=== PATIENT | female | born 1970 | race American Indian/Alaskan Native ===

== ENCOUNTER 2017-11-15 14:15 | Inpatient (IN) | payer OTHER ==
--- NOTE | 2017-11-15 15:19 | EDM.PDOC ---
ED HPI GENERAL MEDICAL PROBLEM - General Chief Complaint: Abdominal Pain Stated Complaint: ABDOMINAL PAINS Time Seen by Provider: 11/15/17 15:19 Source of Information: Reports: Patient History Limitations: Reports: No Limitations - History of Present Illness INITIAL COMMENTS - FREE TEXT/NARRATIVE: Patient is a 47-year-old female with a history of type 2 diabetes on metformin. Patient states this past Monday started experiencing chills, headache, body aches, coughing described as dry and nonproductive, and low appetite. She was seen by her primary care provider with labwork obtained indicating she had low hemoglobin. She was referred to the ED for further evaluation and treatment. Patient states she vomited 1 this morning of coffee-ground emesis. No stella red blood. No dark tarry stools present she has no history of upper GI bleed. She does have some acid reflux described as burning sensation to the epigastric region. She has no history of peptic ulcer disease. It in addition has no history of EGD or colonoscopy. She was prescribed by her PCP ibuprofen 800 mg every 8 hours when necessary to which she's been taking. In addition she's taken prednisone 10 mg every day. She is on Tessalon Perles and also amoxicillin. She does feel dizzy with standing. No history of prior symptoms. She has mild shortness of breath with exertion. There is a first degree relative heart disease dad. As of today denies any fever, sore throat, dysuria, or any additional complaints. 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: lab work at [facility] Upper Abdomen Pain Score (Numeric/FACES): 8 - Related Data Allergies Allergy/AdvReac Type Severity Reaction Status Date / Time codeine Allergy Itching Verified 11/15/17 23:29 metronidazole [From Flagyl] Allergy Itching Verified 11/15/17 23:29 Home Meds: Home Meds Amoxicillin 500 mg PO BID 11/15/17 [History] Benzonatate [Tessalon Perle] 100 mg PO Q4H PRN 11/15/17 [History] Ibuprofen [Motrin] 1,600 mg PO Q8H PRN 11/15/17 [History] Prednisone [IJD: Prednisone] 10 mg PO DAILY 11/15/17 [History] Past Medical History Gastrointestinal History: Reports: GERD Endocrine/Metabolic History: Reports: Diabetes, Type II Hematologic History: Reports: Anemia - Past Surgical History GI Surgical History: Reports: Cholecystectomy Social & Family History - Tobacco Use Smoking Status *Q: Current Every Day Smoker Years of Tobacco use: 10 Packs/Tins Daily: 0.1 - Caffeine Use Caffeine Use: Reports: Coffee, Soda - Recreational Drug Use Recreational Drug Use: No ED ROS GENERAL - Review of Systems Review Of Systems: ROS reveals no pertinent complaints other than HPI. ED EXAM, GI/ABD - Physical Exam Exam: See Below Exam Limited By: No Limitations General Appearance: Alert, WD/WN, No Apparent Distress Ears: Hearing Grossly Normal Nose: Normal Inspection Throat/Mouth: Normal Inspection, Normal Oropharynx, Normal Voice, No Airway Compromise Neck: Normal Inspection, Supple Respiratory/Chest: No Respiratory Distress, Lungs Clear, Normal Breath Sounds, Chest Non-Tender Cardiovascular: Normal Peripheral Pulses, Regular Rate, Rhythm, No Murmur GI/Abdominal Exam: Normal Bowel Sounds, Soft, No Organomegaly, No Distention, Tender (epigastric pain with palpation. Patient has no gallbladder.) Back Exam: Normal Inspection. No: CVA Tenderness (L), CVA Tenderness (R) Extremities: Normal Inspection, Normal Range of Motion, Non-Tender, No Pedal Edema Neurological: Alert, Oriented, CN II-XII Intact, Normal Cognition, No Motor/ Sensory Deficits Psychiatric: Normal Affect, Normal Mood Skin Exam: Warm, Dry, Intact, Normal Color Course - Vital Signs Last Recorded V/S: Last Vital Signs Temp 98.2 F 11/16/17 08:30 Pulse 72 11/16/17 08:30 Resp 16 11/16/17 08:30 BP 94/48 L 11/16/17 08:34 Pulse Ox 95 11/16/17 09:46 Orthostatic Blood Pressure [ 113/57 Standing] Orthostatic Blood Pressure [ 110/51 Sitting] Orthostatic Blood Pressure [ 123/59 Supine] - Orders/Labs/Meds Orders: Active Orders 24 hr Category Date Time Status Ambulate [RC] ASDIRECTED Care 11/15/17 19:06 Active EKG Documentation Completion [RC] STAT Care 11/15/17 15:37 Active Height and Weight [RC] 04 Care 11/15/17 19:06 Active Intake and Output [RC] 04,16 Care 11/15/17 19:06 Active Oxygen Therapy [RC] PRN Care 11/15/17 19:06 Active RT Aerosol Therapy [RC] ASDIRECTED Care 11/15/17 19:09 Active Up ad Elizabeth [RC] ASDIRECTED Care 11/15/17 19:06 Active VTE/DVT Education [RC] PER UNIT ROUTINE Care 11/15/17 19:06 Active Vital Signs [RC] Q4H Care 11/15/17 19:06 Active Consult to Case Management [CONS] Routine Cons 11/15/17 19:10 Active Consult to Land Leveler [CONS] Routine Cons 11/15/17 19:10 Active Regular Diet [DIET] Diet 11/15/17 Dinner Active BASIC METABOLIC PANEL,BMP [CHEM] AM Lab 11/17/17 05:11 Ordered BASIC METABOLIC PANEL,BMP [CHEM] AM Lab 11/18/17 05:11 Ordered BASIC METABOLIC PANEL,BMP [CHEM] AM Lab 11/19/17 05:11 Ordered C-REACTIVE PROTEIN [CHEM] AM Lab 11/17/17 05:11 Ordered C-REACTIVE PROTEIN [CHEM] AM Lab 11/18/17 05:11 Ordered C-REACTIVE PROTEIN [CHEM] AM Lab 11/19/17 05:11 Ordered CULTURE SPUTUM + SMEAR [RM] Stat Lab 11/16/17 03:00 Ordered INFLUENZA A+B AG SCREEN [RM] Stat Lab 11/15/17 21:45 Ordered MAGNESIUM [CHEM] AM Lab 11/17/17 05:11 Ordered MAGNESIUM [CHEM] AM Lab 11/18/17 05:11 Ordered MAGNESIUM [CHEM] AM Lab 11/19/17 05:11 Ordered RESPIRATORY PANEL BY PCR [MREF] Stat Lab 11/15/17 21:45 Received Acetaminophen [Tylenol] Med 11/15/17 19:06 Active 650 mg PO Q4H PRN Acetaminophen/HYDROcodone [[place] 325-5 MG] Med 11/15/17 19:06 Active 1 tab PO Q4H PRN Albuterol/Ipratropium [DuoNeb 3.0-0.5 MG/3 ML] Med 11/15/17 19:06 Active 3 ml NEB Q4H PRN Ascorbic Acid [Vitamin C] Med 11/16/17 09:00 Active 250 mg PO DAILY Benzonatate [Tessalon Perles] Med 11/15/17 21:00 Active 100 mg PO Q4H PRN Bisacodyl [Dulcolax] Med 11/15/17 19:06 Active 5 mg PO DAILY PRN Cyanocobalamin (Vitamin B12) [Vitamin B12] Med 11/16/17 21:00 Active 1,000 mcg PO DAILY Dextromethorphan/guaiFENesin [Robitussin DM] Med 11/15/17 19:17 Active 10 ml PO Q4H PRN Docusate Sodium [Colace] Med 11/15/17 19:06 Active 100 mg PO BID PRN Docusate Sodium/Sennosides [Senna Plus] Med 11/15/17 19:06 Active 1 tab PO BID PRN Folic Acid Med 11/15/17 21:00 Active 1 mg PO BEDTIME LORazepam [Ativan] Med 11/15/17 19:05 Active 2 mg IVPUSH Q4H PRN Magnesium Rep Pharmacy to Dose [Pharmacy to Dose - Med 11/15/17 19:15 Active Magnesium Replacement] 1 dose .XX ASDIRECTED Metoprolol Tartrate [Lopressor] Med 11/15/17 19:05 Active 5 mg IVPUSH Q4H PRN Multivitamins,Therapeutic [Thera] Med 11/15/17 21:00 Active 1 each PO BEDTIME Nicotine [Habitrol] Med 11/15/17 19:14 Active 14 mg TRDERM DAILY PRN Ondansetron [Zofran] Med 11/15/17 19:06 Active 4 mg IV Q6H PRN Polyethylene Glycol 3350 [MiraLAX] Med 11/15/17 19:06 Active 17 gm PO DAILY PRN Potassium Rep Pharmacy to Dose [Pharmacy to Dose - Med 11/15/17 19:15 Active Potassium Replacement] 1 dose .XX ASDIRECTED Promethazine [Phenergan] 12.5 mg Med 11/15/17 19:06 Active Sodium Chloride 0.9% [Normal Saline] 50 ml IV Q6H Sodium Chloride 0.9% [Normal Saline] 1,000 ml Med 11/15/17 19:15 Active IV ASDIRECTED Temazepam [Restoril] Med 11/15/17 19:06 Active 15 mg PO BEDTIME PRN Thiamine [Vitamin B-1] Med 11/15/17 21:00 Active 100 mg PO BEDTIME hydrALAZINE [Apresoline] Med 11/15/17 19:05 Active 20 mg IVPUSH Q4H PRN Sequential Compression Device [OM.PC] Per Unit Routine Oth 11/15/17 19:06 Ordered Resuscitation Status Routine Resus Stat 11/15/17 19:06 Ordered Medication Orders Acetaminophen (Tylenol) 650 mg PO Q4H PRN PRN Reason: Pain (Mild 1-3)/fever Acetaminophen/Butalbital/Caffeine (Fioricet 325-50-40 Mg) 1 tab PO Q6H PRN PRN Reason: Headache Hydrocodone Bitart/Acetaminophen ([place] 325-5 Mg) 1 tab PO Q4H PRN PRN Reason: Pain (moderate 4-6) Albuterol/Ipratropium (Duoneb 3.0-0.5 Mg/3 Ml) 3 ml NEB Q4H PRN PRN Reason: Shortness Of Breath/wheezing Last Admin: 11/16/17 09:46 Dose: 3 ml Amoxicillin (Amoxil) 1,000 mg PO BID [facility] Last Admin: 11/16/17 08:24 Dose: 1,000 mg Ascorbic Acid (Vitamin C) 250 mg PO DAILY [facility] Aspirin (Halfprin) 81 mg PO DAILY [facility] Last Admin: 11/16/17 08:24 Dose: 81 mg Benzonatate (Tessalon Perles) 100 mg PO Q4H PRN PRN Reason: COUGH Bisacodyl (Dulcolax) 5 mg PO DAILY PRN PRN Reason: Constipation Clarithromycin (Biaxin) 500 mg PO BID [facility] Cyanocobalamin (Vitamin B12) 1,000 mcg PO DAILY [facility] Dextrose/Water (Dextrose 50% In Water) 50 ml IVPUSH ASDIRECTED PRN PRN Reason: Hypoglycemia Docusate Sodium (Colace) 100 mg PO BID PRN PRN Reason: Constipation Folic Acid (Folic Acid) 1 mg PO BEDTIME [facility] Last Admin: 11/15/17 21:22 Dose: 1 mg Glipizide (Glucotrol Xl) 2.5 mg PO BID [facility] Last Admin: 11/16/17 08:24 Dose: 2.5 mg Guaifenesin/Phenylephrine HCl (Robitussin Dm) 10 ml PO Q4H PRN PRN Reason: Cough Hydralazine HCl (Apresoline) 20 mg IVPUSH Q4H PRN PRN Reason: Hypertension Promethazine HCl 12.5 mg/ (Sodium Chloride) 50.5 mls @ 100 mls/hr IV Q6H PRN PRN Reason: Nausea/Vomiting Sodium Chloride (Normal Saline) 1,000 mls @ 75 mls/hr IV ASDIRECTED [facility] Last Admin: 11/15/17 22:13 Dose: 75 mls/hr Magnesium Sulfate 2 gm/ Premix 50 mls @ 25 mls/hr IV Q2H [facility] Stop: 11/16/17 11:59 Last Admin: 11/16/17 08:26 Dose: 25 mls/hr Insulin Aspart (Novolog) 0 unit SUBCUT QIDACANDBED [facility]; Protocol Last Admin: 11/16/17 08:25 Dose: 6 units Admin: 11/15/17 22:06 Dose: 8 units Lisinopril (Prinivil) 20 mg PO DAILY [facility] Lorazepam (Ativan) 2 mg IVPUSH Q4H PRN PRN Reason: Seizures Magnesium Sulfate (Pharmacy To Dose - Magnesium Replacement) 1 dose .XX ASDIRECTED [facility] Metoprolol Tartrate (Lopressor) 5 mg IVPUSH Q4H PRN PRN Reason: Tachycardia Miscellaneous Information (Remove Patch) 1 ea TRDERM Q72H [facility] Stop: 11/18/17 21:01 Multivitamins (Thera) 1 each PO BEDTIME [facility] Last Admin: 11/15/17 21:22 Dose: 1 each Nicotine (Habitrol) 14 mg TRDERM DAILY PRN PRN Reason: Nicotine Ondansetron HCl (Zofran) 4 mg IV Q6H PRN PRN Reason: Nausea/Vomiting Last Admin: 11/15/17 22:21 Dose: 4 mg Pantoprazole Sodium (Protonix) 40 mg PO Q12HR [facility] Polyethylene Glycol (Miralax) 17 gm PO DAILY PRN PRN Reason: Constipation Polysaccharide Iron Complex (Ferrex 150) 300 mg PO DAILY [facility] Last Admin: 11/16/17 08:24 Dose: 300 mg Potassium Chloride (Pharmacy To Dose - Potassium Replacement) 1 dose .XX ASDIRECTED [facility] Saccharomyces Boulardii (Florastor) 250 mg PO BID [facility] Last Admin: 11/16/17 08:23 Dose: 250 mg Scopolamine (Transderm-Scop) 1.5 mg TRDERM Q72H [facility] Last Admin: 11/16/17 00:19 Dose: Not Given Senna/Docusate Sodium (Senna Plus) 1 tab PO BID PRN PRN Reason: Constipation Temazepam (Restoril) 15 mg PO BEDTIME PRN PRN Reason: Sleep Thiamine HCl (Vitamin B-1) 100 mg PO BEDTIME [place] Last Admin: 11/15/17 21:22 Dose: 100 mg Labs: Laboratory Tests 11/15/17 11/15/17 11/15/17 Range/Units 16:02 16:02 16:02 WBC 3.78 L (3.98-10.04) K/mm3 RBC 4.52 (3.98-5.22) M/mm3 Hgb 8.0 L (11.2-15.7) gm/L Hct 28.8 L (34.1-44.9) % MCV 63.7 L (79.4-94.8) fl MCH 17.7 L (25.6-32.2) pg MCHC 27.8 L (32.2-35.5) g/dl RDW Std Deviation 48.5 H (36.4-46.3) fL Plt Count 86 L (182-369) K/mm3 Neutrophils % (Manual) 76 H (40-60) % Band Neutrophils % 0 (0-10) % Lymphocytes % (Manual) 18 L (20-40) % Atypical Lymphs % 0 % Monocytes % (Manual) 5 (2-10) % Eosinophils % (Manual) 0 L (0.7-5.8) % Basophils % (Manual) 1 (0.1-1.2) Platelet Estimate Decreased Plt Morphology Comment Normal Polychromasia 1+ slight Hypochromasia 1+ slight Poikilocytosis 2+ moderate Anisocytosis 1+ slight Microcytosis 1+ slight Macrocytosis 1+ slight Tear Drop Cells 1+ slight Ovalocytes 1+ slight RBC Morph Comment Abnormal Percent Retic (0.50-1.70) % Sodium 133 L (136-145) mEq/L Potassium 3.4 L (3.5-5.1) mEq/L Chloride 102 (98-107) mEq/L Carbon Dioxide 22 (21-32) mEq/L Anion Gap 12.4 (5-15) BUN 10 (7-18) mg/dL Creatinine 0.8 (0.55-1.02) mg/dL Est Cr Clr Drug Dosing TNP Estimated GFR (MDRD) > 60 (>60) mL/min BUN/Creatinine Ratio 12.5 L (14-18) Glucose 356 H (74-106) mg/dL Hemoglobin A1c (4.50-6.20) % Calcium 7.9 L (8.5-10.1) mg/dL Iron (50-170) ug/dL TIBC (100-400) ug/dL % Saturation (20-55) % Transferrin (202-364) mg/dL Total Bilirubin 0.8 (0.2-1.0) mg/dL AST 51 H (15-37) U/L ALT 52 (14-59) U/L Alkaline Phosphatase 127 H (46-116) U/L Troponin I < 0.017 (0.00-0.056) ng/mL C-Reactive Protein 1.3 H* (<1.0) mg/dL Total Protein 7.9 (6.4-8.2) g/dl Albumin 2.8 L (3.4-5.0) g/dl Globulin 5.1 gm/dL Albumin/Globulin Ratio 0.6 L (1-2) Lipase 196 (73-393) U/L Free T4 (0.76-1.46) ng/dL TSH 3rd Generation (0.358-3.74) uIU/mL HCG, Qual Negative (NEGATIVE) Urine Color (Yellow) Urine Appearance (Clear) Urine pH (5.0-8.0) Ur Specific [place] (1.005-1.030) Urine Protein (Negative) Urine Glucose (UA) (Negative) Urine Ketones (Negative) Urine Occult Blood (Negative) Urine Nitrite (Negative) Urine Bilirubin (Negative) Urine Urobilinogen (0.2-1.0) Ur Leukocyte Esterase (Negative) Urine RBC (0-5) /hpf Urine WBC (0-5) /hpf Ur Epithelial Cells (0-5) /hpf Urine Bacteria (FEW) /hpf Hyaline Casts (0-5) /lpf Urine Mucus (FEW) /hpf Ur Random Microalbumin (1.3-20.0) mg/L Urine Opiates Screen (NEGATIVE) Ur Buprenorphine Scrn (NEGATIVE) Ur Oxycodone Screen (NEGATIVE) Urine Methadone Screen (NEGATIVE) Ur Propoxyphene Screen (NEGATIVE) Ur Barbiturates Screen (NEGATIVE) Ur Tricyclics Screen (NEGATIVE) Ur Phencyclidine Scrn (NEGATIVE) Ur Amphetamine Screen (NEGATIVE) U Methamphetamines Scrn (NEGATIVE) U Benzodiazepines Scrn (NEGATIVE) U Cocaine Metab Screen (NEGATIVE) U Marijuana (THC) Screen (NEGATIVE) H. pylori IgG Antibody (NEGATIVE) 11/15/17 11/15/17 11/15/17 Range/Units 16:02 16:02 16:02 WBC (3.98-10.04) K/mm3 RBC (3.98-5.22) M/mm3 Hgb (11.2-15.7) gm/L Hct (34.1-44.9) % MCV (79.4-94.8) fl MCH (25.6-32.2) pg MCHC (32.2-35.5) g/dl RDW Std Deviation (36.4-46.3) fL Plt Count (182-369) K/mm3 Neutrophils % (Manual) (40-60) % Band Neutrophils % (0-10) % Lymphocytes % (Manual) (20-40) % Atypical Lymphs % % Monocytes % (Manual) (2-10) % Eosinophils % (Manual) (0.7-5.8) % Basophils % (Manual) (0.1-1.2) Platelet Estimate Plt Morphology Comment Polychromasia Hypochromasia Poikilocytosis Anisocytosis Microcytosis Macrocytosis Tear Drop Cells Ovalocytes RBC Morph Comment Percent Retic 1.00 (0.50-1.70) % Sodium (136-145) mEq/L Potassium (3.5-5.1) mEq/L Chloride (98-107) mEq/L Carbon Dioxide (21-32) mEq/L Anion Gap (5-15) BUN (7-18) mg/dL Creatinine (0.55-1.02) mg/dL Est Cr Clr Drug Dosing Estimated GFR (MDRD) (>60) mL/min BUN/Creatinine Ratio (14-18) Glucose (74-106) mg/dL Hemoglobin A1c (4.50-6.20) % Calcium (8.5-10.1) mg/dL Iron 14 L (50-170) ug/dL TIBC 338 (100-400) ug/dL % Saturation 4 L (20-55) % Transferrin 270 (202-364) mg/dL Total Bilirubin (0.2-1.0) mg/dL AST (15-37) U/L ALT (14-59) U/L Alkaline Phosphatase (46-116) U/L Troponin I (0.00-0.056) ng/mL C-Reactive Protein (<1.0) mg/dL Total Protein (6.4-8.2) g/dl Albumin (3.4-5.0) g/dl Globulin gm/dL Albumin/Globulin Ratio (1-2) Lipase (73-393) U/L Free T4 (0.76-1.46) ng/dL TSH 3rd Generation (0.358-3.74) uIU/mL HCG, Qual (NEGATIVE) Urine Color (Yellow) Urine Appearance (Clear) Urine pH (5.0-8.0) Ur Specific [place] (1.005-1.030) Urine Protein (Negative) Urine Glucose (UA) (Negative) Urine Ketones (Negative) Urine Occult Blood (Negative) Urine Nitrite (Negative) Urine Bilirubin (Negative) Urine Urobilinogen (0.2-1.0) Ur Leukocyte Esterase (Negative) Urine RBC (0-5) /hpf Urine WBC (0-5) /hpf Ur Epithelial Cells (0-5) /hpf Urine Bacteria (FEW) /hpf Hyaline Casts (0-5) /lpf Urine Mucus (FEW) /hpf Ur Random Microalbumin (1.3-20.0) mg/L Urine Opiates Screen (NEGATIVE) Ur Buprenorphine Scrn (NEGATIVE) Ur Oxycodone Screen (NEGATIVE) Urine Methadone Screen (NEGATIVE) Ur Propoxyphene Screen (NEGATIVE) Ur Barbiturates Screen (NEGATIVE) Ur Tricyclics Screen (NEGATIVE) Ur Phencyclidine Scrn (NEGATIVE) Ur Amphetamine Screen (NEGATIVE) U Methamphetamines Scrn (NEGATIVE) U Benzodiazepines Scrn (NEGATIVE) U Cocaine Metab Screen (NEGATIVE) U Marijuana (THC) Screen (NEGATIVE) H. pylori IgG Antibody Positive H (NEGATIVE) 11/15/17 11/15/17 11/15/17 Range/Units 16:02 16:02 17:18 WBC (3.98-10.04) K/mm3 RBC (3.98-5.22) M/mm3 Hgb (11.2-15.7) gm/L Hct (34.1-44.9) % MCV (79.4-94.8) fl MCH (25.6-32.2) pg MCHC (32.2-35.5) g/dl RDW Std Deviation (36.4-46.3) fL Plt Count (182-369) K/mm3 Neutrophils % (Manual) (40-60) % Band Neutrophils % (0-10) % Lymphocytes % (Manual) (20-40) % Atypical Lymphs % % Monocytes % (Manual) (2-10) % Eosinophils % (Manual) (0.7-5.8) % Basophils % (Manual) (0.1-1.2) Platelet Estimate Plt Morphology Comment Polychromasia Hypochromasia Poikilocytosis Anisocytosis Microcytosis Macrocytosis Tear Drop Cells Ovalocytes RBC Morph Comment Percent Retic (0.50-1.70) % Sodium (136-145) mEq/L Potassium (3.5-5.1) mEq/L Chloride (98-107) mEq/L Carbon Dioxide (21-32) mEq/L Anion Gap (5-15) BUN (7-18) mg/dL Creatinine (0.55-1.02) mg/dL Est Cr Clr Drug Dosing Estimated GFR (MDRD) (>60) mL/min BUN/Creatinine Ratio (14-18) Glucose (74-106) mg/dL Hemoglobin A1c 12.50 H (4.50-6.20) % Calcium (8.5-10.1) mg/dL Iron (50-170) ug/dL TIBC (100-400) ug/dL % Saturation (20-55) % Transferrin (202-364) mg/dL Total Bilirubin (0.2-1.0) mg/dL AST (15-37) U/L ALT (14-59) U/L Alkaline Phosphatase (46-116) U/L Troponin I (0.00-0.056) ng/mL C-Reactive Protein (<1.0) mg/dL Total Protein (6.4-8.2) g/dl Albumin (3.4-5.0) g/dl Globulin gm/dL Albumin/Globulin Ratio (1-2) Lipase (73-393) U/L Free T4 1.56 H (0.76-1.46) ng/dL TSH 3rd Generation 1.004 (0.358-3.74) uIU/mL HCG, Qual (NEGATIVE) Urine Color Yellow (Yellow) Urine Appearance Slt cloudy H (Clear) Urine pH 6.0 (5.0-8.0) Ur Specific [place] 1.025 (1.005-1.030) Urine Protein 1+ H (Negative) Urine Glucose (UA) 2+ H (Negative) Urine Ketones 1+ H (Negative) Urine Occult Blood Negative (Negative) Urine Nitrite Negative (Negative) Urine Bilirubin Negative (Negative) Urine Urobilinogen 1.0 (0.2-1.0) Ur Leukocyte Esterase Negative (Negative) Urine RBC 0-5 (0-5) /hpf Urine WBC 0-5 (0-5) /hpf Ur Epithelial Cells 10-20 H (0-5) /hpf Urine Bacteria Few (FEW) /hpf Hyaline Casts 0-5 (0-5) /lpf Urine Mucus Moderate H (FEW) /hpf Ur Random Microalbumin (1.3-20.0) mg/L Urine Opiates Screen (NEGATIVE) Ur Buprenorphine Scrn (NEGATIVE) Ur Oxycodone Screen (NEGATIVE) Urine Methadone Screen (NEGATIVE) Ur Propoxyphene Screen (NEGATIVE) Ur Barbiturates Screen (NEGATIVE) Ur Tricyclics Screen (NEGATIVE) Ur Phencyclidine Scrn (NEGATIVE) Ur Amphetamine Screen (NEGATIVE) U Methamphetamines Scrn (NEGATIVE) U Benzodiazepines Scrn (NEGATIVE) U Cocaine Metab Screen (NEGATIVE) U Marijuana (THC) Screen (NEGATIVE) H. pylori IgG Antibody (NEGATIVE) 11/15/17 11/15/17 Range/Units 17:18 17:18 WBC (3.98-10.04) K/mm3 RBC (3.98-5.22) M/mm3 Hgb (11.2-15.7) gm/L Hct (34.1-44.9) % MCV (79.4-94.8) fl MCH (25.6-32.2) pg MCHC (32.2-35.5) g/dl RDW Std Deviation (36.4-46.3) fL Plt Count (182-369) K/mm3 Neutrophils % (Manual) (40-60) % Band Neutrophils % (0-10) % Lymphocytes % (Manual) (20-40) % Atypical Lymphs % % Monocytes % (Manual) (2-10) % Eosinophils % (Manual) (0.7-5.8) % Basophils % (Manual) (0.1-1.2) Platelet Estimate Plt Morphology Comment Polychromasia Hypochromasia Poikilocytosis Anisocytosis Microcytosis Macrocytosis Tear Drop Cells Ovalocytes RBC Morph Comment Percent Retic (0.50-1.70) % Sodium (136-145) mEq/L Potassium (3.5-5.1) mEq/L Chloride (98-107) mEq/L Carbon Dioxide (21-32) mEq/L Anion Gap (5-15) BUN (7-18) mg/dL Creatinine (0.55-1.02) mg/dL Est Cr Clr Drug Dosing Estimated GFR (MDRD) (>60) mL/min BUN/Creatinine Ratio (14-18) Glucose (74-106) mg/dL Hemoglobin A1c (4.50-6.20) % Calcium (8.5-10.1) mg/dL Iron (50-170) ug/dL TIBC (100-400) ug/dL % Saturation (20-55) % Transferrin (202-364) mg/dL Total Bilirubin (0.2-1.0) mg/dL AST (15-37) U/L ALT (14-59) U/L Alkaline Phosphatase (46-116) U/L Troponin I (0.00-0.056) ng/mL C-Reactive Protein (<1.0) mg/dL Total Protein (6.4-8.2) g/dl Albumin (3.4-5.0) g/dl Globulin gm/dL Albumin/Globulin Ratio (1-2) Lipase (73-393) U/L Free T4 (0.76-1.46) ng/dL TSH 3rd Generation (0.358-3.74) uIU/mL HCG, Qual (NEGATIVE) Urine Color (Yellow) Urine Appearance (Clear) Urine pH (5.0-8.0) Ur Specific [place] (1.005-1.030) Urine Protein (Negative) Urine Glucose (UA) (Negative) Urine Ketones (Negative) Urine Occult Blood (Negative) Urine Nitrite (Negative) Urine Bilirubin (Negative) Urine Urobilinogen (0.2-1.0) Ur Leukocyte Esterase (Negative) Urine RBC (0-5) /hpf Urine WBC (0-5) /hpf Ur Epithelial Cells (0-5) /hpf Urine Bacteria (FEW) /hpf Hyaline Casts (0-5) /lpf Urine Mucus (FEW) /hpf Ur Random Microalbumin 42.7 H (1.3-20.0) mg/L Urine Opiates Screen Negative (NEGATIVE) Ur Buprenorphine Scrn Negative (NEGATIVE) Ur Oxycodone Screen Negative (NEGATIVE) Urine Methadone Screen Negative (NEGATIVE) Ur Propoxyphene Screen Negative (NEGATIVE) Ur Barbiturates Screen Negative (NEGATIVE) Ur Tricyclics Screen Negative (NEGATIVE) Ur Phencyclidine Scrn Negative (NEGATIVE) Ur Amphetamine Screen Negative (NEGATIVE) U Methamphetamines Scrn Negative (NEGATIVE) U Benzodiazepines Scrn Negative (NEGATIVE) U Cocaine Metab Screen Negative (NEGATIVE) U Marijuana (THC) Screen Negative (NEGATIVE) H. pylori IgG Antibody (NEGATIVE) Meds: Medications Generic Name Dose Route Start Last Admin Trade Name Freq PRN Reason Stop Dose Admin Acetaminophen 650 mg 11/15/17 19:06 Tylenol PO Q4H PRN Pain (Mild 1-3)/fever Acetaminophen/Butalbital/Caffeine 1 tab 11/16/17 08:02 Fioricet 325-50-40 Mg PO Q6H PRN Headache Hydrocodone Bitart/Acetaminophen 1 tab 11/15/17 19:06 [place] 325-5 Mg PO Q4H PRN Pain (moderate 4-6) Albuterol/Ipratropium 3 ml 11/15/17 19:06 11/16/17 09:46 Duoneb 3.0-0.5 Mg/3 Ml NEB 3 ml Q4H PRN Administration Shortness Of Breath/wheezing Amoxicillin 1,000 mg 11/16/17 09:00 11/16/17 08:24 Amoxil PO 1,000 mg BID [place] Administration Ascorbic Acid 250 mg 11/16/17 09:00 Vitamin C PO DAILY [place] Aspirin 81 mg 11/16/17 09:00 11/16/17 08:24 Halfprin PO 81 mg DAILY [place] Administration Benzonatate 100 mg 11/15/17 21:00 Tessalon Perles PO Q4H PRN COUGH Bisacodyl 5 mg 11/15/17 19:06 Dulcolax PO DAILY PRN Constipation Clarithromycin 500 mg 11/16/17 21:00 Biaxin PO BID [place] Cyanocobalamin 1,000 mcg 11/16/17 21:00 Vitamin B12 PO DAILY [place] Dextrose/Water 50 ml 11/15/17 19:29 Dextrose 50% In Water IVPUSH ASDIRECTED PRN Hypoglycemia Docusate Sodium 100 mg 11/15/17 19:06 Colace PO BID PRN Constipation Folic Acid 1 mg 11/15/17 21:00 11/15/17 21:22 Folic Acid PO 1 mg BEDTIME [place] Administration Glipizide 2.5 mg 11/16/17 09:00 11/16/17 08:24 Glucotrol Xl PO 2.5 mg BID [place] Administration Guaifenesin/Phenylephrine HCl 10 ml 11/15/17 19:17 Robitussin Dm PO Q4H PRN Cough Hydralazine HCl 20 mg 11/15/17 19:05 Apresoline IVPUSH Q4H PRN Hypertension Promethazine HCl 12.5 mg/ 50.5 mls @ 100 mls/hr 11/15/17 19:06 Sodium Chloride IV Q6H PRN Nausea/Vomiting Sodium Chloride 1,000 mls @ 75 mls/hr 11/15/17 19:15 11/15/17 22:13 Normal Saline IV 75 mls/hr ASDIRECTED [place] Administration Magnesium Sulfate 2 gm/ Premix 50 mls @ 25 mls/hr 11/16/17 08:00 11/16/17 08: 26 IV 11/16/17 11:59 25 mls/hr Q2H [place] Administration Insulin Aspart 0 unit 11/15/17 22:00 11/16/17 08:25 Novolog SUBCUT 6 units QIDACANDBED [place] Administration Protocol Lisinopril 20 mg 11/16/17 09:00 Prinivil PO DAILY [place] Lorazepam 2 mg 11/15/17 19:05 Ativan IVPUSH Q4H PRN Seizures Magnesium Sulfate 1 dose 11/15/17 19:15 Pharmacy To Dose - Magnesium Replacement .XX ASDIRECTED [facility] Metoprolol Tartrate 5 mg 11/15/17 19:05 Lopressor IVPUSH Q4H PRN Tachycardia Miscellaneous Information 1 ea 11/18/17 21:00 Remove Patch TRDERM 11/18/17 21:01 Q72H [facility] Multivitamins 1 each 11/15/17 21:00 11/15/17 21:22 Thera PO 1 each BEDTIME [place] Administration Nicotine 14 mg 11/15/17 19:14 Habitrol TRDERM DAILY PRN Nicotine Ondansetron HCl 4 mg 11/15/17 19:06 11/15/17 22:21 Zofran IV 4 mg Q6H PRN Administration Nausea/Vomiting Pantoprazole Sodium 40 mg 11/16/17 10:19 Protonix PO Q12HR [place] Polyethylene Glycol 17 gm 11/15/17 19:06 Miralax PO DAILY PRN Constipation Polysaccharide Iron Complex 300 mg 11/15/17 09:00 11/16/17 08:24 Ferrex 150 PO 300 mg DAILY [place] Administration Potassium Chloride 1 dose 11/15/17 19:15 Pharmacy To Dose - Potassium Replacement .XX ASDIRECTED [place] Saccharomyces Boulardii 250 mg 11/16/17 09:00 11/16/17 08:23 Florastor PO 250 mg BID [place] Administration Scopolamine 1.5 mg 11/15/17 21:00 11/16/17 00:19 Transderm-Scop TRDERM Not Given Q72H [place] Senna/Docusate Sodium 1 tab 11/15/17 19:06 Senna Plus PO BID PRN Constipation Temazepam 15 mg 11/15/17 19:06 Restoril PO BEDTIME PRN Sleep Thiamine HCl 100 mg 11/15/17 21:00 11/15/17 21:22 Vitamin B-1 PO 100 mg BEDTIME [place] Administration Discontinued Medications Generic Name Dose Route Start Last Admin Trade Name Freq PRN Reason Stop Dose Admin Albuterol 15 gm 11/15/17 21:00 11/16/17 09:09 Proventil Hfa INH Not Given BID [place] Amoxicillin 1,000 mg 11/15/17 22:45 11/16/17 00:20 Amoxil PO 11/15/17 22:46 Not Given ONETIME ONE Clarithromycin 500 mg 11/16/17 07:00 11/16/17 08:23 Biaxin PO 500 mg TID [place] Administration Clarithromycin 500 mg 11/15/17 21:11 11/15/17 22:04 Biaxin PO 11/15/17 21:12 500 mg NOW STA Administration Al Hydroxide/Mg Hydroxide 30 0 ml 11/15/17 15:34 11/15/17 16:03 ml/ Lidocaine HCl 15 ml PO 11/15/17 15:35 45 ml ONETIME ONE Administration Famotidine 20 mg 11/15/17 19:16 11/15/17 21:13 Pepcid IVPUSH 11/15/17 19:17 20 mg ONETIME ONE Administration Pantoprazole Sodium 80 mg/ 100 mls @ 10 mls/hr 11/15/17 15:45 Sodium Chloride IV Q10H [place] 8 MG/HR Sodium Chloride 1,000 mls @ 999 mls/hr 11/15/17 15:34 11/15/17 16:02 Normal Saline IV 11/15/17 16:34 250 mls/hr ONETIME ONE Administration Sodium Chloride 1,000 mls @ 999 mls/hr 11/15/17 17:35 11/15/17 21:18 Normal Saline IV 11/15/17 18:35 999 mls/hr ONETIME ONE Administration Pantoprazole Sodium 80 mg 11/15/17 15:42 11/15/17 16:03 Protonix Iv IVPUSH 11/15/17 15:43 80 mg .BOLUS ONE Administration Pantoprazole Sodium 40 mg 11/15/17 21:00 11/16/17 08:24 Protonix Iv IV 40 mg Q12HR [place] Administration Potassium Chloride 40 meq 11/15/17 20:00 11/16/17 00:19 Klor-Con M20 PO 11/16/17 00:01 40 meq Q4H [place] Administration Scopolamine 1.5 mg 11/15/17 19:14 11/15/17 22:10 Transderm-Scop TRDERM 11/18/17 19:15 Not Given Q72H [place] - Re-Assessments/Exams Free Text/Narrative Re-Assessment/Exam: Patient was in the E.D. 1 hr prior to evaluation. Patient's labs on evaluation today indicated White blood cell count of 3.6, hemoglobin 7.8, hematocrit 26, MCV 60.3, platelet count 63, sodium 134, potassium 3.6, creatinine 0.55, AST 60 , ALT 39, BUN 4.4, glucose 295. IV established with an NS 250 mL per hour, Protonix 8 milligrams per hour drip, and GI cocktail by mouth. Stool hemoccult test was negative. D/C protonix gtt gave 80mgIVP. Labs and studies ordered include: CBC, chem 14, CRP, lipase, troponin, UA, hCG, abdominal series with chest, orthostatic vitals, and EKG. EKG: Sinus rhythm at a rate of 69 with decreased voltage limb leads. QT is moderately prolonged. No acute ST changes. Chest x-ray reviewed: No acute findings noted. Final interpretation is pending. Abdominal x-rays reviewed: Nonspecific air in stool pattern with no concerning findings. Final interpretation is pending. Orthostatic vitals were essentially negative. Patient did complain of some mild dizziness. There is no change with heart rate with sitting, standing, and supine suggesting orthostasis. Labs reviewed: White blood cell count 3.78, hemoglobin 8.0, MCV 63.7, platelet count 86, sodium 133, potassium 3.4, glucose 356, AST 51, alk phosphatase 127, troponin less than 0.017, CRP 1.3, and lipase 186. HCG was negative. UA has not been obtained. UA slightly cloudy, protein one plus, glucose 2+, ketones 1+, urine epithelial cells 10-20, urine mucus moderate. Discussed patient with Dr. Lorenzo. Suggest hydration here in the ED 1 more liter of fluid. Follow-up with PCP tomorrow morning for repeat blood work and iron studies. I did discuss this with the patient. She states there is no local provider tomorrow. She does admit to heavy menstrual cycles. I did instruct the patient that if she does get admitted it would be most likely observation and she may have to cover the cost of the hospital stay. Patient agrees with this and understands. She requests admission. I did speak with Dr. Lorenzo and he has agreed to admit the patient. MCG would have to be completed first. Patient meets observation status. Departure - Departure Time of Disposition: 18:17 Disposition: Refer to Observation Condition: Good Clinical Impression: Upper GI bleed Anemia Qualifiers: Anemia type: unspecified type Qualified Code(s): D64.9 - Anemia, unspecified - Discharge Information - My Orders Last 24 Hours: My Active Orders 11/15/17 15:37 EKG Documentation Completion [RC] STAT - Assessment/Plan Last 24 Hours: My Active Orders 11/15/17 15:37 EKG Documentation Completion [RC] STAT
[2017-11-15] MEDS ORDERED: Alum Hydrox/Mag Hydrox/Simeth 30 ML, Lidocaine 2% 15 ML PO ONE ×2 (15:34)
[2017-11-15] MEDS ORDERED: Sodium Chloride 0.9% 1,000 ML IV ONE ×2 (15:34→17:35)
[2017-11-15] MEDS ORDERED: Pantoprazole 40 MG Vial IVPUSH ONE (15:42)
[2017-11-15] MEDS ORDERED: Pantoprazole 80 MG in Sodium Chloride 0.9% 100 ML IV SCH (15:45)
--- NOTE | 2017-11-15 16:51 | CR ---
Abdominal series: Supine and upright views of the abdomen were obtained as well as frontal view of the chest. Comparison: No previous study. Nodules are identified within the left base most likely representing granulomas. Lungs otherwise are clear. Heart size and mediastinum are normal. Several old left-sided rib fractures are noted. Surgical clips are seen from prior cholecystectomy. Calcification within the left pelvis is compatible with phlebolith. No soft tissue abnormality or free air is seen. Impression: 1. Incidental findings. Nothing acute is seen on abdominal series. Diagnostic code #2
[2017-11-15] MEDS ORDERED: hydrALAZINE 20 MG/ML SDV IVPUSH PRN (19:05)
[2017-11-15] MEDS ORDERED: LORazepam 2 MG/ML SDV IVPUSH PRN (19:05)
[2017-11-15] MEDS ORDERED: Metoprolol Tartrate 5 MG/5 ML SDV IVPUSH PRN (19:05)
[2017-11-15] MEDS ORDERED: Bisacodyl 5 MG Tab PO PRN (19:06)
[2017-11-15] MEDS ORDERED: Temazepam 15 MG Cap PO PRN (19:06)
[2017-11-15] MEDS ORDERED: Polyethylene Glycol 3350 Powder 17 GM Packet PO PRN (19:06)
[2017-11-15] MEDS ORDERED: Docusate Sodium 100 MG Cap PO PRN (19:06)
[2017-11-15] MEDS ORDERED: Acetaminophen 325 MG Tab PO PRN (19:06)
[2017-11-15] MEDS ORDERED: Albuterol/Ipratropium 3.0-0.5 MG/3 ML Neb Soln NEB PRN (19:06)
[2017-11-15] MEDS ORDERED: Promethazine 12.5 MG in Sodium Chloride 0.9% 50 ML IV PRN (19:06)
[2017-11-15] MEDS ORDERED: Ondansetron 4 MG/2 ML SDV IV PRN (19:06)
[2017-11-15] MEDS ORDERED: Acetaminophen/HYDROcodone 325-5 MG Tab PO PRN (19:06)
[2017-11-15] MEDS ORDERED: Nicotine 14 MG/24 Hr Patch TRDERM PRN (19:14)
[2017-11-15] MEDS ORDERED: Scopolamine 1.5 MG Transdermal Patch TRDERM SCH ×2 (19:14→21:00)
[2017-11-15] MEDS ORDERED: Famotidine 20 MG/2 ML SDV IVPUSH ONE (19:16)
[2017-11-15] MEDS ORDERED: guaiFENesin/Dextromethorphan 100-10 MG/5 ML Soln 5 ML Cup PO PRN (19:17)
[2017-11-15] MEDS ORDERED: 50% Dextrose in Water 50 ML Syringe IVPUSH PRN (19:29)
--- NOTE | 2017-11-15 19:29 | PCM.HP ---
H&P History of Present Illness - General Date of Service: 11/15/17 Admit Problem/Dx: Admission Diagnosis/Problem Admission Diagnosis/Problem Anemia Source of Information: Patient, Family, Provider, RN Notes Reviewed History Limitations: Reports: No Limitations - History of Present Illness Initial Comments - Free Text/Narative: This is a 47 yo female with past medical hx/o DM2 who comes in with multiple complaints of chills, headache, body aches, nausea and coffee- ground emesis, nonproductive cough, mild shortness of breath, dizziness and low appetite that started this past Monday. She reports no history of upper GI bleed or peptic ulcers disease. However she has a history of GERD on PPI. She reports no history of endoscopic procedures in the past. No history of gastric or intestinal surgery. No sick contact and no ingestion of unusual food or drinks. She was initially seen at her primary care's office and was found she was low in hemoglobin. She was immediately referred to the emergency department for further evaluation and treatment. Patient is currently on amoxicillin, ibuprofen , Tessalon Perles, and oral prednisone along with metformin for routine home medications Her initial workup in emergency department shows a CBC remarkable for WBC of 2.78, hemoglobin of 8, hematocrit of 28.8, MCV was 63.7, MCH of 17.7, MCHC of 27.8, RDW of 48.5, platelet counts of 86, neutrophils of 78%, and lymphocytes of 18%. Her chemistry is remarkable for sodium of 133, potassium of 2.4, glucose of 256, calcium of 7.9, AST of 51, alkaline phosphatase of 107, CRP of 1.3, and albumin of 2.8. Her troponin lipase and screening were all within normal limits. Her UA is negative for UTI. Her chest and abdominal x-ray show no acute abnormal findings. Patient is being admitted for multiple symptoms but primarily for Acute Anemia and GERD with H. Pylori Infection. She is full code. Upper Abdomen Pain Score (Numeric/FACES): 8 - Related Data Allergies/Adverse Reactions: Allergies Allergy/AdvReac Type Severity Reaction Status Date / Time codeine Allergy Itching Verified 11/15/17 23:29 metronidazole [From Flagyl] Allergy Itching Verified 11/15/17 23:29 Home Medications: Home Meds Benzonatate [Tessalon Perle] 100 mg PO Q4H PRN 11/15/17 [History] Albuterol/Ipratropium [Combivent Respimat] 4 gm IH Q4H PRN #1 aer.w.adap [Rx] Amoxicillin 5,000 mg PO ASDIRECTED #24 tab 11/16/17 [Rx] Ascorbic Acid [Vitamin C] 250 mg PO DAILY #60 tablet 11/16/17 [Rx] Aspirin [Halfprin] 81 mg PO DAILY #30 tab.ec 11/16/17 [Rx] Clarithromycin [Biaxin] 500 mg PO BID #24 tablet 11/16/17 [Rx] Cyanocobalamin (Vitamin B12) [Vitamin B12] 1,000 mcg PO ASDIRECTED #30 tablet [Rx] Empagliflozin [Jardiance] 25 mg PO DAILY #30 tablet 11/16/17 [Rx] Fluticasone/Salmeterol [Advair HFA 230-21 MCG] 1 puff INH BID #1 inhaler [Rx] Folic Acid 1 mg PO BEDTIME #10 tablet 11/16/17 [Rx] Iron Polysaccharides Complex [Ferrex 150] 300 mg PO BID #120 cap 11/16/17 [Rx] Liraglutide [Victoza 2-Po] 0.6 mg SQ ASDIRECTED #1 ml 11/16/17 [Rx] Lisinopril [Prinivil] 20 mg PO DAILY #30 tablet 11/16/17 [Rx] Lorcaserin HCl [Belviq] 10 mg PO DAILY #30 tablet 11/16/17 [Rx] Nicotine [Habitrol] 14 mg TRDERM DAILY PRN #30 patch 11/16/17 [Rx] Omeprazole 20 mg PO BIDAC #60 cap.sr 11/16/17 [Rx] Saccharomyces Boulardii [Florastor] 250 mg PO BID #20 cap 11/16/17 [Rx] Simvastatin [Zocor] 20 mg PO BEDTIME #30 tablet 11/16/17 [Rx] Thiamine [Vitamin B-1] 100 mg PO BEDTIME #10 tablet 11/16/17 [Rx] Past Medical History Gastrointestinal History: Reports: GERD Endocrine/Metabolic History: Reports: Diabetes, Type II Hematologic History: Reports: Anemia - Past Surgical History GI Surgical History: Reports: Cholecystectomy Social & Family History - Tobacco Use Smoking Status *Q: Current Every Day Smoker Years of Tobacco use: 10 Packs/Tins Daily: 0.1 - Caffeine Use Caffeine Use: Reports: Coffee, Soda - Recreational Drug Use Recreational Drug Use: No H&P Review of Systems - Review of Systems: Review Of Systems: See Below General: Reports: Chills, Malaise, Weakness, Decreased Appetite. Denies: Fever HEENT: Denies: Dysphasia, Rhinitis, Post Nasal Drip, Sinus Congestion, Sore Throat Pulmonary: Reports: Cough. Denies: Shortness of Breath, Wheezing, Pleuritic Chest Pain, Sputum, Hemoptysis Gastrointestinal: Reports: Decreased Appetite, Nausea, Vomiting. Denies: Abdominal Pain Genitourinary: Reports: No Symptoms Musculoskeletal: Reports: Other (bochy aches) Skin: Denies: No Symptoms, Cyanosis, Jaundice, Mottled, Pallor, Diaphoresis, Erythema Psychiatric: Denies: Depression, Anxiety, Agitation, Hallucinations, Suicidal Ideation Neurological: Reports: Dizziness, Weakness. Denies: Confusion, Numbness, Pre- Existing Deficit, Syncope, Tingling, Tremors, Trouble Speaking, Difficulty Walking, Change in Speech, Gait Disturbance Hematologic/Lymphatic: Reports: No Symptoms Immunologic: Reports: No Symptoms Exam - Exam Exam: See Below - Vital Signs Vital Signs: Last Vital Signs Temp 36.9 C 11/15/17 14:56 Pulse 65 11/15/17 14:56 Resp 20 11/15/17 14:56 BP 118/55 L 11/15/17 14:56 Pulse Ox 100 11/15/17 14:56 Orthostatic Blood Pressure [ 113/57 Standing] Orthostatic Blood Pressure [ 110/51 Sitting] Orthostatic Blood Pressure [ 123/59 Supine] Weight: 127.006 kg - Exam General: Alert, Oriented, Cooperative, Mild Distress, Other (Morbidly Obese) HEENT: Conjunctiva Clear, EACs Clear, EOMI, Hearing Intact, Mucosa Moist & [place] , Nares Patent, Normal Nasal Septum, Posterior Pharynx Clear, Pupils Equal, Pupils Reactive Neck: Supple, Trachea Midline, +2 Carotid Pulse wo Bruit Lungs: Clear to Auscultation, Normal Respiratory Effort Cardiovascular: Regular Rate, Regular Rhythm GI/Abdominal Exam: Normal Bowel Sounds, Soft, No Organomegaly, No Distention, No Abnormal Bruit, No Mass, Tender (epigastric). No: Distended, Guarding, Rigid , Rebound (Female) Exam: Deferred Rectal (Female) Exam: Deferred Back Exam: Normal Inspection, Decreased Range of Motion Extremities: Normal Inspection, Normal Range of Motion, Non-Tender, No Pedal Edema, Normal Capillary Refill Peripheral Pulses: 3+: Posterior Tibial (L), Posterior Tibial (R), Dorsalis Pedis (L), Dorsalis Pedis (R) Skin: Warm, Dry, Intact Neuro Extensive - Mental Status: Oriented x3, Normal Cognition, Memory Intact Neuro Extensive - Motor, Sensory, Reflexes: CN II-XII Intact, Normal Gait Psychiatric: Alert, Normal Affect, Normal Mood - Patient Data Lab Results Last 24 hrs: Laboratory Results - last 24 hr 11/15/17 11/15/17 11/15/17 Range/Units 16:02 16:02 16:02 WBC 3.78 L (3.98-10.04) K/mm3 RBC 4.52 (3.98-5.22) M/mm3 Hgb 8.0 L (11.2-15.7) gm/L Hct 28.8 L (34.1-44.9) % MCV 63.7 L (79.4-94.8) fl MCH 17.7 L (25.6-32.2) pg MCHC 27.8 L (32.2-35.5) g/dl RDW Std Deviation 48.5 H (36.4-46.3) fL Plt Count 86 L (182-369) K/mm3 Neutrophils % (Manual) 76 H (40-60) % Band Neutrophils % 0 (0-10) % Lymphocytes % (Manual) 18 L (20-40) % Atypical Lymphs % 0 % Monocytes % (Manual) 5 (2-10) % Eosinophils % (Manual) 0 L (0.7-5.8) % Basophils % (Manual) 1 (0.1-1.2) Platelet Estimate Decreased Plt Morphology Comment Normal Polychromasia 1+ slight Hypochromasia 1+ slight Poikilocytosis 2+ moderate Anisocytosis 1+ slight Microcytosis 1+ slight Macrocytosis 1+ slight Tear Drop Cells 1+ slight Ovalocytes 1+ slight RBC Morph Comment Abnormal Sodium 133 L (136-145) mEq/L Potassium 3.4 L (3.5-5.1) mEq/L Chloride 102 (98-107) mEq/L Carbon Dioxide 22 (21-32) mEq/L Anion Gap 12.4 (5-15) BUN 10 (7-18) mg/dL Creatinine 0.8 (0.55-1.02) mg/dL Est Cr Clr Drug Dosing TNP Estimated GFR (MDRD) > 60 (>60) mL/min BUN/Creatinine Ratio 12.5 L (14-18) Glucose 356 H (74-106) mg/dL Calcium 7.9 L (8.5-10.1) mg/dL Total Bilirubin 0.8 (0.2-1.0) mg/dL AST 51 H (15-37) U/L ALT 52 (14-59) U/L Alkaline Phosphatase 127 H (46-116) U/L Troponin I < 0.017 (0.00-0.056) ng/mL C-Reactive Protein 1.3 H* (<1.0) mg/dL Total Protein 7.9 (6.4-8.2) g/dl Albumin 2.8 L (3.4-5.0) g/dl Globulin 5.1 gm/dL Albumin/Globulin Ratio 0.6 L (1-2) Lipase 196 (73-393) U/L HCG, Qual Negative (NEGATIVE) Urine Color (Yellow) Urine Appearance (Clear) Urine pH (5.0-8.0) Ur Specific [place] (1.005-1.030) Urine Protein (Negative) Urine Glucose (UA) (Negative) Urine Ketones (Negative) Urine Occult Blood (Negative) Urine Nitrite (Negative) Urine Bilirubin (Negative) Urine Urobilinogen (0.2-1.0) Ur Leukocyte Esterase (Negative) Urine RBC (0-5) /hpf Urine WBC (0-5) /hpf Ur Epithelial Cells (0-5) /hpf Urine Bacteria (FEW) /hpf Hyaline Casts (0-5) /lpf Urine Mucus (FEW) /hpf 11/15/17 Range/Units 17:18 WBC (3.98-10.04) K/mm3 RBC (3.98-5.22) M/mm3 Hgb (11.2-15.7) gm/L Hct (34.1-44.9) % MCV (79.4-94.8) fl MCH (25.6-32.2) pg MCHC (32.2-35.5) g/dl RDW Std Deviation (36.4-46.3) fL Plt Count (182-369) K/mm3 Neutrophils % (Manual) (40-60) % Band Neutrophils % (0-10) % Lymphocytes % (Manual) (20-40) % Atypical Lymphs % % Monocytes % (Manual) (2-10) % Eosinophils % (Manual) (0.7-5.8) % Basophils % (Manual) (0.1-1.2) Platelet Estimate Plt Morphology Comment Polychromasia Hypochromasia Poikilocytosis Anisocytosis Microcytosis Macrocytosis Tear Drop Cells Ovalocytes RBC Morph Comment Sodium (136-145) mEq/L Potassium (3.5-5.1) mEq/L Chloride (98-107) mEq/L Carbon Dioxide (21-32) mEq/L Anion Gap (5-15) BUN (7-18) mg/dL Creatinine (0.55-1.02) mg/dL Est Cr Clr Drug Dosing Estimated GFR (MDRD) (>60) mL/min BUN/Creatinine Ratio (14-18) Glucose (74-106) mg/dL Calcium (8.5-10.1) mg/dL Total Bilirubin (0.2-1.0) mg/dL AST (15-37) U/L ALT (14-59) U/L Alkaline Phosphatase (46-116) U/L Troponin I (0.00-0.056) ng/mL C-Reactive Protein (<1.0) mg/dL Total Protein (6.4-8.2) g/dl Albumin (3.4-5.0) g/dl Globulin gm/dL Albumin/Globulin Ratio (1-2) Lipase (73-393) U/L HCG, Qual (NEGATIVE) Urine Color Yellow (Yellow) Urine Appearance Slt cloudy H (Clear) Urine pH 6.0 (5.0-8.0) Ur Specific [place] 1.025 (1.005-1.030) Urine Protein 1+ H (Negative) Urine Glucose (UA) 2+ H (Negative) Urine Ketones 1+ H (Negative) Urine Occult Blood Negative (Negative) Urine Nitrite Negative (Negative) Urine Bilirubin Negative (Negative) Urine Urobilinogen 1.0 (0.2-1.0) Ur Leukocyte Esterase Negative (Negative) Urine RBC 0-5 (0-5) /hpf Urine WBC 0-5 (0-5) /hpf Ur Epithelial Cells 10-20 H (0-5) /hpf Urine Bacteria Few (FEW) /hpf Hyaline Casts 0-5 (0-5) /lpf Urine Mucus Moderate H (FEW) /hpf Result Diagrams: 11/16/17 05:55 11/16/17 05:55 Problem List Initiated/Reviewed/Updated: Yes Orders Last 24hrs: Active Orders 24 hr Category Date Time Status Admission Status [Patient Status] [ADT] Routine ADT 11/15/17 19:23 Active Ambulate [RC] ASDIRECTED Care 11/15/17 19:06 Ordered Cardiac Monitoring [RC] . DIRECTED Care 11/15/17 19:23 Active Cardiac Monitoring [RC] . DIRECTED Care 11/15/17 19:25 Active Cardiac Monitoring [RC] . DIRECTED Care 11/15/17 19:26 Active EKG Documentation Completion [RC] STAT Care 11/15/17 15:37 Active Height and Weight [RC] DAILY Care 11/15/17 19:06 Ordered Incentive Spirometry [RT Incentive Spirometry] [RC] Care 11/15/17 19:24 Ordered ASDIRECTED Intake and Output [RC] QSHIFT Care 11/15/17 19:06 Ordered Orthostatic Vital Signs [RC] ASDIRECTED Care 11/15/17 15:37 Active Oxygen Therapy [RC] PRN Care 11/15/17 19:06 Ordered RT Aerosol Therapy [RC] ASDIRECTED Care 11/15/17 19:09 Ordered RT Post Treatment Assessment [RC] Click to Edit Care 11/15/17 19:26 Ordered RT Pre-Treatment Assessment [RC] Click to Edit Care 11/15/17 19:26 Ordered Up ad Elizabeth [RC] ASDIRECTED Care 11/15/17 19:06 Ordered VTE/DVT Education [RC] PER UNIT ROUTINE Care 11/15/17 19:06 Ordered Vital Signs [RC] Q4H Care 11/15/17 19:06 Ordered Consult to Case Management [CONS] Routine Cons 11/15/17 19:10 Ordered Consult to Manager Pacu [CONS] Routine Cons 11/15/17 19:10 Ordered Regular Diet [DIET] Diet 11/15/17 Dinner Ordered BASIC METABOLIC PANEL,BMP [CHEM] AM Lab 11/16/17 05:11 Ordered BASIC METABOLIC PANEL,BMP [CHEM] AM Lab 11/17/17 05:11 Ordered BASIC METABOLIC PANEL,BMP [CHEM] AM Lab 11/18/17 05:11 Ordered BASIC METABOLIC PANEL,BMP [CHEM] AM Lab 11/19/17 05:11 Ordered C-REACTIVE PROTEIN [CHEM] AM Lab 11/16/17 05:11 Ordered C-REACTIVE PROTEIN [CHEM] AM Lab 11/17/17 05:11 Ordered C-REACTIVE PROTEIN [CHEM] AM Lab 11/18/17 05:11 Ordered C-REACTIVE PROTEIN [CHEM] AM Lab 11/19/17 05:11 Ordered CBC WITH MANUAL DIFF [HEME] AM Lab 11/16/17 05:11 Ordered CBC WITH MANUAL DIFF [HEME] AM Lab 11/17/17 05:11 Ordered CBC WITH MANUAL DIFF [HEME] AM Lab 11/18/17 05:11 Ordered CULTURE SPUTUM + SMEAR [RM] Stat Lab 11/15/17 19:17 Ordered FE, TIBC, TRANSFERRIN, FE SAT [CHEM] Stat Lab 11/15/17 19:18 Ordered HELICOBACTER PYLORI AB IGG [CHEM] Stat Lab 11/15/17 19:18 Ordered INFLUENZA A+B AG SCREEN [RM] Stat Lab 11/15/17 19:17 Ordered MAGNESIUM [CHEM] AM Lab 11/16/17 05:11 Ordered MAGNESIUM [CHEM] AM Lab 11/17/17 05:11 Ordered MAGNESIUM [CHEM] AM Lab 11/18/17 05:11 Ordered MAGNESIUM [CHEM] AM Lab 11/19/17 05:11 Ordered RESPIRATORY PANEL BY PCR [MREF] Stat Lab 11/15/17 19:16 Ordered RETICULOCYTE COUNT [HEME] Stat Lab 11/15/17 19:22 Ordered Acetaminophen [Tylenol] Med 11/15/17 19:06 Ordered 650 mg PO Q4H PRN Acetaminophen/HYDROcodone [[place] 325-5 MG] Med 11/15/17 19:06 Ordered 1 tab PO Q4H PRN Albuterol [Proventil HFA] Med 11/15/17 21:00 Ordered 15 gm INH BID Albuterol/Ipratropium [DuoNeb 3.0-0.5 MG/3 ML] Med 11/15/17 19:06 Ordered 3 ml NEB Q4H PRN Ascorbic Acid [Vitamin C] Med 11/15/17 20:00 Ordered 250 mg PO DAILY Benzonatate [Tessalon Perle] Med 11/15/17 19:10 Ordered 100 mg PO Q4H PRN Bisacodyl [Dulcolax] Med 11/15/17 19:06 Ordered 5 mg PO DAILY PRN Cyanocobalamin (Vitamin B12) [Vitamin B12] Med 11/16/17 21:00 Ordered 1,000 mcg PO DAILY Dextromethorphan/guaiFENesin [Robitussin DM] Med 11/15/17 19:17 Ordered 10 ml PO Q4H PRN Docusate Sodium [Colace] Med 11/15/17 19:06 Ordered 100 mg PO BID PRN Docusate Sodium/Sennosides [Senna Plus] Med 11/15/17 19:06 Ordered 1 tab PO BID PRN Folic Acid Med 11/15/17 21:00 Ordered 1 mg PO BEDTIME Iron Polysaccharides Complex [Ferrex 150] Med 11/15/17 20:00 Ordered 300 mg PO DAILY LORazepam [Ativan] Med 11/15/17 19:05 Ordered 2 mg IVPUSH Q4H PRN Magnesium Rep Pharmacy to Dose [Pharmacy to Dose - Med 11/15/17 19:15 Ordered Magnesium Replacement] 1 dose .XX ASDIRECTED Metoprolol Tartrate [Lopressor] Med 11/15/17 19:05 Ordered 5 mg IVPUSH Q4H PRN Multivitamins,Therapeutic [Thera] Med 11/15/17 21:00 Ordered 1 each PO BEDTIME Nicotine [Habitrol] Med 11/15/17 19:14 Ordered 14 mg TRDERM DAILY PRN Ondansetron [Zofran] Med 11/15/17 19:06 Ordered 4 mg IV Q6H PRN Pantoprazole [ProTONIX IV] Med 11/15/17 21:00 Ordered 40 mg IV Q12HR Polyethylene Glycol 3350 [MiraLAX] Med 11/15/17 19:06 Ordered 17 gm PO DAILY PRN Potassium Rep Pharmacy to Dose [Pharmacy to Dose - Med 11/15/17 19:15 Ordered Potassium Replacement] 1 dose .XX ASDIRECTED Promethazine [Phenergan] 12.5 mg Med 11/15/17 19:06 Ordered Sodium Chloride 0.9% [Normal Saline] 50 ml IV Q6H Scopolamine [Transderm-Scop] Med 11/15/17 19:14 Once 1.5 mg TRDERM Q72H ONE Sodium Chloride 0.9% [Normal Saline] 1,000 ml Med 11/15/17 19:15 Active IV ASDIRECTED Temazepam [Restoril] Med 11/15/17 19:06 Ordered 15 mg PO BEDTIME PRN Thiamine [Vitamin B-1] Med 11/15/17 21:00 Ordered 100 mg PO BEDTIME hydrALAZINE [Apresoline] Med 11/15/17 19:05 Ordered 20 mg IVPUSH Q4H PRN Sequential Compression Device [OM.PC] Per Unit Routine Oth 11/15/17 19:06 Ordered Resuscitation Status Routine Resus Stat 11/15/17 19:06 Ordered Medication Orders Acetaminophen (Tylenol) 650 mg PO Q4H PRN PRN Reason: Pain (Mild 1-3)/fever Hydrocodone Bitart/Acetaminophen ([place] 325-5 Mg) 1 tab PO Q4H PRN PRN Reason: Pain (moderate 4-6) Albuterol (Proventil Hfa) 15 gm INH BID [place] Albuterol/Ipratropium (Duoneb 3.0-0.5 Mg/3 Ml) 3 ml NEB Q4H PRN PRN Reason: Shortness Of Breath/wheezing Ascorbic Acid (Vitamin C) 250 mg PO DAILY [place] Benzonatate (Tessalon Perles) 100 mg PO Q4H PRN PRN Reason: COUGH Bisacodyl (Dulcolax) 5 mg PO DAILY PRN PRN Reason: Constipation Cyanocobalamin (Vitamin B12) 1,000 mcg PO DAILY [place] Docusate Sodium (Colace) 100 mg PO BID PRN PRN Reason: Constipation Folic Acid (Folic Acid) 1 mg PO BEDTIME [place] Guaifenesin/Phenylephrine HCl (Robitussin Dm) 10 ml PO Q4H PRN PRN Reason: Cough Hydralazine HCl (Apresoline) 20 mg IVPUSH Q4H PRN PRN Reason: Hypertension Promethazine HCl 12.5 mg/ (Sodium Chloride) 50.5 mls @ 100 mls/hr IV Q6H PRN PRN Reason: Nausea/Vomiting Sodium Chloride (Normal Saline) 1,000 mls @ 75 mls/hr IV ASDIRECTED [place] Lorazepam (Ativan) 2 mg IVPUSH Q4H PRN PRN Reason: Seizures Magnesium Sulfate (Pharmacy To Dose - Magnesium Replacement) 1 dose .XX ASDIRECTED [facility] Metoprolol Tartrate (Lopressor) 5 mg IVPUSH Q4H PRN PRN Reason: Tachycardia Multivitamins (Thera) 1 each PO BEDTIME [facility] Nicotine (Habitrol) 14 mg TRDERM DAILY PRN PRN Reason: Nicotine Ondansetron HCl (Zofran) 4 mg IV Q6H PRN PRN Reason: Nausea/Vomiting Pantoprazole Sodium (Protonix Iv) 40 mg IV Q12HR [facility] Polyethylene Glycol (Miralax) 17 gm PO DAILY PRN PRN Reason: Constipation Polysaccharide Iron Complex (Ferrex 150) 300 mg PO DAILY [facility] Potassium Chloride (Pharmacy To Dose - Potassium Replacement) 1 dose .XX ASDIRECTED [facility] Scopolamine (Transderm-Scop) 1.5 mg TRDERM Q72H [facility] Stop: 11/18/17 19:15 Senna/Docusate Sodium (Senna Plus) 1 tab PO BID PRN PRN Reason: Constipation Temazepam (Restoril) 15 mg PO BEDTIME PRN PRN Reason: Sleep Thiamine HCl (Vitamin B-1) 100 mg PO BEDTIME [facility] Assessment/Plan Comment:: Assessment/Plan: Acute: Microcytic Anemia - Hgb of 8.0, MCV of 63.7 and Platelet of 86; no baseline levels for comparison - Heavy LMP this past Monday - Emesis felt to be some bleed - Hemo-occult negative - Iron Panel and Retic Count - Folic Acid, B12, Thiamine and MVI Supplement - Follow Up Level in AM GERD w/ H. Pylori Infection - Long standing - She is on PPI; continue anti-acids - Had recent use of oral steroid and NSAIDs - H. Pylori screening is positive - Tx: Protonix 40 mg po BID + Amoxicillin 1 g BID + Clarithromycin 500 mg po TID for 10 days DM2 w/ Microalbuminemia - She is only on Metformin - BS 356; poorly controlled - A1C is 12.50 - Lipid Panel in AM - Glipizide 2.5 mg po BID and ISS - Accu-check QID AC/HS - Urine microalbumin 42.7 and UA +1 Protein-->start Lisinopril 20 mg po daily protect kidneys from nephropathy - ASA 81 mg po daily for cardioprotection Hypoalbuminemia - Albumin 2.8 - Dietary consult for low protein states Probable Metabolic Syndrome - Pending Lipid Panel - BMI 42.6 - May benefit with Jardiance and Victoza for treatment of Diabetes and Weight Loss Mild Hypokalemia - K 3.4 - 2/2 inadequate intake - Replete and Monitor Subclinical Hyperthyroidism - TSH 1.004 and FT4 1.56 (Elevated) - Monitor Plan: Admit to OBS Hold Home Meds Routine AM Labs Dietary consult Diabetic Education GI/GS eval outpatient Belviq 10 mg po daily after discharge SW/CM for d/c planning Code status:1
[2017-11-15] MEDS ORDERED: Albuterol 6.7 GM Inhaler INH SCH (21:00)
[2017-11-15] MEDS ORDERED: Benzonatate 100 MG Cap PO PRN (21:00)
[2017-11-15] MEDS ORDERED: Amoxicillin 500 MG Cap PO ONE ×2 (21:09→22:45)
[2017-11-15] MEDS: Pantoprazole 40 MG Vial IV SCH (21:16)
[2017-11-15] MEDS: Multivitamins,Therapeutic Tab PO SCH (21:22)
[2017-11-15] MEDS: Folic Acid 1 MG Tab PO SCH (21:22)
[2017-11-15] MEDS: Potassium Chloride 20 MEQ Tab.ER PO SCH (21:22)
[2017-11-15] MEDS: Thiamine 100 MG Tab PO SCH (21:22)
[2017-11-15] MEDS: Insulin Aspart 100 Units/ML 3 ML Pen SUBCUT SCH (22:06)
[2017-11-15] MEDS: Sodium Chloride 0.9% 1,000 ML IV SCH (22:13)
[2017-11-16] MEDS: Potassium Chloride 20 MEQ Tab.ER PO SCH (00:19)
--- NOTE | 2017-11-16 06:41 | PCM.PN ---
- General Info Date of Service: 11/16/17 Admission Dx/Problem (Free Text): Admission Diagnosis/Problem Admission Diagnosis/Problem Anemia Subjective Update: Follow Up Functional Status: Reports: Pain Controlled, Tolerating Diet, Ambulating, Urinating. Denies: New Symptoms - Review of Systems General: Denies: Fever, Weakness, Fatigue, Malaise, Chills HEENT: Reports: No Symptoms Pulmonary: Reports: Cough. Denies: Shortness of Breath Cardiovascular: Denies: Chest Pain, Palpitations, Lightheadedness Gastrointestinal: Reports: Nausea. Denies: Abdominal Pain, Constipation, Decreased Appetite, Diarrhea, Difficulty Swallowing, Flatus, Vomiting Genitourinary: Reports: No Symptoms Musculoskeletal: Reports: No Symptoms Skin: Denies: Cyanosis, Mottled, Pallor, Diaphoresis, Pruritis, Rash Neurological: Denies: Confusion, Difficulty Walking, Weakness, Gait Disturbance Psychiatric: Denies: Depression, Anxiety, Agitation, Hallucinations Systems Review Comment:: No significant overnight or acute issues. She was nauseous but w/o emesis. She feels better this AM. Her Hgb is down to 7.4 from 8 last night. Her Mg level is 1.4 and HDL is 25. Her BS is mostly bet 200s-300s. - Patient Data Vitals - Most Recent: Last Vital Signs Temp 36.9 C 11/16/17 00:24 Pulse 73 11/16/17 00:24 Resp 16 11/16/17 00:24 BP 112/78 11/16/17 00:24 Pulse Ox 96 11/16/17 00:24 Orthostatic Blood Pressure [ 113/57 Standing] Orthostatic Blood Pressure [ 110/51 Sitting] Orthostatic Blood Pressure [ 123/59 Supine] Weight - Most Recent: 127.006 kg Lab Results Last 24 Hours: Laboratory Results - last 24 hr 11/15/17 11/15/17 11/15/17 Range/Units 16:02 16:02 16:02 WBC 3.78 L (3.98-10.04) K/mm3 RBC 4.52 (3.98-5.22) M/mm3 Hgb 8.0 L (11.2-15.7) gm/L Hct 28.8 L (34.1-44.9) % MCV 63.7 L (79.4-94.8) fl MCH 17.7 L (25.6-32.2) pg MCHC 27.8 L (32.2-35.5) g/dl RDW Std Deviation 48.5 H (36.4-46.3) fL Plt Count 86 L (182-369) K/mm3 Neutrophils % (Manual) 76 H (40-60) % Band Neutrophils % 0 (0-10) % Lymphocytes % (Manual) 18 L (20-40) % Atypical Lymphs % 0 % Monocytes % (Manual) 5 (2-10) % Eosinophils % (Manual) 0 L (0.7-5.8) % Basophils % (Manual) 1 (0.1-1.2) Platelet Estimate Decreased Plt Morphology Comment Normal Polychromasia 1+ slight Hypochromasia 1+ slight Poikilocytosis 2+ moderate Anisocytosis 1+ slight Microcytosis 1+ slight Macrocytosis 1+ slight Tear Drop Cells 1+ slight Ovalocytes 1+ slight RBC Morph Comment Abnormal Percent Retic (0.50-1.70) % Sodium 133 L (136-145) mEq/L Potassium 3.4 L (3.5-5.1) mEq/L Chloride 102 (98-107) mEq/L Carbon Dioxide 22 (21-32) mEq/L Anion Gap 12.4 (5-15) BUN 10 (7-18) mg/dL Creatinine 0.8 (0.55-1.02) mg/dL Est Cr Clr Drug Dosing TNP Estimated GFR (MDRD) > 60 (>60) mL/min BUN/Creatinine Ratio 12.5 L (14-18) Glucose 356 H (74-106) mg/dL POC Glucose (70-105) mg/dL Hemoglobin A1c (4.50-6.20) % Calcium 7.9 L (8.5-10.1) mg/dL Iron (50-170) ug/dL TIBC (100-400) ug/dL % Saturation (20-55) % Transferrin (202-364) mg/dL Total Bilirubin 0.8 (0.2-1.0) mg/dL AST 51 H (15-37) U/L ALT 52 (14-59) U/L Alkaline Phosphatase 127 H (46-116) U/L Troponin I < 0.017 (0.00-0.056) ng/mL C-Reactive Protein 1.3 H* (<1.0) mg/dL Total Protein 7.9 (6.4-8.2) g/dl Albumin 2.8 L (3.4-5.0) g/dl Globulin 5.1 gm/dL Albumin/Globulin Ratio 0.6 L (1-2) Lipase 196 (73-393) U/L Free T4 (0.76-1.46) ng/dL TSH 3rd Generation (0.358-3.74) uIU/mL HCG, Qual Negative (NEGATIVE) Urine Color (Yellow) Urine Appearance (Clear) Urine pH (5.0-8.0) Ur Specific Eckerman (1.005-1.030) Urine Protein (Negative) Urine Glucose (UA) (Negative) Urine Ketones (Negative) Urine Occult Blood (Negative) Urine Nitrite (Negative) Urine Bilirubin (Negative) Urine Urobilinogen (0.2-1.0) Ur Leukocyte Esterase (Negative) Urine RBC (0-5) /hpf Urine WBC (0-5) /hpf Ur Epithelial Cells (0-5) /hpf Urine Bacteria (FEW) /hpf Hyaline Casts (0-5) /lpf Urine Mucus (FEW) /hpf Ur Random Microalbumin (1.3-20.0) mg/L Urine Opiates Screen (NEGATIVE) Ur Buprenorphine Scrn (NEGATIVE) Ur Oxycodone Screen (NEGATIVE) Urine Methadone Screen (NEGATIVE) Ur Propoxyphene Screen (NEGATIVE) Ur Barbiturates Screen (NEGATIVE) Ur Tricyclics Screen (NEGATIVE) Ur Phencyclidine Scrn (NEGATIVE) Ur Amphetamine Screen (NEGATIVE) U Methamphetamines Scrn (NEGATIVE) U Benzodiazepines Scrn (NEGATIVE) U Cocaine Metab Screen (NEGATIVE) U Marijuana (THC) Screen (NEGATIVE) H. pylori IgG Antibody (NEGATIVE) 11/15/17 11/15/17 11/15/17 Range/Units 16:02 16:02 16:02 WBC (3.98-10.04) K/mm3 RBC (3.98-5.22) M/mm3 Hgb (11.2-15.7) gm/L Hct (34.1-44.9) % MCV (79.4-94.8) fl MCH (25.6-32.2) pg MCHC (32.2-35.5) g/dl RDW Std Deviation (36.4-46.3) fL Plt Count (182-369) K/mm3 Neutrophils % (Manual) (40-60) % Band Neutrophils % (0-10) % Lymphocytes % (Manual) (20-40) % Atypical Lymphs % % Monocytes % (Manual) (2-10) % Eosinophils % (Manual) (0.7-5.8) % Basophils % (Manual) (0.1-1.2) Platelet Estimate Plt Morphology Comment Polychromasia Hypochromasia Poikilocytosis Anisocytosis Microcytosis Macrocytosis Tear Drop Cells Ovalocytes RBC Morph Comment Percent Retic 1.00 (0.50-1.70) % Sodium (136-145) mEq/L Potassium (3.5-5.1) mEq/L Chloride (98-107) mEq/L Carbon Dioxide (21-32) mEq/L Anion Gap (5-15) BUN (7-18) mg/dL Creatinine (0.55-1.02) mg/dL Est Cr Clr Drug Dosing Estimated GFR (MDRD) (>60) mL/min BUN/Creatinine Ratio (14-18) Glucose (74-106) mg/dL POC Glucose (70-105) mg/dL Hemoglobin A1c (4.50-6.20) % Calcium (8.5-10.1) mg/dL Iron 14 L (50-170) ug/dL TIBC 338 (100-400) ug/dL % Saturation 4 L (20-55) % Transferrin 270 (202-364) mg/dL Total Bilirubin (0.2-1.0) mg/dL AST (15-37) U/L ALT (14-59) U/L Alkaline Phosphatase (46-116) U/L Troponin I (0.00-0.056) ng/mL C-Reactive Protein (<1.0) mg/dL Total Protein (6.4-8.2) g/dl Albumin (3.4-5.0) g/dl Globulin gm/dL Albumin/Globulin Ratio (1-2) Lipase (73-393) U/L Free T4 (0.76-1.46) ng/dL TSH 3rd Generation (0.358-3.74) uIU/mL HCG, Qual (NEGATIVE) Urine Color (Yellow) Urine Appearance (Clear) Urine pH (5.0-8.0) Ur Specific Eck[place] (1.005-1.030) Urine Protein (Negative) Urine Glucose (UA) (Negative) Urine Ketones (Negative) Urine Occult Blood (Negative) Urine Nitrite (Negative) Urine Bilirubin (Negative) Urine Urobilinogen (0.2-1.0) Ur Leukocyte Esterase (Negative) Urine RBC (0-5) /hpf Urine WBC (0-5) /hpf Ur Epithelial Cells (0-5) /hpf Urine Bacteria (FEW) /hpf Hyaline Casts (0-5) /lpf Urine Mucus (FEW) /hpf Ur Random Microalbumin (1.3-20.0) mg/L Urine Opiates Screen (NEGATIVE) Ur Buprenorphine Scrn (NEGATIVE) Ur Oxycodone Screen (NEGATIVE) Urine Methadone Screen (NEGATIVE) Ur Propoxyphene Screen (NEGATIVE) Ur Barbiturates Screen (NEGATIVE) Ur Tricyclics Screen (NEGATIVE) Ur Phencyclidine Scrn (NEGATIVE) Ur Amphetamine Screen (NEGATIVE) U Methamphetamines Scrn (NEGATIVE) U Benzodiazepines Scrn (NEGATIVE) U Cocaine Metab Screen (NEGATIVE) U Marijuana (THC) Screen (NEGATIVE) H. pylori IgG Antibody Positive H (NEGATIVE) 11/15/17 11/15/17 11/15/17 Range/Units 16:02 16:02 17:18 WBC (3.98-10.04) K/mm3 RBC (3.98-5.22) M/mm3 Hgb (11.2-15.7) gm/L Hct (34.1-44.9) % MCV (79.4-94.8) fl MCH (25.6-32.2) pg MCHC (32.2-35.5) g/dl RDW Std Deviation (36.4-46.3) fL Plt Count (182-369) K/mm3 Neutrophils % (Manual) (40-60) % Band Neutrophils % (0-10) % Lymphocytes % (Manual) (20-40) % Atypical Lymphs % % Monocytes % (Manual) (2-10) % Eosinophils % (Manual) (0.7-5.8) % Basophils % (Manual) (0.1-1.2) Platelet Estimate Plt Morphology Comment Polychromasia Hypochromasia Poikilocytosis Anisocytosis Microcytosis Macrocytosis Tear Drop Cells Ovalocytes RBC Morph Comment Percent Retic (0.50-1.70) % Sodium (136-145) mEq/L Potassium (3.5-5.1) mEq/L Chloride (98-107) mEq/L Carbon Dioxide (21-32) mEq/L Anion Gap (5-15) BUN (7-18) mg/dL Creatinine (0.55-1.02) mg/dL Est Cr Clr Drug Dosing Estimated GFR (MDRD) (>60) mL/min BUN/Creatinine Ratio (14-18) Glucose (74-106) mg/dL POC Glucose (70-105) mg/dL Hemoglobin A1c 12.50 H (4.50-6.20) % Calcium (8.5-10.1) mg/dL Iron (50-170) ug/dL TIBC (100-400) ug/dL % Saturation (20-55) % Transferrin (202-364) mg/dL Total Bilirubin (0.2-1.0) mg/dL AST (15-37) U/L ALT (14-59) U/L Alkaline Phosphatase (46-116) U/L Troponin I (0.00-0.056) ng/mL C-Reactive Protein (<1.0) mg/dL Total Protein (6.4-8.2) g/dl Albumin (3.4-5.0) g/dl Globulin gm/dL Albumin/Globulin Ratio (1-2) Lipase (73-393) U/L Free T4 1.56 H (0.76-1.46) ng/dL TSH 3rd Generation 1.004 (0.358-3.74) uIU/mL HCG, Qual (NEGATIVE) Urine Color Yellow (Yellow) Urine Appearance Slt cloudy H (Clear) Urine pH 6.0 (5.0-8.0) Ur Specific Eck[place] 1.025 (1.005-1.030) Urine Protein 1+ H (Negative) Urine Glucose (UA) 2+ H (Negative) Urine Ketones 1+ H (Negative) Urine Occult Blood Negative (Negative) Urine Nitrite Negative (Negative) Urine Bilirubin Negative (Negative) Urine Urobilinogen 1.0 (0.2-1.0) Ur Leukocyte Esterase Negative (Negative) Urine RBC 0-5 (0-5) /hpf Urine WBC 0-5 (0-5) /hpf Ur Epithelial Cells 10-20 H (0-5) /hpf Urine Bacteria Few (FEW) /hpf Hyaline Casts 0-5 (0-5) /lpf Urine Mucus Moderate H (FEW) /hpf Ur Random Microalbumin (1.3-20.0) mg/L Urine Opiates Screen (NEGATIVE) Ur Buprenorphine Scrn (NEGATIVE) Ur Oxycodone Screen (NEGATIVE) Urine Methadone Screen (NEGATIVE) Ur Propoxyphene Screen (NEGATIVE) Ur Barbiturates Screen (NEGATIVE) Ur Tricyclics Screen (NEGATIVE) Ur Phencyclidine Scrn (NEGATIVE) Ur Amphetamine Screen (NEGATIVE) U Methamphetamines Scrn (NEGATIVE) U Benzodiazepines Scrn (NEGATIVE) U Cocaine Metab Screen (NEGATIVE) U Marijuana (THC) Screen (NEGATIVE) H. pylori IgG Antibody (NEGATIVE) 11/15/17 11/15/17 11/15/17 Range/Units 17:18 17:18 21:27 WBC (3.98-10.04) K/mm3 RBC (3.98-5.22) M/mm3 Hgb (11.2-15.7) gm/L Hct (34.1-44.9) % MCV (79.4-94.8) fl MCH (25.6-32.2) pg MCHC (32.2-35.5) g/dl RDW Std Deviation (36.4-46.3) fL Plt Count (182-369) K/mm3 Neutrophils % (Manual) (40-60) % Band Neutrophils % (0-10) % Lymphocytes % (Manual) (20-40) % Atypical Lymphs % % Monocytes % (Manual) (2-10) % Eosinophils % (Manual) (0.7-5.8) % Basophils % (Manual) (0.1-1.2) Platelet Estimate Plt Morphology Comment Polychromasia Hypochromasia Poikilocytosis Anisocytosis Microcytosis Macrocytosis Tear Drop Cells Ovalocytes RBC Morph Comment Percent Retic (0.50-1.70) % Sodium (136-145) mEq/L Potassium (3.5-5.1) mEq/L Chloride (98-107) mEq/L Carbon Dioxide (21-32) mEq/L Anion Gap (5-15) BUN (7-18) mg/dL Creatinine (0.55-1.02) mg/dL Est Cr Clr Drug Dosing Estimated GFR (MDRD) (>60) mL/min BUN/Creatinine Ratio (14-18) Glucose (74-106) mg/dL POC Glucose 323 H (70-105) mg/dL Hemoglobin A1c (4.50-6.20) % Calcium (8.5-10.1) mg/dL Iron (50-170) ug/dL TIBC (100-400) ug/dL % Saturation (20-55) % Transferrin (202-364) mg/dL Total Bilirubin (0.2-1.0) mg/dL AST (15-37) U/L ALT (14-59) U/L Alkaline Phosphatase (46-116) U/L Troponin I (0.00-0.056) ng/mL C-Reactive Protein (<1.0) mg/dL Total Protein (6.4-8.2) g/dl Albumin (3.4-5.0) g/dl Globulin gm/dL Albumin/Globulin Ratio (1-2) Lipase (73-393) U/L Free T4 (0.76-1.46) ng/dL TSH 3rd Generation (0.358-3.74) uIU/mL HCG, Qual (NEGATIVE) Urine Color (Yellow) Urine Appearance (Clear) Urine pH (5.0-8.0) Ur Specific Eckerman (1.005-1.030) Urine Protein (Negative) Urine Glucose (UA) (Negative) Urine Ketones (Negative) Urine Occult Blood (Negative) Urine Nitrite (Negative) Urine Bilirubin (Negative) Urine Urobilinogen (0.2-1.0) Ur Leukocyte Esterase (Negative) Urine RBC (0-5) /hpf Urine WBC (0-5) /hpf Ur Epithelial Cells (0-5) /hpf Urine Bacteria (FEW) /hpf Hyaline Casts (0-5) /lpf Urine Mucus (FEW) /hpf Ur Random Microalbumin 42.7 H (1.3-20.0) mg/L Urine Opiates Screen Negative (NEGATIVE) Ur Buprenorphine Scrn Negative (NEGATIVE) Ur Oxycodone Screen Negative (NEGATIVE) Urine Methadone Screen Negative (NEGATIVE) Ur Propoxyphene Screen Negative (NEGATIVE) Ur Barbiturates Screen Negative (NEGATIVE) Ur Tricyclics Screen Negative (NEGATIVE) Ur Phencyclidine Scrn Negative (NEGATIVE) Ur Amphetamine Screen Negative (NEGATIVE) U Methamphetamines Scrn Negative (NEGATIVE) U Benzodiazepines Scrn Negative (NEGATIVE) U Cocaine Metab Screen Negative (NEGATIVE) U Marijuana (THC) Screen Negative (NEGATIVE) H. pylori IgG Antibody (NEGATIVE) 11/16/17 Range/Units 05:55 WBC 3.13 L (3.98-10.04) K/mm3 RBC 4.23 (3.98-5.22) M/mm3 Hgb 7.4 L (11.2-15.7) gm/L Hct 27.1 L (34.1-44.9) % MCV 64.1 L (79.4-94.8) fl MCH 17.5 L (25.6-32.2) pg MCHC 27.3 L (32.2-35.5) g/dl RDW Std Deviation 48.5 H (36.4-46.3) fL Plt Count 68 L (182-369) K/mm3 Neutrophils % (Manual) (40-60) % Band Neutrophils % (0-10) % Lymphocytes % (Manual) (20-40) % Atypical Lymphs % % Monocytes % (Manual) (2-10) % Eosinophils % (Manual) (0.7-5.8) % Basophils % (Manual) (0.1-1.2) Platelet Estimate Plt Morphology Comment Polychromasia Hypochromasia Poikilocytosis Anisocytosis Microcytosis Macrocytosis Tear Drop Cells Ovalocytes RBC Morph Comment Percent Retic (0.50-1.70) % Sodium (136-145) mEq/L Potassium (3.5-5.1) mEq/L Chloride (98-107) mEq/L Carbon Dioxide (21-32) mEq/L Anion Gap (5-15) BUN (7-18) mg/dL Creatinine (0.55-1.02) mg/dL Est Cr Clr Drug Dosing Estimated GFR (MDRD) (>60) mL/min BUN/Creatinine Ratio (14-18) Glucose (74-106) mg/dL POC Glucose (70-105) mg/dL Hemoglobin A1c (4.50-6.20) % Calcium (8.5-10.1) mg/dL Iron (50-170) ug/dL TIBC (100-400) ug/dL % Saturation (20-55) % Transferrin (202-364) mg/dL Total Bilirubin (0.2-1.0) mg/dL AST (15-37) U/L ALT (14-59) U/L Alkaline Phosphatase (46-116) U/L Troponin I (0.00-0.056) ng/mL C-Reactive Protein (<1.0) mg/dL Total Protein (6.4-8.2) g/dl Albumin (3.4-5.0) g/dl Globulin gm/dL Albumin/Globulin Ratio (1-2) Lipase (73-393) U/L Free T4 (0.76-1.46) ng/dL TSH 3rd Generation (0.358-3.74) uIU/mL HCG, Qual (NEGATIVE) Urine Color (Yellow) Urine Appearance (Clear) Urine pH (5.0-8.0) Ur Specific Eckerman (1.005-1.030) Urine Protein (Negative) Urine Glucose (UA) (Negative) Urine Ketones (Negative) Urine Occult Blood (Negative) Urine Nitrite (Negative) Urine Bilirubin (Negative) Urine Urobilinogen (0.2-1.0) Ur Leukocyte Esterase (Negative) Urine RBC (0-5) /hpf Urine WBC (0-5) /hpf Ur Epithelial Cells (0-5) /hpf Urine Bacteria (FEW) /hpf Hyaline Casts (0-5) /lpf Urine Mucus (FEW) /hpf Ur Random Microalbumin (1.3-20.0) mg/L Urine Opiates Screen (NEGATIVE) Ur Buprenorphine Scrn (NEGATIVE) Ur Oxycodone Screen (NEGATIVE) Urine Methadone Screen (NEGATIVE) Ur Propoxyphene Screen (NEGATIVE) Ur Barbiturates Screen (NEGATIVE) Ur Tricyclics Screen (NEGATIVE) Ur Phencyclidine Scrn (NEGATIVE) Ur Amphetamine Screen (NEGATIVE) U Methamphetamines Scrn (NEGATIVE) U Benzodiazepines Scrn (NEGATIVE) U Cocaine Metab Screen (NEGATIVE) U Marijuana (THC) Screen (NEGATIVE) H. pylori IgG Antibody (NEGATIVE) Tito Results Last 24 Hours: Microbiology 11/16/17 03:00 Gram Stain - Preliminary Sputum - Expectorated 11/15/17 21:45 Influenza Type A Antigen Screen - Final Nasal, Unspecified NEGATIVE INFLUENZA A VIRUS AG Influenza Type B Antigen Screen - Final NEGATIVE INFLUENZA B VIRUS AG Med Orders - Current: Current Medications Acetaminophen (Tylenol) 650 mg PO Q4H PRN PRN Reason: Pain (Mild 1-3)/fever Hydrocodone Bitart/Acetaminophen (Zenda 325-5 Mg) 1 tab PO Q4H PRN PRN Reason: Pain (moderate 4-6) Albuterol (Proventil Hfa) 15 gm INH BID [facility] Albuterol/Ipratropium (Duoneb 3.0-0.5 Mg/3 Ml) 3 ml NEB Q4H PRN PRN Reason: Shortness Of Breath/wheezing Amoxicillin (Amoxil) 1,000 mg PO BID [facility] Ascorbic Acid (Vitamin C) 250 mg PO DAILY [facility] Aspirin (Halfprin) 81 mg PO DAILY [facility] Benzonatate (Tessalon Perles) 100 mg PO Q4H PRN PRN Reason: COUGH Bisacodyl (Dulcolax) 5 mg PO DAILY PRN PRN Reason: Constipation Clarithromycin (Biaxin) 500 mg PO TID [facility] Cyanocobalamin (Vitamin B12) 1,000 mcg PO DAILY [facility] Dextrose/Water (Dextrose 50% In Water) 50 ml IVPUSH ASDIRECTED PRN PRN Reason: Hypoglycemia Docusate Sodium (Colace) 100 mg PO BID PRN PRN Reason: Constipation Folic Acid (Folic Acid) 1 mg PO BEDTIME [facility] Last Admin: 11/15/17 21:22 Dose: 1 mg Glipizide (Glucotrol Xl) 2.5 mg PO BID [facility] Guaifenesin/Phenylephrine HCl (Robitussin Dm) 10 ml PO Q4H PRN PRN Reason: Cough Hydralazine HCl (Apresoline) 20 mg IVPUSH Q4H PRN PRN Reason: Hypertension Promethazine HCl 12.5 mg/ (Sodium Chloride) 50.5 mls @ 100 mls/hr IV Q6H PRN PRN Reason: Nausea/Vomiting Sodium Chloride (Normal Saline) 1,000 mls @ 75 mls/hr IV ASDIRECTED [facility] Last Admin: 11/15/17 22:13 Dose: 75 mls/hr Insulin Aspart (Novolog) 0 unit SUBCUT QIDACANDBED [facility]; Protocol Last Admin: 11/15/17 22:06 Dose: 8 units Lisinopril (Prinivil) 20 mg PO DAILY [facility] Lorazepam (Ativan) 2 mg IVPUSH Q4H PRN PRN Reason: Seizures Magnesium Sulfate (Pharmacy To Dose - Magnesium Replacement) 1 dose .XX ASDIRECTED [facility] Metoprolol Tartrate (Lopressor) 5 mg IVPUSH Q4H PRN PRN Reason: Tachycardia Miscellaneous Information (Remove Patch) 1 ea TRDERM Q72H [facility] Stop: 11/18/17 21:01 Multivitamins (Thera) 1 each PO BEDTIME [facility] Last Admin: 11/15/17 21:22 Dose: 1 each Nicotine (Habitrol) 14 mg TRDERM DAILY PRN PRN Reason: Nicotine Ondansetron HCl (Zofran) 4 mg IV Q6H PRN PRN Reason: Nausea/Vomiting Last Admin: 11/15/17 22:21 Dose: 4 mg Pantoprazole Sodium (Protonix Iv) 40 mg IV Q12HR [facility] Last Admin: 11/15/17 21:16 Dose: 40 mg Polyethylene Glycol (Miralax) 17 gm PO DAILY PRN PRN Reason: Constipation Polysaccharide Iron Complex (Ferrex 150) 300 mg PO DAILY [facility] Potassium Chloride (Pharmacy To Dose - Potassium Replacement) 1 dose .XX ASDIRECTED [facility] Scopolamine (Transderm-Scop) 1.5 mg TRDERM Q72H [facility] Last Admin: 11/16/17 00:19 Dose: Not Given Senna/Docusate Sodium (Senna Plus) 1 tab PO BID PRN PRN Reason: Constipation Temazepam (Restoril) 15 mg PO BEDTIME PRN PRN Reason: Sleep Thiamine HCl (Vitamin B-1) 100 mg PO BEDTIME [facility] Last Admin: 11/15/17 21:22 Dose: 100 mg Discontinued Medications Amoxicillin (Amoxil) 1,000 mg PO ONETIME ONE Stop: 11/15/17 22:46 Last Admin: 11/16/17 00:20 Dose: Not Given Clarithromycin (Biaxin) 500 mg PO NOW STA Stop: 11/15/17 21:12 Last Admin: 11/15/17 22:04 Dose: 500 mg Al Hydroxide/Mg Hydroxide 30 (ml/ Lidocaine HCl 15 ml) 0 ml PO ONETIME ONE Stop: 11/15/17 15:35 Last Admin: 11/15/17 16:03 Dose: 45 ml Famotidine (Pepcid) 20 mg IVPUSH ONETIME ONE Stop: 11/15/17 19:17 Last Admin: 11/15/17 21:13 Dose: 20 mg Pantoprazole Sodium 80 mg/ (Sodium Chloride) 100 mls @ 10 mls/hr IV Q10H [facility] Sodium Chloride (Normal Saline) 1,000 mls @ 999 mls/hr IV ONETIME ONE Stop: 11/15/17 16:34 Last Admin: 11/15/17 16:02 Dose: 250 mls/hr Sodium Chloride (Normal Saline) 1,000 mls @ 999 mls/hr IV ONETIME ONE Stop: 11/15/17 18:35 Last Admin: 11/15/17 21:18 Dose: 999 mls/hr Pantoprazole Sodium (Protonix Iv) 80 mg IVPUSH .BOLUS ONE Stop: 11/15/17 15:43 Last Admin: 11/15/17 16:03 Dose: 80 mg Potassium Chloride (Klor-Con M20) 40 meq PO Q4H [place] Stop: 11/16/17 00:01 Last Admin: 11/16/17 00:19 Dose: 40 meq Scopolamine (Transderm-Scop) 1.5 mg TRDERM Q72H [facility] Stop: 11/18/17 19:15 Last Admin: 11/15/17 22:10 Dose: Not Given - Exam General: Alert, Oriented, Cooperative, No Acute Distress, Other (Morbidly Obese) HEENT: Pupils Equal, Pupils Reactive, EOMI, Mucous Membr. Moist/[place] Neck: Supple, Trachea Midline, No JVD Lungs: Normal Respiratory Effort, Decreased Breath Sounds, Wheezing (mild ) Cardiovascular: Regular Rate, Regular Rhythm GI/Abdominal Exam: Normal Bowel Sounds, Soft, Non-Tender, No Organomegaly, No Distention, No Abnormal Bruit, No Mass (Female) Exam: Deferred Back Exam: Normal Inspection, Full Range of Motion Extremities: Normal Inspection, Normal Range of Motion, Non-Tender, No Pedal Edema, Normal Capillary Refill Skin: Warm, Dry, Intact Neurological: No New Focal Deficit Psy/Mental Status: Alert, Normal Affect, Normal Mood - Problem List Review Problem List Initiated/Reviewed/Updated: Yes - My Orders Last 24 Hours: My Active Orders 11/15/17 17:18 DRUG SCREEN, URINE [URCHEM] Stat MICROALBUMIN,URINE RANDOM [URCHEM] Stat 11/15/17 19:05 LORazepam [Ativan] 2 mg IVPUSH Q4H PRN Metoprolol Tartrate [Lopressor] 5 mg IVPUSH Q4H PRN hydrALAZINE [Apresoline] 20 mg IVPUSH Q4H PRN 11/15/17 19:06 Ambulate [RC] ASDIRECTED Height and Weight [RC] 04 Intake and Output [RC] 04,16 Oxygen Therapy [RC] PRN Up ad Elizabeth [RC] ASDIRECTED VTE/DVT Education [RC] PER UNIT ROUTINE Vital Signs [RC] Q4H Acetaminophen [Tylenol] 650 mg PO Q4H PRN Acetaminophen/HYDROcodone [Zenda 325-5 MG] 1 tab PO Q4H PRN Albuterol/Ipratropium [DuoNeb 3.0-0.5 MG/3 ML] 3 ml NEB Q4H PRN Bisacodyl [Dulcolax] 5 mg PO DAILY PRN Docusate Sodium [Colace] 100 mg PO BID PRN Docusate Sodium/Sennosides [Senna Plus] 1 tab PO BID PRN Ondansetron [Zofran] 4 mg IV Q6H PRN Polyethylene Glycol 3350 [MiraLAX] 17 gm PO DAILY PRN Promethazine [Phenergan] 12.5 mg Sodium Chloride 0.9% [Normal Saline] 50 ml IV Q6H Temazepam [Restoril] 15 mg PO BEDTIME PRN Sequential Compression Device [OM.PC] Per Unit Routine Resuscitation Status Routine 11/15/17 19:09 RT Aerosol Therapy [RC] ASDIRECTED 11/15/17 19:10 Consult to Case Management [CONS] Routine Consult to Seasonal Clerk [CONS] Routine 11/15/17 19:14 Nicotine [Habitrol] 14 mg TRDERM DAILY PRN 11/15/17 19:15 Magnesium Rep Pharmacy to Dose [Pharmacy to Dose - Magnesium Replacement] 1 dose .XX ASDIRECTED Potassium Rep Pharmacy to Dose [Pharmacy to Dose - Potassium Replacement] 1 dose .XX ASDIRECTED Sodium Chloride 0.9% [Normal Saline] 1,000 ml IV ASDIRECTED 11/15/17 19:17 Dextromethorphan/guaiFENesin [Robitussin DM] 10 ml PO Q4H PRN 11/15/17 19:24 Incentive Spirometry [RT Incentive Spirometry] [RC] ASDIRECTED 11/15/17 19:26 RT Post Treatment Assessment [RC] Click to Edit RT Pre-Treatment Assessment [RC] Click to Edit 11/15/17 19:29 Blood Glucose Check, Bedside [RC] QIDACANDBED Dextrose 50% in Water 50 ml IVPUSH ASDIRECTED PRN 11/15/17 20:00 Ascorbic Acid [Vitamin C] 250 mg PO DAILY Iron Polysaccharides Complex [Ferrex 150] 300 mg PO DAILY 11/15/17 21:00 Albuterol [Proventil HFA] 15 gm INH BID Benzonatate [Tessalon Perles] 100 mg PO Q4H PRN Folic Acid 1 mg PO BEDTIME Multivitamins,Therapeutic [Thera] 1 each PO BEDTIME Pantoprazole [ProTONIX IV] 40 mg IV Q12HR Scopolamine [Transderm-Scop] 1.5 mg TRDERM Q72H Thiamine [Vitamin B-1] 100 mg PO BEDTIME glipiZIDE [Glucotrol XL] 2.5 mg PO BID 11/15/17 21:24 Diabetes Education [RC] DAILY 11/15/17 21:45 INFLUENZA A+B AG SCREEN [RM] Stat RESPIRATORY PANEL BY PCR [MREF] Stat 11/15/17 22:00 Insulin Aspart [NovoLOG] See Protocol SUBCUT QIDACANDBED 11/15/17 Dinner Regular Diet [DIET] 11/16/17 03:00 CULTURE SPUTUM + SMEAR [RM] Stat 11/16/17 05:55 BASIC METABOLIC PANEL,BMP [CHEM] AM C-REACTIVE PROTEIN [CHEM] AM CBC WITH MANUAL DIFF [HEME] AM LIPID PANEL [CHEM] AM MAGNESIUM [CHEM] AM 11/16/17 07:00 Clarithromycin [Biaxin] 500 mg PO TID 11/16/17 09:00 Amoxicillin [Amoxil] 1,000 mg PO BID Aspirin [Halfprin] 81 mg PO DAILY Lisinopril [Prinivil] 20 mg PO DAILY 11/16/17 21:00 Cyanocobalamin (Vitamin B12) [Vitamin B12] 1,000 mcg PO DAILY 11/17/17 05:11 BASIC METABOLIC PANEL,BMP [CHEM] AM C-REACTIVE PROTEIN [CHEM] AM CBC WITH MANUAL DIFF [HEME] AM MAGNESIUM [CHEM] AM 11/18/17 05:11 BASIC METABOLIC PANEL,BMP [CHEM] AM C-REACTIVE PROTEIN [CHEM] AM CBC WITH MANUAL DIFF [HEME] AM MAGNESIUM [CHEM] AM 11/18/17 21:00 Remove Patch 1 ea TRDERM Q72H 11/19/17 05:11 BASIC METABOLIC PANEL,BMP [CHEM] AM C-REACTIVE PROTEIN [CHEM] AM MAGNESIUM [CHEM] AM - Plan Plan:: Assessment/Plan: Acute: Microcytic Anemia - Hgb of 8.0--> 7.4, MCV of 63.7 and Platelet of 86--> 68; no baseline levels for comparison - Heavy LMP this past Monday - Emesis felt to be some bleed - Hemo-occult negative - Iron Panel; suggestive of TAN and Retic Count is is normal - Folic Acid, B12, Thiamine and MVI Supplement - Dr. Portillo consulted for further eval and possible endoscopic procedure GERD w/ H. Pylori Infection - Long standing - She is on PPI; continue anti-acids - Had recent use of oral steroid and NSAIDs - H. Pylori screening is positive - Tx: Protonix 40 mg po BID + Amoxicillin 1 g BID + Clarithromycin 500 mg po BID for 14 days (Uptodate guidelines) DM2 w/ Microalbuminemia - She is only on Metformin - BS 356; still not controlled - A1C is 12.50 - Increase Glipizide to 5 mg po BID, Metformin 1000 mg po BID and continue ISS - Accu-check QID AC/HS - Urine microalbumin 42.7 and UA +1 Protein-->start Lisinopril 20 mg po daily protect kidneys from nephropathy - ASA 81 mg po daily for cardioprotection- hold and will resume after d/c Hypoalbuminemia - Albumin 2.8 - Dietary consult for low protein states Metabolic Syndrome - MS calculator is 3 - BMI 42.6; DM and Abnormal HDL - Belviq 10 mg po daily after discharge; she has no hx/o valvulopathy - May benefit with Jardiance and Victoza for treatment of Diabetes and Weight Loss Subclinical Hyperthyroidism - TSH 1.004 and FT4 1.56 (Elevated) - Monitor COPD New Onset - Smokes 3-4 cigarettes a day - Offered nicotine patch refused - PFT showed: Moderate Obstructive Lung Disease - Counseled on smoking cessation - YUMIKO/LAB and Steroid Inhaler started Resolved: Mild Hypokalemia - K 3.4--> 3.7 - 2/2 inadequate intake - Replete and Monitor Plan: She is clinically stable Change status to inpatient due to complexity of presenting illness Hold Home Meds Routine AM Labs Dietary consult for weight management Diabetic Education GI/GS eval outpatient D/c medication list completed and forwarded to her local pharmacy SW/CM for d/c planning Code status:1 .7
[2017-11-16] MEDS ORDERED: Acetaminophen/Butalbital/Caffeine 325-50-40 MG Tab PO PRN (08:02)
[2017-11-16] MEDS: Saccharomyces Boulardii (Probiotic) 250 MG Cap PO SCH ×2 (08:23→21:39)
[2017-11-16] MEDS: Iron Polysaccharides Complex 150 MG Cap PO SCH ×3 (08:24→19:39)
[2017-11-16] MEDS: Amoxicillin 500 MG Cap PO SCH ×2 (08:24→21:39)
[2017-11-16] MEDS: Pantoprazole 40 MG Vial IV SCH (08:24)
[2017-11-16] MEDS: Insulin Aspart 100 Units/ML 3 ML Pen SUBCUT SCH ×4 (08:25→21:47)
[2017-11-16] MEDS: Magnesium Sulfate/Water 2 GM in Premix Bag 1 BAG IV SCH ×2 (08:26→10:41)
[2017-11-16] MEDS ORDERED: Aspirin 81 MG Tab.EC PO SCH (09:00)
[2017-11-16] MEDS ORDERED: glipiZIDE 2.5 MG Tab.ER PO SCH (09:00)
[2017-11-16] MEDS: Ascorbic Acid 500 MG Tab PO SCH (10:41)
[2017-11-16] MEDS: Lisinopril 20 MG Tab PO SCH (10:55)
[2017-11-16] MEDS: Sodium Chloride 0.9% 1,000 ML IV SCH (11:29)
[2017-11-16] MEDS ORDERED: Enoxaparin 40 MG/0.4 ML Syringe SUBCUT SCH (16:15)
[2017-11-16] MEDS: metFORMIN 500 MG Tab PO SCH (16:48)
--- NOTE | 2017-11-16 17:25 | PCM.CONSN ---
- General Info Date of Service: 11/16/17 - Patient Data Vitals - Most Recent: Last Vital Signs Temp 98.6 F 11/16/17 16:51 Pulse 66 11/16/17 16:51 Resp 16 11/16/17 16:51 BP 105/63 11/16/17 16:51 Pulse Ox 95 11/16/17 16:51 Orthostatic Blood Pressure [ 113/57 Standing] Orthostatic Blood Pressure [ 110/51 Sitting] Orthostatic Blood Pressure [ 123/59 Supine] Weight - Most Recent: 127.006 kg I&O - Last 24 Hours: Intake & Output 11/16/17 11/16/17 11/16/17 07:59 15:59 23:59 Intake Total 2771 240 2034 Output Total 850 Balance 6900 825 1933 Lab Results Last 24 Hours: Laboratory Results - last 24 hr 11/15/17 11/15/17 11/15/17 Range/Units 16:02 16:02 16:02 WBC (3.98-10.04) K/mm3 RBC (3.98-5.22) M/mm3 Hgb (11.2-15.7) gm/L Hct (34.1-44.9) % MCV (79.4-94.8) fl MCH (25.6-32.2) pg MCHC (32.2-35.5) g/dl RDW Std Deviation (36.4-46.3) fL Plt Count (182-369) K/mm3 Neutrophils % (Manual) (40-60) % Band Neutrophils % (0-10) % Lymphocytes % (Manual) (20-40) % Atypical Lymphs % % Monocytes % (Manual) (2-10) % Eosinophils % (Manual) (0.7-5.8) % Basophils % (Manual) (0.1-1.2) Nucleated RBCs % Platelet Estimate Polychromasia Hypochromasia Anisocytosis Microcytosis Ovalocytes RBC Morph Comment Percent Retic 1.00 (0.50-1.70) % Sodium (136-145) mEq/L Potassium (3.5-5.1) mEq/L Chloride (98-107) mEq/L Carbon Dioxide (21-32) mEq/L Anion Gap (5-15) BUN (7-18) mg/dL Creatinine (0.55-1.02) mg/dL Est Cr Clr Drug Dosing mL/min Estimated GFR (MDRD) (>60) mL/min BUN/Creatinine Ratio (14-18) Glucose (74-106) mg/dL POC Glucose (70-105) mg/dL Hemoglobin A1c (4.50-6.20) % Calcium (8.5-10.1) mg/dL Magnesium (1.8-2.4) mg/dl Iron 14 L (50-170) ug/dL TIBC 338 (100-400) ug/dL % Saturation 4 L (20-55) % Transferrin 270 (202-364) mg/dL C-Reactive Protein (<1.0) mg/dL Triglycerides (<150) mg/dL Cholesterol (<200) mg/dL LDL Cholesterol Direct (<100) mg/dL HDL Cholesterol (40-59) mg/dL Free T4 (0.76-1.46) ng/dL TSH 3rd Generation (0.358-3.74) uIU/mL Urine Color (Yellow) Urine Appearance (Clear) Urine pH (5.0-8.0) Ur Specific [place] (1.005-1.030) Urine Protein (Negative) Urine Glucose (UA) (Negative) Urine Ketones (Negative) Urine Occult Blood (Negative) Urine Nitrite (Negative) Urine Bilirubin (Negative) Urine Urobilinogen (0.2-1.0) Ur Leukocyte Esterase (Negative) Urine RBC (0-5) /hpf Urine WBC (0-5) /hpf Ur Epithelial Cells (0-5) /hpf Urine Bacteria (FEW) /hpf Hyaline Casts (0-5) /lpf Urine Mucus (FEW) /hpf Ur Random Microalbumin (1.3-20.0) mg/L Urine Opiates Screen (NEGATIVE) Ur Buprenorphine Scrn (NEGATIVE) Ur Oxycodone Screen (NEGATIVE) Urine Methadone Screen (NEGATIVE) Ur Propoxyphene Screen (NEGATIVE) Ur Barbiturates Screen (NEGATIVE) Ur Tricyclics Screen (NEGATIVE) Ur Phencyclidine Scrn (NEGATIVE) Ur Amphetamine Screen (NEGATIVE) U Methamphetamines Scrn (NEGATIVE) U Benzodiazepines Scrn (NEGATIVE) U Cocaine Metab Screen (NEGATIVE) U Marijuana (THC) Screen (NEGATIVE) H. pylori IgG Antibody Positive H (NEGATIVE) 11/15/17 11/15/17 11/15/17 Range/Units 16:02 16:02 17:18 WBC (3.98-10.04) K/mm3 RBC (3.98-5.22) M/mm3 Hgb (11.2-15.7) gm/L Hct (34.1-44.9) % MCV (79.4-94.8) fl MCH (25.6-32.2) pg MCHC (32.2-35.5) g/dl RDW Std Deviation (36.4-46.3) fL Plt Count (182-369) K/mm3 Neutrophils % (Manual) (40-60) % Band Neutrophils % (0-10) % Lymphocytes % (Manual) (20-40) % Atypical Lymphs % % Monocytes % (Manual) (2-10) % Eosinophils % (Manual) (0.7-5.8) % Basophils % (Manual) (0.1-1.2) Nucleated RBCs % Platelet Estimate Polychromasia Hypochromasia Anisocytosis Microcytosis Ovalocytes RBC Morph Comment Percent Retic (0.50-1.70) % Sodium (136-145) mEq/L Potassium (3.5-5.1) mEq/L Chloride (98-107) mEq/L Carbon Dioxide (21-32) mEq/L Anion Gap (5-15) BUN (7-18) mg/dL Creatinine (0.55-1.02) mg/dL Est Cr Clr Drug Dosing mL/min Estimated GFR (MDRD) (>60) mL/min BUN/Creatinine Ratio (14-18) Glucose (74-106) mg/dL POC Glucose (70-105) mg/dL Hemoglobin A1c 12.50 H (4.50-6.20) % Calcium (8.5-10.1) mg/dL Magnesium (1.8-2.4) mg/dl Iron (50-170) ug/dL TIBC (100-400) ug/dL % Saturation (20-55) % Transferrin (202-364) mg/dL C-Reactive Protein (<1.0) mg/dL Triglycerides (<150) mg/dL Cholesterol (<200) mg/dL LDL Cholesterol Direct (<100) mg/dL HDL Cholesterol (40-59) mg/dL Free T4 1.56 H (0.76-1.46) ng/dL TSH 3rd Generation 1.004 (0.358-3.74) uIU/mL Urine Color Yellow (Yellow) Urine Appearance Slt cloudy H (Clear) Urine pH 6.0 (5.0-8.0) Ur Specific [place] 1.025 (1.005-1.030) Urine Protein 1+ H (Negative) Urine Glucose (UA) 2+ H (Negative) Urine Ketones 1+ H (Negative) Urine Occult Blood Negative (Negative) Urine Nitrite Negative (Negative) Urine Bilirubin Negative (Negative) Urine Urobilinogen 1.0 (0.2-1.0) Ur Leukocyte Esterase Negative (Negative) Urine RBC 0-5 (0-5) /hpf Urine WBC 0-5 (0-5) /hpf Ur Epithelial Cells 10-20 H (0-5) /hpf Urine Bacteria Few (FEW) /hpf Hyaline Casts 0-5 (0-5) /lpf Urine Mucus Moderate H (FEW) /hpf Ur Random Microalbumin (1.3-20.0) mg/L Urine Opiates Screen (NEGATIVE) Ur Buprenorphine Scrn (NEGATIVE) Ur Oxycodone Screen (NEGATIVE) Urine Methadone Screen (NEGATIVE) Ur Propoxyphene Screen (NEGATIVE) Ur Barbiturates Screen (NEGATIVE) Ur Tricyclics Screen (NEGATIVE) Ur Phencyclidine Scrn (NEGATIVE) Ur Amphetamine Screen (NEGATIVE) U Methamphetamines Scrn (NEGATIVE) U Benzodiazepines Scrn (NEGATIVE) U Cocaine Metab Screen (NEGATIVE) U Marijuana (THC) Screen (NEGATIVE) H. pylori IgG Antibody (NEGATIVE) 11/15/17 11/15/17 11/15/17 Range/Units 17:18 17:18 21:27 WBC (3.98-10.04) K/mm3 RBC (3.98-5.22) M/mm3 Hgb (11.2-15.7) gm/L Hct (34.1-44.9) % MCV (79.4-94.8) fl MCH (25.6-32.2) pg MCHC (32.2-35.5) g/dl RDW Std Deviation (36.4-46.3) fL Plt Count (182-369) K/mm3 Neutrophils % (Manual) (40-60) % Band Neutrophils % (0-10) % Lymphocytes % (Manual) (20-40) % Atypical Lymphs % % Monocytes % (Manual) (2-10) % Eosinophils % (Manual) (0.7-5.8) % Basophils % (Manual) (0.1-1.2) Nucleated RBCs % Platelet Estimate Polychromasia Hypochromasia Anisocytosis Microcytosis Ovalocytes RBC Morph Comment Percent Retic (0.50-1.70) % Sodium (136-145) mEq/L Potassium (3.5-5.1) mEq/L Chloride (98-107) mEq/L Carbon Dioxide (21-32) mEq/L Anion Gap (5-15) BUN (7-18) mg/dL Creatinine (0.55-1.02) mg/dL Est Cr Clr Drug Dosing mL/min Estimated GFR (MDRD) (>60) mL/min BUN/Creatinine Ratio (14-18) Glucose (74-106) mg/dL POC Glucose 323 H (70-105) mg/dL Hemoglobin A1c (4.50-6.20) % Calcium (8.5-10.1) mg/dL Magnesium (1.8-2.4) mg/dl Iron (50-170) ug/dL TIBC (100-400) ug/dL % Saturation (20-55) % Transferrin (202-364) mg/dL C-Reactive Protein (<1.0) mg/dL Triglycerides (<150) mg/dL Cholesterol (<200) mg/dL LDL Cholesterol Direct (<100) mg/dL HDL Cholesterol (40-59) mg/dL Free T4 (0.76-1.46) ng/dL TSH 3rd Generation (0.358-3.74) uIU/mL Urine Color (Yellow) Urine Appearance (Clear) Urine pH (5.0-8.0) Ur Specific [place] (1.005-1.030) Urine Protein (Negative) Urine Glucose (UA) (Negative) Urine Ketones (Negative) Urine Occult Blood (Negative) Urine Nitrite (Negative) Urine Bilirubin (Negative) Urine Urobilinogen (0.2-1.0) Ur Leukocyte Esterase (Negative) Urine RBC (0-5) /hpf Urine WBC (0-5) /hpf Ur Epithelial Cells (0-5) /hpf Urine Bacteria (FEW) /hpf Hyaline Casts (0-5) /lpf Urine Mucus (FEW) /hpf Ur Random Microalbumin 42.7 H (1.3-20.0) mg/L Urine Opiates Screen Negative (NEGATIVE) Ur Buprenorphine Scrn Negative (NEGATIVE) Ur Oxycodone Screen Negative (NEGATIVE) Urine Methadone Screen Negative (NEGATIVE) Ur Propoxyphene Screen Negative (NEGATIVE) Ur Barbiturates Screen Negative (NEGATIVE) Ur Tricyclics Screen Negative (NEGATIVE) Ur Phencyclidine Scrn Negative (NEGATIVE) Ur Amphetamine Screen Negative (NEGATIVE) U Methamphetamines Scrn Negative (NEGATIVE) U Benzodiazepines Scrn Negative (NEGATIVE) U Cocaine Metab Screen Negative (NEGATIVE) U Marijuana (THC) Screen Negative (NEGATIVE) H. pylori IgG Antibody (NEGATIVE) 11/16/17 11/16/17 11/16/17 Range/Units 05:55 05:55 07:02 WBC 3.13 L (3.98-10.04) K/mm3 RBC 4.23 (3.98-5.22) M/mm3 Hgb 7.4 L (11.2-15.7) gm/L Hct 27.1 L (34.1-44.9) % MCV 64.1 L (79.4-94.8) fl MCH 17.5 L (25.6-32.2) pg MCHC 27.3 L (32.2-35.5) g/dl RDW Std Deviation 48.5 H (36.4-46.3) fL Plt Count 68 L (182-369) K/mm3 Neutrophils % (Manual) 53 (40-60) % Band Neutrophils % 5 (0-10) % Lymphocytes % (Manual) 38 (20-40) % Atypical Lymphs % 0 % Monocytes % (Manual) 2 (2-10) % Eosinophils % (Manual) 1 (0.7-5.8) % Basophils % (Manual) 1 (0.1-1.2) Nucleated RBCs 1.0 % Platelet Estimate See note Polychromasia 1+ slight Hypochromasia 2+ moderate Anisocytosis 1+ slight Microcytosis 2+ moderate Ovalocytes Few RBC Morph Comment Not Reportable Percent Retic (0.50-1.70) % Sodium 131 L (136-145) mEq/L Potassium 3.7 (3.5-5.1) mEq/L Chloride 103 (98-107) mEq/L Carbon Dioxide 21 (21-32) mEq/L Anion Gap 10.7 (5-15) BUN 7 (7-18) mg/dL Creatinine 0.7 (0.55-1.02) mg/dL Est Cr Clr Drug Dosing 98.07 mL/min Estimated GFR (MDRD) > 60 (>60) mL/min BUN/Creatinine Ratio 10.0 L (14-18) Glucose 290 H (74-106) mg/dL POC Glucose 297 H (70-105) mg/dL Hemoglobin A1c (4.50-6.20) % Calcium 7.0 L (8.5-10.1) mg/dL Magnesium 1.4 L (1.8-2.4) mg/dl Iron (50-170) ug/dL TIBC (100-400) ug/dL % Saturation (20-55) % Transferrin (202-364) mg/dL C-Reactive Protein < 0.2 (<1.0) mg/dL Triglycerides 133 (<150) mg/dL Cholesterol 88 (<200) mg/dL LDL Cholesterol Direct 47 (<100) mg/dL HDL Cholesterol 25.0 L (40-59) mg/dL Free T4 (0.76-1.46) ng/dL TSH 3rd Generation (0.358-3.74) uIU/mL Urine Color (Yellow) Urine Appearance (Clear) Urine pH (5.0-8.0) Ur Specific [place] (1.005-1.030) Urine Protein (Negative) Urine Glucose (UA) (Negative) Urine Ketones (Negative) Urine Occult Blood (Negative) Urine Nitrite (Negative) Urine Bilirubin (Negative) Urine Urobilinogen (0.2-1.0) Ur Leukocyte Esterase (Negative) Urine RBC (0-5) /hpf Urine WBC (0-5) /hpf Ur Epithelial Cells (0-5) /hpf Urine Bacteria (FEW) /hpf Hyaline Casts (0-5) /lpf Urine Mucus (FEW) /hpf Ur Random Microalbumin (1.3-20.0) mg/L Urine Opiates Screen (NEGATIVE) Ur Buprenorphine Scrn (NEGATIVE) Ur Oxycodone Screen (NEGATIVE) Urine Methadone Screen (NEGATIVE) Ur Propoxyphene Screen (NEGATIVE) Ur Barbiturates Screen (NEGATIVE) Ur Tricyclics Screen (NEGATIVE) Ur Phencyclidine Scrn (NEGATIVE) Ur Amphetamine Screen (NEGATIVE) U Methamphetamines Scrn (NEGATIVE) U Benzodiazepines Scrn (NEGATIVE) U Cocaine Metab Screen (NEGATIVE) U Marijuana (THC) Screen (NEGATIVE) H. pylori IgG Antibody (NEGATIVE) 11/16/17 11/16/17 Range/Units 11:11 16:48 WBC (3.98-10.04) K/mm3 RBC (3.98-5.22) M/mm3 Hgb (11.2-15.7) gm/L Hct (34.1-44.9) % MCV (79.4-94.8) fl MCH (25.6-32.2) pg MCHC (32.2-35.5) g/dl RDW Std Deviation (36.4-46.3) fL Plt Count (182-369) K/mm3 Neutrophils % (Manual) (40-60) % Band Neutrophils % (0-10) % Lymphocytes % (Manual) (20-40) % Atypical Lymphs % % Monocytes % (Manual) (2-10) % Eosinophils % (Manual) (0.7-5.8) % Basophils % (Manual) (0.1-1.2) Nucleated RBCs % Platelet Estimate Polychromasia Hypochromasia Anisocytosis Microcytosis Ovalocytes RBC Morph Comment Percent Retic (0.50-1.70) % Sodium (136-145) mEq/L Potassium (3.5-5.1) mEq/L Chloride (98-107) mEq/L Carbon Dioxide (21-32) mEq/L Anion Gap (5-15) BUN (7-18) mg/dL Creatinine (0.55-1.02) mg/dL Est Cr Clr Drug Dosing mL/min Estimated GFR (MDRD) (>60) mL/min BUN/Creatinine Ratio (14-18) Glucose (74-106) mg/dL POC Glucose 347 H 252 H (70-105) mg/dL Hemoglobin A1c (4.50-6.20) % Calcium (8.5-10.1) mg/dL Magnesium (1.8-2.4) mg/dl Iron (50-170) ug/dL TIBC (100-400) ug/dL % Saturation (20-55) % Transferrin (202-364) mg/dL C-Reactive Protein (<1.0) mg/dL Triglycerides (<150) mg/dL Cholesterol (<200) mg/dL LDL Cholesterol Direct (<100) mg/dL HDL Cholesterol (40-59) mg/dL Free T4 (0.76-1.46) ng/dL TSH 3rd Generation (0.358-3.74) uIU/mL Urine Color (Yellow) Urine Appearance (Clear) Urine pH (5.0-8.0) Ur Specific [place] (1.005-1.030) Urine Protein (Negative) Urine Glucose (UA) (Negative) Urine Ketones (Negative) Urine Occult Blood (Negative) Urine Nitrite (Negative) Urine Bilirubin (Negative) Urine Urobilinogen (0.2-1.0) Ur Leukocyte Esterase (Negative) Urine RBC (0-5) /hpf Urine WBC (0-5) /hpf Ur Epithelial Cells (0-5) /hpf Urine Bacteria (FEW) /hpf Hyaline Casts (0-5) /lpf Urine Mucus (FEW) /hpf Ur Random Microalbumin (1.3-20.0) mg/L Urine Opiates Screen (NEGATIVE) Ur Buprenorphine Scrn (NEGATIVE) Ur Oxycodone Screen (NEGATIVE) Urine Methadone Screen (NEGATIVE) Ur Propoxyphene Screen (NEGATIVE) Ur Barbiturates Screen (NEGATIVE) Ur Tricyclics Screen (NEGATIVE) Ur Phencyclidine Scrn (NEGATIVE) Ur Amphetamine Screen (NEGATIVE) U Methamphetamines Scrn (NEGATIVE) U Benzodiazepines Scrn (NEGATIVE) U Cocaine Metab Screen (NEGATIVE) U Marijuana (THC) Screen (NEGATIVE) H. pylori IgG Antibody (NEGATIVE) Tito Results Last 24 Hours: Microbiology 11/16/17 03:00 Gram Stain - Preliminary Sputum - Expectorated 11/15/17 21:45 Influenza Type A Antigen Screen - Final Nasal, Unspecified NEGATIVE INFLUENZA A VIRUS AG Influenza Type B Antigen Screen - Final NEGATIVE INFLUENZA B VIRUS AG Med Orders - Current: Current Medications Acetaminophen (Tylenol) 650 mg PO Q4H PRN PRN Reason: Pain (Mild 1-3)/fever Acetaminophen/Butalbital/Caffeine (Fioricet 325-50-40 Mg) 1 tab PO Q6H PRN PRN Reason: Headache Hydrocodone Bitart/Acetaminophen ([place] 325-5 Mg) 1 tab PO Q4H PRN PRN Reason: Pain (moderate 4-6) Albuterol/Ipratropium (Duoneb 3.0-0.5 Mg/3 Ml) 3 ml NEB Q4H PRN PRN Reason: Shortness Of Breath/wheezing Last Admin: 11/16/17 09:46 Dose: 3 ml Amoxicillin (Amoxil) 1,000 mg PO BID [facility] Last Admin: 11/16/17 08:24 Dose: 1,000 mg Ascorbic Acid (Vitamin C) 250 mg PO DAILY [facility] Last Admin: 11/16/17 10:41 Dose: 250 mg Benzonatate (Tessalon Perles) 100 mg PO Q4H PRN PRN Reason: COUGH Bisacodyl (Dulcolax) 5 mg PO DAILY PRN PRN Reason: Constipation Clarithromycin (Biaxin) 500 mg PO BID [facility] Cyanocobalamin (Vitamin B12) 1,000 mcg PO DAILY [facility] Dextrose/Water (Dextrose 50% In Water) 50 ml IVPUSH ASDIRECTED PRN PRN Reason: Hypoglycemia Docusate Sodium (Colace) 100 mg PO BID PRN PRN Reason: Constipation Folic Acid (Folic Acid) 1 mg PO BEDTIME [facility] Last Admin: 11/15/17 21:22 Dose: 1 mg Glipizide (Glucotrol Xl) 5 mg PO BID [facility] Guaifenesin/Phenylephrine HCl (Robitussin Dm) 10 ml PO Q4H PRN PRN Reason: Cough Hydralazine HCl (Apresoline) 20 mg IVPUSH Q4H PRN PRN Reason: Hypertension Promethazine HCl 12.5 mg/ (Sodium Chloride) 50.5 mls @ 100 mls/hr IV Q6H PRN PRN Reason: Nausea/Vomiting Sodium Chloride (Normal Saline) 1,000 mls @ 75 mls/hr IV ASDIRECTED [facility] Last Admin: 11/16/17 11:29 Dose: 75 mls/hr Insulin Aspart (Novolog) 0 unit SUBCUT QIDACANDBED [facility]; Protocol Last Admin: 11/16/17 16:49 Dose: 6 units Lisinopril (Prinivil) 20 mg PO DAILY [facility] Last Admin: 11/16/17 10:55 Dose: Not Given Lorazepam (Ativan) 2 mg IVPUSH Q4H PRN PRN Reason: Seizures Magnesium Sulfate (Pharmacy To Dose - Magnesium Replacement) 1 dose .XX ASDIRECTED [facility] Metformin HCl (Glucophage) 1,000 mg PO BIDMEPENDING SALE TO [facility] Last Admin: 11/16/17 16:48 Dose: 1,000 mg Metoprolol Tartrate (Lopressor) 5 mg IVPUSH Q4H PRN PRN Reason: Tachycardia Miscellaneous Information (Remove Patch) 1 ea TRDERM Q72H [facility] Stop: 11/18/17 21:01 Multivitamins (Thera) 1 each PO BEDTIME [facility] Last Admin: 11/15/17 21:22 Dose: 1 each Nicotine (Habitrol) 14 mg TRDERM DAILY PRN PRN Reason: Nicotine Ondansetron HCl (Zofran) 4 mg IV Q6H PRN PRN Reason: Nausea/Vomiting Last Admin: 11/15/17 22:21 Dose: 4 mg Pantoprazole Sodium (Protonix) 40 mg PO Q12HR [facility] Polyethylene Glycol (Miralax) 17 gm PO DAILY PRN PRN Reason: Constipation Polysaccharide Iron Complex (Ferrex 150) 300 mg PO DAILY [facility] Last Admin: 11/16/17 11:01 Dose: 300 mg Potassium Chloride (Pharmacy To Dose - Potassium Replacement) 1 dose .XX ASDIRECTED [facility] Saccharomyces Boulardii (Florastor) 250 mg PO BID [facility] Last Admin: 11/16/17 08:23 Dose: 250 mg Scopolamine (Transderm-Scop) 1.5 mg TRDERM Q72H [facility] Last Admin: 11/16/17 00:19 Dose: Not Given Senna/Docusate Sodium (Senna Plus) 1 tab PO BID PRN PRN Reason: Constipation Simvastatin (Zocor) 20 mg PO BEDTIME [facility] Temazepam (Restoril) 15 mg PO BEDTIME PRN PRN Reason: Sleep Thiamine HCl (Vitamin B-1) 100 mg PO BEDTIME [facility] Last Admin: 11/15/17 21:22 Dose: 100 mg Discontinued Medications Albuterol (Proventil Hfa) 15 gm INH BID [facility] Last Admin: 11/16/17 09:09 Dose: Not Given Amoxicillin (Amoxil) 1,000 mg PO ONETIME ONE Stop: 11/15/17 22:46 Last Admin: 11/16/17 00:20 Dose: Not Given Aspirin (Halfprin) 81 mg PO DAILY [facility] Last Admin: 11/16/17 08:24 Dose: 81 mg Clarithromycin (Biaxin) 500 mg PO TID [facility] Last Admin: 11/16/17 08:23 Dose: 500 mg Clarithromycin (Biaxin) 500 mg PO NOW STA Stop: 11/15/17 21:12 Last Admin: 11/15/17 22:04 Dose: 500 mg Al Hydroxide/Mg Hydroxide 30 (ml/ Lidocaine HCl 15 ml) 0 ml PO ONETIME ONE Stop: 11/15/17 15:35 Last Admin: 11/15/17 16:03 Dose: 45 ml Enoxaparin Sodium (Lovenox) 40 mg SUBCUT DAILY [facility] Famotidine (Pepcid) 20 mg IVPUSH ONETIME ONE Stop: 11/15/17 19:17 Last Admin: 11/15/17 21:13 Dose: 20 mg Glipizide (Glucotrol Xl) 2.5 mg PO BID [facility] Last Admin: 11/16/17 08:24 Dose: 2.5 mg Pantoprazole Sodium 80 mg/ (Sodium Chloride) 100 mls @ 10 mls/hr IV Q10H [facility] Sodium Chloride (Normal Saline) 1,000 mls @ 999 mls/hr IV ONETIME ONE Stop: 11/15/17 16:34 Last Admin: 11/15/17 16:02 Dose: 250 mls/hr Sodium Chloride (Normal Saline) 1,000 mls @ 999 mls/hr IV ONETIME ONE Stop: 11/15/17 18:35 Last Admin: 11/15/17 21:18 Dose: 999 mls/hr Magnesium Sulfate 2 gm/ Premix 50 mls @ 25 mls/hr IV Q2H [facility] Stop: 11/16/17 11:59 Last Admin: 11/16/17 10:41 Dose: 25 mls/hr Pantoprazole Sodium (Protonix Iv) 80 mg IVPUSH .BOLUS ONE Stop: 11/15/17 15:43 Last Admin: 11/15/17 16:03 Dose: 80 mg Pantoprazole Sodium (Protonix Iv) 40 mg IV Q12HR [facility] Last Admin: 11/16/17 08:24 Dose: 40 mg Potassium Chloride (Klor-Con M20) 40 meq PO Q4H [facility] Stop: 11/16/17 00:01 Last Admin: 11/16/17 00:19 Dose: 40 meq Scopolamine (Transderm-Scop) 1.5 mg TRDERM Q72H [facility] Stop: 11/18/17 19:15 Last Admin: 11/15/17 22:10 Dose: Not Given Consult PN Assessment/Plan Problem List Initiated/Reviewed/Updated: Yes My Orders Last 24 Hours: My Active Orders 11/16/17 17:03 ALBERTINA Hose [Antiembolic Hose] [OM.PC] Routine 11/16/17 17:19 Verify Patient Consent Obtain [RC] ASDIRECTED 11/16/17 17:20 TYPE AND SCREEN [BBK] Urgent Transfuse PRBC [Transfuse Red Blood Cells] [COMM] Urgent 11/16/17 17:22 PACKED CELLS [RED BLOOD CELLS LP] [BBK] Routine 11/17/17 10:00 Schedule Procedure [COMM] Routine 11/17/17 Breakfast Nothing per Oral After Midnight Diet [DIET] surgical consulstations dicated OCTAVIO
[2017-11-16] MEDS ORDERED: Sodium Chloride 0.9% 250 ML ONE ×2 (19:39→23:21)
[2017-11-16] MEDS ORDERED: Sodium Chloride 0.9% 250 ML IV SCH (19:44)
[2017-11-16] MEDS: Folic Acid 1 MG Tab PO SCH (21:39)
[2017-11-16] MEDS: Simvastatin 20 MG Tab PO SCH (21:39)
[2017-11-16] MEDS: Cyanocobalamin (Vitamin B12) 1,000 MCG Tab PO SCH (21:39)
[2017-11-16] MEDS: Pantoprazole 40 MG Tab.CR PO SCH (21:40)
[2017-11-16] MEDS: Multivitamins,Therapeutic Tab PO SCH (21:40)
[2017-11-16] MEDS: Thiamine 100 MG Tab PO SCH (21:40)
[2017-11-16] MEDS: glipiZIDE 5 MG Tab.ER PO SCH (21:40)
[2017-11-17] MEDS: Sodium Chloride 0.9% 1,000 ML IV SCH (06:34)
[2017-11-17] MEDS: Insulin Aspart 100 Units/ML 3 ML Pen SUBCUT SCH ×4 (06:45→22:46)
--- NOTE | 2017-11-17 08:13 | CONS ---
CONSULTING PHYSICIAN: Ranulfo Portillo MD DATE OF CONSULTATION: 11/16/2017 HISTORY OF PRESENT ILLNESS: The patient is a 47-year-old female who I was asked to see because of anemia of 8.7 that dropped down to 7.4. She gave a history of having feeling not well for about a week with abdominal pain and then yesterday some dark tarry stools x4, in which she was seen in the [facility], and they noted hemoglobin and asked her to come in. She was admitted to the hospital via the emergency room. Then, while in the hospital, had 2 more dark tarry stools. Abdominal pain since being on the proton pump inhibitors has gotten better. Her workup was consisted of positive test for H. pylori. She has felt a little dizzy with this thing. She had also been taking Motrin 800 mg for her back. The patient's past medical history is that of diabetes in which her blood sugars are 356 coming down to 290. She has an A1c of about 12. The patient is on insulin. She also has hypertension, is on Prinivil, metformin, metoprolol. She does smoke on occasion. Has had a problem with alcohol in the past, but says she is no longer having those problems. MEDICATIONS: The patient's medications per medication reconciliation form. REVIEW OF SYSTEMS: Denies any chest pain, shortness of breath, cough, hoarseness, or wheezing. Does have a little dizziness, but no fainting or weakness. Has had no numbness in the lower extremities. Abdominal pain was on the right upper quadrant, but is resolved. PAST SURGICAL HISTORY: Cholecystectomy. PHYSICAL EXAMINATION: GENERAL: Alert and cooperative female. VITAL SIGNS: Blood pressure 105/63, pulse rate 68, temperature 98. Her weight is 127 kg. EYES: Sclerae white. Extraocular muscle motion normal. Oral cavity healthy buccal membrane, roof of the mouth and tongue. NECK: Supple. No nodes. No thyromegaly. HEART: Regular rate. No S3, S4, jugular venous distention. ABDOMEN: Soft. No tenderness, guarding, or rebound. EXTREMITIES: Upper and lower extremities, no angulation deformities. SKIN: Warm and dry. NEUROLOGIC: Normal. No sensorineural deficit. PSYCHIATRIC: Normal. LABORATORY DATA: Shows normal saturation TIBC, in fact the saturation is a little bit low. Transferrin is normal. ASSESSMENT AND PLAN: Gastrointestinal bleed, upper, seems to be acute, not chronic and it seems to be progressing with hemoglobin dropping from 8.7 to 7.4 with evidence of bleeding from having dark tarry stools. I feel that situation is still unstable and she needs blood transfusion upper GI endoscopy which I will schedule tomorrow. MMODAL /[id number]
[2017-11-17] MEDS ORDERED: Magnesium Oxide 400 MG Tab PO ONE ×2 (09:00→12:15)
[2017-11-17] MEDS ORDERED: fentaNYL 100 MCG/2 ML SDV ONE (09:41)
[2017-11-17] MEDS ORDERED: Lidocaine 1% 4 ML ONE (09:41)
[2017-11-17] MEDS ORDERED: Propofol 200 MG/20 ML SDV ONE (09:41)
[2017-11-17] MEDS ORDERED: Ketamine 500 mg/10 ML MDV ONE (09:42)
--- NOTE | 2017-11-17 10:01 | PCM.PREANE ---
Preanesthetic Assessment - Anesthesia/Transfusion/Family Hx Anesthesia History: Prior Anesthesia Without Reaction Family History of Anesthesia Reaction: No Transfusion History: Prior Transfusion Without Reaction - Review of Systems General: Weakness, Fatigue, Malaise, Chills Pulmonary: Shortness of Breath (Much improved from a few days ago. ), Cough, Sputum Cardiovascular: Dyspnea on Exertion, Lightheadedness Gastrointestinal: Abdominal Pain, Melena Neurological: Other (Back pain) Other: Reports: Diabetes - Physical Assessment NPO Status Date: 11/17/17 NPO Status Time: 00:00 Pulse: 64 O2 Sat by Pulse Oximetry: 96 Respiratory Rate: 16 Blood Pressure: 104/55 Temperature: 36.6 C Vital Signs: Last Vital Signs Temp 36.6 C 11/17/17 07:48 Pulse 64 11/17/17 07:48 Resp 16 11/17/17 07:48 BP 104/55 L 11/17/17 07:48 Pulse Ox 96 11/17/17 07:48 Orthostatic Blood Pressure [ 113/57 Standing] Orthostatic Blood Pressure [ 110/51 Sitting] Orthostatic Blood Pressure [ 123/59 Supine] Height: 1.73 m Weight: 106.141 kg ASA Class: 3E Mental Status: Alert & Oriented x3 Airway Class: Mallampati = 2 Dentition: Reports: Dentures Thyro-Mental Finger Breadths: 3 Mouth Opening Finger Breadths: 3 ROM/Head Extension: Full Lungs: Clear to Auscultation, Normal Respiratory Effort Cardiovascular: Regular Rate, Regular Rhythm - Lab Values: Laboratory Last Values WBC 3.07 K/mm3 (3.98-10.04) L 11/17/17 05:50 RBC 4.75 M/mm3 (3.98-5.22) 11/17/17 05:50 Hgb 9.1 gm/L (11.2-15.7) L 11/17/17 05:50 Hct 31.3 % (34.1-44.9) L 11/17/17 05:50 MCV 65.9 fl (79.4-94.8) L 11/17/17 05:50 MCH 19.2 pg (25.6-32.2) L 11/17/17 05:50 MCHC 29.1 g/dl (32.2-35.5) L 11/17/17 05:50 RDW Std Deviation 53.6 fL (36.4-46.3) H 11/17/17 05:50 Plt Count 73 K/mm3 (182-369) L 11/17/17 05:50 Neut % (Auto) 43.3 % (34.0-71.1) 11/17/17 05:50 Lymph % (Auto) 41.4 % (19.3-51.7) 11/17/17 05:50 [place] % (Auto) 13.0 % (4.7-12.5) H 11/17/17 05:50 Eos % (Auto) 1.6 (0.7-5.8) 11/17/17 05:50 Baso % (Auto) 0.7 % (0.1-1.2) 11/17/17 05:50 Neut # (Auto) 1.33 K/mm3 (1.56-6.13) L 11/17/17 05:50 Lymph # (Auto) 1.27 K/mm3 (1.18-3.74) 11/17/17 05:50 [place] # (Auto) 0.40 K/mm3 (0.24-0.36) H 11/17/17 05:50 Eos # (Auto) 0.05 K/mm3 (0.04-0.36) 11/17/17 05:50 Baso # (Auto) 0.02 K/mm3 (0.01-0.08) 11/17/17 05:50 Neutrophils % (Manual) 53 % (40-60) 11/16/17 05:55 Band Neutrophils % 5 % (0-10) 11/16/17 05:55 Lymphocytes % (Manual) 38 % (20-40) 11/16/17 05:55 Atypical Lymphs % 0 % 11/16/17 05:55 Monocytes % (Manual) 2 % (2-10) 11/16/17 05:55 Eosinophils % (Manual) 1 % (0.7-5.8) 11/16/17 05:55 Basophils % (Manual) 1 (0.1-1.2) 11/16/17 05:55 Nucleated RBCs 1.0 % 11/16/17 05:55 Manual Slide Review Abnormal smear 11/17/17 05:50 Platelet Estimate See note 11/16/17 05:55 Plt Morphology Comment Normal 11/15/17 16:02 Polychromasia 1+ slight 11/16/17 05:55 Hypochromasia 2+ moderate 11/16/17 05:55 Poikilocytosis 2+ moderate 11/15/17 16:02 Anisocytosis 1+ slight 11/16/17 05:55 Microcytosis 2+ moderate 11/16/17 05:55 Macrocytosis 1+ slight 11/15/17 16:02 Tear Drop Cells 1+ slight 11/15/17 16:02 Ovalocytes Few 11/16/17 05:55 RBC Morph Comment Not Reportable 11/16/17 05:55 Percent Retic 1.00 % (0.50-1.70) 11/15/17 16:02 Sodium 137 mEq/L (136-145) 11/17/17 05:30 Potassium 3.5 mEq/L (3.5-5.1) 11/17/17 05:30 Chloride 108 mEq/L (98-107) H 11/17/17 05:30 Carbon Dioxide 22 mEq/L (21-32) 11/17/17 05:30 Anion Gap 10.5 (5-15) 11/17/17 05:30 BUN 5 mg/dL (7-18) L 11/17/17 05:30 Creatinine 0.6 mg/dL (0.55-1.02) 11/17/17 05:30 Est Cr Clr Drug Dosing 114.41 mL/min 11/17/17 05:30 Estimated GFR (MDRD) > 60 mL/min (>60) 11/17/17 05:30 BUN/Creatinine Ratio 8.3 (14-18) L 11/17/17 05:30 Glucose 137 mg/dL (74-106) H 11/17/17 05:30 POC Glucose 118 mg/dL (70-105) H 11/17/17 06:38 Hemoglobin A1c 12.50 % (4.50-6.20) H 11/15/17 16:02 Calcium 7.5 mg/dL (8.5-10.1) L 11/17/17 05:30 Magnesium 1.7 mg/dl (1.8-2.4) L 11/17/17 05:30 Iron 14 ug/dL (50-170) L 11/15/17 16:02 TIBC 338 ug/dL (100-400) 11/15/17 16:02 % Saturation 4 % (20-55) L 11/15/17 16:02 Transferrin 270 mg/dL (202-364) 11/15/17 16:02 Total Bilirubin 0.8 mg/dL (0.2-1.0) 11/15/17 16:02 AST 51 U/L (15-37) H 11/15/17 16:02 ALT 52 U/L (14-59) 11/15/17 16:02 Alkaline Phosphatase 127 U/L (46-116) H 11/15/17 16:02 Troponin I < 0.017 ng/mL (0.00-0.056) 11/15/17 16:02 C-Reactive Protein 0.5 mg/dL (<1.0) 11/17/17 05:30 Total Protein 7.9 g/dl (6.4-8.2) 11/15/17 16:02 Albumin 2.8 g/dl (3.4-5.0) L 11/15/17 16:02 Globulin 5.1 gm/dL 11/15/17 16:02 Albumin/Globulin Ratio 0.6 (1-2) L 11/15/17 16:02 Triglycerides 133 mg/dL (<150) 11/16/17 05:55 Cholesterol 88 mg/dL (<200) 11/16/17 05:55 LDL Cholesterol Direct 47 mg/dL (<100) 11/16/17 05:55 HDL Cholesterol 25.0 mg/dL (40-59) L 11/16/17 05:55 Lipase 196 U/L (73-393) 11/15/17 16:02 Free T4 1.56 ng/dL (0.76-1.46) H 11/15/17 16:02 TSH 3rd Generation 1.004 uIU/mL (0.358-3.74) 11/15/17 16:02 HCG, Qual Negative (NEGATIVE) 11/15/17 16:02 Urine Color Yellow (Yellow) 11/15/17 17:18 Urine Appearance Slt cloudy (Clear) H 11/15/17 17:18 Urine pH 6.0 (5.0-8.0) 11/15/17 17:18 Ur Specific [place] 1.025 (1.005-1.030) 11/15/17 17:18 Urine Protein 1+ (Negative) H 11/15/17 17:18 Urine Glucose (UA) 2+ (Negative) H 11/15/17 17:18 Urine Ketones 1+ (Negative) H 11/15/17 17:18 Urine Occult Blood Negative (Negative) 11/15/17 17:18 Urine Nitrite Negative (Negative) 11/15/17 17:18 Urine Bilirubin Negative (Negative) 11/15/17 17:18 Urine Urobilinogen 1.0 (0.2-1.0) 11/15/17 17:18 Ur Leukocyte Esterase Negative (Negative) 11/15/17 17:18 Urine RBC 0-5 /hpf (0-5) 11/15/17 17:18 Urine WBC 0-5 /hpf (0-5) 11/15/17 17:18 Ur Epithelial Cells 10-20 /hpf (0-5) H 11/15/17 17:18 Urine Bacteria Few /hpf (FEW) 11/15/17 17:18 Hyaline Casts 0-5 /lpf (0-5) 11/15/17 17:18 Urine Mucus Moderate /hpf (FEW) H 11/15/17 17:18 Ur Random Microalbumin 42.7 mg/L (1.3-20.0) H 11/15/17 17:18 Urine Opiates Screen Negative (NEGATIVE) 11/15/17 17:18 Ur Buprenorphine Scrn Negative (NEGATIVE) 11/15/17 17:18 Ur Oxycodone Screen Negative (NEGATIVE) 11/15/17 17:18 Urine Methadone Screen Negative (NEGATIVE) 11/15/17 17:18 Ur Propoxyphene Screen Negative (NEGATIVE) 11/15/17 17:18 Ur Barbiturates Screen Negative (NEGATIVE) 11/15/17 17:18 Ur Tricyclics Screen Negative (NEGATIVE) 11/15/17 17:18 Ur Phencyclidine Scrn Negative (NEGATIVE) 11/15/17 17:18 Ur Amphetamine Screen Negative (NEGATIVE) 11/15/17 17:18 U Methamphetamines Scrn Negative (NEGATIVE) 11/15/17 17:18 U Benzodiazepines Scrn Negative (NEGATIVE) 11/15/17 17:18 U Cocaine Metab Screen Negative (NEGATIVE) 11/15/17 17:18 U Marijuana (THC) Screen Negative (NEGATIVE) 11/15/17 17:18 H. pylori IgG Antibody Positive (NEGATIVE) H 11/15/17 16:02 Blood Type A POSITIVE 11/16/17 05:55 Gel Antibody Screen Negative 11/16/17 05:55 Crossmatch See Detail 11/16/17 05:55 - Allergies Allergies/Adverse Reactions: Allergies Allergy/AdvReac Type Severity Reaction Status Date / Time codeine Allergy Itching Verified 11/15/17 23:29 metronidazole [From Flagyl] Allergy Itching Verified 11/15/17 23:29 - Acknowledgements Anesthesia Type Planned: MAC Pt an Appropriate Candidate for the Planned Anesthesia: Yes Alternatives and Risks of Anesthesia Discussed w Pt/Guardian: Yes Pt/Guardian Understands and Agrees with Anesthesia Plan: Yes PreAnesthesia Questionnaire Gastrointestinal History: Reports: [employer]ATOR History: Reports: Musculoskeletal History: Reports: Back Pain, Chronic, Other (See Below) Other Musculoskeletal History: slipped out of her pickup and scrapped her back on the running board and has had backpain eversince. Endocrine/Metabolic History: Reports: Diabetes, Type II Hematologic History: Reports: Anemia - Past Surgical History GI Surgical History: Reports: Cholecystectomy - SUBSTANCE USE Smoking Status *Q: Current Every Day Smoker Tobacco Use Within Last Twelve Months: Cigarettes Second Hand Smoke Exposure: No Recreational Drug Use History: No - HOME MEDS Home Medications: Home Meds Benzonatate [Tessalon Perle] 100 mg PO Q4H PRN 11/15/17 [History] Albuterol/Ipratropium [Combivent Respimat] 4 gm IH Q4H PRN #1 aer.w.adap [Rx] Amoxicillin 5,000 mg PO ASDIRECTED #24 tab 11/16/17 [Rx] Ascorbic Acid [Vitamin C] 250 mg PO DAILY #60 tablet 11/16/17 [Rx] Aspirin [Halfprin] 81 mg PO DAILY #30 tab.ec 11/16/17 [Rx] Clarithromycin [Biaxin] 500 mg PO BID #24 tablet 11/16/17 [Rx] Cyanocobalamin (Vitamin B12) [Vitamin B12] 1,000 mcg PO ASDIRECTED #30 tablet [Rx] Empagliflozin [Jardiance] 25 mg PO DAILY #30 tablet 11/16/17 [Rx] Fluticasone/Salmeterol [Advair HFA 230-21 MCG] 1 puff INH BID #1 inhaler [Rx] Folic Acid 1 mg PO BEDTIME #10 tablet 11/16/17 [Rx] Iron Polysaccharides Complex [Ferrex 150] 300 mg PO BID #120 cap 11/16/17 [Rx] Liraglutide [Victoza 2-Po] 0.6 mg SQ ASDIRECTED #1 ml 11/16/17 [Rx] Lisinopril [Prinivil] 20 mg PO DAILY #30 tablet 11/16/17 [Rx] Lorcaserin HCl [Belviq] 10 mg PO DAILY #30 tablet 11/16/17 [Rx] Nicotine [Habitrol] 14 mg TRDERM DAILY PRN #30 patch 11/16/17 [Rx] Omeprazole 20 mg PO BIDAC #60 cap.sr 11/16/17 [Rx] Saccharomyces Boulardii [Florastor] 250 mg PO BID #20 cap 11/16/17 [Rx] Simvastatin [Zocor] 20 mg PO BEDTIME #30 tablet 11/16/17 [Rx] Thiamine [Vitamin B-1] 100 mg PO BEDTIME #10 tablet 11/16/17 [Rx] - CURRENT (IN HOUSE) MEDS Current Meds: Current Medications Acetaminophen (Tylenol) 650 mg PO Q4H PRN PRN Reason: Pain (Mild 1-3)/fever Last Admin: 11/17/17 02:03 Dose: 650 mg Acetaminophen/Butalbital/Caffeine (Fioricet 325-50-40 Mg) 1 tab PO Q6H PRN PRN Reason: Headache Hydrocodone Bitart/Acetaminophen ([place] 325-5 Mg) 1 tab PO Q4H PRN PRN Reason: Pain (moderate 4-6) Albuterol/Ipratropium (Duoneb 3.0-0.5 Mg/3 Ml) 3 ml NEB Q4H PRN PRN Reason: Shortness Of Breath/wheezing Last Admin: 11/16/17 09:46 Dose: 3 ml Amoxicillin (Amoxil) 1,000 mg PO BID [facility] Last Admin: 11/16/17 21:39 Dose: 1,000 mg Ascorbic Acid (Vitamin C) 250 mg PO DAILY [facility] Last Admin: 11/16/17 10:41 Dose: 250 mg Benzonatate (Tessalon Perles) 100 mg PO Q4H PRN PRN Reason: COUGH Bisacodyl (Dulcolax) 5 mg PO DAILY PRN PRN Reason: Constipation Clarithromycin (Biaxin) 500 mg PO BID [facility] Last Admin: 11/16/17 21:41 Dose: 500 mg Cyanocobalamin (Vitamin B12) 1,000 mcg PO DAILY [facility] Last Admin: 11/16/17 21:39 Dose: 1,000 mcg Dextrose/Water (Dextrose 50% In Water) 50 ml IVPUSH ASDIRECTED PRN PRN Reason: Hypoglycemia Docusate Sodium (Colace) 100 mg PO BID PRN PRN Reason: Constipation Folic Acid (Folic Acid) 1 mg PO BEDTIME [facility] Last Admin: 11/16/17 21:39 Dose: 1 mg Glipizide (Glucotrol Xl) 5 mg PO BID [facility] Last Admin: 11/16/17 21:40 Dose: 5 mg Guaifenesin/Phenylephrine HCl (Robitussin Dm) 10 ml PO Q4H PRN PRN Reason: Cough Hydralazine HCl (Apresoline) 20 mg IVPUSH Q4H PRN PRN Reason: Hypertension Promethazine HCl 12.5 mg/ (Sodium Chloride) 50.5 mls @ 100 mls/hr IV Q6H PRN PRN Reason: Nausea/Vomiting Sodium Chloride (Normal Saline) 1,000 mls @ 75 mls/hr IV ASDIRECTED [facility] Last Admin: 11/17/17 06:34 Dose: 75 mls/hr Insulin Aspart (Novolog) 0 unit SUBCUT QIDACANDBED [facility]; Protocol Last Admin: 11/17/17 06:45 Dose: Not Given Lisinopril (Prinivil) 20 mg PO DAILY [facility] Last Admin: 11/16/17 10:55 Dose: Not Given Lorazepam (Ativan) 2 mg IVPUSH Q4H PRN PRN Reason: Seizures Magnesium Sulfate (Pharmacy To Dose - Magnesium Replacement) 1 dose .XX ASDIRECTED [facility] Metformin HCl (Glucophage) 1,000 mg PO BIDMEALS [facility] Last Admin: 11/16/17 16:48 Dose: 1,000 mg Metoprolol Tartrate (Lopressor) 5 mg IVPUSH Q4H PRN PRN Reason: Tachycardia Miscellaneous Information (Remove Patch) 1 ea TRDERM Q72H [facility] Stop: 11/18/17 21:01 Multivitamins (Thera) 1 each PO BEDTIME [facility] Last Admin: 11/16/17 21:40 Dose: 1 each Nicotine (Habitrol) 14 mg TRDERM DAILY PRN PRN Reason: Nicotine Ondansetron HCl (Zofran) 4 mg IV Q6H PRN PRN Reason: Nausea/Vomiting Last Admin: 11/15/17 22:21 Dose: 4 mg Pantoprazole Sodium (Protonix) 40 mg PO Q12HR [facility] Last Admin: 11/16/17 21:40 Dose: 40 mg Polyethylene Glycol (Miralax) 17 gm PO DAILY PRN PRN Reason: Constipation Polysaccharide Iron Complex (Ferrex 150) 300 mg PO DAILY [facility] Last Admin: 11/16/17 19:39 Dose: Not Given Potassium Chloride (Pharmacy To Dose - Potassium Replacement) 1 dose .XX ASDIRECTED [facility] Saccharomyces Boulardii (Florastor) 250 mg PO BID [facility] Last Admin: 11/16/17 21:39 Dose: 250 mg Scopolamine (Transderm-Scop) 1.5 mg TRDERM Q72H [facility] Last Admin: 11/16/17 00:19 Dose: Not Given Senna/Docusate Sodium (Senna Plus) 1 tab PO BID PRN PRN Reason: Constipation Simvastatin (Zocor) 20 mg PO BEDTIME [facility] Last Admin: 11/16/17 21:39 Dose: 20 mg Temazepam (Restoril) 15 mg PO BEDTIME PRN PRN Reason: Sleep Thiamine HCl (Vitamin B-1) 100 mg PO BEDTIME [facility] Last Admin: 11/16/17 21:40 Dose: 100 mg Discontinued Medications Albuterol (Proventil Hfa) 15 gm INH BID [facility] Last Admin: 11/16/17 09:09 Dose: Not Given Amoxicillin (Amoxil) 1,000 mg PO ONETIME ONE Stop: 11/15/17 22:46 Last Admin: 11/16/17 00:20 Dose: Not Given Aspirin (Halfprin) 81 mg PO DAILY [facility] Last Admin: 11/16/17 08:24 Dose: 81 mg Clarithromycin (Biaxin) 500 mg PO TID [facility] Last Admin: 11/16/17 08:23 Dose: 500 mg Clarithromycin (Biaxin) 500 mg PO NOW STA Stop: 11/15/17 21:12 Last Admin: 11/15/17 22:04 Dose: 500 mg Al Hydroxide/Mg Hydroxide 30 (ml/ Lidocaine HCl 15 ml) 0 ml PO ONETIME ONE Stop: 11/15/17 15:35 Last Admin: 11/15/17 16:03 Dose: 45 ml Enoxaparin Sodium (Lovenox) 40 mg SUBCUT DAILY [facility] Last Admin: 11/16/17 17:24 Dose: Not Given Famotidine (Pepcid) 20 mg IVPUSH ONETIME ONE Stop: 11/15/17 19:17 Last Admin: 11/15/17 21:13 Dose: 20 mg Fentanyl (Sublimaze) Confirm Administered Dose 100 mcg .ROUTE .STK-MED ONE Stop: 11/17/17 09:42 Glipizide (Glucotrol Xl) 2.5 mg PO BID [facility] Last Admin: 11/16/17 08:24 Dose: 2.5 mg Pantoprazole Sodium 80 mg/ (Sodium Chloride) 100 mls @ 10 mls/hr IV Q10H [facility] Sodium Chloride (Normal Saline) 1,000 mls @ 999 mls/hr IV ONETIME ONE Stop: 11/15/17 16:34 Last Admin: 11/15/17 16:02 Dose: 250 mls/hr Sodium Chloride (Normal Saline) 1,000 mls @ 999 mls/hr IV ONETIME ONE Stop: 11/15/17 18:35 Last Admin: 11/15/17 21:18 Dose: 999 mls/hr Magnesium Sulfate 2 gm/ Premix 50 mls @ 25 mls/hr IV Q2H [facility] Stop: 11/16/17 11:59 Last Admin: 11/16/17 10:41 Dose: 25 mls/hr Sodium Chloride (Normal Saline) Confirm Administered Dose 250 mls @ as directed .ROUTE .STK-MED ONE Stop: 11/16/17 19:40 Last Admin: 11/16/17 19:45 Dose: 75 mls/hr Sodium Chloride (Normal Saline) 250 mls @ 75 mls/hr IV ASDIRECTED [facility] Stop: 11/16/17 23:03 Last Admin: 11/16/17 19:48 Dose: Not Given Sodium Chloride (Normal Saline) Confirm Administered Dose 250 mls @ as directed .ROUTE .STK-MED ONE Stop: 11/16/17 23:22 Last Admin: 11/16/17 23:47 Dose: 250 mls/hr Lidocaine HCl (Xylocaine-Mpf 1%) Confirm Administered Dose 4 mls @ as directed .ROUTE .STK-MED ONE Stop: 11/17/17 09:42 Ketamine HCl (Ketalar) Confirm Administered Dose 500 mg .ROUTE .STK-MED ONE Stop: 11/17/17 09:43 Magnesium Oxide (Magnesium Oxide) 800 mg PO ONETIME ONE Stop: 11/17/17 09:01 Pantoprazole Sodium (Protonix Iv) 80 mg IVPUSH .BOLUS ONE Stop: 11/15/17 15:43 Last Admin: 11/15/17 16:03 Dose: 80 mg Pantoprazole Sodium (Protonix Iv) 40 mg IV Q12HR [facility] Last Admin: 11/16/17 08:24 Dose: 40 mg Potassium Chloride (Klor-Con M20) 40 meq PO Q4H [facility] Stop: 11/16/17 00:01 Last Admin: 11/16/17 00:19 Dose: 40 meq Propofol (Diprivan 20 Ml) Confirm Administered Dose 200 mg .ROUTE .STK-MED ONE Stop: 11/17/17 09:42 Scopolamine (Transderm-Scop) 1.5 mg TRDERM Q72H [place] Stop: 11/18/17 19:15 Last Admin: 11/15/17 22:10 Dose: Not Given
--- NOTE | 2017-11-17 10:33 | PCM.OPNOTE ---
- General Post-Op/Procedure Note Date of Surgery/Procedure: 11/17/17 Operative Procedure(s): EGD with bx Pre Op Diagnosis: gi bleeding Post-Op Diagnosis: Same Anesthesia Technique: MAC Primary Surgeon: Ranulfo Portillo EBL in mLs: 0 Complications: None Condition: Good Free Text/Narrative:: Intake & Output 11/16/17 11/17/17 11/17/17 23:59 07:59 15:59 Intake Total 8989 2320 Balance 6341 2446
--- NOTE | 2017-11-17 10:45 | PCM48HPAN ---
Post Anesthesia Note - EVALUATION WITHIN 48HRS OF ANESTHETIC Vital Signs in Normal Range: Yes Patient Participated in Evaluation: Yes Respiratory Function Stable: Yes Airway Patent: Yes Cardiovascular Function Stable: Yes Hydration Status Stable: Yes Pain Control Satisfactory: Yes Nausea and Vomiting Control Satisfactory: Yes Mental Status Recovered: Yes Pulse Rate: 67 SaO2: 97 Resp Rate: 16 Temperature: 36.6 C Blood Pressure: 113/82
[2017-11-17] MEDS: metFORMIN 500 MG Tab PO SCH ×2 (11:08→17:47)
[2017-11-17] MEDS: Saccharomyces Boulardii (Probiotic) 250 MG Cap PO SCH ×2 (12:09→20:28)
[2017-11-17] MEDS: Iron Polysaccharides Complex 150 MG Cap PO SCH (12:10)
[2017-11-17] MEDS: Pantoprazole 40 MG Tab.CR PO SCH ×2 (12:10→20:31)
[2017-11-17] MEDS: glipiZIDE 5 MG Tab.ER PO SCH ×2 (12:10→20:31)
[2017-11-17] MEDS: Cyanocobalamin (Vitamin B12) 1,000 MCG Tab PO SCH (12:10)
[2017-11-17] MEDS: Amoxicillin 500 MG Cap PO SCH ×2 (12:10→20:29)
[2017-11-17] MEDS: Ascorbic Acid 500 MG Tab PO SCH (12:11)
[2017-11-17] MEDS: Lisinopril 20 MG Tab PO SCH (12:12)
--- NOTE | 2017-11-17 12:31 | PCM.PN ---
- General Info Date of Service: 11/17/17 Subjective Update: Patient was seen post op after EGD w/ biopsy; H pylori positive; superficial erosion was reported verbally. Formal report was not available. Patient is agreeable for an additional night to monitor Hgb. Will start Carafate 1 gm QID as tolerated. Functional Status: Reports: Pain Controlled, Tolerating Diet, Ambulating, Urinating - Review of Systems General: Reports: No Symptoms HEENT: Reports: No Symptoms Pulmonary: Reports: No Symptoms Cardiovascular: Reports: No Symptoms Gastrointestinal: Reports: No Symptoms Genitourinary: Reports: No Symptoms Musculoskeletal: Reports: No Symptoms Skin: Reports: No Symptoms Neurological: Reports: No Symptoms Psychiatric: Reports: No Symptoms - Patient Data Vitals - Most Recent: Last Vital Signs Temp 36.6 C 11/17/17 10:45 Pulse 67 11/17/17 10:45 Resp 16 11/17/17 10:45 BP 113/82 11/17/17 12:12 Pulse Ox 97 11/17/17 10:45 Orthostatic Blood Pressure [ 113/57 Standing] Orthostatic Blood Pressure [ 110/51 Sitting] Orthostatic Blood Pressure [ 123/59 Supine] Weight - Most Recent: 106.141 kg I&O - Last 24 Hours: Intake & Output 11/16/17 11/17/17 11/17/17 22:59 06:59 14:59 Intake Total 2033 2044 Balance 2033 2044 Lab Results Last 24 Hours: Laboratory Results - last 24 hr 11/16/17 11/16/17 11/16/17 Range/Units 05:55 16:48 21:44 WBC (3.98-10.04) K/mm3 RBC (3.98-5.22) M/mm3 Hgb (11.2-15.7) gm/L Hct (34.1-44.9) % MCV (79.4-94.8) fl MCH (25.6-32.2) pg MCHC (32.2-35.5) g/dl RDW Std Deviation (36.4-46.3) fL Plt Count (182-369) K/mm3 Neut % (Auto) (34.0-71.1) % Lymph % (Auto) (19.3-51.7) % Braxton % (Auto) (4.7-12.5) % Eos % (Auto) (0.7-5.8) Baso % (Auto) (0.1-1.2) % Neut # (Auto) (1.56-6.13) K/mm3 Lymph # (Auto) (1.18-3.74) K/mm3 Braxton # (Auto) (0.24-0.36) K/mm3 Eos # (Auto) (0.04-0.36) K/mm3 Baso # (Auto) (0.01-0.08) K/mm3 Manual Slide Review Sodium (136-145) mEq/L Potassium (3.5-5.1) mEq/L Chloride (98-107) mEq/L Carbon Dioxide (21-32) mEq/L Anion Gap (5-15) BUN (7-18) mg/dL Creatinine (0.55-1.02) mg/dL Est Cr Clr Drug Dosing mL/min Estimated GFR (MDRD) (>60) mL/min BUN/Creatinine Ratio (14-18) Glucose (74-106) mg/dL POC Glucose 252 H 213 H (70-105) mg/dL Calcium (8.5-10.1) mg/dL Magnesium (1.8-2.4) mg/dl C-Reactive Protein (<1.0) mg/dL Blood Type A POSITIVE Gel Antibody Screen Negative Crossmatch See Detail 11/17/17 11/17/17 11/17/17 Range/Units 05:30 05:50 06:38 WBC 3.07 L (3.98-10.04) K/mm3 RBC 4.75 (3.98-5.22) M/mm3 Hgb 9.1 L (11.2-15.7) gm/L Hct 31.3 L (34.1-44.9) % MCV 65.9 L (79.4-94.8) fl MCH 19.2 L (25.6-32.2) pg MCHC 29.1 L (32.2-35.5) g/dl RDW Std Deviation 53.6 H (36.4-46.3) fL Plt Count 73 L (182-369) K/mm3 Neut % (Auto) 43.3 (34.0-71.1) % Lymph % (Auto) 41.4 (19.3-51.7) % Braxton % (Auto) 13.0 H (4.7-12.5) % Eos % (Auto) 1.6 (0.7-5.8) Baso % (Auto) 0.7 (0.1-1.2) % Neut # (Auto) 1.33 L (1.56-6.13) K/mm3 Lymph # (Auto) 1.27 (1.18-3.74) K/mm3 Braxton # (Auto) 0.40 H (0.24-0.36) K/mm3 Eos # (Auto) 0.05 (0.04-0.36) K/mm3 Baso # (Auto) 0.02 (0.01-0.08) K/mm3 Manual Slide Review Abnormal smear Sodium 137 (136-145) mEq/L Potassium 3.5 (3.5-5.1) mEq/L Chloride 108 H (98-107) mEq/L Carbon Dioxide 22 (21-32) mEq/L Anion Gap 10.5 (5-15) BUN 5 L (7-18) mg/dL Creatinine 0.6 (0.55-1.02) mg/dL Est Cr Clr Drug Dosing 114.41 mL/min Estimated GFR (MDRD) > 60 (>60) mL/min BUN/Creatinine Ratio 8.3 L (14-18) Glucose 137 H (74-106) mg/dL POC Glucose 118 H (70-105) mg/dL Calcium 7.5 L (8.5-10.1) mg/dL Magnesium 1.7 L (1.8-2.4) mg/dl C-Reactive Protein 0.5 (<1.0) mg/dL Blood Type Gel Antibody Screen Crossmatch 11/17/17 Range/Units 11:58 WBC (3.98-10.04) K/mm3 RBC (3.98-5.22) M/mm3 Hgb (11.2-15.7) gm/L Hct (34.1-44.9) % MCV (79.4-94.8) fl MCH (25.6-32.2) pg MCHC (32.2-35.5) g/dl RDW Std Deviation (36.4-46.3) fL Plt Count (182-369) K/mm3 Neut % (Auto) (34.0-71.1) % Lymph % (Auto) (19.3-51.7) % Braxton % (Auto) (4.7-12.5) % Eos % (Auto) (0.7-5.8) Baso % (Auto) (0.1-1.2) % Neut # (Auto) (1.56-6.13) K/mm3 Lymph # (Auto) (1.18-3.74) K/mm3 Braxton # (Auto) (0.24-0.36) K/mm3 Eos # (Auto) (0.04-0.36) K/mm3 Baso # (Auto) (0.01-0.08) K/mm3 Manual Slide Review Sodium (136-145) mEq/L Potassium (3.5-5.1) mEq/L Chloride (98-107) mEq/L Carbon Dioxide (21-32) mEq/L Anion Gap (5-15) BUN (7-18) mg/dL Creatinine (0.55-1.02) mg/dL Est Cr Clr Drug Dosing mL/min Estimated GFR (MDRD) (>60) mL/min BUN/Creatinine Ratio (14-18) Glucose (74-106) mg/dL POC Glucose 114 H (70-105) mg/dL Calcium (8.5-10.1) mg/dL Magnesium (1.8-2.4) mg/dl C-Reactive Protein (<1.0) mg/dL Blood Type Gel Antibody Screen Crossmatch Tito Results Last 24 Hours: Microbiology 11/16/17 03:00 Gram Stain - Final Sputum - Expectorated Sputum Culture - Preliminary 11/15/17 21:45 Respiratory Virus Panel (PCR) - Final Nasopharyngeal Swab Med Orders - Current: Current Medications Acetaminophen (Tylenol) 650 mg PO Q4H PRN PRN Reason: Pain (Mild 1-3)/fever Last Admin: 11/17/17 02:03 Dose: 650 mg Acetaminophen/Butalbital/Caffeine (Fioricet 325-50-40 Mg) 1 tab PO Q6H PRN PRN Reason: Headache Hydrocodone Bitart/Acetaminophen ([place] 325-5 Mg) 1 tab PO Q4H PRN PRN Reason: Pain (moderate 4-6) Albuterol/Ipratropium (Duoneb 3.0-0.5 Mg/3 Ml) 3 ml NEB Q4H PRN PRN Reason: Shortness Of Breath/wheezing Last Admin: 11/16/17 09:46 Dose: 3 ml Amoxicillin (Amoxil) 1,000 mg PO BID [facility] Last Admin: 11/17/17 12:10 Dose: 1,000 mg Ascorbic Acid (Vitamin C) 250 mg PO DAILY [facility] Last Admin: 11/17/17 12:11 Dose: 250 mg Benzonatate (Tessalon Perles) 100 mg PO Q4H PRN PRN Reason: COUGH Bisacodyl (Dulcolax) 5 mg PO DAILY PRN PRN Reason: Constipation Clarithromycin (Biaxin) 500 mg PO BID [facility] Last Admin: 11/17/17 12:10 Dose: 500 mg Cyanocobalamin (Vitamin B12) 1,000 mcg PO DAILY [facility] Last Admin: 11/17/17 12:10 Dose: 1,000 mcg Dextrose/Water (Dextrose 50% In Water) 50 ml IVPUSH ASDIRECTED PRN PRN Reason: Hypoglycemia Docusate Sodium (Colace) 100 mg PO BID PRN PRN Reason: Constipation Folic Acid (Folic Acid) 1 mg PO BEDTIME [facility] Last Admin: 11/16/17 21:39 Dose: 1 mg Glipizide (Glucotrol Xl) 5 mg PO BID [facility] Last Admin: 11/17/17 12:10 Dose: 5 mg Guaifenesin/Phenylephrine HCl (Robitussin Dm) 10 ml PO Q4H PRN PRN Reason: Cough Hydralazine HCl (Apresoline) 20 mg IVPUSH Q4H PRN PRN Reason: Hypertension Promethazine HCl 12.5 mg/ (Sodium Chloride) 50.5 mls @ 100 mls/hr IV Q6H PRN PRN Reason: Nausea/Vomiting Sodium Chloride (Normal Saline) 1,000 mls @ 75 mls/hr IV ASDIRECTED [facility] Last Admin: 11/17/17 06:34 Dose: 75 mls/hr Insulin Aspart (Novolog) 0 unit SUBCUT QIDACANDBED [facility]; Protocol Last Admin: 11/17/17 12:17 Dose: Not Given Lisinopril (Prinivil) 20 mg PO DAILY [facility] Last Admin: 11/17/17 12:12 Dose: 20 mg Lorazepam (Ativan) 2 mg IVPUSH Q4H PRN PRN Reason: Seizures Magnesium Sulfate (Pharmacy To Dose - Magnesium Replacement) 1 dose .XX ASDIRECTED [facility] Metformin HCl (Glucophage) 1,000 mg PO BIDMEALS [facility] Last Admin: 11/17/17 11:08 Dose: Not Given Metoprolol Tartrate (Lopressor) 5 mg IVPUSH Q4H PRN PRN Reason: Tachycardia Miscellaneous Information (Remove Patch) 1 ea TRDERM Q72H [facility] Stop: 11/18/17 21:01 Multivitamins (Thera) 1 each PO BEDTIME [facility] Last Admin: 11/16/17 21:40 Dose: 1 each Nicotine (Habitrol) 14 mg TRDERM DAILY PRN PRN Reason: Nicotine Ondansetron HCl (Zofran) 4 mg IV Q6H PRN PRN Reason: Nausea/Vomiting Last Admin: 11/15/17 22:21 Dose: 4 mg Pantoprazole Sodium (Protonix) 40 mg PO Q12HR [facility] Last Admin: 11/17/17 12:10 Dose: 40 mg Polyethylene Glycol (Miralax) 17 gm PO DAILY PRN PRN Reason: Constipation Polysaccharide Iron Complex (Ferrex 150) 300 mg PO DAILY [facility] Last Admin: 11/17/17 12:10 Dose: 300 mg Potassium Chloride (Pharmacy To Dose - Potassium Replacement) 1 dose .XX ASDIRECTED [facility] Saccharomyces Boulardii (Florastor) 250 mg PO BID [facility] Last Admin: 11/17/17 12:09 Dose: 250 mg Scopolamine (Transderm-Scop) 1.5 mg TRDERM Q72H [facility] Last Admin: 11/16/17 00:19 Dose: Not Given Senna/Docusate Sodium (Senna Plus) 1 tab PO BID PRN PRN Reason: Constipation Simvastatin (Zocor) 20 mg PO BEDTIME [facility] Last Admin: 11/16/17 21:39 Dose: 20 mg Temazepam (Restoril) 15 mg PO BEDTIME PRN PRN Reason: Sleep Thiamine HCl (Vitamin B-1) 100 mg PO BEDTIME [facility] Last Admin: 11/16/17 21:40 Dose: 100 mg Discontinued Medications Albuterol (Proventil Hfa) 15 gm INH BID [facility] Last Admin: 11/16/17 09:09 Dose: Not Given Amoxicillin (Amoxil) 1,000 mg PO ONETIME ONE Stop: 11/15/17 22:46 Last Admin: 11/16/17 00:20 Dose: Not Given Aspirin (Halfprin) 81 mg PO DAILY [facility] Last Admin: 11/16/17 08:24 Dose: 81 mg Clarithromycin (Biaxin) 500 mg PO TID [place] Last Admin: 11/16/17 08:23 Dose: 500 mg Clarithromycin (Biaxin) 500 mg PO NOW STA Stop: 11/15/17 21:12 Last Admin: 11/15/17 22:04 Dose: 500 mg Al Hydroxide/Mg Hydroxide 30 (ml/ Lidocaine HCl 15 ml) 0 ml PO ONETIME ONE Stop: 11/15/17 15:35 Last Admin: 11/15/17 16:03 Dose: 45 ml Enoxaparin Sodium (Lovenox) 40 mg SUBCUT DAILY [facility] Last Admin: 11/16/17 17:24 Dose: Not Given Famotidine (Pepcid) 20 mg IVPUSH ONETIME ONE Stop: 11/15/17 19:17 Last Admin: 11/15/17 21:13 Dose: 20 mg Fentanyl (Sublimaze) Confirm Administered Dose 100 mcg .ROUTE .STK-MED ONE Stop: 11/17/17 09:42 Glipizide (Glucotrol Xl) 2.5 mg PO BID [facility] Last Admin: 11/16/17 08:24 Dose: 2.5 mg Pantoprazole Sodium 80 mg/ (Sodium Chloride) 100 mls @ 10 mls/hr IV Q10H [facility] Sodium Chloride (Normal Saline) 1,000 mls @ 999 mls/hr IV ONETIME ONE Stop: 11/15/17 16:34 Last Admin: 11/15/17 16:02 Dose: 250 mls/hr Sodium Chloride (Normal Saline) 1,000 mls @ 999 mls/hr IV ONETIME ONE Stop: 11/15/17 18:35 Last Admin: 11/15/17 21:18 Dose: 999 mls/hr Magnesium Sulfate 2 gm/ Premix 50 mls @ 25 mls/hr IV Q2H [facility] Stop: 11/16/17 11:59 Last Admin: 11/16/17 10:41 Dose: 25 mls/hr Sodium Chloride (Normal Saline) Confirm Administered Dose 250 mls @ as directed .ROUTE .STK-MED ONE Stop: 11/16/17 19:40 Last Admin: 11/16/17 19:45 Dose: 75 mls/hr Sodium Chloride (Normal Saline) 250 mls @ 75 mls/hr IV ASDIRECTED [place] Stop: 11/16/17 23:03 Last Admin: 11/16/17 19:48 Dose: Not Given Sodium Chloride (Normal Saline) Confirm Administered Dose 250 mls @ as directed .ROUTE .STK-MED ONE Stop: 11/16/17 23:22 Last Admin: 11/16/17 23:47 Dose: 250 mls/hr Lidocaine HCl (Xylocaine-Mpf 1%) Confirm Administered Dose 4 mls @ as directed .ROUTE .STK-MED ONE Stop: 11/17/17 09:42 Ketamine HCl (Ketalar) Confirm Administered Dose 500 mg .ROUTE .STK-MED [facility] Stop: 11/17/17 09:43 Magnesium Oxide (Magnesium Oxide) 800 mg PO ONETIME ONE Stop: 11/17/17 12:16 Last Admin: 11/17/17 12:16 Dose: 800 mg Pantoprazole Sodium (Protonix Iv) 80 mg IVPUSH .BOLUS ONE Stop: 11/15/17 15:43 Last Admin: 11/15/17 16:03 Dose: 80 mg Pantoprazole Sodium (Protonix Iv) 40 mg IV Q12HR [facility] Last Admin: 11/16/17 08:24 Dose: 40 mg Potassium Chloride (Klor-Con M20) 40 meq PO Q4H [facility] Stop: 11/16/17 00:01 Last Admin: 11/16/17 00:19 Dose: 40 meq Propofol (Diprivan 20 Ml) Confirm Administered Dose 200 mg .ROUTE .STK-MED ONE Stop: 11/17/17 09:42 Scopolamine (Transderm-Scop) 1.5 mg TRDERM Q72H [facility] Stop: 11/18/17 19:15 Last Admin: 11/15/17 22:10 Dose: Not Given - Exam Quality Assessment: DVT Prophylaxis General: Alert, Oriented, Cooperative, No Acute Distress HEENT: Pupils Equal, Pupils Reactive, EOMI Neck: Trachea Midline, No JVD Lungs: Normal Respiratory Effort, Decreased Breath Sounds Cardiovascular: Regular Rate, Regular Rhythm GI/Abdominal Exam: Normal Bowel Sounds, Soft, Non-Tender, No Organomegaly, No Distention (Female) Exam: Deferred Back Exam: Normal Inspection Extremities: Normal Inspection, Normal Capillary Refill Skin: Warm Neurological: No New Focal Deficit, Normal Gait, Normal Speech Psy/Mental Status: Alert, Normal Affect, Normal Mood - Problem List Review Problem List Initiated/Reviewed/Updated: Yes - Plan Plan:: Assessment/Plan: Acute: Microcytic Anemia - Hgb of 8.0, MCV of 63.7 and Platelet of 86; no baseline levels for comparison - Heavy LMP this past Monday - Emesis felt to be some bleed - Hemo-occult negative - Iron Panel and Retic Count - Folic Acid, B12, Thiamine and MVI Supplement - Follow Up Level in AM GERD w/ H. Pylori Infection - Long standing - She is on PPI; continue anti-acids - Had recent use of oral steroid and NSAIDs - H. Pylori screening is positive - Tx: Protonix 40 mg po BID + Amoxicillin 1 g BID + Clarithromycin 500 mg po TID for 10 days DM2 w/ Microalbuminemia - She is only on Metformin - BS 356; poorly controlled - A1C is 12.50 - Lipid Panel in AM - Glipizide 2.5 mg po BID and ISS - Accu-check QID AC/HS - Urine microalbumin 42.7 and UA +1 Protein-->start Lisinopril 20 mg po daily protect kidneys from nephropathy - ASA 81 mg po daily for cardioprotection Hypoalbuminemia - Albumin 2.8 - Dietary consult for low protein states Probable Metabolic Syndrome - Pending Lipid Panel - BMI 42.6 - May benefit with Jardiance and Victoza for treatment of Diabetes and Weight Loss Mild Hypokalemia - K 3.4 - 2/2 inadequate intake - Replete and Monitor Subclinical Hyperthyroidism - TSH 1.004 and FT4 1.56 (Elevated) - Monitor Plan: Admit to OBS Hold Home Meds Routine AM Labs Dietary consult Diabetic Education GI/GS eval outpatient Belviq 10 mg po daily after discharge SW/CM for d/c planning Code status:1
[2017-11-17] MEDS: Sucralfate Suspension 1 GM/10 ML Cup PO SCH ×2 (17:46→18:07)
[2017-11-17] MEDS: Thiamine 100 MG Tab PO SCH (20:29)
[2017-11-17] MEDS: Multivitamins,Therapeutic Tab PO SCH (20:30)
[2017-11-17] MEDS: Folic Acid 1 MG Tab PO SCH (20:31)
[2017-11-17] MEDS: Simvastatin 20 MG Tab PO SCH (20:31)
[2017-11-18] MEDS: Sucralfate Suspension 1 GM/10 ML Cup PO SCH ×2 (00:37→06:36)
[2017-11-18] MEDS: Sodium Chloride 0.9% 1,000 ML IV SCH (03:45)
[2017-11-18] MEDS: metFORMIN 500 MG Tab PO SCH (06:36)
[2017-11-18] MEDS: Insulin Aspart 100 Units/ML 3 ML Pen SUBCUT SCH (08:04)
[2017-11-18] MEDS: Saccharomyces Boulardii (Probiotic) 250 MG Cap PO SCH (08:30)
[2017-11-18] MEDS: Pantoprazole 40 MG Tab.CR PO SCH (08:30)
[2017-11-18] MEDS: Amoxicillin 500 MG Cap PO SCH (08:30)
[2017-11-18] MEDS: Iron Polysaccharides Complex 150 MG Cap PO SCH (08:30)
[2017-11-18] MEDS: glipiZIDE 5 MG Tab.ER PO SCH (08:30)
[2017-11-18] MEDS: Ascorbic Acid 500 MG Tab PO SCH (08:30)
[2017-11-18] MEDS: Cyanocobalamin (Vitamin B12) 1,000 MCG Tab PO SCH (08:30)
[2017-11-18] MEDS: Lisinopril 20 MG Tab PO SCH (08:33)
[2017-11-18] MEDS ORDERED: Potassium Chloride 20 MEQ Tab.ER PO ONE (09:20)
--- NOTE | 2017-11-18 09:39 | PCM.DCSUM1 ---
Discharge Summary - Hospital Course Free Text/Narrative:: his is a 47 yo female with past medical hx/o DM2 who comes in with multiple complaints of chills, headache, body aches, nausea and coffee- ground emesis, nonproductive cough, mild shortness of breath, dizziness and low appetite that started this past Monday. She reports no history of upper GI bleed or peptic ulcers disease. However she has a history of GERD on PPI. She reports no history of endoscopic procedures in the past. No history of gastric or intestinal surgery. No sick contact and no ingestion of unusual food or drinks. She was initially seen at her primary care's office and was found she was low in hemoglobin. She was immediately referred to the emergency department for further evaluation and treatment. Patient is currently on amoxicillin, ibuprofen , Tessalon Perles, and oral prednisone along with metformin for routine home medications Her initial workup in emergency department shows a CBC remarkable for WBC of 2.78, hemoglobin of 8, hematocrit of 28.8, MCV was 63.7, MCH of 17.7, MCHC of 27.8, RDW of 48.5, platelet counts of 86, neutrophils of 78%, and lymphocytes of 18%. Her chemistry is remarkable for sodium of 133, potassium of 2.4, glucose of 256, calcium of 7.9, AST of 51, alkaline phosphatase of 107, CRP of 1.3, and albumin of 2.8. Her troponin lipase and screening were all within normal limits. Her UA is negative for UTI. Her chest and abdominal x-ray show no acute abnormal findings. Patient is being admitted for Acute Anemia and GERD with H. Pylori Infection. She is full code. - Discharge Data Discharge Date: 11/18/17 Discharge Disposition: Home, Self-Care 01 Condition: Good - Patient Summary/Data Operative Procedure(s) Performed: EGD with bx Consults: Consultations 11/15/17 19:10 Consult to Case Management [CONS] Routine Consult to Behavioral Psychologist [CONS] Routine 11/16/17 07:34 Consult to Physician [CONS] Routine 11/16/17 09:00 Consult to Acquisition Associate [Consult to Diabetic Nurse Specialist] [CONS] Routine Consult to Senior Firmware Engineer [CONS] Routine - Patient Instructions Diet: Heart Healthy Diet, Diabetic Diet, Weight Loss Diet Activity: As Tolerated Driving: May Drive Today Showering/Bathing: May Shower Notify Provider of: Fever, Increased Pain, Swelling and Redness, Nausea and/or Vomiting - Discharge Plan Prescriptions/Med Rec: Albuterol/Ipratropium [Combivent Respimat] 4 gm IH Q4H PRN #1 aer.w.adap PRN Reason: Shortness Of Breath Amoxicillin 5,000 mg PO ASDIRECTED #24 tab Ascorbic Acid [Vitamin C] 250 mg PO DAILY #60 tablet Aspirin [Halfprin] 81 mg PO DAILY #30 tab.ec Clarithromycin [Biaxin] 500 mg PO BID #24 tablet Cyanocobalamin (Vitamin B12) [Vitamin B12] 1,000 mcg PO ASDIRECTED #30 tablet Docusate Sodium [Colace] 100 mg PO BID PRN #60 cap PRN Reason: Constipation Fluticasone/Salmeterol [Advair HFA 230-21 MCG] 1 puff INH BID #1 inhaler Folic Acid 1 mg PO BEDTIME #10 tablet glipiZIDE [Glucotrol XL] 5 mg PO BID #60 tab.er Iron Polysaccharides Complex [Ferrex 150] 300 mg PO BID #120 cap Lisinopril [Prinivil] 20 mg PO DAILY #30 tablet Lorcaserin HCl [Belviq] 10 mg PO DAILY #30 tablet metFORMIN [Glucophage] 1,000 mg PO BIDMEALS #60 tablet Multivitamins,Therapeutic [Thera] 1 each PO BEDTIME #30 tablet Nicotine [Habitrol] 14 mg TRDERM DAILY PRN #30 patch PRN Reason: Nicotine Omeprazole 20 mg PO BIDAC #60 cap.sr Polyethylene Glycol 3350 [MiraLAX] 17 gm PO DAILY PRN #30 packet PRN Reason: Constipation Saccharomyces Boulardii [Florastor] 250 mg PO BID #20 cap Simvastatin [Zocor] 20 mg PO BEDTIME #30 tablet Sucralfate [Carafate] 1 gm PO Q6H #240 cup Thiamine [Vitamin B-1] 100 mg PO BEDTIME #10 tablet Home Medications: Home Meds Benzonatate [Tessalon Perle] 100 mg PO Q4H PRN 11/15/17 [History] Albuterol/Ipratropium [Combivent Respimat] 4 gm IH Q4H PRN #1 aer.w.adap [Rx] Amoxicillin 5,000 mg PO ASDIRECTED #24 tab 11/16/17 [Rx] Ascorbic Acid [Vitamin C] 250 mg PO DAILY #60 tablet 11/16/17 [Rx] Aspirin [Halfprin] 81 mg PO DAILY #30 tab.ec 11/16/17 [Rx] Clarithromycin [Biaxin] 500 mg PO BID #24 tablet 11/16/17 [Rx] Cyanocobalamin (Vitamin B12) [Vitamin B12] 1,000 mcg PO ASDIRECTED #30 tablet [Rx] Fluticasone/Salmeterol [Advair HFA 230-21 MCG] 1 puff INH BID #1 inhaler [Rx] Folic Acid 1 mg PO BEDTIME #10 tablet 11/16/17 [Rx] Iron Polysaccharides Complex [Ferrex 150] 300 mg PO BID #120 cap 11/16/17 [Rx] Lisinopril [Prinivil] 20 mg PO DAILY #30 tablet 11/16/17 [Rx] Lorcaserin HCl [Belviq] 10 mg PO DAILY #30 tablet 11/16/17 [Rx] Nicotine [Habitrol] 14 mg TRDERM DAILY PRN #30 patch 11/16/17 [Rx] Omeprazole 20 mg PO BIDAC #60 cap.sr 11/16/17 [Rx] Saccharomyces Boulardii [Florastor] 250 mg PO BID #20 cap 11/16/17 [Rx] Simvastatin [Zocor] 20 mg PO BEDTIME #30 tablet 11/16/17 [Rx] Thiamine [Vitamin B-1] 100 mg PO BEDTIME #10 tablet 11/16/17 [Rx] Docusate Sodium [Colace] 100 mg PO BID PRN #60 cap 11/18/17 [Rx] Multivitamins,Therapeutic [Thera] 1 each PO BEDTIME #30 tablet 11/18/17 [Rx] Polyethylene Glycol 3350 [MiraLAX] 17 gm PO DAILY PRN #30 packet 11/18/17 [Rx] Sucralfate [Carafate] 1 gm PO Q6H #240 cup 11/18/17 [Rx] glipiZIDE [Glucotrol XL] 5 mg PO BID #60 tab.er 11/18/17 [Rx] metFORMIN [Glucophage] 1,000 mg PO BIDMEALS #60 tablet 11/18/17 [Rx] Patient Handouts: Hyperthyroidism, Metabolic Syndrome, Anemia, Hypomagnesemia, Hypokalemia, Chronic Obstructive Pulmonary Disease, [id number], Malnutrition, Type 2 Diabetes Mellitus, Self Care, Adult, Nokq-nt-Butb, Gastrointestinal Bleeding, Aqno-fl-Ehuq, Gastroesophageal Reflux Disease, Adult, Drca-ol-Mrqt, How to Avoid Diabetes Mellitus Problems, Steps to Quit Smoking Referrals: Valerie Matthews NP [Primary Care Provider] - (Follow up with Valerie Matthews NP on Monday, November 20, 2017. You will need to have your blood drawn. Ask about having a TDaP vaccine.) - Discharge Summary/Plan Comment DC Time >30 min.: No Discharge Summary/Plan Comment: Acute: Microcytic Anemia - Hgb of 8.0, MCV of 63.7 and Platelet of 86; no baseline levels for comparison - Heavy LMP this past Monday - Emesis felt to be some bleed - Hemo-occult negative - Iron Panel and Retic Count - Folic Acid, B12, Thiamine and MVI Supplement - Decrease in Hgb but patient declined PRBCs before DC; Rx for FeSO4 and H Pylori provided Labs to be done on 11/20/17 along with PCP appt. Return to work on 11/21/17 unless changed by PCP GERD w/ H. Pylori Infection - Long standing - She is on PPI; continue anti-acids - Had recent use of oral steroid and NSAIDs - H. Pylori screening is positive - Tx: Protonix 40 mg po BID + Amoxicillin 1 g BID + Clarithromycin 500 mg po TID for 10 days Carafate was added DM2 w/ Microalbuminemia - Metformin, Glyburide added; Belviq for wgt loss - BS 356; poorly controlled - A1C is 12.50 - Lipid Panel in AM - Glipizide 2.5 mg po BID and ISS - Accu-check QID AC/HS - Urine microalbumin 42.7 and UA +1 Protein-->start Lisinopril 20 mg po daily protect kidneys from nephropathy - ASA 81 mg po daily for cardioprotection DM type 2 education during hospitalization. Hypoalbuminemia - Albumin 2.8 - Dietary consult for low protein states Probable Metabolic Syndrome - Pending Lipid Panel - BMI 42.6 - May benefit with Jardiance and Victoza for treatment of Diabetes and Weight Loss Mild Hypokalemia - K 3.4 - 2/2 inadequate intake - Replete and Monitor Subclinical Hyperthyroidism - TSH 1.004 and FT4 1.56 (Elevated) - Monitor Plan: DC today, minor med adjustmenst and/or additions. Hold Home Meds Routine AM Labs Dietary consult Diabetic Education GI/GS eval outpatient Belviq 10 mg po daily after discharge SW/CM for d/c planning Code status:1 - General Info Date of Service: 11/15/17 Functional Status: Reports: Pain Controlled, Tolerating Diet, Ambulating - Review of Systems General: Reports: No Symptoms HEENT: Reports: No Symptoms Pulmonary: Reports: No Symptoms Cardiovascular: Reports: No Symptoms Gastrointestinal: Reports: No Symptoms Genitourinary: Reports: No Symptoms Musculoskeletal: Reports: No Symptoms Skin: Reports: No Symptoms Neurological: Reports: No Symptoms Psychiatric: Reports: No Symptoms - Patient Data Vitals - Most Recent: Last Vital Signs Temp 36.9 C 11/18/17 08:27 Pulse 64 11/18/17 08:27 Resp 16 11/18/17 05:41 BP 96/70 11/18/17 08:33 Pulse Ox 96 11/18/17 08:27 Orthostatic Blood Pressure [ 113/57 Standing] Orthostatic Blood Pressure [ 110/51 Sitting] Orthostatic Blood Pressure [ 123/59 Supine] Weight - Most Recent: 106.503 kg I&O - Last 24 hours: Intake & Output 11/17/17 11/18/17 11/18/17 22:59 06:59 14:59 Intake Total 1550 1650 Balance 1550 1650 Lab Results - Last 24 hrs: Laboratory Results - last 24 hr 11/17/17 11/17/17 11/17/17 Range/Units 08:34 11:58 17:38 WBC (3.98-10.04) K/mm3 RBC (3.98-5.22) M/mm3 Hgb (11.2-15.7) gm/L Hct (34.1-44.9) % MCV (79.4-94.8) fl MCH (25.6-32.2) pg MCHC (32.2-35.5) g/dl RDW Std Deviation (36.4-46.3) fL Plt Count (182-369) K/mm3 Neut % (Auto) (34.0-71.1) % Lymph % (Auto) (19.3-51.7) % [place] % (Auto) (4.7-12.5) % Eos % (Auto) (0.7-5.8) Baso % (Auto) (0.1-1.2) % Neut # (Auto) (1.56-6.13) K/mm3 Lymph # (Auto) (1.18-3.74) K/mm3 [place] # (Auto) (0.24-0.36) K/mm3 Eos # (Auto) (0.04-0.36) K/mm3 Baso # (Auto) (0.01-0.08) K/mm3 Manual Slide Review Sodium (136-145) mEq/L Potassium (3.5-5.1) mEq/L Chloride (98-107) mEq/L Carbon Dioxide (21-32) mEq/L Anion Gap (5-15) BUN (7-18) mg/dL Creatinine (0.55-1.02) mg/dL Est Cr Clr Drug Dosing mL/min Estimated GFR (MDRD) (>60) mL/min BUN/Creatinine Ratio (14-18) Glucose (74-106) mg/dL POC Glucose 114 H 159 H (70-105) mg/dL Calcium (8.5-10.1) mg/dL Magnesium (1.8-2.4) mg/dl C-Reactive Protein (<1.0) mg/dL MRSA (PCR) Negative 11/18/17 11/18/17 11/18/17 Range/Units 05:38 06:35 06:35 WBC 3.50 L (3.98-10.04) K/mm3 RBC 4.53 (3.98-5.22) M/mm3 Hgb 8.7 L (11.2-15.7) gm/L Hct 30.3 L (34.1-44.9) % MCV 66.9 L (79.4-94.8) fl MCH 19.2 L (25.6-32.2) pg MCHC 28.7 L (32.2-35.5) g/dl RDW Std Deviation 54.8 H (36.4-46.3) fL Plt Count 61 L (182-369) K/mm3 Neut % (Auto) 41.7 (34.0-71.1) % Lymph % (Auto) 41.4 (19.3-51.7) % [place] % (Auto) 13.1 H (4.7-12.5) % Eos % (Auto) 2.6 (0.7-5.8) Baso % (Auto) 0.9 (0.1-1.2) % Neut # (Auto) 1.46 L (1.56-6.13) K/mm3 Lymph # (Auto) 1.45 (1.18-3.74) K/mm3 [place] # (Auto) 0.46 H (0.24-0.36) K/mm3 Eos # (Auto) 0.09 (0.04-0.36) K/mm3 Baso # (Auto) 0.03 (0.01-0.08) K/mm3 Manual Slide Review Abnormal smear Sodium 141 (136-145) mEq/L Potassium 3.2 L (3.5-5.1) mEq/L Chloride 110 H (98-107) mEq/L Carbon Dioxide 23 (21-32) mEq/L Anion Gap 11.2 (5-15) BUN 4 L (7-18) mg/dL Creatinine 0.6 (0.55-1.02) mg/dL Est Cr Clr Drug Dosing 114.41 mL/min Estimated GFR (MDRD) > 60 (>60) mL/min BUN/Creatinine Ratio 6.7 L (14-18) Glucose 86 (74-106) mg/dL POC Glucose 112 H (70-105) mg/dL Calcium 7.6 L (8.5-10.1) mg/dL Magnesium 1.5 L (1.8-2.4) mg/dl C-Reactive Protein 0.3 (<1.0) mg/dL MRSA (PCR) BETINA Results - Last 24 hrs: Microbiology 11/16/17 03:00 Gram Stain - Final Sputum - Expectorated Sputum Culture - Preliminary Med Orders - Current: Current Medications Acetaminophen (Tylenol) 650 mg PO Q4H PRN PRN Reason: Pain (Mild 1-3)/fever Last Admin: 11/17/17 02:03 Dose: 650 mg Acetaminophen/Butalbital/Caffeine (Fioricet 325-50-40 Mg) 1 tab PO Q6H PRN PRN Reason: Headache Hydrocodone Bitart/Acetaminophen ([place] 325-5 Mg) 1 tab PO Q4H PRN PRN Reason: Pain (moderate 4-6) Albuterol/Ipratropium (Duoneb 3.0-0.5 Mg/3 Ml) 3 ml NEB Q4H PRN PRN Reason: Shortness Of Breath/wheezing Last Admin: 11/16/17 09:46 Dose: 3 ml Amoxicillin (Amoxil) 1,000 mg PO BID [facility] Last Admin: 11/18/17 08:30 Dose: 1,000 mg Ascorbic Acid (Vitamin C) 250 mg PO DAILY [facility] Last Admin: 11/18/17 08:30 Dose: 250 mg Benzonatate (Tessalon Perles) 100 mg PO Q4H PRN PRN Reason: COUGH Bisacodyl (Dulcolax) 5 mg PO DAILY PRN PRN Reason: Constipation Clarithromycin (Biaxin) 500 mg PO BID [facility] Last Admin: 11/18/17 08:30 Dose: 500 mg Cyanocobalamin (Vitamin B12) 1,000 mcg PO DAILY [facility] Last Admin: 11/18/17 08:30 Dose: 1,000 mcg Dextrose/Water (Dextrose 50% In Water) 50 ml IVPUSH ASDIRECTED PRN PRN Reason: Hypoglycemia Docusate Sodium (Colace) 100 mg PO BID PRN PRN Reason: Constipation Folic Acid (Folic Acid) 1 mg PO BEDTIME [facility] Last Admin: 11/17/17 20:31 Dose: 1 mg Glipizide (Glucotrol Xl) 5 mg PO BID [facility] Last Admin: 11/18/17 08:30 Dose: 5 mg Guaifenesin/Phenylephrine HCl (Robitussin Dm) 10 ml PO Q4H PRN PRN Reason: Cough Hydralazine HCl (Apresoline) 20 mg IVPUSH Q4H PRN PRN Reason: Hypertension Promethazine HCl 12.5 mg/ (Sodium Chloride) 50.5 mls @ 100 mls/hr IV Q6H PRN PRN Reason: Nausea/Vomiting Sodium Chloride (Normal Saline) 1,000 mls @ 75 mls/hr IV ASDIRECTED [facility] Last Admin: 11/18/17 03:45 Dose: 75 mls/hr Insulin Aspart (Novolog) 0 unit SUBCUT QIDACANDBED [facility]; Protocol Last Admin: 11/18/17 08:04 Dose: Not Given Lisinopril (Prinivil) 20 mg PO DAILY [facility] Last Admin: 11/18/17 08:33 Dose: Not Given Lorazepam (Ativan) 2 mg IVPUSH Q4H PRN PRN Reason: Seizures Metformin HCl (Glucophage) 1,000 mg PO BIDMEALS [facility] Last Admin: 11/18/17 06:36 Dose: 1,000 mg Metoprolol Tartrate (Lopressor) 5 mg IVPUSH Q4H PRN PRN Reason: Tachycardia Miscellaneous Information (Remove Patch) 1 ea TRDERM Q72H [facility] Stop: 11/18/17 21:01 Multivitamins (Thera) 1 each PO BEDTIME [facility] Last Admin: 11/17/17 20:30 Dose: 1 each Nicotine (Habitrol) 14 mg TRDERM DAILY PRN PRN Reason: Nicotine Ondansetron HCl (Zofran) 4 mg IV Q6H PRN PRN Reason: Nausea/Vomiting Last Admin: 11/15/17 22:21 Dose: 4 mg Pantoprazole Sodium (Protonix) 40 mg PO Q12HR [facility] Last Admin: 11/18/17 08:30 Dose: 40 mg Polyethylene Glycol (Miralax) 17 gm PO DAILY PRN PRN Reason: Constipation Polysaccharide Iron Complex (Ferrex 150) 300 mg PO DAILY [facility] Last Admin: 11/18/17 08:30 Dose: 300 mg Saccharomyces Boulardii (Florastor) 250 mg PO BID [facility] Last Admin: 11/18/17 08:30 Dose: 250 mg Scopolamine (Transderm-Scop) 1.5 mg TRDERM Q72H [facility] Last Admin: 11/16/17 00:19 Dose: Not Given Senna/Docusate Sodium (Senna Plus) 1 tab PO BID PRN PRN Reason: Constipation Simvastatin (Zocor) 20 mg PO BEDTIME [facility] Last Admin: 11/17/17 20:31 Dose: 20 mg Sucralfate (Carafate) 1 gm PO Q6H [facility] Last Admin: 11/18/17 06:36 Dose: 1 gm Temazepam (Restoril) 15 mg PO BEDTIME PRN PRN Reason: Sleep Thiamine HCl (Vitamin B-1) 100 mg PO BEDTIME [facility] Last Admin: 11/17/17 20:29 Dose: 100 mg Discontinued Medications Albuterol (Proventil Hfa) 15 gm INH BID [facility] Last Admin: 11/16/17 09:09 Dose: Not Given Amoxicillin (Amoxil) 1,000 mg PO ONETIME ONE Stop: 11/15/17 22:46 Last Admin: 11/16/17 00:20 Dose: Not Given Aspirin (Halfprin) 81 mg PO DAILY [facility] Last Admin: 11/16/17 08:24 Dose: 81 mg Clarithromycin (Biaxin) 500 mg PO TID [facility] Last Admin: 11/16/17 08:23 Dose: 500 mg Clarithromycin (Biaxin) 500 mg PO NOW STA Stop: 11/15/17 21:12 Last Admin: 11/15/17 22:04 Dose: 500 mg Al Hydroxide/Mg Hydroxide 30 (ml/ Lidocaine HCl 15 ml) 0 ml PO ONETIME ONE Stop: 11/15/17 15:35 Last Admin: 11/15/17 16:03 Dose: 45 ml Enoxaparin Sodium (Lovenox) 40 mg SUBCUT DAILY [facility] Last Admin: 11/16/17 17:24 Dose: Not Given Famotidine (Pepcid) 20 mg IVPUSH ONETIME ONE Stop: 11/15/17 19:17 Last Admin: 11/15/17 21:13 Dose: 20 mg Fentanyl (Sublimaze) Confirm Administered Dose 100 mcg .ROUTE .STK-MED ONE Stop: 11/17/17 09:42 Glipizide (Glucotrol Xl) 2.5 mg PO BID [facility] Last Admin: 11/16/17 08:24 Dose: 2.5 mg Pantoprazole Sodium 80 mg/ (Sodium Chloride) 100 mls @ 10 mls/hr IV Q10H [facility] Sodium Chloride (Normal Saline) 1,000 mls @ 999 mls/hr IV ONETIME ONE Stop: 11/15/17 16:34 Last Admin: 11/15/17 16:02 Dose: 250 mls/hr Sodium Chloride (Normal Saline) 1,000 mls @ 999 mls/hr IV ONETIME ONE Stop: 11/15/17 18:35 Last Admin: 11/15/17 21:18 Dose: 999 mls/hr Magnesium Sulfate 2 gm/ Premix 50 mls @ 25 mls/hr IV Q2H [facility] Stop: 11/16/17 11:59 Last Admin: 11/16/17 10:41 Dose: 25 mls/hr Sodium Chloride (Normal Saline) Confirm Administered Dose 250 mls @ as directed .ROUTE .STK-MED ONE Stop: 11/16/17 19:40 Last Admin: 11/16/17 19:45 Dose: 75 mls/hr Sodium Chloride (Normal Saline) 250 mls @ 75 mls/hr IV ASDIRECTED [place] Stop: 11/16/17 23:03 Last Admin: 11/16/17 19:48 Dose: Not Given Sodium Chloride (Normal Saline) Confirm Administered Dose 250 mls @ as directed .ROUTE .STK-MED ONE Stop: 11/16/17 23:22 Last Admin: 11/16/17 23:47 Dose: 250 mls/hr Lidocaine HCl (Xylocaine-Mpf 1%) Confirm Administered Dose 4 mls @ as directed .ROUTE .[facility] ONE Stop: 11/17/17 09:42 Ketamine HCl (Ketalar) Confirm Administered Dose 500 mg .ROUTE .ST-MED ONE Stop: 11/17/17 09:43 Magnesium Oxide (Magnesium Oxide) 800 mg PO ONETIME ONE Stop: 11/17/17 12:16 Last Admin: 11/17/17 12:16 Dose: 800 mg Magnesium Sulfate (Pharmacy To Dose - Magnesium Replacement) 1 dose .XX ASDIRECTED [facility] Pantoprazole Sodium (Protonix Iv) 80 mg IVPUSH .[facility]OL[facility] ONE Stop: 11/15/17 15:43 Last Admin: 11/15/17 16:03 Dose: 80 mg Pantoprazole Sodium (Protonix Iv) 40 mg IV Q12HR [facility] Last Admin: 11/16/17 08:24 Dose: 40 mg Potassium Chloride (Pharmacy To Dose - Potassium Replacement) 1 dose .XX ASDIRECTED [facility] Potassium Chloride (Klor-Con M20) 40 meq PO Q4H [place] Stop: 11/16/17 00:01 Last Admin: 11/16/17 00:19 Dose: 40 meq Potassium Chloride (Klor-Con M20) 40 meq PO ONETIME ONE Stop: 11/18/17 09:21 Propofol (Diprivan 20 Ml) Confirm Administered Dose 200 mg .ROUTE .STK-MED ONE Stop: 11/17/17 09:42 Scopolamine (Transderm-Scop) 1.5 mg TRDERM Q72H [facility] Stop: 11/18/17 19:15 Last Admin: 11/15/17 22:10 Dose: Not Given - Exam General: Reports: Alert, Oriented, Cooperative, No Acute Distress HEENT: Reports: Pupils Equal, Pupils Reactive, EOMI Neck: Reports: Trachea Midline, No JVD Lungs: Reports: Normal Respiratory Effort Cardiovascular: Reports: Regular Rate, Regular Rhythm GI/Abdominal Exam: Normal Bowel Sounds, Soft, Non-Tender, No Organomegaly, No Distention (Female) Exam: Deferred Rectal (Female) Exam: Deferred Back Exam: Reports: Normal Inspection Extremities: Normal Inspection Skin: Reports: Warm Neurological: Reports: No New Focal Deficit Psy/Mental Status: Reports: Alert, Normal Affect, Normal Mood
[2017-11-18] MEDS ORDERED: [UNRECOGNIZED DRUG - OTHER] TRDERM SCH (21:00)
--- NOTE | 2017-11-21 09:14 | OR ---
DATE OF OPERATION: 11/17/2017 SURGEON: Ranulfo Portillo MD PREOPERATIVE DIAGNOSIS: Gastrointestinal bleeding. POSTOPERATIVE DIAGNOSIS: Gastrointestinal bleeding. OPERATION PERFORMED: Esophagogastroduodenoscopy with biopsy of the antrum. FINDINGS: Findings are some superficial erosions forming linear troughs in the stomach at the incisor and at the GE junction. There is a hiatal hernia that is present, small, GE junction located at 40 cm. Most of the erosions are just below the GE junction. The esophagus and stomach were free of any varices. Balance of the esophagus did not show any disease and the duodenum, second portion of the duodenum, duodenal bulb, pyloric channel were normal. DESCRIPTION OF PROCEDURE: The patient was taken to the endoscopy room, placed in a supine position, connected to monitoring equipment, given IV sedation, placed in the left lateral position. Bite-block was inserted and video Olympus gastroscope was placed in the posterior oropharynx, under direct vision threaded past the cricopharyngeus down the esophagus into the stomach. The stomach was insufflated, and the scope passed through the pylorus to the second portion of the duodenum and slowly withdrawn showing normal second portion of the duodenum, duodenal bulb, and pyloric channel. Antrum showed some linear erosions right at the incisor and this area was biopsied. That was about 3 or 4 mm. The J-maneuver did not show any gross pathology other than a hiatal hernia which is sliding. The scope was withdrawn from the GE junction, which showed what appeared to be a small erosion just below the GE junction. There was no gastric or esophageal varices noted. Rest of the esophagus was viewed. The scope withdrawn, it was unremarkable. The patient tolerated the procedure, sent to recovery room in a stable condition. Specimen sent to pathology in a labeled container. The patient will be followed up as needed in the clinic. It was felt that the use of nonsteroidals were the reason for her gastropathy. ANESTHESIA: ESTIMATED BLOOD LOSS: MMODAL /[id number]
== END 2017-11-18 11:04 | disposition home or self-care (01) | DRG 378 ==
LOC: SUPCPDRO 14:15 → JD.ED 14:15 → JD.MS 19:23 → OBSVTOIN 11-16 13:45 → JD.MS 11-16 15:14
PROVIDERS: ADMIT Internal Medicine; ATTEND Internal Medicine
PROC: 0DB78ZX Excision of Stomach, Pylorus, Via Natural or Artificial Opening Endoscopic, Diagnostic (ICD-10-PCS; principal; 2017-11-17)
DX: K92.2 Gastrointestinal hemorrhage, unspecified (principal); D62 Acute posthemorrhagic anemia; K21.9 Gastro-esophageal reflux disease without esophagitis; B96.81 Helicobacter pylori [H. pylori] as the cause of diseases classified elsewhere; E88.09 Other disorders of plasma-protein metabolism, not elsewhere classified; E88.81 Metabolic syndrome and other insulin resistance; E87.6 Hypokalemia; E05.90 Thyrotoxicosis, unspecified without thyrotoxic crisis or storm; I10 Essential (primary) hypertension; E11.9 Type 2 diabetes mellitus without complications; F17.210 Nicotine dependence, cigarettes, uncomplicated; K25.9 Gastric ulcer, unspecified as acute or chronic, without hemorrhage or perforation; K44.9 Diaphragmatic hernia without obstruction or gangrene; D50.0 Iron deficiency anemia secondary to blood loss (chronic); K31.9 Disease of stomach and duodenum, unspecified; T39.395A Adverse effect of other nonsteroidal anti-inflammatory drugs [NSAID], initial encounter; Z88.6 Allergy status to analgesic agent; Z88.1 Allergy status to other antibiotic agents; Z79.82 Long term (current) use of aspirin; Z79.899 Other long term (current) drug therapy; Z90.49 Acquired absence of other specified parts of digestive tract; Z79.84 Long term (current) use of oral hypoglycemic drugs
CPT/HCPCS: 00731; 36415; 36430; 74022; 74022-26; 80048; 80053; 80061; 80306; 81001; 82044; 82962; 83036; 83540; 83690; 83735; 84439; 84443; 84466; 84484; 84703; 85025; 85045; 86140; 86677; 86850; 86900; 86901; 86922; 87070; 87205; 87486; 87581; 87633; 87641; 87798; 87804; 93005; 94060; 94640; 96361; 96365; 96366; 96374; 96375; 96376; 99220; 99231; 99232; 99238; 99285; 99285-25; A9270-GY; C9113; G0378; J1815-GY; J2001; J2405; J2704; J3010; J3475; J7040; J7050; P9016

== ENCOUNTER 2018-10-31 16:06 | Inpatient (IN) | payer SELFPAY ==
[2018-10-31] MEDS ORDERED: Albuterol/Ipratropium 3.0-0.5 MG/3 ML Neb Soln NEB ONE ×2 (16:32→17:53)
[2018-10-31] MEDS ORDERED: Sodium Chloride 0.9% 10 ML Syringe FLUSH PRN (16:32)
[2018-10-31] MEDS ORDERED: methylPREDNISolone Sodium Succinate 125 MG/2 ML SDV IVPUSH ONE (16:32)
--- NOTE | 2018-10-31 17:13 | EDM.PDOC ---
ED HPI GENERAL MEDICAL PROBLEM - General Chief Complaint: Respiratory Problem Stated Complaint: SOB/PNEUMONIA Time Seen by Provider: 10/31/18 16:15 Source of Information: Reports: Patient, Provider History Limitations: Reports: No Limitations - History of Present Illness INITIAL COMMENTS - FREE TEXT/NARRATIVE: The patient presents with a cough, wheezing, fever and chills. She says this all started on Monday. She has a history of asthma. She went into the clinic in [place] and she had labs and a CXR done. Her CXR showed a RML infiltrate. Her WBC was elevated at 20. Her provider sent her down for possible admission. She has no chest pain but she is short of breath with any exertion. She has no abdominal pain, nausea or vomiting. She does not smoke. She has no chest pain. Onset: Gradual Duration: Day(s): (4) Severity: Moderate Improves with: Reports: None Worsens with: Reports: None Associated Symptoms: Reports: Cough, Fever/Chills, Shortness of Breath. Denies : Chest Pain, Headaches, Nausea/Vomiting Chest Pain Score (Numeric/FACES): 8 - Related Data Allergies Allergy/AdvReac Type Severity Reaction Status Date / Time codeine Allergy Itching Verified 10/31/18 16:18 metronidazole [From Flagyl] Allergy Itching Verified 10/31/18 16:18 Home Meds: Home Meds Aspirin [Halfprin] 81 mg PO DAILY #30 tab.ec 11/16/17 [Rx] metFORMIN [Glucophage] 1,000 mg PO BIDMEALS #60 tablet 11/18/17 [Rx] Albuterol Sulfate [Proair Hfa] 2 puff IH Q4H 10/31/18 [History] Albuterol/Ipratropium [Combivent Respimat] 1 puff IH QID 10/31/18 [History] Cholecalciferol (Vitamin D3) [Vitamin D] 50,000 unit PO BID 10/31/18 [History] Cyanocobalamin (Vitamin B12) [Vitamin B12] 1,000 mcg PO DAILY 10/31/18 [History] Esomeprazole Magnesium 40 mg PO DAILY 10/31/18 [History] Montelukast [Singulair] 10 mg PO DAILY 10/31/18 [History] Ondansetron [Zofran ODT] 1 tab PO TID PRN 10/31/18 [History] Orphenadrine Citrate [Orphenadrine Citrate ER] 1 tab PO BID 10/31/18 [History] glipiZIDE [Glucotrol XL] 5 mg PO DAILY 10/31/18 [History] methylPREDNISolone [Methylprednisolone] 4 mg PO DAILY 10/31/18 [History] Past Medical History Gastrointestinal History: Reports: GERD 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 Endocrine/Metabolic History: Reports: Diabetes, Type II Hematologic History: Reports: Anemia - Past Surgical History GI Surgical History: Reports: Cholecystectomy Social & Family History - Family History Family Medical History: Noncontributory - Tobacco Use Smoking Status *Q: Never Smoker Second Hand Smoke Exposure: Yes - Caffeine Use Caffeine Use: Reports: Coffee - Recreational Drug Use Recreational Drug Use: No ED ROS GENERAL - Review of Systems Review Of Systems: See Below Constitutional: Reports: No Symptoms HEENT: Reports: No Symptoms Respiratory: Reports: Shortness of Breath, Cough Cardiovascular: Reports: No Symptoms Endocrine: Reports: No Symptoms GI/Abdominal: Reports: No Symptoms : Reports: No Symptoms Musculoskeletal: Reports: No Symptoms ED EXAM, GENERAL - Physical Exam Exam: See Below Exam Limited By: No Limitations General Appearance: Alert, No Apparent Distress Ears: Normal External Exam Nose: Normal Inspection Head: Atraumatic, Normocephalic Neck: Normal Inspection Respiratory/Chest: No Respiratory Distress, Rhonchi, Wheezing Cardiovascular: Regular Rate, Rhythm, No Edema, No Murmur GI/Abdominal: Soft, Non-Tender, No Organomegaly, No Mass Back Exam: Normal Inspection Extremities: Normal Inspection Neurological: Alert, Oriented, No Motor/Sensory Deficits Course - Vital Signs Last Recorded V/S: Last Vital Signs Temp 98.9 F 10/31/18 16:15 Pulse 109 H 10/31/18 16:15 Resp 26 H 10/31/18 16:15 BP 135/56 L 10/31/18 16:15 Pulse Ox 95 10/31/18 16:49 - Orders/Labs/Meds Orders: Active Orders 24 hr Category Date Time Status Peripheral IV Care [RC] . DIRECTED Care 10/31/18 16:32 Active RT Aerosol Therapy [RC] ASDIRECTED Care 10/31/18 16:33 Active RT Aerosol Therapy [RC] ASDIRECTED Care 10/31/18 17:53 Active CXR [Chest 2V] [CR] Stat Exams 10/31/18 16:33 Taken CULTURE BLOOD [BC] Stat Lab 10/31/18 17:50 Ordered CULTURE BLOOD [BC] Stat Lab 10/31/18 17:50 Ordered LACTIC ACID [CHEM] Stat Lab 10/31/18 17:50 Ordered Sodium Chloride 0.9% [Saline Flush] Med 10/31/18 16:32 Active 10 ml FLUSH ASDIRECTED PRN Blood Culture x2 Reflex Set [OM.PC] Stat Oth 10/31/18 17:50 Ordered Peripheral IV Insertion Adult [OM.PC] Routine Oth 10/31/18 16:32 Ordered Medication Orders Sodium Chloride (Saline Flush) 10 ml FLUSH ASDIRECTED PRN PRN Reason: Keep Vein Open Last Admin: 10/31/18 17:04 Dose: 10 ml Meds: Medications Generic Name Dose Route Start Last Admin Trade Name Freq PRN Reason Stop Dose Admin Sodium Chloride 10 ml 10/31/18 16:32 10/31/18 17:04 Saline Flush FLUSH 10 ml ASDIRECTED PRN Administration Keep Vein Open Discontinued Medications Generic Name Dose Route Start Last Admin Trade Name Freq PRN Reason Stop Dose Admin Acetaminophen 975 mg 10/31/18 17:54 Tylenol PO 10/31/18 17:55 NOW ONE Albuterol/Ipratropium 3 ml 10/31/18 16:32 10/31/18 16:48 Duoneb 3.0-0.5 Mg/3 Ml NEB 10/31/18 16:33 3 ml ONETIME ONE Administration Albuterol/Ipratropium 3 ml 10/31/18 17:53 Duoneb 3.0-0.5 Mg/3 Ml NEB 10/31/18 17:54 ONETIME ONE Ceftriaxone Sodium 2 gm/ 100 mls @ 200 mls/hr 10/31/18 17:26 10/31/18 17:47 Sodium Chloride IV 10/31/18 17:55 200 mls/hr ONETIME ONE Administration Methylprednisolone Sodium Succinate 125 mg 10/31/18 16:32 10/31/18 17:04 Solu-Medrol IVPUSH 10/31/18 16:33 125 mg ONETIME ONE Administration - Re-Assessments/Exams Free Text/Narrative Re-Assessment/Exam: 10/31/18 17:12 I ordered an IV saline lock, solu-medrol 125mg IV, duoneb, and CXR. 10/31/18 17:56 Her WBC was 20 at the clinic. Her CXR shows a nonspecific bibasilar consolidation is present, consistent with atelectasis, edema, or pneumonia greater on right. Right pleural effusion is presents. Mild compression deformity of T9 is present, age indeterminate. I examined her again and she is wheezing again. Her saturations are low at 93% and 92%. I will order another treatment, blood cultures, and lactic acid. I also ordered some rocephin 2 grams. I feel she needs to be admitted. I called Dr Cui and he agreed to the admission. Departure - Departure Time of Disposition: 18:05 Disposition: Admitted As Inpatient 64 Condition: Fair Clinical Impression: Pneumonia Qualifiers: Pneumonia type: due to unspecified organism Laterality: bilateral Lung location : lower lobe of lung Qualified Code(s): J18.1 - Lobar pneumonia, unspecified organism - Discharge Information Referrals: PCP,Not In Area [Primary Care Provider] - Forms: ED Department Discharge - My Orders Last 24 Hours: My Active Orders 10/31/18 16:32 Peripheral IV Care [RC] . DIRECTED Sodium Chloride 0.9% [Saline Flush] 10 ml FLUSH ASDIRECTED PRN Peripheral IV Insertion Adult [OM.PC] Routine 10/31/18 16:33 RT Aerosol Therapy [RC] ASDIRECTED CXR [Chest 2V] [CR] Stat 10/31/18 17:50 CULTURE BLOOD [BC] Stat CULTURE BLOOD [BC] Stat LACTIC ACID [CHEM] Stat Blood Culture x2 Reflex Set [OM.PC] Stat 10/31/18 17:53 RT Aerosol Therapy [RC] ASDIRECTED - Assessment/Plan Last 24 Hours: My Active Orders 10/31/18 16:32 Peripheral IV Care [RC] . DIRECTED Sodium Chloride 0.9% [Saline Flush] 10 ml FLUSH ASDIRECTED PRN Peripheral IV Insertion Adult [OM.PC] Routine 10/31/18 16:33 RT Aerosol Therapy [RC] ASDIRECTED CXR [Chest 2V] [CR] Stat 10/31/18 17:50 CULTURE BLOOD [BC] Stat CULTURE BLOOD [BC] Stat LACTIC ACID [CHEM] Stat Blood Culture x2 Reflex Set [OM.PC] Stat 10/31/18 17:53 RT Aerosol Therapy [RC] ASDIRECTED
[2018-10-31] MEDS ORDERED: cefTRIAXone 2 GM in Sodium Chloride 0.9% 100 ML IV ONE (17:26)
[2018-10-31] MEDS ORDERED: Acetaminophen 325 MG Tab PO ONE (17:54)
[2018-10-31] MEDS ORDERED: 50% Dextrose in Water 50 ML Syringe IVPUSH PRN (19:40)
[2018-10-31] MEDS ORDERED: Albuterol 0.083% 2.5 MG/3 ML Neb Soln NEB PRN (19:43)
[2018-10-31] MEDS ORDERED: Azithromycin 500 MG in Sodium Chloride 0.9% 250 ML IV ONE (20:00)
[2018-10-31] MEDS ORDERED: Ondansetron 4 MG Tab.DIS PO PRN (20:35)
[2018-10-31] MEDS ORDERED: Lactated Ringers 1,000 ML IV ONE (20:35)
[2018-10-31] MEDS ORDERED: Montelukast 10 MG Tab PO SCH (20:45)
[2018-10-31] MEDS ORDERED: Magnesium Sulfate/Water 4 GM in Premix Bag 1 BAG IV ONE (20:50)
--- NOTE | 2018-10-31 20:55 | PCM.HP ---
H&P History of Present Illness - General Date of Service: 10/31/18 Admit Problem/Dx: Admission Diagnosis/Problem Admission Diagnosis/Problem Pneumonia Source of Information: Patient, Old Records, Provider History Limitations: Reports: Other (Poor historian) - History of Present Illness Initial Comments - Free Text/Narative: 48-year-old patient comes in from [facility] with report white count of 20, 000. Patient presented to [facility] with worsening shortness of breath over the last 24 hours. She states that last week she did feel cold and on Monday she became congested with a dry cough. On Monday she had decreased appetite with nausea and started Mucinex. Yesterday she started developing chills and shortness of breath with cough. Today she states that she had a fever at the clinic and her cough has become wet and productive. She states she has not had any of her medications except Mucinex since Monday. She is not taking any diabetic medications which includes Glucophage 1000 mg twice a day and glipizide 5 mg a day. Last hemoglobin A1c I can find is 12 from 2017. Patient also states that in the fall of 2017 she had traumatic bloody pleural effusion after she fell on her right side fracturing 6 ribs. Patient also has a history of anemia. She states that she first was diagnosed with anemia 3-4 years ago. She was admitted in November 2017 with significant anemia and found to have H. pylori ulcer disease. EGD findings at that time showed some superficial erosions forming linear troughs in the stomach at the incisor and at the GE junction. She had a small hiatal hernia. Patient was treated with triple therapy for H. pylori disease. She never had a follow-up endoscopy. She states that she is on some medicine for her acid reflux. She states she drinks once a week. She does not use nonsteroidal anti-inflammatories. She also states that she has menstrual periods once a month that lasts proximal 5 days but they are very heavy. She also complains of dark tarry stools and recently she's been having more stools. She does complain of fatigue and lightheadedness. Chest Pain Score (Numeric/FACES): 8 - Related Data Allergies/Adverse Reactions: Allergies Allergy/AdvReac Type Severity Reaction Status Date / Time codeine Allergy Itching Verified 10/31/18 16:18 metronidazole [From Flagyl] Allergy Itching Verified 10/31/18 16:18 Home Medications: Home Meds Aspirin [Halfprin] 81 mg PO DAILY #30 tab.ec 11/16/17 [Rx] metFORMIN [Glucophage] 1,000 mg PO BIDMEALS #60 tablet 11/18/17 [Rx] Albuterol Sulfate [Proair Hfa] 2 puff IH Q4H 10/31/18 [History] Albuterol/Ipratropium [Combivent Respimat] 1 puff IH QID 10/31/18 [History] Cholecalciferol (Vitamin D3) [Vitamin D] 50,000 unit PO BID 10/31/18 [History] Cyanocobalamin (Vitamin B12) [Vitamin B12] 1,000 mcg PO DAILY 10/31/18 [History] Esomeprazole Magnesium 40 mg PO DAILY 10/31/18 [History] Gabapentin [Neurontin] 300 mg PO DAILY 10/31/18 [History] Montelukast [Singulair] 10 mg PO DAILY 10/31/18 [History] Ondansetron [Zofran ODT] 1 tab PO TID PRN 10/31/18 [History] Orphenadrine Citrate [Orphenadrine Citrate ER] 1 tab PO BID 10/31/18 [History] glipiZIDE [Glucotrol XL] 5 mg PO DAILY 10/31/18 [History] methylPREDNISolone [Methylprednisolone] 4 mg PO DAILY 10/31/18 [History] Past Medical History HEENT History: Reports: Cataract Respiratory History: Reports: Asthma, Other (See Below) Other Respiratory History: pleural effusion after fall Gastrointestinal History: Reports: GERD, Helicobacter Pylori, PUD Genitourinary History: Reports: None 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 Neurological History: Reports: Neuropathy, Diabetic Endocrine/Metabolic History: Reports: Diabetes, Type II Other Endocrine/Metabolic History: check your sugars as needed Hematologic History: Reports: Anemia, Blood Transfusion(s) - Past Surgical History HEENT Surgical History: Reports: Cataract Surgery Respiratory Surgical History: Reports: Thoracentesis GI Surgical History: Reports: Cholecystectomy Endocrine Surgical History: Reports: None Social & Family History - Family History Family Medical History: Noncontributory - Tobacco Use Smoking Status *Q: Former Smoker Years of Tobacco use: 10 Packs/Tins Daily: 0.5 Used Tobacco, but Quit: Yes Month/Year Tobacco Last Used: 2018-quit after last hospitalization NOVEMBER Second Hand Smoke Exposure: Yes - Caffeine Use Caffeine Use: Reports: Coffee, Soda, Tea - Alcohol Use Days Per Week of Alcohol Use: 1 Number of Drinks Per Day: 6 Total Drinks Per Week: 6 Date of Last Drink: 10/17/18 Time of Last Drink: 19:00 - Recreational Drug Use Recreational Drug Use: No H&P Review of Systems - Review of Systems: Review Of Systems: See Below General: Reports: Fever, Chills, Malaise, Fatigue HEENT: Reports: Sinus Congestion. Denies: Sore Throat Pulmonary: Reports: Shortness of Breath, Wheezing, Cough, Sputum. Denies: Pleuritic Chest Pain, Hemoptysis Cardiovascular: Reports: No Symptoms. Denies: Chest Pain, Palpitations, Edema Gastrointestinal: Reports: Black Stool. Denies: Abdominal Pain, Bloody Stool, Hematemesis, Hematochezia, Nausea, Vomiting Genitourinary: Reports: No Symptoms. Denies: Dysuria, Frequency, Burning, Pain Musculoskeletal: Reports: No Symptoms Skin: Reports: No Symptoms. Denies: Cyanosis, Jaundice, Mottled Psychiatric: Reports: No Symptoms. Denies: Confusion, Depression Neurological: Reports: Numbness. Denies: Confusion Hematologic/Lymphatic: Reports: Anemia Exam - Exam Exam: See Below - Vital Signs Vital Signs: Last Vital Signs Temp 98.2 F 10/31/18 19:09 Pulse 116 H 10/31/18 19:09 Resp 22 H 10/31/18 19:09 BP 101/59 L 10/31/18 19:09 Pulse Ox 96 10/31/18 19:09 Weight: 218 lb 11.2 oz - Exam General: Alert, Oriented HEENT: Conjunctiva Clear, Mucosa Moist & Point Blank, Posterior Pharynx Clear Neck: Supple, Trachea Midline Lungs: Normal Respiratory Effort, Rhonchi (Scattered rhonchi worse on the right than the left) Cardiovascular: Regular Rate, Regular Rhythm, Normal S1, Normal S2. No: Systolic Murmur GI/Abdominal Exam: Normal Bowel Sounds, Soft, Non-Tender, No Organomegaly, No Distention Extremities: Normal Inspection, Non-Tender, Normal Capillary Refill, Pedal Edema (1+) Skin: Warm, Dry, Intact Neurological: Cranial Nerves Intact Neuro Extensive - Mental Status: Alert, Oriented x3, Normal Mood/Affect, Normal Cognition Neuro Extensive - Motor, Sensory, Reflexes: CN II-XII Intact Psychiatric: Alert, Normal Affect, Normal Mood - Patient Data Lab Results Last 24 hrs: Laboratory Results - last 24 hr 10/31/18 10/31/18 10/31/18 Range/Units 18:58 18:58 18:58 WBC 20.09 H (3.98-10.04) K/mm3 RBC 3.71 L (3.98-5.22) M/mm3 Hgb 7.2 L* (11.2-15.7) gm/L Hct 25.8 L (34.1-44.9) % MCV 69.5 L (79.4-94.8) fl MCH 19.4 L (25.6-32.2) pg MCHC 27.9 L (32.2-35.5) g/dl RDW Std Deviation 53.5 H (36.4-46.3) fL Plt Count 63 L (182-369) K/mm3 Neut % (Auto) 95.2 H (34.0-71.1) % Lymph % (Auto) 2.2 L (19.3-51.7) % [place] % (Auto) 2.2 L (4.7-12.5) % Eos % (Auto) 0 L (0.7-5.8) Baso % (Auto) 0.0 L (0.1-1.2) % Neut # (Auto) 19.09 H (1.56-6.13) K/mm3 Lymph # (Auto) 0.45 L (1.18-3.74) K/mm3 [place] # (Auto) 0.45 H (0.24-0.36) K/mm3 Eos # (Auto) 0.00 L (0.04-0.36) K/mm3 Baso # (Auto) 0.01 (0.01-0.08) K/mm3 Manual Slide Review Abnormal smear Sodium (136-145) mEq/L Potassium (3.5-5.1) mEq/L Chloride (98-107) mEq/L Carbon Dioxide (21-32) mEq/L Anion Gap (5-15) BUN (7-18) mg/dL Creatinine (0.55-1.02) mg/dL Est Cr Clr Drug Dosing mL/min Estimated GFR (MDRD) (>60) mL/min BUN/Creatinine Ratio (14-18) Glucose (74-106) mg/dL POC Glucose (70-105) mg/dL Lactic Acid 9.6 H (0.4-2.0) mmol/L Calcium (8.5-10.1) mg/dL Magnesium (1.8-2.4) mg/dl Total Bilirubin (0.2-1.0) mg/dL AST (15-37) U/L ALT (14-59) U/L Alkaline Phosphatase (46-116) U/L Total Protein (6.4-8.2) g/dl Albumin (3.4-5.0) g/dl Globulin gm/dL Albumin/Globulin Ratio (1-2) Blood Type A POSITIVE Gel Antibody Screen Negative Crossmatch See Detail 10/31/18 10/31/18 Range/Units 19:55 20:11 WBC (3.98-10.04) K/mm3 RBC (3.98-5.22) M/mm3 Hgb (11.2-15.7) gm/L Hct (34.1-44.9) % MCV (79.4-94.8) fl MCH (25.6-32.2) pg MCHC (32.2-35.5) g/dl RDW Std Deviation (36.4-46.3) fL Plt Count (182-369) K/mm3 Neut % (Auto) (34.0-71.1) % Lymph % (Auto) (19.3-51.7) % [place] % (Auto) (4.7-12.5) % Eos % (Auto) (0.7-5.8) Baso % (Auto) (0.1-1.2) % Neut # (Auto) (1.56-6.13) K/mm3 Lymph # (Auto) (1.18-3.74) K/mm3 [place] # (Auto) (0.24-0.36) K/mm3 Eos # (Auto) (0.04-0.36) K/mm3 Baso # (Auto) (0.01-0.08) K/mm3 Manual Slide Review Sodium 137 (136-145) mEq/L Potassium 3.6 (3.5-5.1) mEq/L Chloride 105 (98-107) mEq/L Carbon Dioxide 16 L (21-32) mEq/L Anion Gap 19.6 H (5-15) BUN 10 (7-18) mg/dL Creatinine 1.0 (0.55-1.02) mg/dL Est Cr Clr Drug Dosing 67.89 mL/min Estimated GFR (MDRD) 59 (>60) mL/min BUN/Creatinine Ratio 10.0 L (14-18) Glucose 191 H (74-106) mg/dL POC Glucose 191 H (70-105) mg/dL Lactic Acid (0.4-2.0) mmol/L Calcium 7.8 L (8.5-10.1) mg/dL Magnesium 1.4 L (1.8-2.4) mg/dl Total Bilirubin 1.5 H (0.2-1.0) mg/dL AST 25 (15-37) U/L ALT 23 (14-59) U/L Alkaline Phosphatase 95 (46-116) U/L Total Protein 7.6 (6.4-8.2) g/dl Albumin 2.0 L (3.4-5.0) g/dl Globulin 5.6 gm/dL Albumin/Globulin Ratio 0.4 L (1-2) Blood Type Gel Antibody Screen Crossmatch Result Diagrams: 10/31/18 18:58 10/31/18 19:55 Imaging Impressions Last 24 hrs: Chest x-ray shows right lower lobe pneumonia. *Q Meaningful Use (ADM) - VTE *Q VTE Anticoagulation Contraindications: Medical/Procedure Contrai - Problem List (1) Sepsis SNOMED Code(s): 55908282 ICD Code: A41.9 - SEPSIS, UNSPECIFIED ORGANISM Status: Acute Current Visit: Yes (2) Diabetes SNOMED Code(s): 40555241 ICD Code: E11.9 - TYPE 2 DIABETES MELLITUS WITHOUT COMPLICATIONS Status: Acute Current Visit: Yes (3) Pneumonia SNOMED Code(s): 755639869 ICD Code: J18.9 - PNEUMONIA, UNSPECIFIED ORGANISM Status: Acute Current Visit: Yes Qualifiers: Pneumonia type: due to unspecified organism Laterality: bilateral Lung location: lower lobe of lung Qualified Code(s): J18.1 - Lobar pneumonia, unspecified organism (4) Anemia SNOMED Code(s): 022479047 ICD Code: D64.9 - ANEMIA, UNSPECIFIED Status: Acute Current Visit: No Qualifiers: Anemia type: unspecified type Qualified Code(s): D64.9 - Anemia, unspecified (5) Hypomagnesemia SNOMED Code(s): 423859385 ICD Code: E83.42 - HYPOMAGNESEMIA Status: Acute Current Visit: No Problem List Initiated/Reviewed/Updated: Yes Orders Last 24hrs: Active Orders 24 hr Category Date Time Status Patient Status [ADT] Routine ADT 10/31/18 18:05 Active Antiembolic Devices [RC] PER UNIT ROUTINE Care 10/31/18 20:37 Active Bedrest Bathroom Privileges [RC] ASDIRECTED Care 10/31/18 20:35 Active Blood Glucose Check, Bedside [RC] QIDACANDBED Care 10/31/18 19:40 Active Influenza Vaccine Charge [RC] .DISCHARGE Care 10/31/18 20:40 Active Oxygen Therapy [RC] PRN Care 10/31/18 20:36 Active RT Aerosol Therapy [RC] ASDIRECTED Care 10/31/18 19:43 Active Up With Assistance [RC] ASDIRECTED Care 10/31/18 20:35 Active VTE/DVT Education [RC] PER UNIT ROUTINE Care 10/31/18 20:36 Active Vital Signs [RC] Q4H Care 10/31/18 20:36 Active Consult to Diabetic Nurse Specialist [CONS] Routine Cons 10/31/18 20:35 Active Consult to Security Guards Dispatcher [CONS] Routine Cons 10/31/18 20:35 Active Respiratory Care Assess and Treatment [CONS] Routine Cons 10/31/18 20:35 Active ADA Diabetic [[place] Diabetic Association Diet] [DIET Diet 11/01/18 Breakfast Active ] CXR [Chest 2V] [CR] Stat Exams 10/31/18 16:33 Taken BLOOD GAS ARTERIAL [BG] Stat Lab 10/31/18 20:35 Ordered C-REACTIVE PROTEIN [CHEM] AM Lab 11/01/18 05:11 Ordered CBC WITH AUTO DIFF [HEME] AM Lab 11/01/18 05:11 Ordered COMPREHENSIVE METABOLIC PN,CMP [CHEM] AM Lab 11/01/18 05:11 Ordered CULTURE BLOOD [BC] Stat Lab 10/31/18 17:50 Ordered CULTURE BLOOD [BC] Stat Lab 10/31/18 18:15 Received CULTURE SPUTUM + SMEAR [RM] Stat Lab 10/31/18 20:35 Ordered FE, TIBC, TRANSFERRIN, FE SAT [CHEM] Routine Lab 10/31/18 20:47 Ordered GLYCOSYLATED HEMOGLOBIN,HGBA1C [CHEM] AM Lab 11/01/18 05:11 Ordered H.PYLORI ANTIGEN, STOOL [OP] Routine Lab 10/31/18 20:43 Ordered INR,PT,PROTHROMBIN TIME [COAG] Routine Lab 10/31/18 20:35 Ordered IRON,FE [CHEM] Routine Lab 10/31/18 20:46 Ordered LACTIC ACID [CHEM] Q6H Lab 11/01/18 01:00 Ordered LACTIC ACID [CHEM] Q6H Lab 11/01/18 07:00 Ordered MAGNESIUM [CHEM] AM Lab 11/01/18 05:11 Ordered OCCULT BLOOD DIAGNOSTIC [OP] DAILY Lab 10/31/18 20:44 Ordered OCCULT BLOOD DIAGNOSTIC [OP] DAILY Lab 11/01/18 20:44 Ordered OCCULT BLOOD DIAGNOSTIC [OP] DAILY Lab 11/02/18 20:44 Ordered OCCULT BLOOD DIAGNOSTIC [OP] DAILY Lab 11/03/18 20:44 Ordered PATIENT RETYPE [BBK] Routine Lab 10/31/18 19:55 Received PTT,PARTIAL THROMBOPLSTIN TIME [COAG] Routine Lab 10/31/18 20:35 Ordered RED BLOOD CELLS LP [BBK] Stat Lab 10/31/18 18:58 Results TYPE AND SCREEN [BBK] Routine Lab 10/31/18 18:58 Results Acetaminophen [Tylenol] Med 10/31/18 20:35 Active 650 mg PO Q4H PRN Albuterol [Proventil Neb Soln] Med 10/31/18 19:43 Active 2.5 mg NEB Q2H PRN Albuterol/Ipratropium [DuoNeb 3.0-0.5 MG/3 ML] Med 10/31/18 21:00 Active 3 ml NEB Q6HRRT Azithromycin [Zithromax] 500 mg Med 10/31/18 20:00 Active Sodium Chloride 0.9% [Normal Saline] 250 ml IV ONETIME Cyanocobalamin (Vitamin B12) [Vitamin B12] Med 11/01/18 09:00 Active 1,000 mcg PO DAILY Dextrose 50% in Water Med 10/31/18 19:40 Active 50 ml IVPUSH ASDIRECTED PRN Gabapentin [Neurontin] Med 10/31/18 21:00 Active 300 mg PO BEDTIME Insulin Lispro [HumaLOG] Med 10/31/18 22:00 Active See Protocol SUBCUT QIDACANDBED Lactated Ringers [Ringers, Lactated] 1,000 ml Med 10/31/18 20:35 Active IV .BOLUS Magnesium Sulfate/Water [Magnesium Sulfate 4 GM in Med 10/31/18 20:50 Active Water 50 ML] 4 gm Premix Bag 1 bag IV ONETIME Montelukast [Singulair] Med 10/31/18 20:45 Active 10 mg PO DAILY Ondansetron [Zofran ODT] Med 10/31/18 20:35 Active 4 mg PO Q4H PRN Pantoprazole [ProTONIX] Med 11/01/18 07:00 Active 40 mg PO DAILY@0700 Pharmacy to Dose - InFluenza V [Pharmacy to Dose - Med 10/31/18 20:39 Pending InFluenza Vaccine] 1 each IM ONETIME ONE Sodium Chloride 0.9% [Saline Flush] Med 10/31/18 16:32 Active 10 ml FLUSH ASDIRECTED PRN predniSONE Med 11/01/18 07:00 Active 40 mg PO WITHBREAKFAST Anticoagulation Contraindications VTE [AST] Per Unit Ot 10/31/18 20:35 Ordered Routine Blood Culture x2 Reflex Set [OM.PC] Stat Ot 10/31/18 17:50 Ordered Peripheral IV Insertion Adult [OM.PC] Routine Oth 10/31/18 16:32 Ordered Sequential Compression Device [OM.PC] Per Unit Routine Ot 10/31/18 20:36 Ordered Transfuse Red Blood Cells [COMM] Stat Ot 10/31/18 19:46 Ordered Resuscitation Status Routine Resus Stat 10/31/18 19:21 Ordered Medication Orders Acetaminophen (Tylenol) 650 mg PO Q4H PRN PRN Reason: Pain (Mild 1-3)/fever Albuterol (Proventil Neb Soln) 2.5 mg NEB Q2H PRN PRN Reason: Wheezing Albuterol/Ipratropium (Duoneb 3.0-0.5 Mg/3 Ml) 3 ml NEB Q6HRRT [facility] Cyanocobalamin (Vitamin B12) 1,000 mcg PO DAILY [facility] Dextrose/Water (Dextrose 50% In Water) 50 ml IVPUSH ASDIRECTED PRN PRN Reason: Hypoglycemia Gabapentin (Neurontin) 300 mg PO BEDTIME [facility] Azithromycin 500 mg/ Sodium (Chloride) 250 mls @ 250 mls/hr IV ONETIME ONE Stop: 10/31/18 20:59 Lactated Ringer's (Ringers, Lactated) 1,000 mls @ 999 mls/hr IV .BOLUS ONE Stop: 10/31/18 21:35 Magnesium Sulfate 4 gm/ Premix 50 mls @ 12.5 mls/hr IV ONETIME ONE Stop: 11/01/18 00:49 Influenza Virus Vaccine (Pharmacy To Dose - Influenza Vaccine) 1 each IM ONETIME ONE Stop: 10/31/18 20:40 Insulin Human Lispro (Humalog) 0 unit SUBCUT QIDACANDBED [facility]; Protocol Montelukast Sodium (Singulair) 10 mg PO DAILY [facility] Ondansetron HCl (Zofran Odt) 4 mg PO Q4H PRN PRN Reason: nausea, able to take PO Pantoprazole Sodium (Protonix) 40 mg PO DAILY@0700 [facility] Prednisone (Prednisone) 40 mg PO WITHBREAKFAST [facility] Sodium Chloride (Saline Flush) 10 ml FLUSH ASDIRECTED PRN PRN Reason: Keep Vein Open Last Admin: 10/31/18 17:04 Dose: 10 ml Assessment/Plan Comment:: Pneumonia * Patient presented from [facility] with shortness breath, cough, chills, and fever. Her white count was 20,000. * Chest x-ray showed bibasilar pneumonia right worse than left. * Lactic acid 9.6 * Given Rocephin 2 g in the ER. * Start azithromycin 500 mg IV now. * Blood cultures performed in ER. * Sputum cultures ordered. * ABG: PH 7.41, PCO2 22.7, PO2 68, HCO3 14.1, on room air Sepsis * X-ray confirmed pneumonia, white count of 20,000, lactic acid 9.6, heart rate greater than 100, Platelets 63,000, and carbon dioxide less than 20 at 16 * Patient was given IV fluid bolus. * Recheck CBC, lactic acid in the morning. * Lactic Ringer's at 150 mL per hour Iron deficient anemia * Hemoglobin of 7.2 * Iron 10 with percent saturation of 4% * History of peptic ulcer disease and H. pylori * Patient also has black tarry stools and heavy menstrual cycle * Emergency room typed and crossed and will give 2 units packed red blood cells. * We'll get stool sample for occult blood, but it was negative in the emergency room. * Stool sample for H. pylori antigen * Consult surgery in the morning Thrombocytopenia * Review her chart shows she has had thrombocytopenia for over a year. Her last platelet count was 61,000 on November 18, 2017 * Patient may need hematology workup. * I will order abdominal ultrasound to see if she has splenic enlargement. * On her blood work in 2018 she was pancytopenic Diabetes mellitus * Hold oral diabetic medications at this time. * Start sliding scale insulin, but expect basal/bolus within 24 hours. * Hemoglobin A1c, lipid panel, TSH ordered. Chronic medical problems include: Chronic low back pain, Platelets 63,000, and carbon dioxide less than 20 at 16 VTE prophylaxis: SCDs nonsmoker and only drinks 1 time a week but at that time approximately 6 beers
[2018-10-31] MEDS ORDERED: Sodium Chloride 0.9% 250 ML IV SCH (21:00)
[2018-10-31] MEDS ORDERED: Sodium Chloride 0.9% 250 ML ONE (21:06)
[2018-10-31] MEDS: Albuterol/Ipratropium 3.0-0.5 MG/3 ML Neb Soln NEB SCH (21:50)
[2018-10-31] MEDS: guaiFENesin 600 MG Tab.ER PO SCH (22:07)
[2018-10-31] MEDS: Gabapentin 300 MG Cap PO SCH (22:08)
[2018-10-31] MEDS: Pantoprazole 40 MG Vial IVPUSH SCH (22:52)
[2018-10-31] MEDS: Acetaminophen 325 MG Tab PO PRN (22:56)
[2018-10-31] MEDS: Insulin Lispro 100 Units/ML 3 ML Vial SUBCUT SCH (22:57)
[2018-11-01] MEDS: Lactated Ringers 1,000 ML IV SCH ×4 (00:06→19:57)
[2018-11-01] MEDS: Albuterol/Ipratropium 3.0-0.5 MG/3 ML Neb Soln NEB SCH ×4 (02:58→21:16)
[2018-11-01] MEDS: predniSONE 20 MG Tab PO SCH (06:32)
[2018-11-01] MEDS: Benzocaine/Cetylpyridinium/Menthol Lozenge MUCMEM PRN ×2 (06:37→20:12)
[2018-11-01] MEDS: Acetaminophen 325 MG Tab PO PRN ×2 (06:42→20:10)
[2018-11-01] MEDS ORDERED: Pantoprazole 40 MG Tab.CR PO SCH (07:00)
[2018-11-01] MEDS: Cyanocobalamin (Vitamin B12) 1,000 MCG Tab PO SCH (08:23)
[2018-11-01] MEDS: Insulin Lispro 100 Units/ML 3 ML Vial SUBCUT SCH ×6 (08:23→21:28)
[2018-11-01] MEDS: guaiFENesin 600 MG Tab.ER PO SCH ×2 (08:24→20:01)
[2018-11-01] MEDS: Insulin Glarg,Human.Rec.Analog 100 UNIT/ML ML SUBCUT SCH (09:33)
[2018-11-01] MEDS: Pantoprazole 40 MG Vial IVPUSH SCH ×2 (09:33→21:28)
[2018-11-01 11:08] LABS: HEMOGLOBIN A1C 5.7 % (4.50-6.20)
--- NOTE | 2018-11-01 11:12 | US ---
Addendum: Not mentioned on previous report is a small amount of ascites being seen. --- Addendum1 above dictated on [11/01/2018 14:40] by [Imelda Hayden, Johnny Esteves] --- --- Addendum1 above signed on [11/01/2018 14:42] by [Imelda Hayden, Johnny Esteves] --- --- Original report below dictated on [11/01/2018 10:46] by [Imelda Hayden Hilton J.] --- --- Original report below signed on [11/01/2018 11:08] by [Imelda Hayden Hilton J.] --- Limited abdominal ultrasound: Multiple real-time images were obtained of the right upper abdomen. Liver shows no focal parenchymal abnormality. Gallbladder not seen compatible with previous cholecystectomy. No biliary duct dilatation is seen. Right kidney shows no hydronephrosis or mass has a length of 13.5 cm. Left kidney shows inferior pole not to be well seen. Other portions of the left kidney felt to be within normal limits. Left kidney has a length of 14.4 cm. Spleen is enlarged with length of 22 cm. Aorta not well seen. Most of the pancreas is also poorly seen. Inferior vena cava is patent. Portal vein shows normal hepatopedal flow. Impression: 1. Splenomegaly. 2. Poorly seen abdominal aorta and pancreas. Lower pole of the left kidney also poorly seen. 3. Previous cholecystectomy with no biliary duct dilatation. Diagnostic code #3 --- Addendum1 signed ---
--- NOTE | 2018-11-01 14:25 | PCM.PN ---
- General Info Date of Service: 11/01/18 Admission Dx/Problem (Free Text): Admission Diagnosis/Problem Admission Diagnosis/Problem Pneumonia Subjective Update: No significant change from last night. Lactic acid is decreasing. Patient received 2 units of packed red blood cells overnight. Patient denies any pain, fever, chills, or shortness of breath. She does have a cough. Functional Status: Reports: Pain Controlled - Review of Systems General: Denies: Fever, Chills HEENT: Reports: No Symptoms Pulmonary: Reports: Cough, Sputum, Wheezing Cardiovascular: Reports: No Symptoms. Denies: Chest Pain, Palpitations Gastrointestinal: Reports: No Symptoms. Denies: Abdominal Pain, Constipation - Patient Data Vitals - Most Recent: Last Vital Signs Temp 98.5 F 11/01/18 03:17 Pulse 98 11/01/18 06:17 Resp 19 11/01/18 03:17 BP 112/58 L 11/01/18 03:17 Pulse Ox 96 11/01/18 08:04 Weight - Most Recent: 262 lb 11.2 oz I&O - Last 24 Hours: Intake & Output 10/31/18 11/01/18 11/01/18 22:59 06:59 14:59 Intake Total 0 3399 0 Output Total 400 Balance 0 2999 0 Imaging Impressions - Last 24 Hours: Ultrasound of her abdomen showed: Splenomegaly Lab Results Last 24 Hours: Laboratory Results - last 24 hr 10/31/18 10/31/18 10/31/18 Range/Units 18:58 18:58 18:58 WBC 20.09 H (3.98-10.04) K/mm3 RBC 3.71 L (3.98-5.22) M/mm3 Hgb 7.2 L* (11.2-15.7) gm/L Hct 25.8 L (34.1-44.9) % MCV 69.5 L (79.4-94.8) fl MCH 19.4 L (25.6-32.2) pg MCHC 27.9 L (32.2-35.5) g/dl RDW Std Deviation 53.5 H (36.4-46.3) fL Plt Count 63 L (182-369) K/mm3 MPV Neut % (Auto) 95.2 H (34.0-71.1) % Lymph % (Auto) 2.2 L (19.3-51.7) % [place] % (Auto) 2.2 L (4.7-12.5) % Eos % (Auto) 0 L (0.7-5.8) Baso % (Auto) 0.0 L (0.1-1.2) % Neut # (Auto) 19.09 H (1.56-6.13) K/mm3 Lymph # (Auto) 0.45 L (1.18-3.74) K/mm3 [place] # (Auto) 0.45 H (0.24-0.36) K/mm3 Eos # (Auto) 0.00 L (0.04-0.36) K/mm3 Baso # (Auto) 0.01 (0.01-0.08) K/mm3 Manual Slide Review Abnormal smear PT (9.5-12.1) SECONDS INR APTT (24-31) SECONDS Puncture Site ABG pH (7.35-7.45) ABG pCO2 (35.0-45.0) mmHg ABG pO2 (80.0-100.0) mmHg ABG HCO3 (22.0-26.0) meq/L ABG O2 Saturation (96.0-97.0) % ABG Base Excess (-2-2.0) Luis Manuel Test A-a Gradient mmHg O2 Delivery Device FiO2 (21.00-100.00) % Sodium (136-145) mEq/L Potassium (3.5-5.1) mEq/L Chloride (98-107) mEq/L Carbon Dioxide (21-32) mEq/L Anion Gap (5-15) BUN (7-18) mg/dL Creatinine (0.55-1.02) mg/dL Est Cr Clr Drug Dosing mL/min Estimated GFR (MDRD) (>60) mL/min BUN/Creatinine Ratio (14-18) Glucose (74-106) mg/dL POC Glucose (70-105) mg/dL Hemoglobin A1c (4.50-6.20) % Lactic Acid 9.6 H (0.4-2.0) mmol/L Calcium (8.5-10.1) mg/dL Magnesium (1.8-2.4) mg/dl Iron (50-170) ug/dL TIBC (100-400) ug/dL % Saturation (20-55) % Transferrin (202-364) mg/dL Total Bilirubin (0.2-1.0) mg/dL AST (15-37) U/L ALT (14-59) U/L Alkaline Phosphatase (46-116) U/L C-Reactive Protein (<1.0) mg/dL Total Protein (6.4-8.2) g/dl Albumin (3.4-5.0) g/dl Globulin gm/dL Albumin/Globulin Ratio (1-2) Triglycerides (<150) mg/dL Cholesterol (<200) mg/dL LDL Cholesterol Direct (<100) mg/dL HDL Cholesterol (40-59) mg/dL Vitamin B12 (193-986) pg/ml Blood Type A POSITIVE Gel Antibody Screen Negative Crossmatch See Detail 10/31/18 10/31/18 10/31/18 Range/Units 19:55 19:55 19:55 WBC (3.98-10.04) K/mm3 RBC (3.98-5.22) M/mm3 Hgb (11.2-15.7) gm/L Hct (34.1-44.9) % MCV (79.4-94.8) fl MCH (25.6-32.2) pg MCHC (32.2-35.5) g/dl RDW Std Deviation (36.4-46.3) fL Plt Count (182-369) K/mm3 MPV Neut % (Auto) (34.0-71.1) % Lymph % (Auto) (19.3-51.7) % [place] % (Auto) (4.7-12.5) % Eos % (Auto) (0.7-5.8) Baso % (Auto) (0.1-1.2) % Neut # (Auto) (1.56-6.13) K/mm3 Lymph # (Auto) (1.18-3.74) K/mm3 [place] # (Auto) (0.24-0.36) K/mm3 Eos # (Auto) (0.04-0.36) K/mm3 Baso # (Auto) (0.01-0.08) K/mm3 Manual Slide Review PT (9.5-12.1) SECONDS INR APTT (24-31) SECONDS Puncture Site ABG pH (7.35-7.45) ABG pCO2 (35.0-45.0) mmHg ABG pO2 (80.0-100.0) mmHg ABG HCO3 (22.0-26.0) meq/L ABG O2 Saturation (96.0-97.0) % ABG Base Excess (-2-2.0) Luis Manuel Test A-a Gradient mmHg O2 Delivery Device FiO2 (21.00-100.00) % Sodium 137 (136-145) mEq/L Potassium 3.6 (3.5-5.1) mEq/L Chloride 105 (98-107) mEq/L Carbon Dioxide 16 L (21-32) mEq/L Anion Gap 19.6 H (5-15) BUN 10 (7-18) mg/dL Creatinine 1.0 (0.55-1.02) mg/dL Est Cr Clr Drug Dosing 67.89 mL/min Estimated GFR (MDRD) 59 (>60) mL/min BUN/Creatinine Ratio 10.0 L (14-18) Glucose 191 H (74-106) mg/dL POC Glucose (70-105) mg/dL Hemoglobin A1c (4.50-6.20) % Lactic Acid (0.4-2.0) mmol/L Calcium 7.8 L (8.5-10.1) mg/dL Magnesium 1.4 L (1.8-2.4) mg/dl Iron 11 L 10 L (50-170) ug/dL TIBC 285 (100-400) ug/dL % Saturation 4 L (20-55) % Transferrin 228 (202-364) mg/dL Total Bilirubin 1.5 H (0.2-1.0) mg/dL AST 25 (15-37) U/L ALT 23 (14-59) U/L Alkaline Phosphatase 95 (46-116) U/L C-Reactive Protein (<1.0) mg/dL Total Protein 7.6 (6.4-8.2) g/dl Albumin 2.0 L (3.4-5.0) g/dl Globulin 5.6 gm/dL Albumin/Globulin Ratio 0.4 L (1-2) Triglycerides (<150) mg/dL Cholesterol (<200) mg/dL LDL Cholesterol Direct (<100) mg/dL HDL Cholesterol (40-59) mg/dL Vitamin B12 (193-986) pg/ml Blood Type Gel Antibody Screen Crossmatch 10/31/18 10/31/18 10/31/18 Range/Units 20:11 21:00 21:05 WBC (3.98-10.04) K/mm3 RBC (3.98-5.22) M/mm3 Hgb (11.2-15.7) gm/L Hct (34.1-44.9) % MCV (79.4-94.8) fl MCH (25.6-32.2) pg MCHC (32.2-35.5) g/dl RDW Std Deviation (36.4-46.3) fL Plt Count (182-369) K/mm3 MPV Neut % (Auto) (34.0-71.1) % Lymph % (Auto) (19.3-51.7) % [place] % (Auto) (4.7-12.5) % Eos % (Auto) (0.7-5.8) Baso % (Auto) (0.1-1.2) % Neut # (Auto) (1.56-6.13) K/mm3 Lymph # (Auto) (1.18-3.74) K/mm3 [place] # (Auto) (0.24-0.36) K/mm3 Eos # (Auto) (0.04-0.36) K/mm3 Baso # (Auto) (0.01-0.08) K/mm3 Manual Slide Review PT 18.6 H (9.5-12.1) SECONDS INR 1.72 APTT 32 H (24-31) SECONDS Puncture Site Lt radial ABG pH 7.41 (7.35-7.45) ABG pCO2 22.7 L (35.0-45.0) mmHg ABG pO2 68.0 L (80.0-100.0) mmHg ABG HCO3 14.1 L (22.0-26.0) meq/L ABG O2 Saturation 93.9 L (96.0-97.0) % ABG Base Excess -9.3 L (-2-2.0) Luis Manuel Test Positive A-a Gradient 38 mmHg O2 Delivery Device Room air FiO2 21.00 (21.00-100.00) % Sodium (136-145) mEq/L Potassium (3.5-5.1) mEq/L Chloride (98-107) mEq/L Carbon Dioxide (21-32) mEq/L Anion Gap (5-15) BUN (7-18) mg/dL Creatinine (0.55-1.02) mg/dL Est Cr Clr Drug Dosing mL/min Estimated GFR (MDRD) (>60) mL/min BUN/Creatinine Ratio (14-18) Glucose (74-106) mg/dL POC Glucose 191 H (70-105) mg/dL Hemoglobin A1c (4.50-6.20) % Lactic Acid (0.4-2.0) mmol/L Calcium (8.5-10.1) mg/dL Magnesium (1.8-2.4) mg/dl Iron (50-170) ug/dL TIBC (100-400) ug/dL % Saturation (20-55) % Transferrin (202-364) mg/dL Total Bilirubin (0.2-1.0) mg/dL AST (15-37) U/L ALT (14-59) U/L Alkaline Phosphatase (46-116) U/L C-Reactive Protein (<1.0) mg/dL Total Protein (6.4-8.2) g/dl Albumin (3.4-5.0) g/dl Globulin gm/dL Albumin/Globulin Ratio (1-2) Triglycerides (<150) mg/dL Cholesterol (<200) mg/dL LDL Cholesterol Direct (<100) mg/dL HDL Cholesterol (40-59) mg/dL Vitamin B12 (193-986) pg/ml Blood Type Gel Antibody Screen Crossmatch 10/31/18 11/01/18 11/01/18 Range/Units 21:10 01:00 06:08 WBC (3.98-10.04) K/mm3 RBC (3.98-5.22) M/mm3 Hgb (11.2-15.7) gm/L Hct (34.1-44.9) % MCV (79.4-94.8) fl MCH (25.6-32.2) pg MCHC (32.2-35.5) g/dl RDW Std Deviation (36.4-46.3) fL Plt Count (182-369) K/mm3 MPV Neut % (Auto) (34.0-71.1) % Lymph % (Auto) (19.3-51.7) % [place] % (Auto) (4.7-12.5) % Eos % (Auto) (0.7-5.8) Baso % (Auto) (0.1-1.2) % Neut # (Auto) (1.56-6.13) K/mm3 Lymph # (Auto) (1.18-3.74) K/mm3 [place] # (Auto) (0.24-0.36) K/mm3 Eos # (Auto) (0.04-0.36) K/mm3 Baso # (Auto) (0.01-0.08) K/mm3 Manual Slide Review PT (9.5-12.1) SECONDS INR APTT (24-31) SECONDS Puncture Site ABG pH (7.35-7.45) ABG pCO2 (35.0-45.0) mmHg ABG pO2 (80.0-100.0) mmHg ABG HCO3 (22.0-26.0) meq/L ABG O2 Saturation (96.0-97.0) % ABG Base Excess (-2-2.0) Luis Manuel Test A-a Gradient mmHg O2 Delivery Device FiO2 (21.00-100.00) % Sodium (136-145) mEq/L Potassium (3.5-5.1) mEq/L Chloride (98-107) mEq/L Carbon Dioxide (21-32) mEq/L Anion Gap (5-15) BUN (7-18) mg/dL Creatinine (0.55-1.02) mg/dL Est Cr Clr Drug Dosing mL/min Estimated GFR (MDRD) (>60) mL/min BUN/Creatinine Ratio (14-18) Glucose (74-106) mg/dL POC Glucose 238 H (70-105) mg/dL Hemoglobin A1c (4.50-6.20) % Lactic Acid 8.1 H (0.4-2.0) mmol/L Calcium (8.5-10.1) mg/dL Magnesium (1.8-2.4) mg/dl Iron (50-170) ug/dL TIBC (100-400) ug/dL % Saturation (20-55) % Transferrin (202-364) mg/dL Total Bilirubin (0.2-1.0) mg/dL AST (15-37) U/L ALT (14-59) U/L Alkaline Phosphatase (46-116) U/L C-Reactive Protein (<1.0) mg/dL Total Protein (6.4-8.2) g/dl Albumin (3.4-5.0) g/dl Globulin gm/dL Albumin/Globulin Ratio (1-2) Triglycerides (<150) mg/dL Cholesterol (<200) mg/dL LDL Cholesterol Direct (<100) mg/dL HDL Cholesterol (40-59) mg/dL Vitamin B12 1964 H (193-986) pg/ml Blood Type Gel Antibody Screen Crossmatch 11/01/18 11/01/18 11/01/18 Range/Units 07:16 07:16 07:16 WBC 15.97 H (3.98-10.04) K/mm3 RBC 3.93 L (3.98-5.22) M/mm3 Hgb 8.2 L (11.2-15.7) gm/L Hct 28.2 L (34.1-44.9) % MCV 71.8 L (79.4-94.8) fl MCH 20.9 L (25.6-32.2) pg MCHC 29.1 L (32.2-35.5) g/dl RDW Std Deviation 58.3 H (36.4-46.3) fL Plt Count 54 L (182-369) K/mm3 MPV TNP Neut % (Auto) 90.5 H (34.0-71.1) % Lymph % (Auto) 5.7 L (19.3-51.7) % [place] % (Auto) 3.3 L (4.7-12.5) % Eos % (Auto) 0 L (0.7-5.8) Baso % (Auto) 0.1 (0.1-1.2) % Neut # (Auto) 14.46 H (1.56-6.13) K/mm3 Lymph # (Auto) 0.91 L (1.18-3.74) K/mm3 [place] # (Auto) 0.53 H (0.24-0.36) K/mm3 Eos # (Auto) 0.00 L (0.04-0.36) K/mm3 Baso # (Auto) 0.01 (0.01-0.08) K/mm3 Manual Slide Review Abnormal smear PT (9.5-12.1) SECONDS INR APTT (24-31) SECONDS Puncture Site ABG pH (7.35-7.45) ABG pCO2 (35.0-45.0) mmHg ABG pO2 (80.0-100.0) mmHg ABG HCO3 (22.0-26.0) meq/L ABG O2 Saturation (96.0-97.0) % ABG Base Excess (-2-2.0) Luis Manuel Test A-a Gradient mmHg O2 Delivery Device FiO2 (21.00-100.00) % Sodium 135 L (136-145) mEq/L Potassium 3.4 L (3.5-5.1) mEq/L Chloride 106 (98-107) mEq/L Carbon Dioxide 21 (21-32) mEq/L Anion Gap 11.4 (5-15) BUN 11 (7-18) mg/dL Creatinine 0.8 (0.55-1.02) mg/dL Est Cr Clr Drug Dosing 84.87 mL/min Estimated GFR (MDRD) > 60 (>60) mL/min BUN/Creatinine Ratio 13.8 L (14-18) Glucose 204 H (74-106) mg/dL POC Glucose (70-105) mg/dL Hemoglobin A1c (4.50-6.20) % Lactic Acid 4.3 H (0.4-2.0) mmol/L Calcium 7.6 L (8.5-10.1) mg/dL Magnesium 1.9 (1.8-2.4) mg/dl Iron (50-170) ug/dL TIBC (100-400) ug/dL % Saturation (20-55) % Transferrin (202-364) mg/dL Total Bilirubin 2.0 H (0.2-1.0) mg/dL AST 18 (15-37) U/L ALT 18 (14-59) U/L Alkaline Phosphatase 84 (46-116) U/L C-Reactive Protein 12.1 H* (<1.0) mg/dL Total Protein 7.1 (6.4-8.2) g/dl Albumin 1.8 L (3.4-5.0) g/dl Globulin 5.3 gm/dL Albumin/Globulin Ratio 0.3 L (1-2) Triglycerides 53 (<150) mg/dL Cholesterol 65 (<200) mg/dL LDL Cholesterol Direct 26 (<100) mg/dL HDL Cholesterol 32.0 L (40-59) mg/dL Vitamin B12 (193-986) pg/ml Blood Type Gel Antibody Screen Crossmatch 11/01/18 11/01/18 11/01/18 Range/Units 07:16 07:16 11:27 WBC (3.98-10.04) K/mm3 RBC (3.98-5.22) M/mm3 Hgb 8.1 L (11.2-15.7) gm/L Hct 27.2 L (34.1-44.9) % MCV (79.4-94.8) fl MCH (25.6-32.2) pg MCHC (32.2-35.5) g/dl RDW Std Deviation (36.4-46.3) fL Plt Count (182-369) K/mm3 MPV Neut % (Auto) (34.0-71.1) % Lymph % (Auto) (19.3-51.7) % [place] % (Auto) (4.7-12.5) % Eos % (Auto) (0.7-5.8) Baso % (Auto) (0.1-1.2) % Neut # (Auto) (1.56-6.13) K/mm3 Lymph # (Auto) (1.18-3.74) K/mm3 [place] # (Auto) (0.24-0.36) K/mm3 Eos # (Auto) (0.04-0.36) K/mm3 Baso # (Auto) (0.01-0.08) K/mm3 Manual Slide Review PT (9.5-12.1) SECONDS INR APTT (24-31) SECONDS Puncture Site ABG pH (7.35-7.45) ABG pCO2 (35.0-45.0) mmHg ABG pO2 (80.0-100.0) mmHg ABG HCO3 (22.0-26.0) meq/L ABG O2 Saturation (96.0-97.0) % ABG Base Excess (-2-2.0) Luis Manuel Test A-a Gradient mmHg O2 Delivery Device FiO2 (21.00-100.00) % Sodium (136-145) mEq/L Potassium (3.5-5.1) mEq/L Chloride (98-107) mEq/L Carbon Dioxide (21-32) mEq/L Anion Gap (5-15) BUN (7-18) mg/dL Creatinine (0.55-1.02) mg/dL Est Cr Clr Drug Dosing mL/min Estimated GFR (MDRD) (>60) mL/min BUN/Creatinine Ratio (14-18) Glucose (74-106) mg/dL POC Glucose 186 H (70-105) mg/dL Hemoglobin A1c 5.70 (4.50-6.20) % Lactic Acid (0.4-2.0) mmol/L Calcium (8.5-10.1) mg/dL Magnesium (1.8-2.4) mg/dl Iron (50-170) ug/dL TIBC (100-400) ug/dL % Saturation (20-55) % Transferrin (202-364) mg/dL Total Bilirubin (0.2-1.0) mg/dL AST (15-37) U/L ALT (14-59) U/L Alkaline Phosphatase (46-116) U/L C-Reactive Protein (<1.0) mg/dL Total Protein (6.4-8.2) g/dl Albumin (3.4-5.0) g/dl Globulin gm/dL Albumin/Globulin Ratio (1-2) Triglycerides (<150) mg/dL Cholesterol (<200) mg/dL LDL Cholesterol Direct (<100) mg/dL HDL Cholesterol (40-59) mg/dL Vitamin B12 (193-986) pg/ml Blood Type Gel Antibody Screen Crossmatch Tito Results Last 24 Hours: Microbiology 10/31/18 11:00 Helicobacter pylori Antigen - Final Stool / Feces NEGATIVE H. PYLORI AG 10/31/18 11:00 Stool Occult Blood (TITO) - Final Stool / Feces NEGATIVE OCCULT BLOOD 11/01/18 06:20 Gram Stain - Final Sputum - Expectorated Med Orders - Current: Current Medications Acetaminophen (Tylenol) 650 mg PO Q4H PRN PRN Reason: Pain (Mild 1-3)/fever Last Admin: 11/01/18 06:42 Dose: 650 mg Albuterol (Proventil Neb Soln) 2.5 mg NEB Q2H PRN PRN Reason: Wheezing Albuterol/Ipratropium (Duoneb 3.0-0.5 Mg/3 Ml) 3 ml NEB Q6HRRT [facility] Last Admin: 11/01/18 08:03 Dose: 3 ml Benzocaine/Menthol (Cepacol Sore Throat) 1 lozenge MUCMEM Q2H PRN PRN Reason: Sore Throat Last Admin: 11/01/18 06:37 Dose: 1 lozenge Cyanocobalamin (Vitamin B12) 1,000 mcg PO DAILY [facility] Last Admin: 11/01/18 08:23 Dose: 1,000 mcg Dextrose/Water (Dextrose 50% In Water) 50 ml IVPUSH ASDIRECTED PRN PRN Reason: Hypoglycemia Gabapentin (Neurontin) 300 mg PO BEDTIME [facility] Last Admin: 10/31/18 22:08 Dose: 300 mg Guaifenesin (Mucinex) 600 mg PO BID [facility] Last Admin: 11/01/18 08:24 Dose: 600 mg Sodium Chloride (Normal Saline) 250 mls @ 25 mls/hr IV ASDIRECTED [facility] Lactated Ringer's (Ringers, Lactated) 1,000 mls @ 150 mls/hr IV ASDIRECTED [facility] Last Admin: 11/01/18 13:15 Dose: 150 mls/hr Azithromycin 250 mg/ Sodium (Chloride) 250 mls @ 250 mls/hr IV Q24H [facility] Ceftriaxone Sodium 2 gm/ (Sodium Chloride) 100 mls @ 200 mls/hr IV Q24H [facility] Insulin Glargine (Lantus) 15 unit SUBCUT DAILY [facility] Last Admin: 11/01/18 09:33 Dose: 15 units Insulin Human Lispro (Humalog) 5 unit SUBCUT TIDAC [facility] Last Admin: 11/01/18 13:08 Dose: 5 units Insulin Human Lispro (Humalog) 0 unit SUBCUT QIDACANDBED [facility]; Protocol Last Admin: 11/01/18 13:09 Dose: 1 unit Montelukast Sodium (Singulair) 10 mg PO BEDTIME [facility] Ondansetron HCl (Zofran Odt) 4 mg PO Q4H PRN PRN Reason: nausea, able to take PO Pantoprazole Sodium (Protonix Iv) 40 mg IVPUSH Q12H [facility] Last Admin: 11/01/18 09:33 Dose: 40 mg Prednisone (Prednisone) 40 mg PO WITHBREAKFAST [facility] Last Admin: 11/01/18 06:32 Dose: 40 mg Sodium Chloride (Saline Flush) 10 ml FLUSH ASDIRECTED PRN PRN Reason: Keep Vein Open Last Admin: 10/31/18 17:04 Dose: 10 ml Discontinued Medications Acetaminophen (Tylenol) 975 mg PO NOW ONE Stop: 10/31/18 17:55 Last Admin: 10/31/18 18:05 Dose: 975 mg Albuterol/Ipratropium (Duoneb 3.0-0.5 Mg/3 Ml) 3 ml NEB ONETIME ONE Stop: 10/31/18 16:33 Last Admin: 10/31/18 16:48 Dose: 3 ml Albuterol/Ipratropium (Duoneb 3.0-0.5 Mg/3 Ml) 3 ml NEB ONETIME ONE Stop: 10/31/18 17:54 Last Admin: 10/31/18 18:11 Dose: 3 ml Ceftriaxone Sodium (Rocephin) 1 gm IVPUSH Q24H [facility] Ceftriaxone Sodium 2 gm/ (Sodium Chloride) 100 mls @ 200 mls/hr IV ONETIME ONE Stop: 10/31/18 17:55 Last Admin: 10/31/18 17:47 Dose: 200 mls/hr Azithromycin 500 mg/ Sodium (Chloride) 250 mls @ 250 mls/hr IV ONETIME ONE Stop: 10/31/18 20:59 Last Admin: 10/31/18 21:34 Dose: 250 mls/hr Lactated Ringer's (Ringers, Lactated) 1,000 mls @ 999 mls/hr IV .BOLUS ONE Stop: 10/31/18 21:35 Last Admin: 10/31/18 22:43 Dose: 999 mls/hr Magnesium Sulfate 4 gm/ Premix 50 mls @ 12.5 mls/hr IV ONETIME ONE Stop: 11/01/18 00:49 Last Admin: 10/31/18 21:38 Dose: 12.5 mls/hr Sodium Chloride (Normal Saline) Confirm Administered Dose 250 mls @ as directed .ROUTE .STK-MED ONE Stop: 10/31/18 21:07 Last Admin: 10/31/18 21:25 Dose: 25 mls/hr Influenza Virus Vaccine (Pharmacy To Dose - Influenza Vaccine) 1 each IM ONETIME ONE Stop: 10/31/18 20:40 Influenza Virus Vaccine (Fluzone Quad 8650-3347 Syringe) 60 mcg IM .ONCE ONE Stop: 10/31/18 21:16 Insulin Human Lispro (Humalog) 0 unit SUBCUT QIDACANDBED [facility]; Protocol Last Admin: 11/01/18 08:23 Dose: 4 units Methylprednisolone Sodium Succinate (Solu-Medrol) 125 mg IVPUSH ONETIME ONE Stop: 10/31/18 16:33 Last Admin: 10/31/18 17:04 Dose: 125 mg Montelukast Sodium (Singulair) 10 mg PO DAILY [facility] Last Admin: 10/31/18 22:07 Dose: 10 mg Pantoprazole Sodium (Protonix) 40 mg PO DAILY@0700 [facility] - Exam Quality Assessment: Supplemental Oxygen General: Alert, Oriented HEENT: Pupils Equal, Pupils Reactive Neck: Supple Lungs: Normal Respiratory Effort, Rhonchi Cardiovascular: Regular Rate, Regular Rhythm - Problem List & Annotations (1) Sepsis SNOMED Code(s): 36216962 Code(s): A41.9 - SEPSIS, UNSPECIFIED ORGANISM Status: Acute Current Visit : Yes (2) Diabetes SNOMED Code(s): 10489750 Code(s): E11.9 - TYPE 2 DIABETES MELLITUS WITHOUT COMPLICATIONS Status: Acute Current Visit: Yes (3) Pneumonia SNOMED Code(s): 648088322 Code(s): J18.9 - PNEUMONIA, UNSPECIFIED ORGANISM Status: Acute Current Visit: Yes Qualifiers: Pneumonia type: due to unspecified organism Laterality: bilateral Lung location: lower lobe of lung Qualified Code(s): J18.1 - Lobar pneumonia, unspecified organism (4) Anemia SNOMED Code(s): 280180426 Code(s): D64.9 - ANEMIA, UNSPECIFIED Status: Acute Current Visit: No Qualifiers: Anemia type: unspecified type Qualified Code(s): D64.9 - Anemia, unspecified (5) Hypomagnesemia SNOMED Code(s): 884558868 Code(s): E83.42 - HYPOMAGNESEMIA Status: Acute Current Visit: No (6) Splenomegaly SNOMED Code(s): 26381131 Code(s): R16.1 - SPLENOMEGALY, NOT ELSEWHERE CLASSIFIED Status: Acute Current Visit: Yes - Problem List Review Problem List Initiated/Reviewed/Updated: Yes - My Orders Last 24 Hours: My Active Orders 10/31/18 19:21 Resuscitation Status Routine 10/31/18 19:40 Blood Glucose Check, Bedside [RC] QIDACANDBED Dextrose 50% in Water 50 ml IVPUSH ASDIRECTED PRN 10/31/18 19:43 RT Aerosol Therapy [RC] ASDIRECTED Albuterol [Proventil Neb Soln] 2.5 mg NEB Q2H PRN 10/31/18 20:35 Bedrest Bathroom Privileges [RC] ASDIRECTED Up With Assistance [RC] ASDIRECTED Consult to Diabetic Nurse Specialist [CONS] Routine Consult to Tacker Off [CONS] Routine Respiratory Care Assess and Treatment [CONS] Routine Acetaminophen [Tylenol] 650 mg PO Q4H PRN Ondansetron [Zofran ODT] 4 mg PO Q4H PRN Anticoagulation Contraindications VTE [AST] Per Unit Routine 10/31/18 20:36 Oxygen Therapy [RC] PRN VTE/DVT Education [RC] DAILY Vital Signs [RC] Q4HR Sequential Compression Device [OM.PC] Per Unit Routine 10/31/18 20:37 Antiembolic Devices [RC] BID 10/31/18 20:40 Influenza Vaccine Charge [RC] .DISCHARGE 10/31/18 20:43 H.PYLORI ANTIGEN, STOOL [OP] Routine 10/31/18 20:44 OCCULT BLOOD DIAGNOSTIC [OP] DAILY OCCULT BLOOD DIAGNOSTIC [OP] DAILY 10/31/18 21:00 Albuterol/Ipratropium [DuoNeb 3.0-0.5 MG/3 ML] 3 ml NEB Q6HRRT Gabapentin [Neurontin] 300 mg PO BEDTIME Sodium Chloride 0.9% [Normal Saline] 250 ml IV ASDIRECTED 10/31/18 21:15 guaiFENesin [Mucinex] 600 mg PO BID 10/31/18 22:00 Lactated Ringers [Ringers, Lactated] 1,000 ml IV ASDIRECTED Pantoprazole [ProTONIX IV] 40 mg IVPUSH Q12H 11/01/18 01:36 Benzocaine/Cetylpyrd/Menthol [Cepacol Sore Throat] 1 lozenge MUCMEM Q2H PRN 11/01/18 06:20 CULTURE SPUTUM + SMEAR [RM] Stat 11/01/18 07:00 predniSONE 40 mg PO WITHBREAKFAST 11/01/18 07:34 STREP PNEUMONIAE ANTIGEN [MREF] Routine 11/01/18 07:36 LEGIONELLA ANTIGEN [MREF] Routine 11/01/18 08:20 RESPIRATORY PANEL Routine 11/01/18 09:00 Cyanocobalamin (Vitamin B12) [Vitamin B12] 1,000 mcg PO DAILY Insulin Glarg,Human.Rec.Analog [LantUS] 15 unit SUBCUT DAILY 11/01/18 11:00 Insulin Lispro [HumaLOG] 5 unit SUBCUT TIDAC Insulin Lispro [HumaLOG] See Protocol SUBCUT QIDACANDBED 11/01/18 17:00 HEMOGLOBIN/HEMATOCRIT,HH [HEME] Routine LACTIC ACID [CHEM] Timed cefTRIAXone [Rocephin] 2 gm Sodium Chloride 0.9% [Normal Saline] 100 ml IV Q24H 11/01/18 20:00 Azithromycin [Zithromax] 250 mg Sodium Chloride 0.9% [Normal Saline] 250 ml IV Q24H 11/01/18 21:00 Montelukast [Singulair] 10 mg PO BEDTIME 11/01/18 Breakfast ADA Diabetic [[employer] [employer] Diet] [DIET] 11/02/18 20:44 OCCULT BLOOD DIAGNOSTIC [OP] DAILY 11/03/18 20:44 OCCULT BLOOD DIAGNOSTIC [OP] DAILY - Plan Plan:: Pneumonia * Patient presented from [facility] with shortness breath, cough, chills, and fever. Her white count was 20,000. * Chest x-ray showed bibasilar pneumonia right worse than left. * Lactic acid 9.6 * Given Rocephin 2 g in the ER. * Start azithromycin 500 mg IV now. * Blood cultures performed in ER. * Sputum cultures ordered. * ABG: PH 7.41, PCO2 22.7, PO2 68, HCO3 14.1, on room air Sepsis * X-ray confirmed pneumonia, white count of 20,000, lactic acid 9.6 --> 4.3, heart rate greater than 100, Platelets 63,000, and carbon dioxide less than 20 at 16 * Patient was given IV fluid bolus. * Recheck CBC, lactic acid in the morning. * Lactic Ringer's at 150 mL per hour until lactic acid is normal. Iron deficient anemia * Hemoglobin of 7.2 --8.1 after 2 units packed red blood cells * Iron 10 with percent saturation of 4% * History of peptic ulcer disease and H. pylori * Patient also has black tarry stools and heavy menstrual cycle * Patient will not be ready for endoscopy until pneumonia improves * Stool sample for H. pylori antigen * Consider surgical consult - patient is not a candidate for endoscopy at this time. 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 Her last platelet count was 61,000 on November 18, 2017 * Patient may need hematology workup. * Ultrasound of the thyroid showed splenomegaly which is likely causing splenic sequestration sensation of her platelets. * On her blood work in 2018 she was pancytopenic Diabetes mellitus * Hold oral diabetic medications at this time. * basal insulin and prandial insulin with sliding scale correction. * Hemoglobin A1c- 5.7. This is very tightly controlled on concern about episodes of hypoglycemia as an outpatient. She may benefit from discharge without her sulfonylurea. Chronic medical problems include: Chronic low back pain, Platelets 63,000, and carbon dioxide less than 20 at 16 VTE prophylaxis: SCDs nonsmoker and only drinks 1 time a week but at that time approximately 6 beers
[2018-11-01] MEDS: Potassium Chloride 20 MEQ Tab.ER PO SCH ×2 (16:23→20:01)
[2018-11-01] MEDS ORDERED: cefTRIAXone 2 GM Vial IVPUSH SCH (17:00)
[2018-11-01] MEDS: cefTRIAXone 2 GM in Sodium Chloride 0.9% 100 ML IV SCH (17:56)
[2018-11-01] MEDS ORDERED: Azithromycin 250 MG in Sodium Chloride 0.9% 250 ML IV SCH (20:00)
[2018-11-01] MEDS: Gabapentin 300 MG Cap PO SCH (20:01)
[2018-11-01] MEDS: Montelukast 10 MG Tab PO SCH (20:01)
[2018-11-01] MEDS ORDERED: Lactated Ringers 1,000 ML IV SCH (22:30)
[2018-11-02] MEDS: Albuterol/Ipratropium 3.0-0.5 MG/3 ML Neb Soln NEB SCH ×4 (02:44→21:13)
[2018-11-02] MEDS: predniSONE 20 MG Tab PO SCH (06:23)
[2018-11-02] MEDS: Insulin Lispro 100 Units/ML 3 ML Vial SUBCUT SCH ×8 (06:44→21:57)
[2018-11-02] MEDS ORDERED: Magnesium Sulfate/Water 4 GM in Premix Bag 1 BAG IV ONE (07:56)
[2018-11-02] MEDS: Cyanocobalamin (Vitamin B12) 1,000 MCG Tab PO SCH (08:24)
[2018-11-02] MEDS: guaiFENesin 600 MG Tab.ER PO SCH ×2 (08:24→20:42)
[2018-11-02] MEDS: Acetaminophen 325 MG Tab PO PRN ×2 (08:40→20:41)
[2018-11-02] MEDS: Insulin Glarg,Human.Rec.Analog 100 UNIT/ML ML SUBCUT SCH (08:41)
[2018-11-02] MEDS: Pantoprazole 40 MG Vial IVPUSH SCH (10:47)
--- NOTE | 2018-11-02 10:55 | CR ---
Chest: Two views of the chest were obtained. Comparison: No prior chest x-ray. Small right sided pleural effusion is seen. Heart is enlarged. Pulmonary vessels are congested. Slight atelectasis seen within the right lung base. Compression deformity noted within the lower thoracic spine, age is indeterminate. Impression: 1. Findings suspicious for CHF. 2. Compression deformity within the lower thoracic spine, age indeterminate. If patient has thoracic spine symptoms, MRI could be obtained to further age this finding. Diagnostic code #3 I agree with preliminary report issued by [facility] ([facility] report finalized on 10/31/18, 6:17 PM Central Time.
--- NOTE | 2018-11-02 15:35 | PCM.PN ---
- General Info Date of Service: 11/02/18 Admission Dx/Problem (Free Text): Admission Diagnosis/Problem Admission Diagnosis/Problem Pneumonia Subjective Update: November 02, 2018 Patient had an uneventful night. She still feels tired and has a cough. Her respiratory viral panel came back with Human metapneumovir. Her sputum is growing out mixed ayesha. She's had an improvement in her white count and is afebrile. She does state that should her hands are feeling a bit swollen. She has had an 11 pound weight gain. November 01, 2018 No significant change from last night. Lactic acid is decreasing. Patient received 2 units of packed red blood cells overnight. Patient denies any pain, fever, chills, or shortness of breath. She does have a cough. - Review of Systems General: Reports: Weakness, Fatigue. Denies: Fever HEENT: Reports: No Symptoms Pulmonary: Reports: Shortness of Breath, Cough, Wheezing Cardiovascular: Denies: Chest Pain, Palpitations Gastrointestinal: Denies: Abdominal Pain, Constipation - Patient Data Vitals - Most Recent: Last Vital Signs Temp 98.2 F 11/02/18 12:49 Pulse 85 11/02/18 12:49 Resp 20 11/02/18 12:49 BP 124/65 11/02/18 12:49 Pulse Ox 95 11/02/18 12:49 Weight - Most Recent: 269 lb 3 oz I&O - Last 24 Hours: Intake & Output 11/02/18 11/02/18 11/02/18 06:59 14:59 22:59 Intake Total 2017 180 Balance 2017 180 Lab Results Last 24 Hours: Laboratory Results - last 24 hr 11/01/18 11/01/18 11/01/18 Range/Units 08:20 17:18 17:45 WBC (3.98-10.04) K/mm3 RBC (3.98-5.22) M/mm3 Hgb 8.5 L (11.2-15.7) gm/L Hct 28.4 L (34.1-44.9) % MCV (79.4-94.8) fl MCH (25.6-32.2) pg MCHC (32.2-35.5) g/dl RDW Std Deviation (36.4-46.3) fL Plt Count (182-369) K/mm3 Neut % (Auto) (34.0-71.1) % Lymph % (Auto) (19.3-51.7) % [place] % (Auto) (4.7-12.5) % Eos % (Auto) (0.7-5.8) Baso % (Auto) (0.1-1.2) % Neut # (Auto) (1.56-6.13) K/mm3 Lymph # (Auto) (1.18-3.74) K/mm3 [place] # (Auto) (0.24-0.36) K/mm3 Eos # (Auto) (0.04-0.36) K/mm3 Baso # (Auto) (0.01-0.08) K/mm3 Manual Slide Review Sodium (136-145) mEq/L Potassium (3.5-5.1) mEq/L Chloride (98-107) mEq/L Carbon Dioxide (21-32) mEq/L Anion Gap (5-15) BUN (7-18) mg/dL Creatinine (0.55-1.02) mg/dL Est Cr Clr Drug Dosing mL/min Estimated GFR (MDRD) (>60) mL/min BUN/Creatinine Ratio (14-18) Glucose (74-106) mg/dL POC Glucose 176 H (70-105) mg/dL Lactic Acid (0.4-2.0) mmol/L Calcium (8.5-10.1) mg/dL Magnesium (1.8-2.4) mg/dl Total Bilirubin (0.2-1.0) mg/dL AST (15-37) U/L ALT (14-59) U/L Alkaline Phosphatase (46-116) U/L Total Protein (6.4-8.2) g/dl Albumin (3.4-5.0) g/dl Globulin gm/dL Albumin/Globulin Ratio (1-2) Adenovirus (PCR) Not detected (Not Detected) B. pertussis DNA (PCR) Not detected (Not Detected) B.parapertussis DNA PCR Not detected (Not Detected) C. pneumoniae DNA (PCR) Not detected (Not Detected) Coronavirus (PCR) Not detected (Not Detected) Human Metapneumovir PCR Detected H (Not Detected) Influenza A (RT-PCR) Not detected (Not Detected) Influenza B (RT-PCR) Not detected (Not Detected) M. pneumoniae (PCR) Not detected (Not Detected) Parainfluen 1,2,3,4 PCR Not detected (Not Detected) RSV (PCR) Not detected (Not Detected) Entero/Rhino (PCR) Not detected (Not Detected) 11/01/18 11/01/18 11/02/18 Range/Units 17:45 21:21 05:15 WBC 13.42 H (3.98-10.04) K/mm3 RBC 3.96 L (3.98-5.22) M/mm3 Hgb 8.4 L (11.2-15.7) gm/L Hct 28.3 L (34.1-44.9) % MCV 71.5 L (79.4-94.8) fl MCH 21.2 L (25.6-32.2) pg MCHC 29.7 L (32.2-35.5) g/dl RDW Std Deviation 59.3 H (36.4-46.3) fL Plt Count 60 L (182-369) K/mm3 Neut % (Auto) 82.6 H (34.0-71.1) % Lymph % (Auto) 10.7 L (19.3-51.7) % [place] % (Auto) 5.8 (4.7-12.5) % Eos % (Auto) 0.4 L (0.7-5.8) Baso % (Auto) 0.1 (0.1-1.2) % Neut # (Auto) 11.08 H (1.56-6.13) K/mm3 Lymph # (Auto) 1.43 (1.18-3.74) K/mm3 [place] # (Auto) 0.78 H (0.24-0.36) K/mm3 Eos # (Auto) 0.05 (0.04-0.36) K/mm3 Baso # (Auto) 0.02 (0.01-0.08) K/mm3 Manual Slide Review Abnormal smear Sodium (136-145) mEq/L Potassium (3.5-5.1) mEq/L Chloride (98-107) mEq/L Carbon Dioxide (21-32) mEq/L Anion Gap (5-15) BUN (7-18) mg/dL Creatinine (0.55-1.02) mg/dL Est Cr Clr Drug Dosing mL/min Estimated GFR (MDRD) (>60) mL/min BUN/Creatinine Ratio (14-18) Glucose (74-106) mg/dL POC Glucose 137 H (70-105) mg/dL Lactic Acid 3.5 H (0.4-2.0) mmol/L Calcium (8.5-10.1) mg/dL Magnesium (1.8-2.4) mg/dl Total Bilirubin (0.2-1.0) mg/dL AST (15-37) U/L ALT (14-59) U/L Alkaline Phosphatase (46-116) U/L Total Protein (6.4-8.2) g/dl Albumin (3.4-5.0) g/dl Globulin gm/dL Albumin/Globulin Ratio (1-2) Adenovirus (PCR) (Not Detected) B. pertussis DNA (PCR) (Not Detected) B.parapertussis DNA PCR (Not Detected) C. pneumoniae DNA (PCR) (Not Detected) Coronavirus (PCR) (Not Detected) Human Metapneumovir PCR (Not Detected) Influenza A (RT-PCR) (Not Detected) Influenza B (RT-PCR) (Not Detected) M. pneumoniae (PCR) (Not Detected) Parainfluen 1,2,3,4 PCR (Not Detected) RSV (PCR) (Not Detected) Entero/Rhino (PCR) (Not Detected) 11/02/18 11/02/18 11/02/18 Range/Units 05:15 05:57 06:41 WBC (3.98-10.04) K/mm3 RBC (3.98-5.22) M/mm3 Hgb (11.2-15.7) gm/L Hct (34.1-44.9) % MCV (79.4-94.8) fl MCH (25.6-32.2) pg MCHC (32.2-35.5) g/dl RDW Std Deviation (36.4-46.3) fL Plt Count (182-369) K/mm3 Neut % (Auto) (34.0-71.1) % Lymph % (Auto) (19.3-51.7) % [place] % (Auto) (4.7-12.5) % Eos % (Auto) (0.7-5.8) Baso % (Auto) (0.1-1.2) % Neut # (Auto) (1.56-6.13) K/mm3 Lymph # (Auto) (1.18-3.74) K/mm3 [place] # (Auto) (0.24-0.36) K/mm3 Eos # (Auto) (0.04-0.36) K/mm3 Baso # (Auto) (0.01-0.08) K/mm3 Manual Slide Review Sodium 139 (136-145) mEq/L Potassium 3.5 (3.5-5.1) mEq/L Chloride 110 H (98-107) mEq/L Carbon Dioxide 22 (21-32) mEq/L Anion Gap 10.5 (5-15) BUN 13 (7-18) mg/dL Creatinine 0.7 (0.55-1.02) mg/dL Est Cr Clr Drug Dosing 96.99 mL/min Estimated GFR (MDRD) > 60 (>60) mL/min BUN/Creatinine Ratio 18.6 H (14-18) Glucose 99 (74-106) mg/dL POC Glucose 92 (70-105) mg/dL Lactic Acid 1.9 (0.4-2.0) mmol/L Calcium 7.7 L (8.5-10.1) mg/dL Magnesium 1.4 L (1.8-2.4) mg/dl Total Bilirubin 0.9 (0.2-1.0) mg/dL AST 22 (15-37) U/L ALT 17 (14-59) U/L Alkaline Phosphatase 90 (46-116) U/L Total Protein 6.7 (6.4-8.2) g/dl Albumin 1.7 L (3.4-5.0) g/dl Globulin 5.0 gm/dL Albumin/Globulin Ratio 0.3 L (1-2) Adenovirus (PCR) (Not Detected) B. pertussis DNA (PCR) (Not Detected) B.parapertussis DNA PCR (Not Detected) C. pneumoniae DNA (PCR) (Not Detected) Coronavirus (PCR) (Not Detected) Human Metapneumovir PCR (Not Detected) Influenza A (RT-PCR) (Not Detected) Influenza B (RT-PCR) (Not Detected) M. pneumoniae (PCR) (Not Detected) Parainfluen 1,2,3,4 PCR (Not Detected) RSV (PCR) (Not Detected) Entero/Rhino (PCR) (Not Detected) 11/02/18 Range/Units 11:18 WBC (3.98-10.04) K/mm3 RBC (3.98-5.22) M/mm3 Hgb (11.2-15.7) gm/L Hct (34.1-44.9) % MCV (79.4-94.8) fl MCH (25.6-32.2) pg MCHC (32.2-35.5) g/dl RDW Std Deviation (36.4-46.3) fL Plt Count (182-369) K/mm3 Neut % (Auto) (34.0-71.1) % Lymph % (Auto) (19.3-51.7) % [place] % (Auto) (4.7-12.5) % Eos % (Auto) (0.7-5.8) Baso % (Auto) (0.1-1.2) % Neut # (Auto) (1.56-6.13) K/mm3 Lymph # (Auto) (1.18-3.74) K/mm3 [place] # (Auto) (0.24-0.36) K/mm3 Eos # (Auto) (0.04-0.36) K/mm3 Baso # (Auto) (0.01-0.08) K/mm3 Manual Slide Review Sodium (136-145) mEq/L Potassium (3.5-5.1) mEq/L Chloride (98-107) mEq/L Carbon Dioxide (21-32) mEq/L Anion Gap (5-15) BUN (7-18) mg/dL Creatinine (0.55-1.02) mg/dL Est Cr Clr Drug Dosing mL/min Estimated GFR (MDRD) (>60) mL/min BUN/Creatinine Ratio (14-18) Glucose (74-106) mg/dL POC Glucose 180 H (70-105) mg/dL Lactic Acid (0.4-2.0) mmol/L Calcium (8.5-10.1) mg/dL Magnesium (1.8-2.4) mg/dl Total Bilirubin (0.2-1.0) mg/dL AST (15-37) U/L ALT (14-59) U/L Alkaline Phosphatase (46-116) U/L Total Protein (6.4-8.2) g/dl Albumin (3.4-5.0) g/dl Globulin gm/dL Albumin/Globulin Ratio (1-2) Adenovirus (PCR) (Not Detected) B. pertussis DNA (PCR) (Not Detected) B.parapertussis DNA PCR (Not Detected) C. pneumoniae DNA (PCR) (Not Detected) Coronavirus (PCR) (Not Detected) Human Metapneumovir PCR (Not Detected) Influenza A (RT-PCR) (Not Detected) Influenza B (RT-PCR) (Not Detected) M. pneumoniae (PCR) (Not Detected) Parainfluen 1,2,3,4 PCR (Not Detected) RSV (PCR) (Not Detected) Entero/Rhino (PCR) (Not Detected) Tito Results Last 24 Hours: Microbiology 10/31/18 09:04 Stool Occult Blood (TITO) - Final Stool / Feces NEGATIVE OCCULT BLOOD 11/01/18 06:20 Gram Stain - Final Sputum - Expectorated Sputum Culture - Preliminary 10/31/18 18:15 Aerobic Blood Culture - Preliminary Blood - Venous - Lab Draw NO GROWTH AFTER 1 DAY Anaerobic Blood Culture - Preliminary NO GROWTH AFTER 1 DAY 10/31/18 17:50 Aerobic Blood Culture - Preliminary Blood - Venous NO GROWTH AFTER 1 DAY Anaerobic Blood Culture - Preliminary NO GROWTH AFTER 1 DAY 10/31/18 11:00 Helicobacter pylori Antigen - Final Stool / Feces NEGATIVE H. PYLORI AG 10/31/18 11:00 Stool Occult Blood (TITO) - Final Stool / Feces NEGATIVE OCCULT BLOOD Med Orders - Current: Current Medications Acetaminophen (Tylenol) 650 mg PO Q4H PRN PRN Reason: Pain (Mild 1-3)/fever Last Admin: 11/02/18 08:40 Dose: 650 mg Albuterol (Proventil Neb Soln) 2.5 mg NEB Q2H PRN PRN Reason: Wheezing Last Admin: 11/01/18 23:57 Dose: 2.5 mg Albuterol/Ipratropium (Duoneb 3.0-0.5 Mg/3 Ml) 3 ml NEB Q6HRRT [place] Last Admin: 11/02/18 15:24 Dose: 3 ml Azithromycin (Zithromax) 250 mg PO Q24H [place] Benzocaine/Menthol (Cepacol Sore Throat) 1 lozenge MUCMEM Q2H PRN PRN Reason: Sore Throat Last Admin: 11/01/18 20:12 Dose: 1 lozenge Cyanocobalamin (Vitamin B12) 1,000 mcg PO DAILY [facility] Last Admin: 11/02/18 08:24 Dose: 1,000 mcg Dextrose/Water (Dextrose 50% In Water) 50 ml IVPUSH ASDIRECTED PRN PRN Reason: Hypoglycemia Gabapentin (Neurontin) 300 mg PO BEDTIME [facility] Last Admin: 11/01/18 20:01 Dose: 300 mg Guaifenesin (Mucinex) 600 mg PO BID [facility] Last Admin: 11/02/18 08:24 Dose: 600 mg Ceftriaxone Sodium 2 gm/ (Sodium Chloride) 100 mls @ 200 mls/hr IV Q24H [facility] Last Admin: 11/01/18 17:56 Dose: 200 mls/hr Insulin Glargine (Lantus) 15 unit SUBCUT DAILY [facility] Last Admin: 11/02/18 08:41 Dose: 15 units Insulin Human Lispro (Humalog) 0 unit SUBCUT QIDACANDBED [facility]; Protocol Last Admin: 11/02/18 12:50 Dose: Not Given Insulin Human Lispro (Humalog) 3 unit SUBCUT TIDAC [facility] Last Admin: 11/02/18 13:13 Dose: Not Given Montelukast Sodium (Singulair) 10 mg PO BEDTIME [facility] Last Admin: 11/01/18 20:01 Dose: 10 mg Ondansetron HCl (Zofran Odt) 4 mg PO Q4H PRN PRN Reason: nausea, able to take PO Pantoprazole Sodium (Protonix) 40 mg PO Q12H [facility] Prednisone (Prednisone) 40 mg PO WITHBREAKFAST [facility] Last Admin: 11/02/18 06:23 Dose: 40 mg Sodium Chloride (Saline Flush) 10 ml FLUSH ASDIRECTED PRN PRN Reason: Keep Vein Open Last Admin: 10/31/18 17:04 Dose: 10 ml Discontinued Medications Acetaminophen (Tylenol) 975 mg PO NOW ONE Stop: 10/31/18 17:55 Last Admin: 10/31/18 18:05 Dose: 975 mg Albuterol/Ipratropium (Duoneb 3.0-0.5 Mg/3 Ml) 3 ml NEB ONETIME ONE Stop: 10/31/18 16:33 Last Admin: 10/31/18 16:48 Dose: 3 ml Albuterol/Ipratropium (Duoneb 3.0-0.5 Mg/3 Ml) 3 ml NEB ONETIME ONE Stop: 10/31/18 17:54 Last Admin: 10/31/18 18:11 Dose: 3 ml Ceftriaxone Sodium (Rocephin) 1 gm IVPUSH Q24H [place] Ceftriaxone Sodium 2 gm/ (Sodium Chloride) 100 mls @ 200 mls/hr IV ONETIME ONE Stop: 10/31/18 17:55 Last Admin: 10/31/18 17:47 Dose: 200 mls/hr Azithromycin 500 mg/ Sodium (Chloride) 250 mls @ 250 mls/hr IV ONETIME ONE Stop: 10/31/18 20:59 Last Admin: 10/31/18 21:34 Dose: 250 mls/hr Lactated Ringer's (Ringers, Lactated) 1,000 mls @ 999 mls/hr IV .BOLUS ONE Stop: 10/31/18 21:35 Last Admin: 10/31/18 22:43 Dose: 999 mls/hr Magnesium Sulfate 4 gm/ Premix 50 mls @ 12.5 mls/hr IV ONETIME ONE Stop: 11/01/18 00:49 Last Admin: 10/31/18 21:38 Dose: 12.5 mls/hr Sodium Chloride (Normal Saline) 250 mls @ 25 mls/hr IV ASDIRECTED [facility] Sodium Chloride (Normal Saline) Confirm Administered Dose 250 mls @ as directed .ROUTE .STK-MED ONE Stop: 10/31/18 21:07 Last Admin: 10/31/18 21:25 Dose: 25 mls/hr Lactated Ringer's (Ringers, Lactated) 1,000 mls @ 150 mls/hr IV ASDIRECTED [place] Last Admin: 11/01/18 19:57 Dose: 150 mls/hr Azithromycin 250 mg/ Sodium (Chloride) 250 mls @ 250 mls/hr IV Q24H [place] Last Admin: 11/01/18 19:56 Dose: 250 mls/hr Lactated Ringer's (Ringers, Lactated) 1,000 mls @ 100 mls/hr IV ASDIRECTED [place] Last Admin: 11/02/18 04:36 Dose: 100 mls/hr Magnesium Sulfate 4 gm/ Premix 50 mls @ 12.5 mls/hr IV ONETIME ONE Stop: 11/02/18 11:55 Last Admin: 11/02/18 08:28 Dose: 12.5 mls/hr Influenza Virus Vaccine (Pharmacy To Dose - Influenza Vaccine) 1 each IM ONETIME ONE Stop: 10/31/18 20:40 Influenza Virus Vaccine (Fluzone Quad 2047-1735 Syringe) 60 mcg IM .ONCE ONE Stop: 10/31/18 21:16 Insulin Human Lispro (Humalog) 0 unit SUBCUT QIDACANDBED [facility]; Protocol Last Admin: 11/01/18 08:23 Dose: 4 units Insulin Human Lispro (Humalog) 5 unit SUBCUT TIDAC [facility] Last Admin: 11/02/18 12:48 Dose: 4 units Methylprednisolone Sodium Succinate (Solu-Medrol) 125 mg IVPUSH ONETIME ONE Stop: 10/31/18 16:33 Last Admin: 10/31/18 17:04 Dose: 125 mg Montelukast Sodium (Singulair) 10 mg PO DAILY [facility] Last Admin: 10/31/18 22:07 Dose: 10 mg Pantoprazole Sodium (Protonix) 40 mg PO DAILY@0700 [facility] Pantoprazole Sodium (Protonix Iv) 40 mg IVPUSH Q12H [facility] Last Admin: 11/02/18 10:47 Dose: 40 mg Potassium Chloride (Klor-Con M20) 20 meq PO BID [facility] Stop: 11/01/18 21:01 Last Admin: 11/01/18 20:01 Dose: 20 meq - Exam Quality Assessment: Supplemental Oxygen General: Alert, Oriented HEENT: Pupils Equal Neck: Supple Lungs: Normal Respiratory Effort, Rhonchi, Wheezing Cardiovascular: Regular Rate, Regular Rhythm Extremities: Normal Inspection, Non-Tender, Normal Capillary Refill, Pedal Edema (1+ bilateral) Psy/Mental Status: Alert, Normal Affect, Normal Mood - Problem List & Annotations (1) Sepsis SNOMED Code(s): 82347831 Code(s): A41.9 - SEPSIS, UNSPECIFIED ORGANISM Status: Acute Current Visit : Yes (2) Diabetes SNOMED Code(s): 02256252 Code(s): E11.9 - TYPE 2 DIABETES MELLITUS WITHOUT COMPLICATIONS Status: Acute Current Visit: Yes (3) Pneumonia SNOMED Code(s): 805150632 Code(s): J18.9 - PNEUMONIA, UNSPECIFIED ORGANISM Status: Acute Current Visit: Yes Qualifiers: Pneumonia type: due to unspecified organism Laterality: bilateral Lung location: lower lobe of lung Qualified Code(s): J18.1 - Lobar pneumonia, unspecified organism (4) Anemia SNOMED Code(s): 199862472 Code(s): D64.9 - ANEMIA, UNSPECIFIED Status: Acute Current Visit: No Qualifiers: Anemia type: unspecified type Qualified Code(s): D64.9 - Anemia, unspecified (5) Hypomagnesemia SNOMED Code(s): 013913806 Code(s): E83.42 - HYPOMAGNESEMIA Status: Acute Current Visit: No (6) Splenomegaly SNOMED Code(s): 20563152 Code(s): R16.1 - SPLENOMEGALY, NOT ELSEWHERE CLASSIFIED Status: Acute Current Visit: Yes - Problem List Review Problem List Initiated/Reviewed/Updated: Yes - My Orders Last 24 Hours: My Active Orders 11/01/18 17:00 cefTRIAXone [Rocephin] 2 gm Sodium Chloride 0.9% [Normal Saline] 100 ml IV Q24H 11/01/18 19:10 LEGIONELLA ANTIGEN [MREF] Routine STREP PNEUMONIAE ANTIGEN [MREF] Routine 11/01/18 21:00 Montelukast [Singulair] 10 mg PO BEDTIME 11/02/18 12:00 Insulin Lispro [HumaLOG] 3 unit SUBCUT TIDAC 11/02/18 15:18 OCCULT BLOOD DIAGNOSTIC [OP] DAILY 11/02/18 20:00 Azithromycin [Zithromax] 250 mg PO Q24H 11/02/18 21:00 Pantoprazole [ProTONIX] 40 mg PO Q12H 11/03/18 20:44 OCCULT BLOOD DIAGNOSTIC [OP] DAILY - Plan Plan:: Pneumonia * Patient presented from [facility] with shortness breath, cough, chills, and fever. Her white count was 20,000 now is 13,000. * Chest x-ray showed bibasilar pneumonia right worse than left. * Lactic acid initially 9.6 now is 1.9 * Rocephin 2 g in the ER. * azithromycin 250 mg daily. * Blood cultures performed in ER - . * Sputum cultures pending * ABG: PH 7.41, PCO2 22.7, PO2 68, HCO3 14.1, on room air Sepsis - resolved * X-ray confirmed pneumonia, white count of 20,000 now is 13,000, lactic acid 9.6 --> 1.9, heart rate greater than 100, Platelets 63,000, and carbon dioxide less than 20 at 16 * Patient was given IV fluid bolus. * Recheck CBC * Saline lock IV Iron deficient anemia * Hemoglobin of 7.2 --8.1 after 2 units packed red blood cells * Hemoglobin stable at 8.4 * Start iron supplementation * Iron 10 with percent saturation of 4% * History of peptic ulcer disease and H. pylori * Patient also has black tarry stools and heavy menstrual cycle * Patient will not be ready for endoscopy until pneumonia improves * Stool sample for H. pylori antigen * Consider surgical consult - patient is not a candidate for endoscopy at this time. 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 Her last platelet count was 61,000 on November 18, 2017 * Patient may need hematology workup. * Ultrasound of the thyroid showed splenomegaly which is likely causing splenic sequestration sensation of her platelets. * On her blood work in 2018 she was pancytopenic Diabetes mellitus * Hold oral diabetic medications at this time. * basal insulin and prandial insulin with sliding scale correction. * Hemoglobin A1c- 5.7. This is very tightly controlled on concern about episodes of hypoglycemia as an outpatient. She may benefit from discharge without her sulfonylurea. Hypomagnesemia * Replace and recheck in the morning Chronic medical problems include: Chronic low back pain, Platelets 63,000, and carbon dioxide less than 20 at 16 VTE prophylaxis: SCDs nonsmoker and only drinks 1 time a week but at that time approximately 6 beers
[2018-11-02] MEDS: cefTRIAXone 2 GM in Sodium Chloride 0.9% 100 ML IV SCH (17:36)
[2018-11-02] MEDS: Azithromycin 250 MG Tab PO SCH (20:41)
[2018-11-02] MEDS: Pantoprazole 40 MG Tab.CR PO SCH (20:42)
[2018-11-02] MEDS: Gabapentin 300 MG Cap PO SCH (20:42)
[2018-11-02] MEDS: Montelukast 10 MG Tab PO SCH (20:43)
[2018-11-02] MEDS: Benzocaine/Cetylpyridinium/Menthol Lozenge MUCMEM PRN (20:43)
[2018-11-03] MEDS: Albuterol/Ipratropium 3.0-0.5 MG/3 ML Neb Soln NEB SCH ×4 (02:54→21:05)
[2018-11-03] MEDS: predniSONE 20 MG Tab PO SCH (06:14)
[2018-11-03] MEDS: Insulin Lispro 100 Units/ML 3 ML Vial SUBCUT SCH ×8 (06:44→21:38)
[2018-11-03] MEDS: Cyanocobalamin (Vitamin B12) 1,000 MCG Tab PO SCH (08:29)
[2018-11-03] MEDS: Pantoprazole 40 MG Tab.CR PO SCH ×2 (08:29→20:49)
[2018-11-03] MEDS: Insulin Glarg,Human.Rec.Analog 100 UNIT/ML ML SUBCUT SCH (08:30)
[2018-11-03] MEDS: guaiFENesin 600 MG Tab.ER PO SCH ×2 (08:30→20:49)
[2018-11-03] MEDS: Acetaminophen/HYDROcodone 325-5 MG Tab PO PRN ×2 (11:07→17:17)
--- NOTE | 2018-11-03 11:16 | CR ---
Chest: Portable view of the chest was obtained. Comparison: Prior chest x-ray of 10/31/18. Heart is enlarged. Diffuse increased pulmonary vessels are noted. Uncertain how much of this represents chronic pulmonary vascular congestion versus acute pulmonary vascular congestion. Slightly underpenetrated lung bases are seen but chronic pleural thickening or small right sided pleural effusion which is stable is seen. Bony structures are grossly intact. Impression: 1. Cardiomegaly with pulmonary vascular congestion. As mentioned above, uncertain how much of this represents chronic versus acute pulmonary vascular congestion. 2. Small right-sided pleural effusion or pleural thickening. This finding is stable from prior chest x-ray. Diagnostic code #3
--- NOTE | 2018-11-03 15:55 | PCM.PN ---
- General Info Date of Service: 11/03/18 Admission Dx/Problem (Free Text): Admission Diagnosis/Problem Admission Diagnosis/Problem Pneumonia Subjective Update: November 03, 2018 Patient had another uneventful night. Patient continues on oxygen. She does complain of some left upper back pain now and is sitting in a chair. She denies any fever or chills. November 02, 2018 Patient had an uneventful night. She still feels tired and has a cough. Her respiratory viral panel came back with Human metapneumovir. Her sputum is growing out mixed ayesha. She's had an improvement in her white count and is afebrile. She does state that should her hands are feeling a bit swollen. She has had an 11 pound weight gain. November 01, 2018 No significant change from last night. Lactic acid is decreasing. Patient received 2 units of packed red blood cells overnight. Patient denies any pain, fever, chills, or shortness of breath. She does have a cough. Functional Status: Reports: Pain Controlled - Review of Systems General: Reports: No Symptoms. Denies: Fever HEENT: Reports: No Symptoms Pulmonary: Reports: Shortness of Breath, Cough, Wheezing Cardiovascular: Reports: No Symptoms. Denies: Chest Pain, Palpitations Musculoskeletal: Reports: Back Pain - Patient Data Vitals - Most Recent: Last Vital Signs Temp 98.4 F 11/03/18 15:43 Pulse 78 11/03/18 15:43 Resp 20 11/03/18 15:43 BP 115/62 11/03/18 15:43 Pulse Ox 94 L 11/03/18 15:43 Weight - Most Recent: 266 lb 12.8 oz I&O - Last 24 Hours: Intake & Output 11/03/18 11/03/18 11/03/18 06:59 14:59 22:59 Intake Total 1250 240 400 Output Total 400 Balance 850 240 400 Lab Results Last 24 Hours: Laboratory Results - last 24 hr 11/02/18 11/02/18 11/03/18 Range/Units 17:39 21:54 05:53 WBC (3.98-10.04) K/mm3 RBC (3.98-5.22) M/mm3 Hgb (11.2-15.7) gm/L Hct (34.1-44.9) % MCV (79.4-94.8) fl MCH (25.6-32.2) pg MCHC (32.2-35.5) g/dl RDW Std Deviation (36.4-46.3) fL Plt Count (182-369) K/mm3 MPV Neut % (Auto) (34.0-71.1) % Lymph % (Auto) (19.3-51.7) % [place] % (Auto) (4.7-12.5) % Eos % (Auto) (0.7-5.8) Baso % (Auto) (0.1-1.2) % Neut # (Auto) (1.56-6.13) K/mm3 Lymph # (Auto) (1.18-3.74) K/mm3 [place] # (Auto) (0.24-0.36) K/mm3 Eos # (Auto) (0.04-0.36) K/mm3 Baso # (Auto) (0.01-0.08) K/mm3 Manual Slide Review Sodium (136-145) mEq/L Potassium (3.5-5.1) mEq/L Chloride (98-107) mEq/L Carbon Dioxide (21-32) mEq/L Anion Gap (5-15) BUN (7-18) mg/dL Creatinine (0.55-1.02) mg/dL Est Cr Clr Drug Dosing mL/min Estimated GFR (MDRD) (>60) mL/min BUN/Creatinine Ratio (14-18) Glucose (74-106) mg/dL POC Glucose 157 H 104 90 (70-105) mg/dL Calcium (8.5-10.1) mg/dL Magnesium (1.8-2.4) mg/dl Total Bilirubin (0.2-1.0) mg/dL AST (15-37) U/L ALT (14-59) U/L Alkaline Phosphatase (46-116) U/L Total Protein (6.4-8.2) g/dl Albumin (3.4-5.0) g/dl Globulin gm/dL Albumin/Globulin Ratio (1-2) 11/03/18 11/03/18 11/03/18 Range/Units 05:55 05:55 11:09 WBC 7.26 (3.98-10.04) K/mm3 RBC 4.00 (3.98-5.22) M/mm3 Hgb 8.4 L (11.2-15.7) gm/L Hct 28.6 L (34.1-44.9) % MCV 71.5 L (79.4-94.8) fl MCH 21.0 L (25.6-32.2) pg MCHC 29.4 L (32.2-35.5) g/dl RDW Std Deviation 61.7 H (36.4-46.3) fL Plt Count 69 L (182-369) K/mm3 MPV TNP Neut % (Auto) 71.5 H (34.0-71.1) % Lymph % (Auto) 18.3 L (19.3-51.7) % [place] % (Auto) 8.4 (4.7-12.5) % Eos % (Auto) 1.1 (0.7-5.8) Baso % (Auto) 0.1 (0.1-1.2) % Neut # (Auto) 5.19 (1.56-6.13) K/mm3 Lymph # (Auto) 1.33 (1.18-3.74) K/mm3 [place] # (Auto) 0.61 H (0.24-0.36) K/mm3 Eos # (Auto) 0.08 (0.04-0.36) K/mm3 Baso # (Auto) 0.01 (0.01-0.08) K/mm3 Manual Slide Review Abnormal smear Sodium 139 (136-145) mEq/L Potassium 3.5 (3.5-5.1) mEq/L Chloride 108 H (98-107) mEq/L Carbon Dioxide 24 (21-32) mEq/L Anion Gap 10.5 (5-15) BUN 12 (7-18) mg/dL Creatinine 0.7 (0.55-1.02) mg/dL Est Cr Clr Drug Dosing 96.99 mL/min Estimated GFR (MDRD) > 60 (>60) mL/min BUN/Creatinine Ratio 17.1 (14-18) Glucose 80 (74-106) mg/dL POC Glucose 128 H (70-105) mg/dL Calcium 7.7 L (8.5-10.1) mg/dL Magnesium 1.4 L (1.8-2.4) mg/dl Total Bilirubin 1.1 H (0.2-1.0) mg/dL AST 26 (15-37) U/L ALT 20 (14-59) U/L Alkaline Phosphatase 82 (46-116) U/L Total Protein 6.7 (6.4-8.2) g/dl Albumin 1.7 L (3.4-5.0) g/dl Globulin 5.0 gm/dL Albumin/Globulin Ratio 0.3 L (1-2) Tito Results Last 24 Hours: Microbiology 11/03/18 11:26 Stool Occult Blood (TITO) - Final Stool / Feces 11/01/18 06:20 Gram Stain - Final Sputum - Expectorated Sputum Culture - Final Normal Ayesha 11/01/18 19:10 Legionella Urinary Antigen - Final Urine 11/01/18 19:10 Streptococcus pneumoniae Antigen (M - Final Urine 10/31/18 18:15 Aerobic Blood Culture - Preliminary Blood - Venous - Lab Draw NO GROWTH AFTER 2 DAYS Anaerobic Blood Culture - Preliminary NO GROWTH AFTER 2 DAYS 10/31/18 17:50 Aerobic Blood Culture - Preliminary Blood - Venous NO GROWTH AFTER 2 DAYS Anaerobic Blood Culture - Preliminary NO GROWTH AFTER 2 DAYS Med Orders - Current: Current Medications Acetaminophen (Tylenol) 650 mg PO Q4H PRN PRN Reason: Pain (Mild 1-3)/fever Last Admin: 11/02/18 20:41 Dose: 650 mg Hydrocodone Bitart/Acetaminophen ([place] 325-5 Mg) 1 tab PO Q4H PRN PRN Reason: Pain Last Admin: 11/03/18 11:07 Dose: 1 tab Albuterol (Proventil Neb Soln) 2.5 mg NEB Q2H PRN PRN Reason: Wheezing Last Admin: 11/01/18 23:57 Dose: 2.5 mg Albuterol/Ipratropium (Duoneb 3.0-0.5 Mg/3 Ml) 3 ml NEB Q6HRRT [place] Last Admin: 11/03/18 14:03 Dose: 3 ml Azithromycin (Zithromax) 250 mg PO Q24H [place] Last Admin: 11/02/18 20:41 Dose: 250 mg Benzocaine/Menthol (Cepacol Sore Throat) 1 lozenge MUCMEM Q2H PRN PRN Reason: Sore Throat Last Admin: 11/02/18 20:43 Dose: 1 lozenge Cyanocobalamin (Vitamin B12) 1,000 mcg PO DAILY [facility] Last Admin: 11/03/18 08:29 Dose: 1,000 mcg Dextrose/Water (Dextrose 50% In Water) 50 ml IVPUSH ASDIRECTED PRN PRN Reason: Hypoglycemia Gabapentin (Neurontin) 300 mg PO BEDTIME [facility] Last Admin: 11/02/18 20:42 Dose: 300 mg Guaifenesin (Mucinex) 600 mg PO BID [facility] Last Admin: 11/03/18 08:30 Dose: 600 mg Ceftriaxone Sodium 2 gm/ (Sodium Chloride) 100 mls @ 200 mls/hr IV Q24H [facility] Last Admin: 11/02/18 17:36 Dose: 200 mls/hr Insulin Glargine (Lantus) 15 unit SUBCUT DAILY [facility] Last Admin: 11/03/18 08:30 Dose: 15 units Insulin Human Lispro (Humalog) 0 unit SUBCUT QIDACANDBED [facility]; Protocol Last Admin: 11/03/18 11:11 Dose: Not Given Insulin Human Lispro (Humalog) 3 unit SUBCUT TIDAC [facility] Last Admin: 11/03/18 12:39 Dose: 3 units Montelukast Sodium (Singulair) 10 mg PO BEDTIME [facility] Last Admin: 11/02/18 20:43 Dose: 10 mg Ondansetron HCl (Zofran Odt) 4 mg PO Q4H PRN PRN Reason: nausea, able to take PO Pantoprazole Sodium (Protonix) 40 mg PO Q12H [facility] Last Admin: 11/03/18 08:29 Dose: 40 mg Prednisone (Prednisone) 40 mg PO WITHBREAKFAST [facility] Last Admin: 11/03/18 06:14 Dose: 40 mg Sodium Chloride (Saline Flush) 10 ml FLUSH ASDIRECTED PRN PRN Reason: Keep Vein Open Last Admin: 10/31/18 17:04 Dose: 10 ml Discontinued Medications Acetaminophen (Tylenol) 975 mg PO NOW ONE Stop: 10/31/18 17:55 Last Admin: 10/31/18 18:05 Dose: 975 mg Albuterol/Ipratropium (Duoneb 3.0-0.5 Mg/3 Ml) 3 ml NEB ONETIME ONE Stop: 10/31/18 16:33 Last Admin: 10/31/18 16:48 Dose: 3 ml Albuterol/Ipratropium (Duoneb 3.0-0.5 Mg/3 Ml) 3 ml NEB ONETIME ONE Stop: 10/31/18 17:54 Last Admin: 10/31/18 18:11 Dose: 3 ml Ceftriaxone Sodium (Rocephin) 1 gm IVPUSH Q24H [place] Ceftriaxone Sodium 2 gm/ (Sodium Chloride) 100 mls @ 200 mls/hr IV ONETIME ONE Stop: 10/31/18 17:55 Last Admin: 10/31/18 17:47 Dose: 200 mls/hr Azithromycin 500 mg/ Sodium (Chloride) 250 mls @ 250 mls/hr IV ONETIME ONE Stop: 10/31/18 20:59 Last Admin: 10/31/18 21:34 Dose: 250 mls/hr Lactated Ringer's (Ringers, Lactated) 1,000 mls @ 999 mls/hr IV .BOLUS ONE Stop: 10/31/18 21:35 Last Admin: 10/31/18 22:43 Dose: 999 mls/hr Magnesium Sulfate 4 gm/ Premix 50 mls @ 12.5 mls/hr IV ONETIME ONE Stop: 11/01/18 00:49 Last Admin: 10/31/18 21:38 Dose: 12.5 mls/hr Sodium Chloride (Normal Saline) 250 mls @ 25 mls/hr IV ASDIRECTED [facility] Sodium Chloride (Normal Saline) Confirm Administered Dose 250 mls @ as directed .ROUTE .STK-MED ONE Stop: 10/31/18 21:07 Last Admin: 10/31/18 21:25 Dose: 25 mls/hr Lactated Ringer's (Ringers, Lactated) 1,000 mls @ 150 mls/hr IV ASDIRECTED [place] Last Admin: 11/01/18 19:57 Dose: 150 mls/hr Azithromycin 250 mg/ Sodium (Chloride) 250 mls @ 250 mls/hr IV Q24H [place] Last Admin: 11/01/18 19:56 Dose: 250 mls/hr Lactated Ringer's (Ringers, Lactated) 1,000 mls @ 100 mls/hr IV ASDIRECTED [facility] Last Admin: 11/02/18 04:36 Dose: 100 mls/hr Magnesium Sulfate 4 gm/ Premix 50 mls @ 12.5 mls/hr IV ONETIME ONE Stop: 11/02/18 11:55 Last Admin: 11/02/18 08:28 Dose: 12.5 mls/hr Influenza Virus Vaccine (Pharmacy To Dose - Influenza Vaccine) 1 each IM ONETIME ONE Stop: 10/31/18 20:40 Influenza Virus Vaccine (Fluzone Quad 9850-2041 Syringe) 60 mcg IM .ONCE ONE Stop: 10/31/18 21:16 Insulin Human Lispro (Humalog) 0 unit SUBCUT QIDACANDBED [facility]; Protocol Last Admin: 11/01/18 08:23 Dose: 4 units Insulin Human Lispro (Humalog) 5 unit SUBCUT TIDAC [facility] Last Admin: 11/02/18 12:48 Dose: 4 units Methylprednisolone Sodium Succinate (Solu-Medrol) 125 mg IVPUSH ONETIME ONE Stop: 10/31/18 16:33 Last Admin: 10/31/18 17:04 Dose: 125 mg Montelukast Sodium (Singulair) 10 mg PO DAILY [facility] Last Admin: 10/31/18 22:07 Dose: 10 mg Pantoprazole Sodium (Protonix) 40 mg PO DAILY@0700 [facility] Pantoprazole Sodium (Protonix Iv) 40 mg IVPUSH Q12H [facility] Last Admin: 11/02/18 10:47 Dose: 40 mg Potassium Chloride (Klor-Con M20) 20 meq PO BID [facility] Stop: 11/01/18 21:01 Last Admin: 11/01/18 20:01 Dose: 20 meq - Exam Quality Assessment: Supplemental Oxygen General: Alert, Oriented, Other (In apparent discomfort from her upper back) Neck: Supple Lungs: Normal Respiratory Effort, Wheezing Cardiovascular: Regular Rate, Regular Rhythm GI/Abdominal Exam: Normal Bowel Sounds, Soft, Non-Tender, No Organomegaly, No Distention Back Exam: Normal Inspection, Muscle Spasm (Left upper back) Extremities: Normal Inspection, Normal Range of Motion, Normal Capillary Refill , Pedal Edema (1+ pitting edema) - Problem List & Annotations (1) Sepsis SNOMED Code(s): 56742661 Code(s): A41.9 - SEPSIS, UNSPECIFIED ORGANISM Status: Acute Current Visit : Yes (2) Diabetes SNOMED Code(s): 18362819 Code(s): E11.9 - TYPE 2 DIABETES MELLITUS WITHOUT COMPLICATIONS Status: Acute Current Visit: Yes (3) Pneumonia SNOMED Code(s): 836996603 Code(s): J18.9 - PNEUMONIA, UNSPECIFIED ORGANISM Status: Acute Current Visit: Yes Qualifiers: Pneumonia type: due to unspecified organism Laterality: bilateral Lung location: lower lobe of lung Qualified Code(s): J18.1 - Lobar pneumonia, unspecified organism (4) Anemia SNOMED Code(s): 224476524 Code(s): D64.9 - ANEMIA, UNSPECIFIED Status: Acute Current Visit: No Qualifiers: Anemia type: unspecified type Qualified Code(s): D64.9 - Anemia, unspecified (5) Hypomagnesemia SNOMED Code(s): 434281343 Code(s): E83.42 - HYPOMAGNESEMIA Status: Acute Current Visit: No (6) Splenomegaly SNOMED Code(s): 00067932 Code(s): R16.1 - SPLENOMEGALY, NOT ELSEWHERE CLASSIFIED Status: Acute Current Visit: Yes - Problem List Review Problem List Initiated/Reviewed/Updated: Yes - My Orders Last 24 Hours: My Active Orders 11/02/18 20:00 Azithromycin [Zithromax] 250 mg PO Q24H 11/02/18 21:00 Pantoprazole [ProTONIX] 40 mg PO Q12H 11/03/18 10:23 Acetaminophen/HYDROcodone [[place] 325-5 MG] 1 tab PO Q4H PRN 11/03/18 11:19 Heat Therapy [OM.PC] Routine 11/03/18 15:24 Activity as Tolerated [RC] .Routine 11/04/18 05:11 CBC WITH AUTO DIFF [HEME] AM CMP [COMPREHENSIVE METABOLIC PN,CMP] [CHEM] AM MAGNESIUM [CHEM] AM - Plan Plan:: Pneumonia * Patient presented from [facility] with shortness breath, cough, chills, and fever. Her white count was 20,000 now is 7000. * Chest x-ray this morning showed vascular congestion and possible right sided pleural effusion versus thickening * Lactic acid initially 9.6 now is 1.9 * Rocephin 2 g in the ER. * azithromycin 250 mg daily. * Blood cultures performed in ER - . * Sputum cultures pending * ABG: PH 7.41, PCO2 22.7, PO2 68, HCO3 14.1, on room air Sepsis - resolved * X-ray confirmed pneumonia, white count of 20,000 and lactic acid 9.6 on presentation, heart rate greater than 100, Platelets 63,000, and carbon dioxide less than 20 at 16 * Patient was given IV fluid bolus. Iron deficient anemia * Hemoglobin of 7.2 --8.1 after 2 units packed red blood cells * Hemoglobin stable at 8.4 * Start iron supplementation * Iron 10 with percent saturation of 4% * History of peptic ulcer disease and H. pylori * Patient also has black tarry stools and heavy menstrual cycle * Patient will not be ready for endoscopy until pneumonia improves * Stool sample for H. 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 Her last platelet count was 61,000 on November 18, 2017 * Patient may need hematology workup. * Ultrasound of the thyroid showed splenomegaly which is likely causing splenic sequestration sensation of her platelets. * On her blood work in 2018 she was pancytopenic Diabetes mellitus * Hold oral diabetic medications at this time. * basal insulin and prandial insulin with sliding scale correction. * Hemoglobin A1c- 5.7. This is very tightly controlled on concern about episodes of hypoglycemia as an outpatient. She may benefit from discharge without her sulfonylurea. Hypomagnesemia * Replace and recheck in the morning Chronic medical problems include: Chronic low back pain, Platelets 63,000, and carbon dioxide less than 20 at 16 VTE prophylaxis: SCDs nonsmoker and only drinks 1 time a week but at that time approximately 6 beers
[2018-11-03] MEDS ORDERED: Magnesium Sulfate/Water 4 GM in Premix Bag 1 BAG IV ONE (16:53)
[2018-11-03] MEDS: cefTRIAXone 2 GM in Sodium Chloride 0.9% 100 ML IV SCH (17:07)
[2018-11-03] MEDS: Gabapentin 300 MG Cap PO SCH (20:49)
[2018-11-03] MEDS: Montelukast 10 MG Tab PO SCH (20:49)
[2018-11-03] MEDS: Azithromycin 250 MG Tab PO SCH (20:49)
[2018-11-04] MEDS: Albuterol/Ipratropium 3.0-0.5 MG/3 ML Neb Soln NEB SCH ×4 (03:12→21:09)
[2018-11-04] MEDS: Acetaminophen 325 MG Tab PO PRN (05:59)
[2018-11-04] MEDS: predniSONE 20 MG Tab PO SCH (06:02)
[2018-11-04] MEDS: Insulin Lispro 100 Units/ML 3 ML Vial SUBCUT SCH ×7 (06:02→21:58)
[2018-11-04] MEDS: guaiFENesin 600 MG Tab.ER PO SCH ×2 (08:15→21:56)
[2018-11-04] MEDS: Cyanocobalamin (Vitamin B12) 1,000 MCG Tab PO SCH (08:15)
[2018-11-04] MEDS: Pantoprazole 40 MG Tab.CR PO SCH ×2 (08:15→21:56)
[2018-11-04] MEDS: Insulin Glarg,Human.Rec.Analog 100 UNIT/ML ML SUBCUT SCH (08:16)
[2018-11-04] MEDS ORDERED: Magnesium Sulfate/Water 4 GM in Premix Bag 1 BAG IV ONE (09:32)
[2018-11-04] MEDS: Potassium Chloride 20 MEQ Tab.ER PO SCH ×2 (09:53→21:55)
--- NOTE | 2018-11-04 17:27 | PCM.PN ---
- General Info Date of Service: 11/04/18 Admission Dx/Problem (Free Text): Admission Diagnosis/Problem Admission Diagnosis/Problem Pneumonia Subjective Update: November 04, 2018 Patient had another uneventful night. She is on 2 L nasal cannula. She denies any pain. Continues to have a cough. November 03, 2018 Patient had another uneventful night. Patient continues on oxygen. She does complain of some left upper back pain now and is sitting in a chair. She denies any fever or chills. November 02, 2018 Patient had an uneventful night. She still feels tired and has a cough. Her respiratory viral panel came back with Human metapneumovir. Her sputum is growing out mixed ayesha. She's had an improvement in her white count and is afebrile. She does state that should her hands are feeling a bit swollen. She has had an 11 pound weight gain. November 01, 2018 No significant change from last night. Lactic acid is decreasing. Patient received 2 units of packed red blood cells overnight. Patient denies any pain, fever, chills, or shortness of breath. She does have a cough. Functional Status: Reports: Pain Controlled - Review of Systems General: Reports: No Symptoms HEENT: Reports: No Symptoms Pulmonary: Reports: Shortness of Breath, Cough Cardiovascular: Reports: No Symptoms - Patient Data Vitals - Most Recent: Last Vital Signs Temp 98.1 F 11/04/18 15:00 Pulse 98 11/04/18 15:44 Resp 18 11/04/18 15:00 BP 118/64 11/04/18 15:00 Pulse Ox 95 11/04/18 15:44 Weight - Most Recent: 267 lb 3.2 oz I&O - Last 24 Hours: Intake & Output 11/04/18 11/04/18 11/04/18 06:59 14:59 22:59 Intake Total 1250 500 900 Output Total 500 1350 Balance 750 500 -450 Lab Results Last 24 Hours: Laboratory Results - last 24 hr 11/03/18 11/04/18 11/04/18 Range/Units 20:40 05:49 05:50 WBC 5.92 (3.98-10.04) K/mm3 RBC 4.11 (3.98-5.22) M/mm3 Hgb 8.6 L (11.2-15.7) gm/L Hct 29.3 L (34.1-44.9) % MCV 71.3 L (79.4-94.8) fl MCH 20.9 L (25.6-32.2) pg MCHC 29.4 L (32.2-35.5) g/dl RDW Std Deviation 64.7 H (36.4-46.3) fL Plt Count 82 L (182-369) K/mm3 MPV TNP Neut % (Auto) 66.7 (34.0-71.1) % Lymph % (Auto) 18.2 L (19.3-51.7) % [place] % (Auto) 12.5 (4.7-12.5) % Eos % (Auto) 1.4 (0.7-5.8) Baso % (Auto) 0.2 (0.1-1.2) % Neut # (Auto) 3.95 (1.56-6.13) K/mm3 Lymph # (Auto) 1.08 L (1.18-3.74) K/mm3 [place] # (Auto) 0.74 H (0.24-0.36) K/mm3 Eos # (Auto) 0.08 (0.04-0.36) K/mm3 Baso # (Auto) 0.01 (0.01-0.08) K/mm3 Manual Slide Review Abnormal smear Sodium (136-145) mEq/L Potassium (3.5-5.1) mEq/L Chloride (98-107) mEq/L Carbon Dioxide (21-32) mEq/L Anion Gap (5-15) BUN (7-18) mg/dL Creatinine (0.55-1.02) mg/dL Est Cr Clr Drug Dosing mL/min Estimated GFR (MDRD) (>60) mL/min BUN/Creatinine Ratio (14-18) Glucose (74-106) mg/dL POC Glucose 123 H 103 (70-105) mg/dL Calcium (8.5-10.1) mg/dL Magnesium (1.8-2.4) mg/dl Total Bilirubin (0.2-1.0) mg/dL AST (15-37) U/L ALT (14-59) U/L Alkaline Phosphatase (46-116) U/L C-Reactive Protein (<1.0) mg/dL Total Protein (6.4-8.2) g/dl Albumin (3.4-5.0) g/dl Globulin gm/dL Albumin/Globulin Ratio (1-2) 11/04/18 11/04/18 11/04/18 Range/Units 05:50 12:21 16:29 WBC (3.98-10.04) K/mm3 RBC (3.98-5.22) M/mm3 Hgb (11.2-15.7) gm/L Hct (34.1-44.9) % MCV (79.4-94.8) fl MCH (25.6-32.2) pg MCHC (32.2-35.5) g/dl RDW Std Deviation (36.4-46.3) fL Plt Count (182-369) K/mm3 MPV Neut % (Auto) (34.0-71.1) % Lymph % (Auto) (19.3-51.7) % [place] % (Auto) (4.7-12.5) % Eos % (Auto) (0.7-5.8) Baso % (Auto) (0.1-1.2) % Neut # (Auto) (1.56-6.13) K/mm3 Lymph # (Auto) (1.18-3.74) K/mm3 [place] # (Auto) (0.24-0.36) K/mm3 Eos # (Auto) (0.04-0.36) K/mm3 Baso # (Auto) (0.01-0.08) K/mm3 Manual Slide Review Sodium 137 (136-145) mEq/L Potassium 3.4 L (3.5-5.1) mEq/L Chloride 106 (98-107) mEq/L Carbon Dioxide 24 (21-32) mEq/L Anion Gap 10.4 (5-15) BUN 10 (7-18) mg/dL Creatinine 0.7 (0.55-1.02) mg/dL Est Cr Clr Drug Dosing 96.99 mL/min Estimated GFR (MDRD) > 60 (>60) mL/min BUN/Creatinine Ratio 14.3 (14-18) Glucose 90 (74-106) mg/dL POC Glucose 243 H 172 H (70-105) mg/dL Calcium 7.4 L (8.5-10.1) mg/dL Magnesium 1.6 L (1.8-2.4) mg/dl Total Bilirubin 1.0 (0.2-1.0) mg/dL AST 29 (15-37) U/L ALT 22 (14-59) U/L Alkaline Phosphatase 91 (46-116) U/L C-Reactive Protein 6.8 H* (<1.0) mg/dL Total Protein 7.1 (6.4-8.2) g/dl Albumin 1.8 L (3.4-5.0) g/dl Globulin 5.3 gm/dL Albumin/Globulin Ratio 0.3 L (1-2) Tito Results Last 24 Hours: Microbiology 10/31/18 18:15 Aerobic Blood Culture - Preliminary Blood - Venous - Lab Draw NO GROWTH AFTER 3 DAYS Anaerobic Blood Culture - Preliminary NO GROWTH AFTER 3 DAYS 10/31/18 17:50 Aerobic Blood Culture - Preliminary Blood - Venous NO GROWTH AFTER 3 DAYS Anaerobic Blood Culture - Preliminary NO GROWTH AFTER 3 DAYS 11/03/18 11:26 Stool Occult Blood (TITO) - Final Stool / Feces Med Orders - Current: Current Medications Acetaminophen (Tylenol) 650 mg PO Q4H PRN PRN Reason: Pain (Mild 1-3)/fever Last Admin: 11/04/18 05:59 Dose: 650 mg Hydrocodone Bitart/Acetaminophen ([place] 325-5 Mg) 1 tab PO Q4H PRN PRN Reason: Pain Last Admin: 11/03/18 17:17 Dose: 1 tab Albuterol (Proventil Neb Soln) 2.5 mg NEB Q2H PRN PRN Reason: Wheezing Last Admin: 11/01/18 23:57 Dose: 2.5 mg Albuterol/Ipratropium (Duoneb 3.0-0.5 Mg/3 Ml) 3 ml NEB Q6HRRT [facility] Last Admin: 11/04/18 14:18 Dose: 3 ml Azithromycin (Zithromax) 250 mg PO Q24H [place] Last Admin: 11/03/18 20:49 Dose: 250 mg Benzocaine/Menthol (Cepacol Sore Throat) 1 lozenge MUCMEM Q2H PRN PRN Reason: Sore Throat Last Admin: 11/02/18 20:43 Dose: 1 lozenge Cyanocobalamin (Vitamin B12) 1,000 mcg PO DAILY [facility] Last Admin: 11/04/18 08:15 Dose: 1,000 mcg Dextrose/Water (Dextrose 50% In Water) 50 ml IVPUSH ASDIRECTED PRN PRN Reason: Hypoglycemia Gabapentin (Neurontin) 300 mg PO BEDTIME [facility] Last Admin: 11/03/18 20:49 Dose: 300 mg Guaifenesin (Mucinex) 600 mg PO BID [facility] Last Admin: 11/04/18 08:15 Dose: 600 mg Ceftriaxone Sodium 2 gm/ (Sodium Chloride) 100 mls @ 200 mls/hr IV Q24H [facility] Last Admin: 11/03/18 17:07 Dose: 200 mls/hr Insulin Glargine (Lantus) 15 unit SUBCUT DAILY [facility] Last Admin: 11/04/18 08:16 Dose: 15 units Insulin Human Lispro (Humalog) 0 unit SUBCUT QIDACANDBED [facility]; Protocol Last Admin: 11/04/18 12:51 Dose: 2 unit Insulin Human Lispro (Humalog) 3 unit SUBCUT TIDAC [facility] Last Admin: 11/04/18 12:52 Dose: 3 units Montelukast Sodium (Singulair) 10 mg PO BEDTIME [facility] Last Admin: 11/03/18 20:49 Dose: 10 mg Ondansetron HCl (Zofran Odt) 4 mg PO Q4H PRN PRN Reason: nausea, able to take PO Pantoprazole Sodium (Protonix) 40 mg PO Q12H [facility] Last Admin: 11/04/18 08:15 Dose: 40 mg Potassium Chloride (Klor-Con M20) 20 meq PO BID [facility] Last Admin: 11/04/18 09:53 Dose: 20 meq Prednisone (Prednisone) 40 mg PO WITHBREAKFAST [facility] Last Admin: 11/04/18 06:02 Dose: 40 mg Sodium Chloride (Saline Flush) 10 ml FLUSH ASDIRECTED PRN PRN Reason: Keep Vein Open Last Admin: 10/31/18 17:04 Dose: 10 ml Discontinued Medications Acetaminophen (Tylenol) 975 mg PO NOW ONE Stop: 10/31/18 17:55 Last Admin: 10/31/18 18:05 Dose: 975 mg Albuterol/Ipratropium (Duoneb 3.0-0.5 Mg/3 Ml) 3 ml NEB ONETIME ONE Stop: 10/31/18 16:33 Last Admin: 10/31/18 16:48 Dose: 3 ml Albuterol/Ipratropium (Duoneb 3.0-0.5 Mg/3 Ml) 3 ml NEB ONETIME ONE Stop: 10/31/18 17:54 Last Admin: 10/31/18 18:11 Dose: 3 ml Ceftriaxone Sodium (Rocephin) 1 gm IVPUSH Q24H [place] Ceftriaxone Sodium 2 gm/ (Sodium Chloride) 100 mls @ 200 mls/hr IV ONETIME ONE Stop: 10/31/18 17:55 Last Admin: 10/31/18 17:47 Dose: 200 mls/hr Azithromycin 500 mg/ Sodium (Chloride) 250 mls @ 250 mls/hr IV ONETIME ONE Stop: 10/31/18 20:59 Last Admin: 10/31/18 21:34 Dose: 250 mls/hr Lactated Ringer's (Ringers, Lactated) 1,000 mls @ 999 mls/hr IV .BOLUS ONE Stop: 10/31/18 21:35 Last Admin: 10/31/18 22:43 Dose: 999 mls/hr Magnesium Sulfate 4 gm/ Premix 50 mls @ 12.5 mls/hr IV ONETIME ONE Stop: 11/01/18 00:49 Last Admin: 10/31/18 21:38 Dose: 12.5 mls/hr Sodium Chloride (Normal Saline) 250 mls @ 25 mls/hr IV ASDIRECTED [place] Sodium Chloride (Normal Saline) Confirm Administered Dose 250 mls @ as directed .ROUTE .STK-MED ONE Stop: 10/31/18 21:07 Last Admin: 10/31/18 21:25 Dose: 25 mls/hr Lactated Ringer's (Ringers, Lactated) 1,000 mls @ 150 mls/hr IV ASDIRECTED [place] Last Admin: 11/01/18 19:57 Dose: 150 mls/hr Azithromycin 250 mg/ Sodium (Chloride) 250 mls @ 250 mls/hr IV Q24H [place] Last Admin: 11/01/18 19:56 Dose: 250 mls/hr Lactated Ringer's (Ringers, Lactated) 1,000 mls @ 100 mls/hr IV ASDIRECTED [place] Last Admin: 11/02/18 04:36 Dose: 100 mls/hr Magnesium Sulfate 4 gm/ Premix 50 mls @ 12.5 mls/hr IV ONETIME ONE Stop: 11/02/18 11:55 Last Admin: 11/02/18 08:28 Dose: 12.5 mls/hr Magnesium Sulfate 4 gm/ Premix 50 mls @ 12.5 mls/hr IV ONETIME ONE Stop: 11/03/18 20:52 Last Admin: 11/03/18 18:45 Dose: 12.5 mls/hr Magnesium Sulfate 4 gm/ Premix 50 mls @ 12.5 mls/hr IV ONETIME ONE Stop: 11/04/18 13:31 Last Admin: 11/04/18 09:53 Dose: 12.5 mls/hr Influenza Virus Vaccine (Pharmacy To Dose - Influenza Vaccine) 1 each IM ONETIME ONE Stop: 10/31/18 20:40 Influenza Virus Vaccine (Fluzone Quad [id number] Syringe) 60 mcg IM .ONCE ONE Stop: 10/31/18 21:16 Insulin Human Lispro (Humalog) 0 unit SUBCUT QIDACANDBED [facility]; Protocol Last Admin: 11/01/18 08:23 Dose: 4 units Insulin Human Lispro (Humalog) 5 unit SUBCUT TIDAC [facility] Last Admin: 11/02/18 12:48 Dose: 4 units Methylprednisolone Sodium Succinate (Solu-Medrol) 125 mg IVPUSH ONETIME ONE Stop: 10/31/18 16:33 Last Admin: 10/31/18 17:04 Dose: 125 mg Montelukast Sodium (Singulair) 10 mg PO DAILY [facility] Last Admin: 10/31/18 22:07 Dose: 10 mg Pantoprazole Sodium (Protonix) 40 mg PO DAILY@0700 [facility] Pantoprazole Sodium (Protonix Iv) 40 mg IVPUSH Q12H [facility] Last Admin: 11/02/18 10:47 Dose: 40 mg Potassium Chloride (Klor-Con M20) 20 meq PO BID [facility] Stop: 11/01/18 21:01 Last Admin: 11/01/18 20:01 Dose: 20 meq - Exam Quality Assessment: Supplemental Oxygen General: Alert, Oriented HEENT: Pupils Equal Lungs: Normal Respiratory Effort, Wheezing Cardiovascular: Regular Rate, Regular Rhythm GI/Abdominal Exam: Normal Bowel Sounds, Soft, Non-Tender, No Distention Extremities: Normal Inspection, Normal Range of Motion, No Pedal Edema - Problem List & Annotations (1) Sepsis SNOMED Code(s): 68960378 Code(s): A41.9 - SEPSIS, UNSPECIFIED ORGANISM Status: Acute Current Visit : Yes (2) Diabetes SNOMED Code(s): 95865234 Code(s): E11.9 - TYPE 2 DIABETES MELLITUS WITHOUT COMPLICATIONS Status: Acute Current Visit: Yes (3) Pneumonia SNOMED Code(s): 356594460 Code(s): J18.9 - PNEUMONIA, UNSPECIFIED ORGANISM Status: Acute Current Visit: Yes Qualifiers: Pneumonia type: due to unspecified organism Laterality: bilateral Lung location: lower lobe of lung Qualified Code(s): J18.1 - Lobar pneumonia, unspecified organism (4) Anemia SNOMED Code(s): 115243136 Code(s): D64.9 - ANEMIA, UNSPECIFIED Status: Acute Current Visit: No Qualifiers: Anemia type: unspecified type Qualified Code(s): D64.9 - Anemia, unspecified (5) Hypomagnesemia SNOMED Code(s): 300703195 Code(s): E83.42 - HYPOMAGNESEMIA Status: Acute Current Visit: No (6) Splenomegaly SNOMED Code(s): 02816386 Code(s): R16.1 - SPLENOMEGALY, NOT ELSEWHERE CLASSIFIED Status: Acute Current Visit: Yes - Problem List Review Problem List Initiated/Reviewed/Updated: Yes - My Orders Last 24 Hours: My Active Orders 11/03/18 21:05 Patient Status [ADT] Routine 11/04/18 09:45 Potassium Chloride [Klor-Con M20] 20 meq PO BID - Plan Plan:: Pneumonia * Patient presented from [facility] with shortness breath, cough, chills, and fever. Her white count was 20,000 now is 7000. * Chest x-ray this morning showed vascular congestion and possible right sided pleural effusion versus thickening * Lactic acid initially 9.6 now is 1.9 * Rocephin 2 g in the ER. * azithromycin 250 mg daily. * Blood cultures performed in ER - . * Sputum cultures pending * ABG: PH 7.41, PCO2 22.7, PO2 68, HCO3 14.1, on room air Sepsis - resolved * X-ray confirmed pneumonia, white count of 20,000 and lactic acid 9.6 on presentation, heart rate greater than 100, Platelets 63,000, and carbon dioxide less than 20 at 16 * Patient was given IV fluid bolus. Iron deficient anemia * Hemoglobin of 7.2 --8.1 after 2 units packed red blood cells * Hemoglobin stable at 8.4 * Start iron supplementation * Iron 10 with percent saturation of 4% * History of peptic ulcer disease and H. pylori * Patient also has black tarry stools and heavy menstrual cycle * Patient will not be ready for endoscopy until pneumonia improves * Stool sample for H. 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 Her last platelet count was 61,000 on November 18, 2017 * Patient may need hematology workup. * Ultrasound of the thyroid showed splenomegaly which is likely causing splenic sequestration sensation of her platelets. * On her blood work in 2018 she was pancytopenic Diabetes mellitus * Hold oral diabetic medications at this time. * basal insulin and prandial insulin with sliding scale correction. * Hemoglobin A1c- 5.7. This is very tightly controlled on concern about episodes of hypoglycemia as an outpatient. She may benefit from discharge without her sulfonylurea. Hypomagnesemia * Replace and recheck in the morning Chronic medical problems include: Chronic low back pain, Platelets 63,000, and carbon dioxide less than 20 at 16 Plan discharge when patient is off O2. VTE prophylaxis: SCDs nonsmoker and only drinks 1 time a week but at that time approximately 6 beers
[2018-11-04] MEDS: cefTRIAXone 2 GM in Sodium Chloride 0.9% 100 ML IV SCH (17:30)
[2018-11-04] MEDS: Montelukast 10 MG Tab PO SCH (21:56)
[2018-11-04] MEDS: Azithromycin 250 MG Tab PO SCH (21:57)
[2018-11-04] MEDS: Gabapentin 300 MG Cap PO SCH (21:57)
[2018-11-05] MEDS: Albuterol/Ipratropium 3.0-0.5 MG/3 ML Neb Soln NEB SCH ×3 (03:15→14:58)
[2018-11-05] MEDS: Acetaminophen 325 MG Tab PO PRN (04:15)
[2018-11-05] MEDS ORDERED: 50% Dextrose in Water 50 ML SDV IV PRN (07:50)
[2018-11-05] MEDS ORDERED: predniSONE 20 MG Tab PO SCH (08:00)
[2018-11-05] MEDS ORDERED: Benzocaine/Cetylpyridinium/Menthol Lozenge MUCMEM PRN (08:00)
[2018-11-05] MEDS: Potassium Chloride 20 MEQ Tab.ER PO SCH (09:08)
[2018-11-05] MEDS: Pantoprazole 40 MG Tab.CR PO SCH (09:10)
[2018-11-05] MEDS: guaiFENesin 600 MG Tab.ER PO SCH (09:10)
[2018-11-05] MEDS: Cyanocobalamin (Vitamin B12) 1,000 MCG Tab PO SCH (09:11)
[2018-11-05] MEDS: Insulin Lispro 100 Units/ML 3 ML Vial SUBCUT SCH ×4 (09:14→12:24)
[2018-11-05] MEDS: Insulin Glarg,Human.Rec.Analog 100 UNIT/ML ML SUBCUT SCH (09:15)
[2018-11-05] MEDS ORDERED: Magnesium Sulfate/Water 4 GM in Premix Bag 1 BAG IV ONE (11:09)
[2018-11-05] MEDS ORDERED: Sodium Chloride 0.9% 250 ML IV ONE (12:56)
--- NOTE | 2018-11-05 15:36 | PCM.DCSUM1 ---
Discharge Summary - Hospital Course Free Text/Narrative:: 48 year old female treated for CAP and sepsis, responded appropriately. 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 The patient has had a chronically low Hgb which is likely due to menorrhagia. Electrolytes were replaced as needed. Oxygen therapy was not required at DC. The patient ambulated on the day of DC without difficulty. HPI Initial Comments: 48-year-old patient comes in from [facility] with report white count of 20, 000. Patient presented to [facility] with worsening shortness of breath over the last 24 hours. She states that last week she did feel cold and on Monday she became congested with a dry cough. On Monday she had decreased appetite with nausea and started Mucinex. Yesterday she started developing chills and shortness of breath with cough. Today she states that she had a fever at the clinic and her cough has become wet and productive. She states she has not had any of her medications except Mucinex since Monday. She is not taking any diabetic medications which includes Glucophage 1000 mg twice a day and glipizide 5 mg a day. Last hemoglobin A1c I can find is 12 from 2018. Patient also states that in the fall of 2017 she had traumatic bloody pleural effusion after she fell on her right side fracturing 6 ribs. Patient also has a history of anemia. She states that she first was diagnosed with anemia 3-4 years ago. She was admitted in November 2017 with significant anemia and found to have H. pylori ulcer disease. EGD findings at that time showed some superficial erosions forming linear troughs in the stomach at the incisor and at the GE junction. She had a small hiatal hernia. Patient was treated with triple therapy for H. pylori disease. She never had a follow-up endoscopy. She states that she is on some medicine for her acid reflux. She states she drinks once a week. She does not use nonsteroidal anti-inflammatories. She also states that she has menstrual periods once a month that lasts proximal 5 days but they are very heavy. She also complains of dark tarry stools and recently she's been having more stools. She does complain of fatigue and lightheadedness. Diagnosis: Stroke: No - Discharge Data Discharge Date: 11/05/18 Discharge Disposition: Home, Self-Care 01 Condition: Good - Patient Summary/Data Consults: Consultations 10/31/18 20:35 Consult to Diabetic Nurse Specialist [CONS] Routine Consult to Gathering Machine Setter [CONS] Routine Respiratory Care Assess and Treatment [CONS] Routine - Patient Instructions Diet: Usual Diet as Tolerated Activity: As Tolerated Driving: Do Not Drive Showering/Bathing: May Shower Notify Provider of: Fever, Increased Pain, Nausea and/or Vomiting - Discharge Plan *PRESCRIPTION DRUG MONITORING PROGRAM REVIEWED*: Not Applicable *COPY OF PRESCRIPTION DRUG MONITORING REPORT IN PATIENT HANNAH: Not Applicable Prescriptions/Med Rec: Azithromycin [Zithromax] 250 mg PO DAILY #4 tablet Magnesium Oxide 800 mg PO DAILY #14 tablet Potassium Chloride [Klor-Con M20] 20 meq PO BID #4 tab.er predniSONE 40 mg PO DAILY@0800 #27 tablet Saccharomyces Boulardii [Florastor] 250 mg PO DAILY #7 cap Home Medications: Home Meds Aspirin [Halfprin] 81 mg PO DAILY #30 tab.ec 11/16/17 [Rx] metFORMIN [Glucophage] 1,000 mg PO BIDMEALS #60 tablet 11/18/17 [Rx] Albuterol Sulfate [Proair Hfa] 2 puff IH Q4H PRN 10/31/18 [History] Albuterol/Ipratropium [Combivent Respimat] 1 puff IH QID 10/31/18 [History] Cholecalciferol (Vitamin D3) [Vitamin D3] 50,000 unit PO WEEKLY 10/31/18 [ History] Cyanocobalamin (Vitamin B12) [Vitamin B12] 1,000 mcg PO DAILY 10/31/18 [History] Esomeprazole Magnesium 40 mg PO DAILY 10/31/18 [History] Gabapentin [Neurontin] 300 mg PO DAILY 10/31/18 [History] Montelukast [Singulair] 10 mg PO BEDTIME 10/31/18 [History] Ondansetron [Zofran ODT] 4 mg PO TID PRN 10/31/18 [History] Orphenadrine Citrate [Orphenadrine Citrate ER] 100 mg PO BID 10/31/18 [History] glipiZIDE [Glucotrol XL] 5 mg PO DAILY 10/31/18 [History] Azithromycin [Zithromax] 250 mg PO DAILY #4 tablet 04/22/19 [Rx] Magnesium Oxide 800 mg PO DAILY #14 tablet 11/05/18 [Rx] Potassium Chloride [Klor-Con M20] 20 meq PO BID #4 tab.er 11/05/18 [Rx] Saccharomyces Boulardii [Florastor] 250 mg PO DAILY #7 cap 11/05/18 [Rx] predniSONE 40 mg PO DAILY@0800 #27 tablet 11/05/18 [Rx] Oxygen Therapy Mode: Room Air Patient Handouts: Anemia, Community-Acquired Pneumonia, Adult, [id number] Forms: ED Department Discharge Referrals: Juna PEREZ,[place] [Ordering Only Provider] - (call to schedule your own appointment in 7-10 day after discharge. & discuss ob-doggy daycare activities director cincers of heavy prolonged periods.) - Discharge Summary/Plan Comment DC Time >30 min.: No Discharge Summary/Plan Comment: Plan:: Pneumonia * Patient presented from [facility] with shortness breath, cough, chills, and fever. Her white count was 20,000 now is 7000. * Chest x-ray this morning showed vascular congestion and possible right sided pleural effusion versus thickening * Lactic acid initially 9.6 now is 1.9 * Rocephin 2 g in the ER. * azithromycin 250 mg daily. * Blood cultures performed in ER - . * Sputum cultures pending * ABG: PH 7.41, PCO2 22.7, PO2 68, HCO3 14.1, on room air Sepsis - resolved * X-ray confirmed pneumonia, white count of 20,000 and lactic acid 9.6 on presentation, heart rate greater than 100, Platelets 63,000, and carbon dioxide less than 20 at 16 * Patient was given IV fluid bolus. Iron deficient anemia * Hemoglobin of 7.2 --8.1 after 2 units packed red blood cells * Hemoglobin stable at 8.4 * Start iron supplementation * Iron 10 with percent saturation of 4% * History of peptic ulcer disease and H. pylori * Patient also has black tarry stools and heavy menstrual cycle * Patient will not be ready for endoscopy until pneumonia improves * Stool sample for H. 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 Her last platelet count was 61,000 on November 18, 2017 * Patient may need hematology workup. * Ultrasound of the thyroid showed splenomegaly which is likely causing splenic sequestration sensation of her platelets. * On her blood work in 2018 she was pancytopenic Diabetes mellitus * Hold oral diabetic medications at this time. * basal insulin and prandial insulin with sliding scale correction. * Hemoglobin A1c- 5.7. This is very tightly controlled on concern about episodes of hypoglycemia as an outpatient. She may benefit from discharge without her sulfonylurea. Hypomagnesemia * Replace and recheck in the morning Chronic medical problems include: Chronic low back pain, Platelets 63,000, and carbon dioxide less than 20 at 16 Plan discharge when patient is off O2. VTE prophylaxis: SCDs nonsmoker and only drinks 1 time a week but at that time approximately 6 beers - General Info Date of Service: 10/31/18 Functional Status: Reports: Pain Controlled, Tolerating Diet, Ambulating, Urinating - Review of Systems General: Reports: No Symptoms HEENT: Reports: No Symptoms Pulmonary: Reports: No Symptoms Cardiovascular: Reports: No Symptoms Gastrointestinal: Reports: No Symptoms Genitourinary: Reports: No Symptoms Musculoskeletal: Reports: No Symptoms Skin: Reports: No Symptoms Neurological: Reports: No Symptoms Psychiatric: Reports: No Symptoms - Patient Data Vitals - Most Recent: Last Vital Signs Temp 36.5 C 11/05/18 11:23 Pulse 100 11/05/18 14:31 Resp 16 11/05/18 11:23 BP 114/52 L 11/05/18 11:23 Pulse Ox 91 L 11/05/18 14:31 Weight - Most Recent: 120.656 kg I&O - Last 24 hours: Intake & Output 11/05/18 11/05/18 11/05/18 06:59 14:59 22:59 Intake Total 900 60 Output Total 500 Balance 400 60 Lab Results - Last 24 hrs: Laboratory Results - last 24 hr 11/04/18 11/04/18 11/05/18 Range/Units 16:29 21:31 05:07 WBC 6.03 (3.98-10.04) K/mm3 RBC 3.97 L (3.98-5.22) M/mm3 Hgb 8.4 L (11.2-15.7) gm/L Hct 28.4 L (34.1-44.9) % MCV 71.5 L (79.4-94.8) fl MCH 21.2 L (25.6-32.2) pg MCHC 29.6 L (32.2-35.5) g/dl RDW Std Deviation 65.4 H (36.4-46.3) fL Plt Count 62 L (182-369) K/mm3 MPV TNP Neut % (Auto) 66.8 (34.0-71.1) % Lymph % (Auto) 17.2 L (19.3-51.7) % [place] % (Auto) 13.3 H (4.7-12.5) % Eos % (Auto) 1.5 (0.7-5.8) Baso % (Auto) 0.2 (0.1-1.2) % Neut # (Auto) 4.03 (1.56-6.13) K/mm3 Lymph # (Auto) 1.04 L (1.18-3.74) K/mm3 [place] # (Auto) 0.80 H (0.24-0.36) K/mm3 Eos # (Auto) 0.09 (0.04-0.36) K/mm3 Baso # (Auto) 0.01 (0.01-0.08) K/mm3 Manual Slide Review Abnormal smear Sodium (136-145) mEq/L Potassium (3.5-5.1) mEq/L Chloride (98-107) mEq/L Carbon Dioxide (21-32) mEq/L Anion Gap (5-15) BUN (7-18) mg/dL Creatinine (0.55-1.02) mg/dL Est Cr Clr Drug Dosing mL/min Estimated GFR (MDRD) (>60) mL/min BUN/Creatinine Ratio (14-18) Glucose (74-106) mg/dL POC Glucose 172 H 105 (70-105) mg/dL Calcium (8.5-10.1) mg/dL Magnesium (1.8-2.4) mg/dl Total Bilirubin (0.2-1.0) mg/dL AST (15-37) U/L ALT (14-59) U/L Alkaline Phosphatase (46-116) U/L Total Protein (6.4-8.2) g/dl Albumin (3.4-5.0) g/dl Globulin gm/dL Albumin/Globulin Ratio (1-2) 11/05/18 11/05/18 11/05/18 Range/Units 05:07 06:10 09:01 WBC (3.98-10.04) K/mm3 RBC (3.98-5.22) M/mm3 Hgb (11.2-15.7) gm/L Hct (34.1-44.9) % MCV (79.4-94.8) fl MCH (25.6-32.2) pg MCHC (32.2-35.5) g/dl RDW Std Deviation (36.4-46.3) fL Plt Count (182-369) K/mm3 MPV Neut % (Auto) (34.0-71.1) % Lymph % (Auto) (19.3-51.7) % [place] % (Auto) (4.7-12.5) % Eos % (Auto) (0.7-5.8) Baso % (Auto) (0.1-1.2) % Neut # (Auto) (1.56-6.13) K/mm3 Lymph # (Auto) (1.18-3.74) K/mm3 [place] # (Auto) (0.24-0.36) K/mm3 Eos # (Auto) (0.04-0.36) K/mm3 Baso # (Auto) (0.01-0.08) K/mm3 Manual Slide Review Sodium 137 (136-145) mEq/L Potassium 3.5 (3.5-5.1) mEq/L Chloride 107 (98-107) mEq/L Carbon Dioxide 22 (21-32) mEq/L Anion Gap 11.5 (5-15) BUN 7 (7-18) mg/dL Creatinine 0.7 (0.55-1.02) mg/dL Est Cr Clr Drug Dosing 96.99 mL/min Estimated GFR (MDRD) > 60 (>60) mL/min BUN/Creatinine Ratio 10.0 L (14-18) Glucose 88 (74-106) mg/dL POC Glucose 89 135 H (70-105) mg/dL Calcium 7.8 L (8.5-10.1) mg/dL Magnesium 1.5 L (1.8-2.4) mg/dl Total Bilirubin 1.1 H (0.2-1.0) mg/dL AST 29 (15-37) U/L ALT 24 (14-59) U/L Alkaline Phosphatase 94 (46-116) U/L Total Protein 7.3 (6.4-8.2) g/dl Albumin 1.9 L (3.4-5.0) g/dl Globulin 5.4 gm/dL Albumin/Globulin Ratio 0.4 L (1-2) 11/05/18 11/05/18 Range/Units 11:16 11:40 WBC (3.98-10.04) K/mm3 RBC (3.98-5.22) M/mm3 Hgb (11.2-15.7) gm/L Hct (34.1-44.9) % MCV (79.4-94.8) fl MCH (25.6-32.2) pg MCHC (32.2-35.5) g/dl RDW Std Deviation (36.4-46.3) fL Plt Count (182-369) K/mm3 MPV Neut % (Auto) (34.0-71.1) % Lymph % (Auto) (19.3-51.7) % [place] % (Auto) (4.7-12.5) % Eos % (Auto) (0.7-5.8) Baso % (Auto) (0.1-1.2) % Neut # (Auto) (1.56-6.13) K/mm3 Lymph # (Auto) (1.18-3.74) K/mm3 [place] # (Auto) (0.24-0.36) K/mm3 Eos # (Auto) (0.04-0.36) K/mm3 Baso # (Auto) (0.01-0.08) K/mm3 Manual Slide Review Sodium (136-145) mEq/L Potassium (3.5-5.1) mEq/L Chloride (98-107) mEq/L Carbon Dioxide (21-32) mEq/L Anion Gap (5-15) BUN (7-18) mg/dL Creatinine (0.55-1.02) mg/dL Est Cr Clr Drug Dosing mL/min Estimated GFR (MDRD) (>60) mL/min BUN/Creatinine Ratio (14-18) Glucose (74-106) mg/dL POC Glucose 139 H 142 H (70-105) mg/dL Calcium (8.5-10.1) mg/dL Magnesium (1.8-2.4) mg/dl Total Bilirubin (0.2-1.0) mg/dL AST (15-37) U/L ALT (14-59) U/L Alkaline Phosphatase (46-116) U/L Total Protein (6.4-8.2) g/dl Albumin (3.4-5.0) g/dl Globulin gm/dL Albumin/Globulin Ratio (1-2) BETINA Results - Last 24 hrs: Microbiology 10/31/18 18:15 Aerobic Blood Culture - Preliminary Blood - Venous - Lab Draw NO GROWTH AFTER 4 DAYS Anaerobic Blood Culture - Preliminary NO GROWTH AFTER 4 DAYS 10/31/18 17:50 Aerobic Blood Culture - Preliminary Blood - Venous NO GROWTH AFTER 4 DAYS Anaerobic Blood Culture - Preliminary NO GROWTH AFTER 4 DAYS Med Orders - Current: Current Medications Acetaminophen (Tylenol) 650 mg PO Q4H PRN PRN Reason: Pain (Mild 1-3)/fever Last Admin: 11/05/18 04:15 Dose: 650 mg Hydrocodone Bitart/Acetaminophen ([place] 325-5 Mg) 1 tab PO Q4H PRN PRN Reason: Pain Last Admin: 11/03/18 17:17 Dose: 1 tab Albuterol (Proventil Neb Soln) 2.5 mg NEB Q2H PRN PRN Reason: Wheezing Last Admin: 11/01/18 23:57 Dose: 2.5 mg Albuterol/Ipratropium (Duoneb 3.0-0.5 Mg/3 Ml) 3 ml NEB Q6HRRT [place] Last Admin: 11/05/18 14:58 Dose: Not Given Benzocaine/Menthol (Cepacol Sore Throat) 1 lozenge MUCMEM Q2H PRN PRN Reason: Sore Throat Cyanocobalamin (Vitamin B12) 1,000 mcg PO DAILY [facility] Last Admin: 11/05/18 09:11 Dose: 1,000 mcg Dextrose/Water (Dextrose 50% In Water) 50 ml IV ASDIRECTED PRN PRN Reason: Hypoglycemia Gabapentin (Neurontin) 300 mg PO BEDTIME [place] Last Admin: 11/04/18 21:57 Dose: 300 mg Guaifenesin (Mucinex) 600 mg PO BID [facility] Last Admin: 11/05/18 09:10 Dose: 600 mg Sodium Chloride (Normal Saline) 250 mls @ 75 mls/hr IV ONETIME ONE Stop: 11/05/18 16:15 Last Admin: 11/05/18 13:11 Dose: 75 mls/hr Insulin Glargine (Lantus) 15 unit SUBCUT DAILY [facility] Last Admin: 11/05/18 09:15 Dose: 15 units Insulin Human Lispro (Humalog) 0 unit SUBCUT QIDACANDBED [facility]; Protocol Last Admin: 11/05/18 12:16 Dose: Not Given Insulin Human Lispro (Humalog) 3 unit SUBCUT TIDAC [facility] Last Admin: 11/05/18 12:24 Dose: 3 units Montelukast Sodium (Singulair) 10 mg PO BEDTIME [facility] Last Admin: 11/04/18 21:56 Dose: 10 mg Ondansetron HCl (Zofran Odt) 4 mg PO Q4H PRN PRN Reason: nausea, able to take PO Pantoprazole Sodium (Protonix) 40 mg PO Q12H [facility] Last Admin: 11/05/18 09:10 Dose: 40 mg Potassium Chloride (Klor-Con M20) 20 meq PO BID [facility] Last Admin: 11/05/18 09:08 Dose: 20 meq Prednisone (Prednisone) 40 mg PO DAILY@0800 [facility] Last Admin: 11/05/18 09:09 Dose: 40 mg Sodium Chloride (Saline Flush) 10 ml FLUSH ASDIRECTED PRN PRN Reason: Keep Vein Open Last Admin: 10/31/18 17:04 Dose: 10 ml Discontinued Medications Acetaminophen (Tylenol) 975 mg PO NOW ONE Stop: 10/31/18 17:55 Last Admin: 10/31/18 18:05 Dose: 975 mg Albuterol/Ipratropium (Duoneb 3.0-0.5 Mg/3 Ml) 3 ml NEB ONETIME ONE Stop: 10/31/18 16:33 Last Admin: 10/31/18 16:48 Dose: 3 ml Albuterol/Ipratropium (Duoneb 3.0-0.5 Mg/3 Ml) 3 ml NEB ONETIME ONE Stop: 10/31/18 17:54 Last Admin: 10/31/18 18:11 Dose: 3 ml Azithromycin (Zithromax) 250 mg PO Q24H [facility] Last Admin: 11/04/18 21:57 Dose: 250 mg Benzocaine/Menthol (Cepacol Sore Throat) 1 lozenge MUCMEM Q2H PRN PRN Reason: Sore Throat Last Admin: 11/02/18 20:43 Dose: 1 lozenge Ceftriaxone Sodium (Rocephin) 1 gm IVPUSH Q24H [facility] Dextrose/Water (Dextrose 50% In Water) 50 ml IVPUSH ASDIRECTED PRN PRN Reason: Hypoglycemia Ceftriaxone Sodium 2 gm/ (Sodium Chloride) 100 mls @ 200 mls/hr IV ONETIME ONE Stop: 10/31/18 17:55 Last Admin: 10/31/18 17:47 Dose: 200 mls/hr Azithromycin 500 mg/ Sodium (Chloride) 250 mls @ 250 mls/hr IV ONETIME ONE Stop: 10/31/18 20:59 Last Admin: 10/31/18 21:34 Dose: 250 mls/hr Lactated Ringer's (Ringers, Lactated) 1,000 mls @ 999 mls/hr IV .BOLUS ONE Stop: 10/31/18 21:35 Last Admin: 10/31/18 22:43 Dose: 999 mls/hr Magnesium Sulfate 4 gm/ Premix 50 mls @ 12.5 mls/hr IV ONETIME ONE Stop: 11/01/18 00:49 Last Admin: 10/31/18 21:38 Dose: 12.5 mls/hr Sodium Chloride (Normal Saline) 250 mls @ 25 mls/hr IV ASDIRECTED [facility] Sodium Chloride (Normal Saline) Confirm Administered Dose 250 mls @ as directed .ROUTE .STK-MED ONE Stop: 10/31/18 21:07 Last Admin: 10/31/18 21:25 Dose: 25 mls/hr Lactated Ringer's (Ringers, Lactated) 1,000 mls @ 150 mls/hr IV ASDIRECTED [place] Last Admin: 11/01/18 19:57 Dose: 150 mls/hr Azithromycin 250 mg/ Sodium (Chloride) 250 mls @ 250 mls/hr IV Q24H [facility] Last Admin: 11/01/18 19:56 Dose: 250 mls/hr Ceftriaxone Sodium 2 gm/ (Sodium Chloride) 100 mls @ 200 mls/hr IV Q24H [facility] Last Admin: 11/04/18 17:30 Dose: 200 mls/hr Lactated Ringer's (Ringers, Lactated) 1,000 mls @ 100 mls/hr IV ASDIRECTED [facility] Last Admin: 11/02/18 04:36 Dose: 100 mls/hr Magnesium Sulfate 4 gm/ Premix 50 mls @ 12.5 mls/hr IV ONETIME ONE Stop: 11/02/18 11:55 Last Admin: 11/02/18 08:28 Dose: 12.5 mls/hr Magnesium Sulfate 4 gm/ Premix 50 mls @ 12.5 mls/hr IV ONETIME ONE Stop: 11/03/18 20:52 Last Admin: 11/03/18 18:45 Dose: 12.5 mls/hr Magnesium Sulfate 4 gm/ Premix 50 mls @ 12.5 mls/hr IV ONETIME ONE Stop: 11/04/18 13:31 Last Admin: 11/04/18 09:53 Dose: 12.5 mls/hr Magnesium Sulfate 4 gm/ Premix 50 mls @ 12.5 mls/hr IV ONETIME ONE Stop: 11/05/18 15:08 Last Admin: 11/05/18 12:22 Dose: 12.5 mls/hr Influenza Virus Vaccine (Pharmacy To Dose - Influenza Vaccine) 1 each IM ONETIME ONE Stop: 10/31/18 20:40 Influenza Virus Vaccine (Fluzone Quad 1170-2628 Syringe) 60 mcg IM .ONCE ONE Stop: 10/31/18 21:16 Insulin Human Lispro (Humalog) 0 unit SUBCUT QIDACANDBED [facility]; Protocol Last Admin: 11/01/18 08:23 Dose: 4 units Insulin Human Lispro (Humalog) 5 unit SUBCUT TIDAC [facility] Last Admin: 11/02/18 12:48 Dose: 4 units Methylprednisolone Sodium Succinate (Solu-Medrol) 125 mg IVPUSH ONETIME ONE Stop: 10/31/18 16:33 Last Admin: 10/31/18 17:04 Dose: 125 mg Montelukast Sodium (Singulair) 10 mg PO DAILY [facility] Last Admin: 10/31/18 22:07 Dose: 10 mg Pantoprazole Sodium (Protonix) 40 mg PO DAILY@0700 [facility] Pantoprazole Sodium (Protonix Iv) 40 mg IVPUSH Q12H [facility] Last Admin: 11/02/18 10:47 Dose: 40 mg Potassium Chloride (Klor-Con M20) 20 meq PO BID [facility] Stop: 11/01/18 21:01 Last Admin: 11/01/18 20:01 Dose: 20 meq Prednisone (Prednisone) 40 mg PO WITHBREAKFAST [facility] Last Admin: 11/04/18 06:02 Dose: 40 mg - Exam Quality Assessment: Reports: DVT Prophylaxis General: Reports: Alert, Oriented, Cooperative, No Acute Distress HEENT: Reports: Pupils Equal, Pupils Reactive, EOMI Neck: Reports: Trachea Midline, No JVD Lungs: Reports: Normal Respiratory Effort Cardiovascular: Reports: Regular Rate, Regular Rhythm GI/Abdominal Exam: Normal Bowel Sounds, Soft, Non-Tender, No Organomegaly, No Distention Rectal (Female) Exam: Deferred Back Exam: Reports: Normal Inspection Extremities: Normal Inspection, Non-Tender, Normal Capillary Refill Skin: Reports: Warm, Dry Neurological: Reports: No New Focal Deficit Psy/Mental Status: Reports: Alert, Normal Affect, Normal Mood *Q Meaningful Use (DIS) - VTE *Q VTE Anticoagulation Contraindications: Medical/Procedure Contrai
[2018-11-05] MEDS ORDERED: Magnesium Oxide 400 MG Tab PO SCH (16:00)
[2018-11-05] MEDS ORDERED: Azithromycin 250 MG Tab PO SCH (16:00)
[2018-11-05] MEDS ORDERED: Saccharomyces Boulardii (Probiotic) 250 MG Cap PO SCH (16:00)
== END 2018-11-05 16:40 | disposition home or self-care (01) | DRG 871 ==
LOC: JD.ED 16:06 → JD.MS 18:05
PROVIDERS: ADMIT Family Medicine; ATTEND Family Medicine
PROC: 30233N1 Transfusion of Nonautologous Red Blood Cells into Peripheral Vein, Percutaneous Approach (ICD-10-PCS; principal; 2018-10-31)
PROC: 3E02340 Introduction of Influenza Vaccine into Muscle, Percutaneous Approach (ICD-10-PCS; 2018-11-05)
DX: A41.9 Sepsis, unspecified organism (principal); J18.1 Lobar pneumonia, unspecified organism; J90 Pleural effusion, not elsewhere classified; N92.0 Excessive and frequent menstruation with regular cycle; E11.40 Type 2 diabetes mellitus with diabetic neuropathy, unspecified; D50.9 Iron deficiency anemia, unspecified; J45.909 Unspecified asthma, uncomplicated; D69.59 Other secondary thrombocytopenia; K21.9 Gastro-esophageal reflux disease without esophagitis; R16.1 Splenomegaly, not elsewhere classified; E83.42 Hypomagnesemia; M54.5 Low back pain; G89.29 Other chronic pain; Z88.1 Allergy status to other antibiotic agents; Z88.8 Allergy status to other drugs, medicaments and biological substances; Z79.84 Long term (current) use of oral hypoglycemic drugs; Z79.82 Long term (current) use of aspirin; Z79.52 Long term (current) use of systemic steroids; Z79.899 Other long term (current) drug therapy; Z87.11 Personal history of peptic ulcer disease; Z90.49 Acquired absence of other specified parts of digestive tract; Z87.891 Personal history of nicotine dependence; Z23 Encounter for immunization
CPT/HCPCS: 36415; 36430; 36600; 71045; 71045-26; 71046; 71046-26; 76700; 76700-26; 80053; 80061; 82272; 82607; 82803; 82962; 83036; 83540; 83605; 83735; 84466; 85014; 85018; 85025; 85610; 85730; 86140; 86850; 86900; 86901; 86922; 87040; 87070; 87205; 87338; 87486; 87581; 87632; 87798; 87899; 90686; 94640; 94668; 94760; 94761; 96365; 96375; 99284; 99285-25; A9270-GY; C9113; G0008; J0456; J0696; J1815-GY; J2930; J3475; J7030; J7050; J7120; J7620-GY; P9016

== ENCOUNTER 2018-11-30 18:20 | Emergency (ER) | payer OTHER ==
--- NOTE | 2018-11-30 19:44 | EDM.PDOC ---
ED HPI GENERAL MEDICAL PROBLEM - General Chief Complaint: Lower Extremity Injury/Pain Stated Complaint: LEG SWELLING Time Seen by Provider: 11/30/18 18:47 Source of Information: Reports: Patient History Limitations: Reports: No Limitations - History of Present Illness INITIAL COMMENTS - FREE TEXT/NARRATIVE: 48 y/o female presents to ER with cc increased bilateral lower extremity swelling over the past 3 months. She states she saw her PCP earlier this week and was told to come to the ER for further evaluation and treatment. She reports her POC D-Dimer was [id number]. She reports being SOB when she ambulates, she denies chest pain, fever or chills. She is accompanied her . Onset Date: 09/14/18 Onset Time: 12:00 Duration: Getting Worse Location: Reports: Lower Extremity, Left, Lower Extremity, Right Quality: Reports: Ache Severity: Mild Improves with: Reports: None Worsens with: Reports: Movement Associated Symptoms: Reports: No Other Symptoms, Shortness of Breath. Denies: Chest Pain, Cough, Diaphoresis, Fever/Chills, Headaches, Nausea/Vomiting - Related Data Allergies Allergy/AdvReac Type Severity Reaction Status Date / Time codeine Allergy Itching Verified 11/30/18 23:44 Iodinated Contrast- Oral and Allergy Itching Verified 11/30/18 22:30 IV Dye metronidazole [From Flagyl] Allergy Itching Verified 11/30/18 23:44 Home Meds: Home Meds Aspirin [Halfprin] 81 mg PO DAILY #30 tab.ec 11/16/17 [Rx] metFORMIN [Glucophage] 1,000 mg PO BIDMEALS #60 tablet 11/18/17 [Rx] Albuterol Sulfate [Proair Hfa] 2 puff IH Q4H PRN 10/31/18 [History] Albuterol/Ipratropium [Combivent Respimat] 1 puff IH QID 10/31/18 [History] Cholecalciferol (Vitamin D3) [Vitamin D3] 50,000 unit PO WEEKLY 10/31/18 [ History] Cyanocobalamin (Vitamin B12) [Vitamin B12] 1,000 mcg PO DAILY 10/31/18 [History] Esomeprazole Magnesium 40 mg PO DAILY 10/31/18 [History] Gabapentin [Neurontin] 600 mg PO DAILY 10/31/18 [History] Ondansetron [Zofran ODT] 4 mg PO TID PRN 10/31/18 [History] Orphenadrine Citrate [Orphenadrine Citrate ER] 100 mg PO BEDTIME PRN 10/31/18 [ History] glipiZIDE [Glucotrol XL] 5 mg PO DAILY 10/31/18 [History] Saccharomyces Boulardii [Florastor] 250 mg PO DAILY #7 cap 11/05/18 [Rx] Ferrous Sulfate [Feosol] 325 mg PO BID 11/30/18 [History] Furosemide [Lasix] 40 mg PO DAILY 11/30/18 [History] Potassium Chloride [Klor-Con M20] 20 meq PO DAILY 11/30/18 [History] Furosemide [Lasix] 40 mg PO DAILY 30 Days #30 tablet 12/01/18 [Rx] Spironolactone [Aldactone] 25 mg PO BID 30 Days #60 tab 12/01/18 [Rx] Past Medical History HEENT History: Reports: Cataract Respiratory History: Reports: Asthma, Other (See Below) Other Respiratory History: pleural effusion after fall Gastrointestinal History: Reports: GERD, Helicobacter Pylori, PUD Genitourinary History: Reports: None [employer]ER [employer] MANAGER History: Reports: Dysfunctional Uterine Bleeding, Musculoskeletal History: Reports: Back Pain, Chronic, Other (See Below) Other Musculoskeletal History: slipped out of her pickup and scraped her back on the running board and has had backpain ever since. Neurological History: Reports: Neuropathy, Diabetic Endocrine/Metabolic History: Reports: Diabetes, Type II Other Endocrine/Metabolic History: check your sugars as needed Hematologic History: Reports: Anemia, Blood Transfusion(s) - Past Surgical History HEENT Surgical History: Reports: Cataract Surgery Respiratory Surgical History: Reports: Thoracentesis GI Surgical History: Reports: Cholecystectomy Endocrine Surgical History: Reports: None Social & Family History - Family History Family Medical History: Noncontributory - Tobacco Use Smoking Status *Q: Former Smoker Used Tobacco, but Quit: Yes Month/Year Tobacco Last Used: 2 months - Caffeine Use Caffeine Use: Reports: Soda - Recreational Drug Use Recreational Drug Use: No Review of Systems - Review of Systems Review Of Systems: See Below Constitutional: Denies: Chills, Fever Eyes: Reports: No Symptoms Ears: Reports: No Symptoms Nose: Reports: No Symptoms Mouth/Throat: Reports: No Symptoms Respiratory: Reports: Shortness of Breath Cardiovascular: Denies: Chest Pain GI/Abdominal: Reports: No Symptoms Genitourinary: Reports: No Symptoms Musculoskeletal: Reports: No Symptoms Skin: Reports: Other (bilateral lower extremity swelling. ) Neurological: Reports: No Symptoms Psychiatric: Reports: No Symptoms ED EXAM, GENERAL - Physical Exam Exam: See Below Exam Limited By: No Limitations General Appearance: Alert, WD/WN, No Apparent Distress Neck: Normal Inspection, Supple, Non-Tender, Full Range of Motion Respiratory/Chest: No Respiratory Distress, Lungs Clear, No Accessory Muscle Use , Chest Non-Tender, Decreased Breath Sounds Cardiovascular: Normal Peripheral Pulses, Regular Rate, Rhythm, No Gallop, No JVD, No Murmur, No Rub Peripheral Pulses: 2+: Popliteal (L), Popliteal (R), Dorsalis Pedis (L), Dorsalis Pedis (R) GI/Abdominal: Normal Bowel Sounds, Soft, Non-Tender, No Organomegaly, No Distention, No Abnormal Bruit, No Mass, Pelvis Stable Extremities: Normal Inspection, Normal Range of Motion, Non-Tender, Normal Capillary Refill, Pedal Edema, Increased Warmth, Other (right lower leg edematous and warm to touch, neurovascularly intact. ). No: Naa's Sign Neurological: Alert, Oriented, CN II-XII Intact, Normal Cognition, Normal Gait Psychiatric: Normal Affect, Normal Mood Skin Exam: Warm, Dry, Intact, Normal Color Lymphatic: No Adenopathy Course - Vital Signs Last Recorded V/S: Last Vital Signs Temp 97.9 F 11/30/18 18:46 Pulse 80 11/30/18 18:46 Resp 20 11/30/18 18:46 BP 128/56 L 11/30/18 18:46 Pulse Ox 99 11/30/18 18:46 - Orders/Labs/Meds Orders: Active Orders 24 hr Category Date Time Status Chest 2V [CR] Stat Exams 11/30/18 19:20 Taken Chest PE [Ang Chest] [CT] Stat Exams 11/30/18 22:04 Taken Venous Doppler Lwr Ext Bi [US] Stat Exams 11/30/18 19:08 Taken Sodium Chloride 0.9% [Normal Saline] 100 ml Med 11/30/18 22:00 Active IV ASDIRECTED Sodium Chloride 0.9% [Saline Flush] Med 11/30/18 21:48 Active 10 ml FLUSH ONETIME PRN Medication Orders Sodium Chloride (Normal Saline) 100 mls @ 75 mls/hr IV ASDIRECTED [place] Last Admin: 11/30/18 22:26 Dose: 75 mls/hr Sodium Chloride (Saline Flush) 10 ml FLUSH ONETIME PRN PRN Reason: IV FLUSH Last Admin: 11/30/18 22:26 Dose: 10 ml Labs: Laboratory Tests 11/30/18 11/30/18 11/30/18 Range/Units 19:30 19:30 19:30 WBC 4.01 (3.98-10.04) K/mm3 RBC 4.04 (3.98-5.22) M/mm3 Hgb 9.0 L (11.2-15.7) gm/L Hct 31.1 L (34.1-44.9) % MCV 77.0 L (79.4-94.8) fl MCH 22.3 L (25.6-32.2) pg MCHC 28.9 L (32.2-35.5) g/dl RDW Std Deviation 71.4 H (36.4-46.3) fL Plt Count 71 L (182-369) K/mm3 Neut % (Auto) 71.2 H (34.0-71.1) % Lymph % (Auto) 17.2 L (19.3-51.7) % Coos % (Auto) 8.2 (4.7-12.5) % Eos % (Auto) 2.0 (0.7-5.8) Baso % (Auto) 1.2 (0.1-1.2) % Neut # (Auto) 2.85 (1.56-6.13) K/mm3 Lymph # (Auto) 0.69 L (1.18-3.74) K/mm3 Coos # (Auto) 0.33 (0.24-0.36) K/mm3 Eos # (Auto) 0.08 (0.04-0.36) K/mm3 Baso # (Auto) 0.05 (0.01-0.08) K/mm3 Manual Slide Review Abnormal smear D-Dimer, Quantitative 9.93 H (0.19-0.50) mg/L Sodium 139 (136-145) mEq/L Potassium 3.6 (3.5-5.1) mEq/L Chloride 110 H (98-107) mEq/L Carbon Dioxide 21 (21-32) mEq/L Anion Gap 11.6 (5-15) BUN 6 L (7-18) mg/dL Creatinine 0.8 (0.55-1.02) mg/dL Est Cr Clr Drug Dosing 84.87 mL/min Estimated GFR (MDRD) > 60 (>60) mL/min BUN/Creatinine Ratio 7.5 L (14-18) Glucose 138 H (74-106) mg/dL Calcium 7.7 L (8.5-10.1) mg/dL Total Bilirubin 0.6 (0.2-1.0) mg/dL GGT (5-55) U/L AST 32 (15-37) U/L ALT 30 (14-59) U/L Alkaline Phosphatase 122 H (46-116) U/L Lactate Dehydrogenase (81-234) U/L Troponin I 0.017 (0.00-0.056) ng/mL Total Protein 7.3 (6.4-8.2) g/dl Albumin 2.1 L (3.4-5.0) g/dl Globulin 5.2 gm/dL Albumin/Globulin Ratio 0.4 L (1-2) Urine Color (Yellow) Urine Appearance (Clear) Urine pH (5.0-8.0) Ur Specific Magnolia (1.005-1.030) Urine Protein (Negative) Urine Glucose (UA) (Negative) Urine Ketones (Negative) Urine Occult Blood (Negative) Urine Nitrite (Negative) Urine Bilirubin (Negative) Urine Urobilinogen (0.2-1.0) Ur Leukocyte Esterase (Negative) 11/30/18 11/30/18 11/30/18 Range/Units 19:30 19:30 21:16 WBC (3.98-10.04) K/mm3 RBC (3.98-5.22) M/mm3 Hgb (11.2-15.7) gm/L Hct (34.1-44.9) % MCV (79.4-94.8) fl MCH (25.6-32.2) pg MCHC (32.2-35.5) g/dl RDW Std Deviation (36.4-46.3) fL Plt Count (182-369) K/mm3 Neut % (Auto) (34.0-71.1) % Lymph % (Auto) (19.3-51.7) % Coos % (Auto) (4.7-12.5) % Eos % (Auto) (0.7-5.8) Baso % (Auto) (0.1-1.2) % Neut # (Auto) (1.56-6.13) K/mm3 Lymph # (Auto) (1.18-3.74) K/mm3 Coos # (Auto) (0.24-0.36) K/mm3 Eos # (Auto) (0.04-0.36) K/mm3 Baso # (Auto) (0.01-0.08) K/mm3 Manual Slide Review D-Dimer, Quantitative (0.19-0.50) mg/L Sodium (136-145) mEq/L Potassium (3.5-5.1) mEq/L Chloride (98-107) mEq/L Carbon Dioxide (21-32) mEq/L Anion Gap (5-15) BUN (7-18) mg/dL Creatinine (0.55-1.02) mg/dL Est Cr Clr Drug Dosing mL/min Estimated GFR (MDRD) (>60) mL/min BUN/Creatinine Ratio (14-18) Glucose (74-106) mg/dL Calcium (8.5-10.1) mg/dL Total Bilirubin (0.2-1.0) mg/dL GGT 81 H (5-55) U/L AST (15-37) U/L ALT (14-59) U/L Alkaline Phosphatase (46-116) U/L Lactate Dehydrogenase 286 H (81-234) U/L Troponin I (0.00-0.056) ng/mL Total Protein (6.4-8.2) g/dl Albumin (3.4-5.0) g/dl Globulin gm/dL Albumin/Globulin Ratio (1-2) Urine Color Yellow (Yellow) Urine Appearance Clear (Clear) Urine pH 7.0 (5.0-8.0) Ur Specific Magnolia 1.020 (1.005-1.030) Urine Protein Trace H (Negative) Urine Glucose (UA) Negative (Negative) Urine Ketones Negative (Negative) Urine Occult Blood Negative (Negative) Urine Nitrite Negative (Negative) Urine Bilirubin Negative (Negative) Urine Urobilinogen 1.0 (0.2-1.0) Ur Leukocyte Esterase Negative (Negative) Meds: Medications Generic Name Dose Route Start Last Admin Trade Name Sissy PRN Reason Stop Dose Admin Sodium Chloride 100 mls @ 75 mls/hr 11/30/18 22:00 11/30/18 22:26 Normal Saline IV 75 mls/hr ASDIRECTED [place] Administration Sodium Chloride 10 ml 11/30/18 21:48 11/30/18 22:26 Saline Flush FLUSH 10 ml ONETIME PRN Administration IV FLUSH Discontinued Medications Generic Name Dose Route Start Last Admin Trade Name Freq PRN Reason Stop Dose Admin Iohexol 75 ml 11/30/18 21:48 11/30/18 22:26 Omnipaque IVPUSH 11/30/18 21:49 75 ml ONETIME ONE Administration Iohexol 75 ml 11/30/18 22:18 11/30/18 22:26 Omnipaque IVPUSH 11/30/18 22:19 75 ml ONETIME ONE Administration - Re-Assessments/Exams Free Text/Narrative Re-Assessment/Exam: 11/30/18 20:29 WBC 4.01 RBC 4.04 H & H 9.0 31.1 PLT 71 D-Dimer 9.93 Na + 139 K+ 3.6 chl 110 co2 21 bun 6 creatine 0.8 glucose 138. alk phos 122 troponin 0.017 ast 32 alt 30 total juan c 0.6 11/30/18 21:08 bilateral lower extremity venous doppler revealed bilateral subcutaneous edema, no evidence of deep vein thrombosis. 11/30/18 23:51 CT chest revealed small amount of basilar atelectasis.pulmonary edema, moderate right pleural effusion. small left pleural effusion, T 8 compression fracture. cirrhotic liver, splenomegaly, possible gastritis and small amount of ascites. I will discharge home with Lasix 40 mg daily and Aldactone 25 mg bid. Instructed patient to follow up with Dr. Day at [facility] for further evaluation and treatment of her cirrhosis. Instructed her to follow up with her PCP. Instructed to return to the ER for any new or acute worsening symptoms. She verbalized understanding and is comfortable with plan of care. she is stable at time of discharge. Departure - Departure Time of Disposition: 23:57 Disposition: Home, Self-Care 01 Condition: Good Clinical Impression: Atelectasis of both lungs, Bilateral lower extremity edema Cirrhosis of liver Qualifiers: Hepatic cirrhosis type: unspecified hepatic cirrhosis Ascites presence: with ascites Qualified Code(s): K74.60 - Unspecified cirrhosis of liver; R18.8 - Other ascites - Discharge Information *PRESCRIPTION DRUG MONITORING PROGRAM REVIEWED*: Not Applicable *COPY OF PRESCRIPTION DRUG MONITORING REPORT IN PATIENT [facility]ANNA[facility]: Not Applicable Prescriptions: Furosemide [Lasix] 40 mg PO DAILY 30 Days #30 tablet Spironolactone [Aldactone] 25 mg PO BID 30 Days #60 tab Instructions: Atelectasis, Adult, Cirrhosis, Peripheral Edema Referrals: PCP,Not In Area [Primary Care Provider] - Forms: ED Department Discharge Additional Instructions: You have been diagnosis with lower extremity edema. Your venous Doppler studies were negative for deep vein thrombosis. Your chest Ct revealed liver cirrhosis with atelectasis and ascites. This means your liver is inflamed and you have fluid collection in you abdomen. This could be a cause for your lower legs swelling. You are being discharged with Lasix 40 mg daily and Aldactone 25 mg twice daily. you need to follow up with Dr. Day for evaluation and treat your cirrhosis. Return to the ER for any new or acute worsening symptoms. DO NOT TAKE YOUR POTASSIUM SUPPLEMENT WHILE TAKING THE ALDACTONE. - My Orders Last 24 Hours: My Active Orders 11/30/18 19:08 Venous Doppler Lwr Ext Bi [US] Stat 11/30/18 19:20 Chest 2V [CR] Stat 11/30/18 21:48 Sodium Chloride 0.9% [Saline Flush] 10 ml FLUSH ONETIME PRN 11/30/18 22:00 Sodium Chloride 0.9% [Normal Saline] 100 ml IV ASDIRECTED 11/30/18 22:04 Chest PE [Ang Chest] [CT] Stat - Assessment/Plan Last 24 Hours: My Active Orders 11/30/18 19:08 Venous Doppler Lwr Ext Bi [US] Stat 11/30/18 19:20 Chest 2V [CR] Stat 11/30/18 21:48 Sodium Chloride 0.9% [Saline Flush] 10 ml FLUSH ONETIME PRN 11/30/18 22:00 Sodium Chloride 0.9% [Normal Saline] 100 ml IV ASDIRECTED 11/30/18 22:04 Chest PE [Ang Chest] [CT] Stat
[2018-11-30] MEDS ORDERED: Sodium Chloride 0.9% 10 ML Syringe FLUSH PRN (21:48)
[2018-11-30] MEDS ORDERED: Iohexol 350 MG/ML 75 ML Bottle IVPUSH ONE ×2 (21:48→22:18)
[2018-11-30] MEDS ORDERED: Sodium Chloride 0.9% 100 ML IV SCH (22:00)
--- NOTE | 2018-12-03 06:42 | CT ---
CT chest Technique: Multiple axial sections were obtained from above the lung apices inferiorly through the lung bases. Intravenous contrast was utilized. Study performed as a pulmonary angiogram protocol. Findings: Pulmonary arteries are moderately well-opacified. No filling defects are seen to indicate pulmonary embolism. Small to moderate size right-sided pleural effusion with trace left sided pleural effusion is seen. Compressive atelectasis is noted within the right lung base as well as mild left basilar atelectasis being seen. Pulmonary vessels are felt to be slightly congested with perivascular cuffing. Heart is enlarged. Visualized liver appears somewhat small suggesting cirrhosis. Visualized spleen appears enlarged. Small amount of ascites is seen. Fluid material is seen within the stomach which limits evaluation. Bone window settings were reviewed which show a compression deformity of T8 which is likely old. Nothing acute is appreciated within the osseous structures. Impression: 1. No findings of pulmonary embolism. Probable findings of mild CHF as described above. 2. Liver appears cirrhotic with splenomegaly. 3. Small amount of ascites. 4. Compressive atelectasis from the pleural effusion within the right lung base. Mild discoid atelectasis is noted within the left lung base. Diagnostic code #3 I agree with preliminary report from [facility], finalized on 11/30/18, 11:32 PM Central Time
--- NOTE | 2018-12-03 07:28 | CR ---
Chest: Two views of the chest were obtained. Comparison: Prior chest CT performed earlier on the same day (10:08 PM). Prior chest x-ray of 10/31/18 is also available. Findings: Blunting of the right lateral and posterior costophrenic angles. Small right-sided pleural effusion is seen. Questionable pulmonary vascular congestion is noted. Lungs otherwise are clear. Heart size and mediastinum are normal. Bony structures are grossly intact. Impression: 1. Findings suspicious for mild CHF. Diagnostic code #3
--- NOTE | 2018-12-03 07:28 | US ---
Bilateral lower extremity deep venous ultrasound: Duplex and color flow imaging was obtained of the right and left common femoral, proximal greater saphenous, superficial femoral, popliteal, posterior tibial and peroneal veins. Comparison: No prior venous exam. Findings: Subcutaneous edema noted within both lower extremities. Suboptimal augmentation is noted of the posterior tibial and peroneal veins on the right side because of the edema. Other veins show normal phasic flow, augmentation and compression. Impression: 1. Subcutaneous edema. 2. No evidence of venous thrombosis is seen within either the right or left lower extremity. Diagnostic code #2 I agree with preliminary report from [facility], finalized on 11/30/18, 10:02 PM Central Time
== END 2018-12-01 00:25 | disposition home or self-care (01) ==
LOC: SUPCPDRO 18:20 → JD.ED 18:20
DX: K74.60 Unspecified cirrhosis of liver (principal); R18.8 Other ascites; J98.11 Atelectasis; K21.9 Gastro-esophageal reflux disease without esophagitis; E11.40 Type 2 diabetes mellitus with diabetic neuropathy, unspecified; Z87.891 Personal history of nicotine dependence; Z88.5 Allergy status to narcotic agent; Z88.8 Allergy status to other drugs, medicaments and biological substances; Z79.82 Long term (current) use of aspirin; Z79.899 Other long term (current) drug therapy; Z79.84 Long term (current) use of oral hypoglycemic drugs
CPT/HCPCS: 36415; 71046; 71275; 80053; 81003; 82977; 83615; 84484; 85025; 85379; 86803; 93970; 99284; J7030; Q9967

== ENCOUNTER 2019-08-21 19:00 | Inpatient (IN) | payer OTHER ==
[2019-08-21] MEDS ORDERED: Sodium Chloride 0.9% 10 ML Syringe FLUSH PRN (19:17)
--- NOTE | 2019-08-21 20:00 | PCM.HP.2 ---
H&P History of Present Illness - General Date of Service: 08/21/19 Admit Problem/Dx: Admission Diagnosis/Problem Admission Diagnosis/Problem Pneumonia - History of Present Illness Initial Comments - Free Text/Narative: This is a 49 year old female with past medical history of diabetes, hypertension and alcoholic liver cirrhosis who comes to the ED referred by outpatient clinic for right sided pleural effusion in the setting of pneumonia. As per patient she started having worsening shortness of breath a couple of days ago associated with fever and chills as well as a nasal congestion. Once on clinic patient was found to have a temp of 104.3 with an elevated white count and right sided pleural effusion for which she was sent here. She denies any sick contacts, cough, chest pain, palpitations, nausea, vomiting , diarrhea and getting the flu shot this year. Headache Pain Score (Numeric/FACES): 5 Bilateral Feet Pain Score (Numeric/FACES): 6 - Related Data Allergies/Adverse Reactions: Allergies Allergy/AdvReac Type Severity Reaction Status Date / Time codeine Allergy Itching Verified 08/21/19 22:03 Iodinated Contrast Media Allergy Itching Verified 08/21/19 22:03 [Iodinated Contrast- Oral and IV Dye] metronidazole [From Flagyl] Allergy Itching Verified 08/21/19 22:03 Home Medications: Home Meds Aspirin [Halfprin] 81 mg PO DAILY #30 tab.ec 11/16/17 [Rx] Cyanocobalamin (Vitamin B12) [Vitamin B12] 1,000 mcg PO DAILY 10/31/18 [History] Esomeprazole Magnesium 40 mg PO DAILY 10/31/18 [History] glipiZIDE [Glucotrol XL] 5 mg PO DAILY 10/31/18 [History] Furosemide [Lasix] 40 mg PO BID 11/30/18 [History] Ascorbic Acid [Vitamin C with Caridad Hips] 500 mg PO DAILY 08/21/19 [History] Excedrin Extra Strength 2 tab PO Q6H PRN 08/21/19 [History] Leg Cramps 1 - 2 tab PO Q4H PRN 08/21/19 [History] Potassium Chloride [K-Tab ER] 20 meq PO DAILY 08/21/19 [History] Sodium Hypochlorite [Hysept] 1 applic TOP DAILY 08/21/19 [History] Spironolactone [Aldactone] 50 mg PO DAILY 08/21/19 [History] [employer] Pain Reliever 2 tab PO Q6H PRN 08/21/19 [History] Zinc Gluconate [Zinc] 50 mg PO DAILY 08/21/19 [History] Cetirizine [ZyrTEC] 10 mg PO DAILY 08/22/19 [History] Ferrous Sulfate 325 mg PO BID 08/22/19 [History] Fluticasone/Salmeterol [Advair 250-50 Diskus] 1 puff PO BID 08/22/19 [History] Vit,Joaquín 74/Iron/Folic [ Low Iron Tablet] 1 tab PO DAILY [History] Gabapentin [Neurontin] 300 mg PO TID 08/23/19 [History] Past Medical History HEENT History: Reports: Cataract Respiratory History: Reports: Asthma, Other (See Below) Other Respiratory History: pleural effusion after fall Gastrointestinal History: Reports: GERD, Helicobacter Pylori, PUD Genitourinary History: Reports: None 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 Neurological History: Reports: Neuropathy, Diabetic Endocrine/Metabolic History: Reports: Diabetes, Type II Other Endocrine/Metabolic History: check your sugars as needed Hematologic History: Reports: Anemia, Blood Transfusion(s) - Past Surgical History HEENT Surgical History: Reports: Cataract Surgery Respiratory Surgical History: Reports: Thoracentesis GI Surgical History: Reports: Cholecystectomy Endocrine Surgical History: Reports: None Social & Family History - Family History Family Medical History: Noncontributory - Caffeine Use Caffeine Use: Reports: Soda H&P Review of Systems - Review of Systems: Review Of Systems: See Below General: Reports: Fever, Chills, Malaise, Weakness, Fatigue. Denies: Night Sweats, Decreased Appetite, Weight Loss, Weight Gain HEENT: Reports: Rhinitis, Sinus Congestion. Denies: Post Nasal Drip, Sore Throat, Vertigo, Visual Changes Pulmonary: Reports: Shortness of Breath. Denies: Wheezing, Pleuritic Chest Pain , Cough, Sputum, Hemoptysis Cardiovascular: Reports: Dyspnea on Exertion. Denies: Chest Pain, Palpitations , Orthopnea, PND, Edema, Lightheadedness, Syncope, Claudication Gastrointestinal: Denies: Abdominal Pain, Anorexia, Constipation, Diarrhea, Distension, Flatus, Nausea, Stool Incontinence, Vomiting Genitourinary: Denies: Dysuria, Frequency, Burning, Pain, Urgency, Incontinence Musculoskeletal: Denies: Joint Pain, Joint Swelling, Muscle Pain, Muscle Stiffness Skin: Denies: Cyanosis, Jaundice, Mottled, Pallor, Diaphoresis Psychiatric: Denies: Confusion, Depression, Mood Lability, Anxiety, Agitation Neurological: Denies: Confusion, Dizziness, Headache, Numbness, Paresthesia Exam - Exam Exam: See Below - Vital Signs Vital Signs: Last Vital Signs Temp 98.6 F 08/21/19 19:08 Pulse 90 08/21/19 19:08 Resp 16 08/21/19 19:08 BP 117/57 L 08/21/19 19:08 Pulse Ox 97 08/21/19 19:08 - Exam General: Alert, Oriented, Cooperative. No: Mild Distress HEENT: Conjunctiva Clear, EACs Clear, EOMI, Hearing Intact, Mucosa Moist & [place] , Nares Patent Neck: Supple, Trachea Midline, +2 Carotid Pulse wo Bruit, Full Range of Motion. No: Lymphadenopathy Lungs: Decreased Breath Sounds (R>L), Crackles. No: Rales, Rhonchi, Rub, Wheezing Cardiovascular: Regular Rate, Regular Rhythm. No: Systolic Murmur, Diastolic Murmur, Rubs, Gallop/S3, Gallop/S4 GI/Abdominal Exam: Normal Bowel Sounds, Soft, Non-Tender, Distended. No: Guarding, Rigid, Rebound, Tender Back Exam: Normal Inspection, Full Range of Motion, Paraspinal Tenderness. No: CVA Tenderness (L), CVA Tenderness (R), Vertebral Tenderness Extremities: Pedal Edema, Slow Capillary Refill Skin: Other (open oblongue shaped wound 3x1.5in above achiles tendon on right leg, no drainage or foul smell) Neuro Extensive - Mental Status: Alert, Oriented x3 Psychiatric: Alert (flat affect) - Patient Data Result Diagrams: 08/24/19 08:16 08/24/19 08:16 Sepsis Event Note - Focused Exam Vital Signs: Vital Signs Temp Pulse Resp BP Pulse Ox 08/21/19 19:08 98.6 F 90 16 117/57 L 97 Date Exam was Performed: 08/24/19 Time Exam was Performed: 14:19 - Problem List (1) Pneumonia involving right lung SNOMED Code(s): 270799541 ICD Code: J18.9 - PNEUMONIA, UNSPECIFIED ORGANISM Status: Acute Current Visit: Yes (2) Pleural effusion, right SNOMED Code(s): 05139385 ICD Code: J90 - PLEURAL EFFUSION, NOT ELSEWHERE CLASSIFIED Status: Acute Current Visit: Yes (3) Wound of right lower extremity SNOMED Code(s): 888541899, 212588661 ICD Code: S81.801A - UNSPECIFIED OPEN WOUND, RIGHT LOWER LEG, INITIAL ENCOUNTER Status: Acute Current Visit: Yes (4) Fever SNOMED Code(s): 012368618 ICD Code: R50.9 - FEVER, UNSPECIFIED Status: Acute Current Visit: Yes (5) Leukocytosis SNOMED Code(s): 939715724, 848678793 ICD Code: D72.829 - ELEVATED WHITE BLOOD CELL COUNT, UNSPECIFIED Status: Acute Current Visit: Yes (6) Anemia SNOMED Code(s): 008535637 ICD Code: D64.9 - ANEMIA, UNSPECIFIED Status: Acute Current Visit: No Qualifiers: Anemia type: unspecified type Qualified Code(s): D64.9 - Anemia, unspecified (7) Bilateral lower extremity edema SNOMED Code(s): 290168394, 47802918, 332104798 ICD Code: R60.0 - LOCALIZED EDEMA Status: Acute Current Visit: No (8) Cirrhosis of liver SNOMED Code(s): 09032871 ICD Code: K74.60 - UNSPECIFIED CIRRHOSIS OF LIVER Status: Acute Current Visit: No Qualifiers: Hepatic cirrhosis type: unspecified hepatic cirrhosis Ascites presence: with ascites Qualified Code(s): K74.60 - Unspecified cirrhosis of liver; R18.8 - Other ascites (9) Diabetes SNOMED Code(s): 97806520 ICD Code: E11.9 - TYPE 2 DIABETES MELLITUS WITHOUT COMPLICATIONS Status: Acute Current Visit: No (10) TAN (iron deficiency anemia) SNOMED Code(s): 32987147 ICD Code: D50.9 - IRON DEFICIENCY ANEMIA, UNSPECIFIED Status: Acute Current Visit: No Qualifiers: Iron deficiency anemia type: unspecified iron deficiency Qualified Code(s) : D50.9 - Iron deficiency anemia, unspecified (11) Alcoholic cirrhosis SNOMED Code(s): 101450712 ICD Code: K70.30 - ALCOHOLIC CIRRHOSIS OF LIVER WITHOUT ASCITES Status: Acute Current Visit: Yes (12) Smoker SNOMED Code(s): 58849431 ICD Code: F17.200 - NICOTINE DEPENDENCE, UNSPECIFIED, UNCOMPLICATED Status : Acute Current Visit: Yes (13) COPD (chronic obstructive pulmonary disease) SNOMED Code(s): 49225687 ICD Code: J44.9 - CHRONIC OBSTRUCTIVE PULMONARY DISEASE, UNSPECIFIED Status : Acute Current Visit: Yes Problem List Initiated/Reviewed/Updated: Yes Assessment/Plan Comment:: Complicated pneumonia involving right lung Pleural effusion, right Fever/ Leukocytosis COPD w/o exacerbation Flu like symptoms 1-2 weeks ago Fever today with leukocytosis and right pleural effusion + sob PLAN - Levaquin - Repeat CXR in AM - Monitor hypoxemia - RT assess and treat - PRN DuoNebs - Respiratory panel, flu swab, mycoplasma and strep. pneumo serology ordered Diabetes mellitus, unknown HbA1c Glucose on admission 177 Not on insulin at home PLAN - Hold home PO medications - Accuchecks TID AC and HS - Hypoglycemia protocol Alcoholic liver cirrhosis Thrombocytopenia Anemia BL LE edema No ascites on physical exam No alcoholic drink in over 1 month No signs of active bleeding or signs of end stage liver cirrhosis PLAN - Monitor volume status - Venofer once pleural effusion improved Chronic wound of right lower extremity >1 year ago Had a ruptured cyst Wound care done by patient PLAN - Continue wound care PROPHYLAXIS DVT- contraindicated due to thrombocytopenia, compression stockings GI- not indicated CODE STATUS: FULL CODE DISPOSITION: Patient will be admitted for IV antibiotics and possible thoracentesis as well as monitorization of oxygenation. - Mortality Measure Prognosis:: Good
[2019-08-21] MEDS ORDERED: Levofloxacin/Dextrose 5%-Water 750 MG in Premix Bag 1 BAG IV SCH (21:00)
[2019-08-21] MEDS: Albuterol/Ipratropium 3.0-0.5 MG/3 ML Neb Soln NEB PRN (21:38)
[2019-08-21] MEDS: Acetaminophen 325 MG Tab PO PRN (22:23)
[2019-08-21] MEDS: Oseltamivir 75 MG Cap PO SCH (22:24)
[2019-08-21] MEDS ORDERED: FLU Vacc QS2019-20(6MOS+)/PF 60 MCG/0.5 ML SYRINGE IM ONE (23:00)
[2019-08-21] MEDS: Lactated Ringers 1,000 ML IV SCH (23:29)
[2019-08-22] MEDS: Oseltamivir 75 MG Cap PO SCH ×2 (10:43→21:17)
[2019-08-22] MEDS: Acetaminophen 325 MG Tab PO PRN (10:45)
[2019-08-22] MEDS: Lactated Ringers 1,000 ML IV SCH ×2 (10:46→20:08)
--- NOTE | 2019-08-22 12:27 | PCM.PN ---
- General Info Date of Service: 08/22/19 Subjective Update: Feeling ok Tolerating diet Slept ok Shortness of breath "a little" improved BM today - Patient Data Vitals - Most Recent: Last Vital Signs Temp 98.6 F 08/22/19 04:38 Pulse 75 08/22/19 04:38 Resp 20 08/22/19 04:38 BP 120/48 L 08/22/19 04:38 Pulse Ox 97 08/22/19 04:38 Weight - Most Recent: 114.441 kg - Exam Physical Findings Comments:: General: Alert, Oriented, Cooperative. No: Mild Distress HEENT: Conjunctiva Clear, EACs Clear, EOMI, Hearing Intact, Mucosa Moist & [place] , Nares Patent Neck: Supple, Trachea Midline, +2 Carotid Pulse wo Bruit, Full Range of Motion. No: Lymphadenopathy Lungs: Decreased Breath Sounds (R>L), Crackles. No: Rales, Rhonchi, Rub, Wheezing Cardiovascular: Regular Rate, Regular Rhythm. No: Systolic Murmur, Diastolic Murmur, Rubs, Gallop/S3, Gallop/S4 GI/Abdominal Exam: Normal Bowel Sounds, Soft, Non-Tender, Distended. No: Guarding, Rigid, Rebound, Tender Back Exam: Normal Inspection, Full Range of Motion, Paraspinal Tenderness. No: CVA Tenderness (L), CVA Tenderness (R), Vertebral Tenderness Extremities: Pedal Edema, Slow Capillary Refill Skin: Other (open oblongue shaped wound 3x1.5in above achiles tendon on right leg, no drainage or foul smell) Neuro Extensive - Mental Status: Alert, Oriented x3 Psychiatric: Alert (flat affect) Sepsis Event Note - Evaluation Sepsis Screening Result: No Definite Risk - Focused Exam Vital Signs: Vital Signs Temp Pulse Resp BP Pulse Ox 08/22/19 04:38 98.6 F 75 20 120/48 L 97 Date Exam was Performed: 08/24/19 Time Exam was Performed: 14:49 - Problem List & Annotations (1) Alcoholic cirrhosis SNOMED Code(s): 507038537 Code(s): K70.30 - ALCOHOLIC CIRRHOSIS OF LIVER WITHOUT ASCITES Status: Acute Current Visit: Yes (2) COPD (chronic obstructive pulmonary disease) SNOMED Code(s): 57148220 Code(s): J44.9 - CHRONIC OBSTRUCTIVE PULMONARY DISEASE, UNSPECIFIED Status : Acute Current Visit: Yes (3) Fever SNOMED Code(s): 958252590 Code(s): R50.9 - FEVER, UNSPECIFIED Status: Acute Current Visit: Yes (4) Leukocytosis SNOMED Code(s): 995124527, 197114530 Code(s): D72.829 - ELEVATED WHITE BLOOD CELL COUNT, UNSPECIFIED Status: Acute Current Visit: Yes (5) Pleural effusion, right SNOMED Code(s): 87988886 Code(s): J90 - PLEURAL EFFUSION, NOT ELSEWHERE CLASSIFIED Status: Acute Current Visit: Yes (6) Pneumonia involving right lung SNOMED Code(s): 715916412 Code(s): J18.9 - PNEUMONIA, UNSPECIFIED ORGANISM Status: Acute Current Visit: Yes (7) Smoker SNOMED Code(s): 11917934 Code(s): F17.200 - NICOTINE DEPENDENCE, UNSPECIFIED, UNCOMPLICATED Status: Acute Current Visit: Yes (8) Wound of right lower extremity SNOMED Code(s): 995000999, 517725983 Code(s): S81.801A - UNSPECIFIED OPEN WOUND, RIGHT LOWER LEG, INITIAL ENCOUNTER Status: Acute Current Visit: Yes (9) Anemia SNOMED Code(s): 271427796 Code(s): D64.9 - ANEMIA, UNSPECIFIED Status: Acute Current Visit: No Qualifiers: Anemia type: unspecified type Qualified Code(s): D64.9 - Anemia, unspecified (10) Bilateral lower extremity edema SNOMED Code(s): 300956252, 87347551, 174108270 Code(s): R60.0 - LOCALIZED EDEMA Status: Acute Current Visit: No (11) Cirrhosis of liver SNOMED Code(s): 41953172 Code(s): K74.60 - UNSPECIFIED CIRRHOSIS OF LIVER Status: Acute Current Visit: No Qualifiers: Hepatic cirrhosis type: unspecified hepatic cirrhosis Ascites presence: with ascites Qualified Code(s): K74.60 - Unspecified cirrhosis of liver; R18.8 - Other ascites (12) Diabetes SNOMED Code(s): 12713284 Code(s): E11.9 - TYPE 2 DIABETES MELLITUS WITHOUT COMPLICATIONS Status: Acute Current Visit: No (13) Hypomagnesemia SNOMED Code(s): 323269335 Code(s): E83.42 - HYPOMAGNESEMIA Status: Acute Current Visit: No (14) TAN (iron deficiency anemia) SNOMED Code(s): 74613662 Code(s): D50.9 - IRON DEFICIENCY ANEMIA, UNSPECIFIED Status: Acute Current Visit: No Qualifiers: Iron deficiency anemia type: unspecified iron deficiency Qualified Code(s) : D50.9 - Iron deficiency anemia, unspecified - Problem List Review Problem List Initiated/Reviewed/Updated: Yes - Plan Plan:: Complicated pneumonia involving right lung Pleural effusion, right Fever/ Leukocytosis COPD w/o exacerbation Flu like symptoms 1-2 weeks ago On admission fever with leukocytosis and right pleural effusion + sob Tmax 99.3 Blood cultures negative x 1 day PLAN - Levaquin day 2 - Monitor hypoxemia - RT assess and treat - PRN DuoNebs - Respiratory panel, flu swab, mycoplasma and strep. pneumo serology ordered and pending Diabetes mellitus, HbA1c normal in the setting of anemia Not on insulin at home PLAN - Hold home PO medications - Accuchecks TID AC and HS - Hypoglycemia protocol Chronic kidney disease, stage III GFR today 47 PLAN - Monitor urine output - Renally dosed medications - Avoid nephrotoxic agents as much as possible Alcoholic liver cirrhosis Thrombocytopenia Anemia BL LE edema No ascites on physical exam No alcoholic drink in over 1 month No signs of active bleeding or signs of end stage liver cirrhosis Hb 7.9, plt 77 PLAN - Monitor volume status - Venofer once pleural effusion improved Chronic wound of right lower extremity >1 year ago Had a ruptured cyst Wound care done by patient PLAN - Continue wound care PROPHYLAXIS DVT- contraindicated due to thrombocytopenia, compression stockings GI- not indicated CODE STATUS: FULL CODE DISPOSITION: Patient will remain admitted for IV antibiotics and possible thoracentesis as well as monitorization of oxygenation.
[2019-08-22] MEDS: Aspirin 81 MG Tab.EC PO SCH (13:35)
[2019-08-22] MEDS: Furosemide 40 MG Tab PO SCH (13:35)
[2019-08-22] MEDS ORDERED: Calcium Carbonate 500 MG Tab.Chew PO PRN (19:06)
[2019-08-22] MEDS: Enoxaparin 40 MG/0.4 ML Syringe SUBCUT SCH (21:16)
[2019-08-22] MEDS: Gabapentin 300 MG Cap PO SCH (22:00)
[2019-08-22] MEDS ORDERED: Levofloxacin/Dextrose 5%-Water 750 MG in Premix Bag 1 BAG IV SCH (22:00)
[2019-08-23] MEDS: Albuterol/Ipratropium 3.0-0.5 MG/3 ML Neb Soln NEB PRN (01:03)
[2019-08-23] MEDS: Furosemide 40 MG Tab PO SCH ×2 (06:27→14:15)
[2019-08-23] MEDS: Aspirin 81 MG Tab.EC PO SCH (08:52)
[2019-08-23] MEDS: Enoxaparin 40 MG/0.4 ML Syringe SUBCUT SCH (08:52)
[2019-08-23] MEDS: Spironolactone 25 MG Tab PO SCH (08:52)
[2019-08-23] MEDS: Oseltamivir 75 MG Cap PO SCH (08:52)
[2019-08-23] MEDS: Ascorbic Acid 500 MG Tab PO SCH (08:52)
[2019-08-23] MEDS: Gabapentin 300 MG Cap PO SCH ×3 (08:52→20:11)
[2019-08-23 11:11] LABS: HEMOGLOBIN A1C 4.6 % (4.50-6.20)
--- NOTE | 2019-08-23 13:23 | CR ---
Chest: Two views of the chest were obtained. Comparison: Prior chest x-ray of 11/30/18. Moderately large right-sided pleural effusion is seen. This has increased in size from previous exam. Heart is felt to be slightly enlarged. Pulmonary vessels felt to be slightly congested. Bony structures are unremarkable. Impression: 1. Moderately large right-sided pleural effusion, mild cardiomegaly and mild pulmonary vascular congestion. Diagnostic code #3 This report was dictated in [place] Standard Time
[2019-08-23] MEDS ORDERED: Magnesium Sulfate/Water 4 GM in Premix Bag 1 BAG IV ONE (17:00)
[2019-08-23] MEDS ORDERED: Lidocaine 1% 10 ML MDV ONE (17:36)
--- NOTE | 2019-08-23 18:44 | PCM.PN ---
- General Info Date of Service: 08/23/19 Subjective Update: Feeling ok Slept OK Tolerating diet BM today Ambulating to and from restroom without assistance - Patient Data Vitals - Most Recent: Last Vital Signs Temp 98.2 F 08/23/19 16:54 Pulse 78 08/23/19 16:54 Resp 20 08/23/19 16:54 BP 118/55 L 08/23/19 16:54 Pulse Ox 99 08/23/19 16:54 Weight - Most Recent: 116.528 kg - Exam Physical Findings Comments:: General: Alert, Oriented, Cooperative. No: Mild Distress HEENT: Conjunctiva Clear, EACs Clear, EOMI, Hearing Intact, Mucosa Moist & [place] , Nares Patent Neck: Supple, Trachea Midline, +2 Carotid Pulse wo Bruit, Full Range of Motion. No: Lymphadenopathy Lungs: Decreased Breath Sounds (R>L), Crackles. No: Rales, Rhonchi, Rub, Wheezing Cardiovascular: Regular Rate, Regular Rhythm. No: Systolic Murmur, Diastolic Murmur, Rubs, Gallop/S3, Gallop/S4 GI/Abdominal Exam: Normal Bowel Sounds, Soft, Non-Tender, Distended. No: Guarding, Rigid, Rebound, Tender Back Exam: Normal Inspection, Full Range of Motion, Paraspinal Tenderness. No: CVA Tenderness (L), CVA Tenderness (R), Vertebral Tenderness Extremities: Pedal Edema, Slow Capillary Refill Skin: Other (open oblongue shaped wound 3x1.5in above achiles tendon on right leg, no drainage or foul smell) Neuro Extensive - Mental Status: Alert, Oriented x3 Psychiatric: Alert (flat affect) Sepsis Event Note - Evaluation Sepsis Screening Result: No Definite Risk - Focused Exam Vital Signs: Vital Signs Temp Pulse Resp BP Pulse Ox Pulse Ox 08/23/19 16:54 98.2 F 78 20 118/55 L 99 08/23/19 15:12 98.4 F 81 20 132/60 96 08/23/19 12:17 98.1 F 73 16 127/78 100 08/23/19 08:29 99 08/23/19 08:28 72 99 08/23/19 07:41 98.1 F 75 24 H 128/62 98 Date Exam was Performed: 08/24/19 Time Exam was Performed: 14:57 - Problem List & Annotations (1) Pneumonia involving right lung SNOMED Code(s): 836103155 Code(s): J18.9 - PNEUMONIA, UNSPECIFIED ORGANISM Status: Acute Current Visit: Yes (2) Chronic kidney disease (CKD), stage III (moderate) SNOMED Code(s): 455482721 Code(s): N18.3 - CHRONIC KIDNEY DISEASE, STAGE 3 (MODERATE) Status: Acute Current Visit: Yes (3) Alcoholic cirrhosis SNOMED Code(s): 064537951 Code(s): K70.30 - ALCOHOLIC CIRRHOSIS OF LIVER WITHOUT ASCITES Status: Acute Current Visit: Yes (4) Bilateral lower extremity edema SNOMED Code(s): 422482779, 46392871, 077697336 Code(s): R60.0 - LOCALIZED EDEMA Status: Acute Current Visit: No (5) Cirrhosis of liver SNOMED Code(s): 84158262 Code(s): K74.60 - UNSPECIFIED CIRRHOSIS OF LIVER Status: Acute Current Visit: No Qualifiers: Hepatic cirrhosis type: unspecified hepatic cirrhosis Ascites presence: with ascites Qualified Code(s): K74.60 - Unspecified cirrhosis of liver; R18.8 - Other ascites (6) COPD (chronic obstructive pulmonary disease) SNOMED Code(s): 54525167 Code(s): J44.9 - CHRONIC OBSTRUCTIVE PULMONARY DISEASE, UNSPECIFIED Status : Acute Current Visit: Yes (7) Diabetes SNOMED Code(s): 12303290 Code(s): E11.9 - TYPE 2 DIABETES MELLITUS WITHOUT COMPLICATIONS Status: Acute Current Visit: No (8) Fever SNOMED Code(s): 429899668 Code(s): R50.9 - FEVER, UNSPECIFIED Status: Acute Current Visit: Yes (9) Hypomagnesemia SNOMED Code(s): 722016106 Code(s): E83.42 - HYPOMAGNESEMIA Status: Acute Current Visit: No (10) TAN (iron deficiency anemia) SNOMED Code(s): 67957225 Code(s): D50.9 - IRON DEFICIENCY ANEMIA, UNSPECIFIED Status: Acute Current Visit: No Qualifiers: Iron deficiency anemia type: unspecified iron deficiency Qualified Code(s) : D50.9 - Iron deficiency anemia, unspecified (11) Leukocytosis SNOMED Code(s): 967152037, 081143158 Code(s): D72.829 - ELEVATED WHITE BLOOD CELL COUNT, UNSPECIFIED Status: Acute Current Visit: Yes (12) Pleural effusion, right SNOMED Code(s): 82789603 Code(s): J90 - PLEURAL EFFUSION, NOT ELSEWHERE CLASSIFIED Status: Acute Current Visit: Yes (13) Smoker SNOMED Code(s): 49242832 Code(s): F17.200 - NICOTINE DEPENDENCE, UNSPECIFIED, UNCOMPLICATED Status: Acute Current Visit: Yes (14) Wound of right lower extremity SNOMED Code(s): 542419078, 163026811 Code(s): S81.801A - UNSPECIFIED OPEN WOUND, RIGHT LOWER LEG, INITIAL ENCOUNTER Status: Acute Current Visit: Yes (15) Mycoplasma pneumonia SNOMED Code(s): 54820228 Code(s): J15.7 - PNEUMONIA DUE TO MYCOPLASMA PNEUMONIAE Status: Acute Current Visit: Yes (16) Coronavirus infection, unspecified SNOMED Code(s): 476663436 Code(s): B34.2 - CORONAVIRUS INFECTION, UNSPECIFIED Status: Acute Current Visit: Yes - Problem List Review Problem List Initiated/Reviewed/Updated: Yes - Plan Plan:: Complicated pneumonia involving right lung 2/2 mycoplasma and coronavirus Pleural effusion, right Fever/ Leukocytosis COPD w/o exacerbation Flu like symptoms 1-2 weeks ago--> On admission fever + leukocytosis + right pleural effusion + sob Tmax 98.8 Blood cultures negative x 2 day PLAN - Levaquin day 3 - Thoracentesis today - Monitor hypoxemia - RT assess and treat - PRN DuoNealexis Diabetes mellitus, HbA1c normal in the setting of anemia Not on insulin at home PLAN - Accuchecks TID AC and HS - Hypoglycemia protocol Chronic kidney disease, stage III GFR today52 PLAN - Monitor urine output - Renally dosed medications - Avoid nephrotoxic agents as much as possible Alcoholic liver cirrhosis Thrombocytopenia and anemia, improved BL LE edema No ascites on physical exam No alcoholic drink in over 1 month No signs of active bleeding or signs of end stage liver cirrhosis Hb 8.2, plt 85 PLAN - Monitor volume status - Venofer once pleural effusion improved Chronic wound of right lower extremity >1 year ago Had a ruptured cyst Wound care done by patient PLAN - Continue wound care PROPHYLAXIS DVT- contraindicated due to thrombocytopenia, compression stockings GI- not indicated CODE STATUS: FULL CODE DISPOSITION: Patient will remain admitted for IV antibiotics and possible thoracentesis as well as monitorization of oxygenation. Thoracentesis today.
--- NOTE | 2019-08-23 18:48 | PCM.PRNOTE ---
- Free Text/Narrative Note: Thoracentesis Date: 08/23/2019 Time: 17:38 Indication: Large right pleural effusion Attending: Aminah Serna MD A time-out was completed verifying correct patient, procedure, site, positioning , and special equipment if applicable. The patients right side was prepped and draped in a sterile manner after the appropriate infiltration level was confirmed by ultrasound. 1% lidocaine was used anesthetize the surrounding skin. A finder needle was then used to locate fluid and clear orange fluid was obtained. The thoracentesis catheter was then threaded without difficulty. The patient had 3,060mL of clear orange fluid removed. < A post-procedure chest x-ray was ordered and the fluid will be sent for several studies. Estimated Blood Loss: 5mL The patient tolerated the procedure well and there were no complications.
--- NOTE | 2019-08-23 19:53 | CR ---
Chest: 2 views of the chest were obtained. Comparison: Previous chest x-ray of 08/23/19. Decreased pleural effusion is seen from prior study. Minimal blunting of the lateral right costophrenic angle remains. Mild atelectasis is seen within the right midlung. Heart is enlarged. Pulmonary vessels are congested. No pneumothorax is seen. Several rib fractures are noted within the right upper chest believed to be old. Compression deformity is noted within the mid to lower thoracic spine also stable. Impression: 1. Decreased pleural effusion from prior study. Minimal blunting of the right lateral costophrenic angle remains. 2. Cardiomegaly and continued pulmonary vascular congestion. 3. Right midlung atelectasis. 4. Bony findings as noted above believed to be old. Diagnostic code #3 This report was dictated in [place] Standard Time
[2019-08-23] MEDS: Levofloxacin 750 MG Tab PO SCH (20:11)
[2019-08-23] MEDS ORDERED: Gabapentin 300 MG Cap PO SCH (21:30)
[2019-08-24] MEDS: Furosemide 40 MG Tab PO SCH ×2 (07:08→14:33)
--- NOTE | 2019-08-24 07:15 | PCM.PN ---
- General Info Date of Service: 08/24/19 Subjective Update: Feeling OK Slept OK Tolerating diet Ambulating without assistance BM today No complaints - Patient Data Vitals - Most Recent: Last Vital Signs Temp 98.1 F 08/24/19 05:24 Pulse 77 08/24/19 05:24 Resp 13 08/24/19 05:24 BP 108/65 08/24/19 05:24 Pulse Ox 99 08/24/19 05:24 Weight - Most Recent: 114.396 kg - Exam General: Alert, Oriented, Cooperative, No Acute Distress HEENT: Pupils Equal, Pupils Reactive, EOMI, Mucous Membr. Moist/[place]ck: Supple, No Thyromegaly. No: Lymphadenopathy Lungs: Decreased Breath Sounds. No: Crackles, Rales, Rhonchi, Wheezing Cardiovascular: Regular Rate, Regular Rhythm. No: Murmurs, Gallops, Rubs GI/Abdominal Exam: Normal Bowel Sounds. No: Distended, Guarding, Rigid, Rebound , Tender Back Exam: Normal Inspection, Full Range of Motion. No: CVA Tenderness (L), CVA Tenderness (R) Extremities: Normal Range of Motion, Non-Tender, Pedal Edema, Slow Capillary Refill, Other (oblongue wound without any sifns of infection) Wound/Incisions: No Drainage (or foul smell) Neurological: No New Focal Deficit Psy/Mental Status: Alert, Other (flat affect) Sepsis Event Note - Evaluation Sepsis Screening Result: No Definite Risk - Focused Exam Vital Signs: Vital Signs Temp Pulse Resp BP BP Pulse Ox 08/24/19 05:24 98.1 F 77 13 108/65 99 08/23/19 23:15 98.1 F 77 12 106/64 97 08/23/19 20:07 98.4 F 78 14 119/56 L 99 Date Exam was Performed: 08/24/19 Time Exam was Performed: 15:03 - Problem List & Annotations (1) Alcoholic cirrhosis SNOMED Code(s): 094964721 Code(s): K70.30 - ALCOHOLIC CIRRHOSIS OF LIVER WITHOUT ASCITES Status: Acute Current Visit: Yes (2) COPD (chronic obstructive pulmonary disease) SNOMED Code(s): 41340480 Code(s): J44.9 - CHRONIC OBSTRUCTIVE PULMONARY DISEASE, UNSPECIFIED Status : Acute Current Visit: Yes (3) Chronic kidney disease (CKD), stage III (moderate) SNOMED Code(s): 551623828 Code(s): N18.3 - CHRONIC KIDNEY DISEASE, STAGE 3 (MODERATE) Status: Acute Current Visit: Yes (4) Coronavirus infection, unspecified SNOMED Code(s): 996037313 Code(s): B34.2 - CORONAVIRUS INFECTION, UNSPECIFIED Status: Acute Current Visit: Yes (5) Fever SNOMED Code(s): 823561474 Code(s): R50.9 - FEVER, UNSPECIFIED Status: Acute Current Visit: Yes (6) Leukocytosis SNOMED Code(s): 802047577, 824269267 Code(s): D72.829 - ELEVATED WHITE BLOOD CELL COUNT, UNSPECIFIED Status: Acute Current Visit: Yes (7) Mycoplasma pneumonia SNOMED Code(s): 89896414 Code(s): J15.7 - PNEUMONIA DUE TO MYCOPLASMA PNEUMONIAE Status: Acute Current Visit: Yes (8) Pleural effusion, right SNOMED Code(s): 93417198 Code(s): J90 - PLEURAL EFFUSION, NOT ELSEWHERE CLASSIFIED Status: Acute Current Visit: Yes (9) Pneumonia involving right lung SNOMED Code(s): 951880430 Code(s): J18.9 - PNEUMONIA, UNSPECIFIED ORGANISM Status: Acute Current Visit: Yes (10) Smoker SNOMED Code(s): 71765241 Code(s): F17.200 - NICOTINE DEPENDENCE, UNSPECIFIED, UNCOMPLICATED Status: Acute Current Visit: Yes (11) Wound of right lower extremity SNOMED Code(s): 061705963, 159647809 Code(s): S81.801A - UNSPECIFIED OPEN WOUND, RIGHT LOWER LEG, INITIAL ENCOUNTER Status: Acute Current Visit: Yes (12) Anemia SNOMED Code(s): 264827596 Code(s): D64.9 - ANEMIA, UNSPECIFIED Status: Acute Current Visit: No Qualifiers: Anemia type: unspecified type Qualified Code(s): D64.9 - Anemia, unspecified (13) Bilateral lower extremity edema SNOMED Code(s): 451387401, 06021596, 510060597 Code(s): R60.0 - LOCALIZED EDEMA Status: Acute Current Visit: No (14) Cirrhosis of liver SNOMED Code(s): 27863279 Code(s): K74.60 - UNSPECIFIED CIRRHOSIS OF LIVER Status: Acute Current Visit: No Qualifiers: Hepatic cirrhosis type: unspecified hepatic cirrhosis Ascites presence: with ascites Qualified Code(s): K74.60 - Unspecified cirrhosis of liver; R18.8 - Other ascites (15) Diabetes SNOMED Code(s): 03098669 Code(s): E11.9 - TYPE 2 DIABETES MELLITUS WITHOUT COMPLICATIONS Status: Acute Current Visit: No (16) Hypoalbuminemia due to protein-calorie malnutrition SNOMED Code(s): 00453099718303 Code(s): E46 - UNSPECIFIED PROTEIN-CALORIE MALNUTRITION Status: Acute Current Visit: No (17) Hypomagnesemia SNOMED Code(s): 045679395 Code(s): E83.42 - HYPOMAGNESEMIA Status: Acute Current Visit: No (18) TAN (iron deficiency anemia) SNOMED Code(s): 17400461 Code(s): D50.9 - IRON DEFICIENCY ANEMIA, UNSPECIFIED Status: Acute Current Visit: No Qualifiers: Iron deficiency anemia type: unspecified iron deficiency Qualified Code(s) : D50.9 - Iron deficiency anemia, unspecified - Problem List Review Problem List Initiated/Reviewed/Updated: Yes - Plan Plan:: Complicated pneumonia involving right lung 2/ mycoplasma and coronavirus Pleural effusion, right s/p thoracentesis 08/23/19 Fever/ Leukocytosis COPD w/o exacerbation Flu like symptoms 1-2 weeks ago--> On admission fever + leukocytosis + right pleural effusion + sob Tmax 98.4 Blood cultures negative x 3 day + mycoplasma and coronavirus Thoracentesis with transudate 3L PLAN - Levaquin day 4 - Monitor hypoxemia - RT assess and treat - PRN DuoNealexis Diabetes mellitus, HbA1c normal in the setting of anemia Not on insulin at home PLAN - Accuchecks TID AC and HS - Hypoglycemia protocol Chronic kidney disease, stage III GFR today 52 PLAN - Monitor urine output - Renally dosed medications - Avoid nephrotoxic agents as much as possible Alcoholic liver cirrhosis Thrombocytopenia and anemia, improved BL LE edema No ascites on physical exam No alcoholic drink in over 1 month No signs of active bleeding or signs of end stage liver cirrhosis Hb 8.2, plt 85 PLAN - Monitor volume status - Venofer today Chronic wound of right lower extremity >1 year ago Had a ruptured cyst Wound care done by patient PLAN - Continue wound care PROPHYLAXIS DVT- contraindicated due to thrombocytopenia, compression stockings GI- not indicated CODE STATUS: FULL CODE DISPOSITION: Patient will remain admitted for IV antibiotics and possible thoracentesis as well as monitorization of oxygenation. Thoracentesis yesterday with drainage of 3L. Discahrge very likely in the next 24-48hrs.
[2019-08-24] MEDS: Gabapentin 300 MG Cap PO SCH ×3 (08:16→20:30)
[2019-08-24] MEDS: Aspirin 81 MG Tab.EC PO SCH (08:16)
[2019-08-24] MEDS: Spironolactone 25 MG Tab PO SCH (08:17)
[2019-08-24] MEDS: Ascorbic Acid 500 MG Tab PO SCH (08:17)
[2019-08-24] MEDS: Levofloxacin 750 MG Tab PO SCH (20:30)
[2019-08-24] MEDS: Acetaminophen 325 MG Tab PO PRN (20:37)
[2019-08-25] MEDS: Furosemide 40 MG Tab PO SCH ×2 (05:39→15:39)
[2019-08-25] MEDS: Gabapentin 300 MG Cap PO SCH ×3 (08:19→20:00)
[2019-08-25] MEDS: Aspirin 81 MG Tab.EC PO SCH (08:19)
[2019-08-25] MEDS: Spironolactone 25 MG Tab PO SCH (08:19)
[2019-08-25] MEDS: Ascorbic Acid 500 MG Tab PO SCH (08:19)
--- NOTE | 2019-08-25 08:53 | CR ---
Chest: 2 views of the chest were obtained. Comparison: Previous chest x-ray of 08/23/19. Increasing right-sided pleural effusion from previous exam. Pleural effusion causing some compressive type atelectasis. Mild atelectasis is noted within the left lung base. Heart is mildly enlarged. Pulmonary vessels may be slightly congested. Impression: 1. Increasing right-sided pleural effusion with bibasilar atelectasis. 2. Possible minimal CHF. Diagnostic code #3 This report was dictated in [place] Standard Time
[2019-08-25] MEDS ORDERED: Furosemide 40 MG/4 ML VIAL IVPUSH ONE (09:25)
--- NOTE | 2019-08-25 12:00 | PCM.PN ---
- General Info Date of Service: 08/25/19 Subjective Update: Slept OK Tolerating diet Ambulating to and from restroom BM today Denies any chest pain, palpitations or shortness of breath - Patient Data Vitals - Most Recent: Last Vital Signs Temp 98.1 F 08/25/19 05:37 Pulse 80 08/25/19 08:21 Resp 16 08/25/19 08:21 BP 104/49 L 08/25/19 08:21 Pulse Ox 98 08/25/19 08:21 Weight - Most Recent: 114.94 kg - Exam Quality Assessment: Skin Breakdown. No: Supplemental Oxygen General: Alert, Oriented, Cooperative, No Acute Distress HEENT: Pupils Equal, Pupils Reactive, EOMI, Mucous Membr. Moist/[place] Neck: Supple, No Thyromegaly. No: Lymphadenopathy Lungs: Decreased Breath Sounds. No: Crackles, Rales, Rhonchi, Wheezing Cardiovascular: Regular Rate, Regular Rhythm. No: Murmurs, Gallops, Rubs GI/Abdominal Exam: Normal Bowel Sounds, Soft, Distended. No: Guarding, Rigid, Rebound, Tender Back Exam: Normal Inspection Extremities: Pedal Edema, Slow Capillary Refill Wound/Incisions: Other (no change in oblongue partially healed ulcer) Psy/Mental Status: Alert, Other (flat affect) Sepsis Event Note - Evaluation Sepsis Screening Result: No Definite Risk - Focused Exam Vital Signs: Vital Signs Temp Pulse Resp BP Pulse Ox 08/25/19 08:21 80 16 104/49 L 98 08/25/19 05:37 98.1 F 72 12 108/67 97 Date Exam was Performed: 08/25/19 Time Exam was Performed: 13:45 - Problem List & Annotations (1) Alcoholic cirrhosis SNOMED Code(s): 216943086 Code(s): K70.30 - ALCOHOLIC CIRRHOSIS OF LIVER WITHOUT ASCITES Status: Acute Current Visit: Yes (2) COPD (chronic obstructive pulmonary disease) SNOMED Code(s): 09733717 Code(s): J44.9 - CHRONIC OBSTRUCTIVE PULMONARY DISEASE, UNSPECIFIED Status : Acute Current Visit: Yes (3) Chronic kidney disease (CKD), stage III (moderate) SNOMED Code(s): 198335419 Code(s): N18.3 - CHRONIC KIDNEY DISEASE, STAGE 3 (MODERATE) Status: Acute Current Visit: Yes (4) Coronavirus infection, unspecified SNOMED Code(s): 917758581 Code(s): B34.2 - CORONAVIRUS INFECTION, UNSPECIFIED Status: Acute Current Visit: Yes (5) Fever SNOMED Code(s): 844330034 Code(s): R50.9 - FEVER, UNSPECIFIED Status: Acute Current Visit: Yes (6) Leukocytosis SNOMED Code(s): 341885045, 129821313 Code(s): D72.829 - ELEVATED WHITE BLOOD CELL COUNT, UNSPECIFIED Status: Acute Current Visit: Yes (7) Mycoplasma pneumonia SNOMED Code(s): 61338927 Code(s): J15.7 - PNEUMONIA DUE TO MYCOPLASMA PNEUMONIAE Status: Acute Current Visit: Yes (8) Pleural effusion, right SNOMED Code(s): 02483807 Code(s): J90 - PLEURAL EFFUSION, NOT ELSEWHERE CLASSIFIED Status: Acute Current Visit: Yes (9) Pneumonia involving right lung SNOMED Code(s): 629712426 Code(s): J18.9 - PNEUMONIA, UNSPECIFIED ORGANISM Status: Acute Current Visit: Yes (10) Smoker SNOMED Code(s): 52613119 Code(s): F17.200 - NICOTINE DEPENDENCE, UNSPECIFIED, UNCOMPLICATED Status: Acute Current Visit: Yes (11) Wound of right lower extremity SNOMED Code(s): 709930151, 834588969 Code(s): S81.801A - UNSPECIFIED OPEN WOUND, RIGHT LOWER LEG, INITIAL ENCOUNTER Status: Acute Current Visit: Yes (12) Anemia SNOMED Code(s): 232183438 Code(s): D64.9 - ANEMIA, UNSPECIFIED Status: Acute Current Visit: No Qualifiers: Anemia type: unspecified type Qualified Code(s): D64.9 - Anemia, unspecified (13) Bilateral lower extremity edema SNOMED Code(s): 982575485, 72252409, 730098982 Code(s): R60.0 - LOCALIZED EDEMA Status: Acute Current Visit: No (14) Cirrhosis of liver SNOMED Code(s): 64728371 Code(s): K74.60 - UNSPECIFIED CIRRHOSIS OF LIVER Status: Acute Current Visit: No Qualifiers: Hepatic cirrhosis type: unspecified hepatic cirrhosis Ascites presence: with ascites Qualified Code(s): K74.60 - Unspecified cirrhosis of liver; R18.8 - Other ascites (15) Diabetes SNOMED Code(s): 04366873 Code(s): E11.9 - TYPE 2 DIABETES MELLITUS WITHOUT COMPLICATIONS Status: Acute Current Visit: No (16) Hypoalbuminemia due to protein-calorie malnutrition SNOMED Code(s): 31994675226362 Code(s): E46 - UNSPECIFIED PROTEIN-CALORIE MALNUTRITION Status: Acute Current Visit: No (17) Hypomagnesemia SNOMED Code(s): 553723914 Code(s): E83.42 - HYPOMAGNESEMIA Status: Acute Current Visit: No (18) TAN (iron deficiency anemia) SNOMED Code(s): 19169463 Code(s): D50.9 - IRON DEFICIENCY ANEMIA, UNSPECIFIED Status: Acute Current Visit: No Qualifiers: Iron deficiency anemia type: unspecified iron deficiency Qualified Code(s) : D50.9 - Iron deficiency anemia, unspecified - Problem List Review Problem List Initiated/Reviewed/Updated: Yes - Plan Plan:: Complicated pneumonia involving right lung 2/2 mycoplasma and coronavirus Pleural effusion, right s/p thoracentesis 08/23/19 with reaccumulation of fluid Fever/ Leukocytosis COPD w/o exacerbation Flu like symptoms 1-2 weeks ago--> On admission fever + leukocytosis + right pleural effusion + sob Tmax 98.4 Blood cultures negative x 4 days + mycoplasma and coronavirus Thoracentesis with transudate 3L 08/23--> repeat CXR today with reaccumulation of fluid PLAN - Last day Levaquin, 5 days - Monitor hypoxemia - RT assess and treat - PRN DuoNebs - Lasix IV x 1 dose with repeat CXR at PM Diabetes mellitus, HbA1c normal in the setting of anemia Not on insulin at home PLAN - Accuchecks TID AC and HS - Hypoglycemia protocol Chronic kidney disease, stage III GFR today 52 PLAN - Monitor urine output - Renally dosed medications - Avoid nephrotoxic agents as much as possible Alcoholic liver cirrhosis Thrombocytopenia and anemia, improved BL LE edema No ascites on physical exam No alcoholic drink in over 1 month No signs of active bleeding or signs of end stage liver cirrhosis Hb 8.2, plt 85 PLAN - Monitor volume status - Venofer today Chronic wound of right lower extremity >1 year ago Had a ruptured cyst Wound care done by patient PLAN - Continue wound care PROPHYLAXIS DVT- contraindicated due to thrombocytopenia, compression stockings GI- not indicated CODE STATUS: FULL CODE DISPOSITION: Patient will remain admitted for IV antibiotics and possible thoracentesis as well as monitorization of oxygenation. Thoracentesis 08/23 with drainage of 3L, repeat CXR has reaccumulation of fluid, will give Lasix today and repeat CXR to evaluate if effusion is smaller after Lasix.
--- NOTE | 2019-08-25 19:43 | CR ---
Chest: 2 views of the chest were obtained. Comparison: Previous chest x-ray performed earlier the same day. Findings: Continued right sided pleural effusion is seen. Atelectasis is seen within the right mid and lower lung. Left lung is clear. Heart size remains slightly enlarged. Questionable mild pulmonary vascular congestion. Bony structures are grossly intact. Impression: 1. Findings as noted above. No change from previous study is seen. Diagnostic code #3 Study was dictated in [place] Standard Time
[2019-08-25] MEDS: Levofloxacin 750 MG Tab PO SCH (20:00)
[2019-08-25] MEDS: Acetaminophen 325 MG Tab PO PRN (20:05)
[2019-08-26] MEDS: Furosemide 40 MG Tab PO SCH ×2 (05:35→16:11)
[2019-08-26] MEDS: Gabapentin 300 MG Cap PO SCH ×3 (08:57→21:32)
[2019-08-26] MEDS: Spironolactone 25 MG Tab PO SCH (08:57)
[2019-08-26] MEDS: Aspirin 81 MG Tab.EC PO SCH (08:57)
[2019-08-26] MEDS: Ascorbic Acid 500 MG Tab PO SCH (08:57)
[2019-08-26] MEDS ORDERED: Spironolactone 25 MG Tab PO ONE (09:56)
[2019-08-26] MEDS ORDERED: Spironolactone 100 MG Tab PO ONE (09:57)
[2019-08-26] MEDS: Folic Acid 1 MG Tab PO SCH (11:56)
[2019-08-26] MEDS: Thiamine 100 MG Tab PO SCH (11:56)
--- NOTE | 2019-08-26 13:24 | PCM.PN ---
- General Info Date of Service: 08/26/19 Subjective Update: Feeling ok Tolerating diet BM today - Patient Data Vitals - Most Recent: Last Vital Signs Temp 97.7 F 08/26/19 08:12 Pulse 78 08/26/19 08:12 Resp 20 08/26/19 08:12 BP 111/58 L 08/26/19 11:56 Pulse Ox 96 08/26/19 08:12 Weight - Most Recent: 116.074 kg - Exam General: Alert, Oriented, Cooperative, No Acute Distress HEENT: Pupils Equal, Pupils Reactive, EOMI, Mucous Membr. Moist/[place] Neck: Supple. No: Lymphadenopathy Lungs: Decreased Breath Sounds. No: Crackles, Rales, Rhonchi Cardiovascular: Regular Rate, Regular Rhythm. No: Rubs GI/Abdominal Exam: Normal Bowel Sounds, Soft, Non-Tender, Distended Extremities: Pedal Edema, Slow Capillary Refill Skin: Warm Psy/Mental Status: Alert (flat affect) Sepsis Event Note - Evaluation Sepsis Screening Result: No Definite Risk - Focused Exam Vital Signs: Vital Signs Temp Pulse Resp BP Pulse Ox 08/26/19 11:56 111/58 L 08/26/19 08:12 97.7 F 78 20 120/90 96 08/26/19 05:33 98.1 F 88 18 120/52 L 96 Date Exam was Performed: 08/26/19 Time Exam was Performed: 13:18 - Problem List & Annotations (1) Alcoholic cirrhosis SNOMED Code(s): 583360616 Code(s): K70.30 - ALCOHOLIC CIRRHOSIS OF LIVER WITHOUT ASCITES Status: Acute Current Visit: Yes (2) COPD (chronic obstructive pulmonary disease) SNOMED Code(s): 67498851 Code(s): J44.9 - CHRONIC OBSTRUCTIVE PULMONARY DISEASE, UNSPECIFIED Status : Acute Current Visit: Yes (3) Chronic kidney disease (CKD), stage III (moderate) SNOMED Code(s): 382943982 Code(s): N18.3 - CHRONIC KIDNEY DISEASE, STAGE 3 (MODERATE) Status: Acute Current Visit: Yes (4) Coronavirus infection, unspecified SNOMED Code(s): 258657868 Code(s): B34.2 - CORONAVIRUS INFECTION, UNSPECIFIED Status: Acute Current Visit: Yes (5) Fever SNOMED Code(s): 982636474 Code(s): R50.9 - FEVER, UNSPECIFIED Status: Acute Current Visit: Yes (6) Leukocytosis SNOMED Code(s): 825287040, 293222690 Code(s): D72.829 - ELEVATED WHITE BLOOD CELL COUNT, UNSPECIFIED Status: Acute Current Visit: Yes (7) Mycoplasma pneumonia SNOMED Code(s): 64929497 Code(s): J15.7 - PNEUMONIA DUE TO MYCOPLASMA PNEUMONIAE Status: Acute Current Visit: Yes (8) Pleural effusion, right SNOMED Code(s): 39391326 Code(s): J90 - PLEURAL EFFUSION, NOT ELSEWHERE CLASSIFIED Status: Acute Current Visit: Yes (9) Pneumonia involving right lung SNOMED Code(s): 060068536 Code(s): J18.9 - PNEUMONIA, UNSPECIFIED ORGANISM Status: Acute Current Visit: Yes (10) Smoker SNOMED Code(s): 10856717 Code(s): F17.200 - NICOTINE DEPENDENCE, UNSPECIFIED, UNCOMPLICATED Status: Acute Current Visit: Yes (11) Wound of right lower extremity SNOMED Code(s): 849204815, 661751547 Code(s): S81.801A - UNSPECIFIED OPEN WOUND, RIGHT LOWER LEG, INITIAL ENCOUNTER Status: Acute Current Visit: Yes (12) Anemia SNOMED Code(s): 640160554 Code(s): D64.9 - ANEMIA, UNSPECIFIED Status: Acute Current Visit: No Qualifiers: Anemia type: unspecified type Qualified Code(s): D64.9 - Anemia, unspecified (13) Bilateral lower extremity edema SNOMED Code(s): 205431863, 71964878, 343907844 Code(s): R60.0 - LOCALIZED EDEMA Status: Acute Current Visit: No (14) Cirrhosis of liver SNOMED Code(s): 84178467 Code(s): K74.60 - UNSPECIFIED CIRRHOSIS OF LIVER Status: Acute Current Visit: No Qualifiers: Hepatic cirrhosis type: unspecified hepatic cirrhosis Ascites presence: with ascites Qualified Code(s): K74.60 - Unspecified cirrhosis of liver; R18.8 - Other ascites (15) Diabetes SNOMED Code(s): 38236331 Code(s): E11.9 - TYPE 2 DIABETES MELLITUS WITHOUT COMPLICATIONS Status: Acute Current Visit: No (16) Hypoalbuminemia due to protein-calorie malnutrition SNOMED Code(s): 97615375000596 Code(s): E46 - UNSPECIFIED PROTEIN-CALORIE MALNUTRITION Status: Acute Current Visit: No (17) Hypomagnesemia SNOMED Code(s): 969541720 Code(s): E83.42 - HYPOMAGNESEMIA Status: Acute Current Visit: No (18) TAN (iron deficiency anemia) SNOMED Code(s): 96338818 Code(s): D50.9 - IRON DEFICIENCY ANEMIA, UNSPECIFIED Status: Acute Current Visit: No Qualifiers: Iron deficiency anemia type: unspecified iron deficiency Qualified Code(s) : D50.9 - Iron deficiency anemia, unspecified - Problem List Review Problem List Initiated/Reviewed/Updated: Yes - Plan Plan:: Complicated pneumonia involving right lung 2/ mycoplasma and coronavirus, completed treatment Pleural effusion, right s/p thoracentesis 08/23/19 with reaccumulation of fluid Fever/ Leukocytosis COPD w/o exacerbation Flu like symptoms 1-2 weeks ago--> On admission fever + leukocytosis + right pleural effusion + sob Tmax 98.4 Blood cultures negative x 4 days + mycoplasma and coronavirus Thoracentesis with transudate 3L 08/23--> repeat CXR today with reaccumulation of fluid Completed 5 days of Levaquin PLAN - Monitor hypoxemia - RT assess and treat - PRN DuoNebs - Optimize Lasix spironolactone ratio 5:2 Diabetes mellitus, HbA1c normal in the setting of anemia Not on insulin at home PLAN - Accuchecks TID AC and HS - Hypoglycemia protocol Chronic kidney disease, stage III GFR today 52 PLAN - Monitor urine output - Renally dosed medications - Avoid nephrotoxic agents as much as possible Alcoholic liver cirrhosis Thrombocytopenia and anemia, improved BL LE edema No ascites on physical exam No alcoholic drink in over 1 month No signs of active bleeding or signs of end stage liver cirrhosis PLAN - Monitor volume status - Venofer today Chronic wound of right lower extremity >1 year ago Had a ruptured cyst Wound care done by patient PLAN - Continue wound care PROPHYLAXIS DVT- contraindicated due to thrombocytopenia, compression stockings GI- not indicated CODE STATUS: FULL CODE DISPOSITION: Patient will remain admitted for IV antibiotics and possible thoracentesis as well as monitorization of oxygenation. Thoracentesis 08/23 with drainage of 3L, repeat CXR has reaccumulation of fluid. Effusion with interval worsening, will optimize diuretic ratio today and repeat CXR in AM to evaluate how to proceed.
[2019-08-26] MEDS: Spironolactone 100 MG Tab PO SCH (21:32)
[2019-08-26] MEDS: Acetaminophen 325 MG Tab PO PRN (21:34)
[2019-08-27] MEDS: Furosemide 40 MG Tab PO SCH ×2 (06:28→14:52)
[2019-08-27] MEDS: Gabapentin 300 MG Cap PO SCH ×3 (08:51→20:58)
[2019-08-27] MEDS: Ascorbic Acid 500 MG Tab PO SCH (08:51)
[2019-08-27] MEDS: Folic Acid 1 MG Tab PO SCH (08:52)
[2019-08-27] MEDS: Aspirin 81 MG Tab.EC PO SCH (08:52)
[2019-08-27] MEDS ORDERED: Spironolactone 100 MG Tab PO SCH (09:00)
--- NOTE | 2019-08-27 09:47 | CR ---
Chest: Two views of the chest were obtained. Comparison: Prior chest x-ray of 08/25/19. Increasing right sided pleural effusion is noted. Probable right basilar atelectasis is seen. Left lung is clear. Heart size is felt to be slightly enlarged. Pulmonary vessels show mild upper lobe vascular redistribution. Bony structures appear within normal limits. Surgical clips are seen within the upper abdomen. Old healed upper rib fractures are noted. Impression: 1. Increasing right-sided pleural effusion. 2. Other findings as noted above. Diagnostic code #3 Study was dictated in [place] Standard Time
[2019-08-27] MEDS ORDERED: Lidocaine 1% 50 ML MDV INJECT SCH (14:00)
--- NOTE | 2019-08-27 14:30 | PCM.PN ---
- General Info Date of Service: 08/27/19 Admission Dx/Problem (Free Text): Admission Diagnosis/Problem Admission Diagnosis/Problem Pneumonia Subjective Update: Patient states that she is feeling better. She is less short of breath. - Review of Systems General: Reports: No Symptoms HEENT: Reports: No Symptoms Pulmonary: Reports: Shortness of Breath Cardiovascular: Reports: No Symptoms Gastrointestinal: Reports: No Symptoms - Patient Data Vitals - Most Recent: Last Vital Signs Temp 97.5 F 08/27/19 08:20 Pulse 77 08/27/19 08:20 Resp 20 08/27/19 08:20 BP 100/47 L 08/27/19 08:20 Pulse Ox 98 08/27/19 08:20 Weight - Most Recent: 254 lb I&O - Last 24 Hours: Intake & Output 08/26/19 08/27/19 08/27/19 22:59 06:59 14:59 Intake Total 1420 400 560 Balance 1420 400 560 Lab Results Last 24 Hours: Laboratory Results - last 24 hr 08/23/19 08/27/19 08/27/19 Range/Units 09:22 12:02 12:02 WBC 4.31 (3.98-10.04) K/mm3 RBC 3.18 L (3.98-5.22) M/mm3 Hgb 7.8 L (11.2-15.7) gm/dl Hct 26.5 L (34.1-44.9) % MCV 83.3 (79.4-94.8) fl MCH 24.5 L (25.6-32.2) pg MCHC 29.4 L (32.2-35.5) g/dl RDW Std Deviation 61.0 H (36.4-46.3) fL Plt Count 109 L (182-369) K/mm3 MPV 10.6 (9.4-12.3) fl Neut % (Auto) 71.8 H (34.0-71.1) % Lymph % (Auto) 14.2 L (19.3-51.7) % [place] % (Auto) 7.7 (4.7-12.5) % Eos % (Auto) 3.5 (0.7-5.8) Baso % (Auto) 0.9 (0.1-1.2) % Neut # (Auto) 3.10 (1.56-6.13) K/mm3 Lymph # (Auto) 0.61 L (1.18-3.74) K/mm3 [place] # (Auto) 0.33 (0.24-0.36) K/mm3 Eos # (Auto) 0.15 (0.04-0.36) K/mm3 Baso # (Auto) 0.04 (0.01-0.08) K/mm3 Manual Slide Review Abnormal smear Sodium 137 (136-145) mEq/L Potassium 3.8 (3.5-5.1) mEq/L Chloride 105 (98-107) mEq/L Carbon Dioxide 24 (21-32) mEq/L Anion Gap 11.8 (5-15) BUN 14 (7-18) mg/dL Creatinine 1.2 H (0.55-1.02) mg/dL Est Cr Clr Drug Dosing 55.95 mL/min Estimated GFR (MDRD) 47 (>60) mL/min BUN/Creatinine Ratio 11.7 L (14-18) Glucose 220 H (74-106) mg/dL Calcium 7.7 L (8.5-10.1) mg/dL Magnesium 1.7 L (1.8-2.4) mg/dl Total Bilirubin 0.9 (0.2-1.0) mg/dL AST 21 (15-37) U/L ALT 20 (14-59) U/L Alkaline Phosphatase 108 (46-116) U/L Total Protein 6.7 (6.4-8.2) g/dl Albumin 1.7 L (3.4-5.0) g/dl Globulin 5.0 gm/dL Albumin/Globulin Ratio 0.3 L (1-2) Procalcitonin 0.84 H (<0.10) ng/mL Tito Results Last 24 Hours: Microbiology 08/23/19 18:27 Gram Stain - Final Thoracentesis Fluid Body Fluid Culture - Preliminary NO GROWTH AFTER 4 DAYS 08/21/19 20:14 Aerobic Blood Culture - Preliminary Blood - Venous - Lab Draw NO GROWTH AFTER 5 DAYS Anaerobic Blood Culture - Preliminary NO GROWTH AFTER 5 DAYS 08/21/19 20:05 Aerobic Blood Culture - Preliminary Blood - Venous NO GROWTH AFTER 5 DAYS Anaerobic Blood Culture - Preliminary NO GROWTH AFTER 5 DAYS Med Orders - Current: Current Medications Acetaminophen (Tylenol) 650 mg PO Q6H PRN PRN Reason: Pain (mild 1-3) Last Admin: 08/26/19 21:34 Dose: 650 mg Albuterol/Ipratropium (Duoneb 3.0-0.5 Mg/3 Ml) 3 ml NEB Q6HR PRN PRN Reason: SOB/wheezing Last Admin: 08/23/19 01:03 Dose: 3 ml Ascorbic Acid (Vitamin C) 500 mg PO DAILY [facility] Last Admin: 08/27/19 08:51 Dose: 500 mg Aspirin (Halfprin) 81 mg PO DAILY [facility] Last Admin: 08/27/19 08:52 Dose: 81 mg Calcium Carbonate/Glycine (Tums) 1,000 mg PO Q2HR PRN PRN Reason: Indigestion Last Admin: 08/22/19 19:23 Dose: 1,000 mg Folic Acid (Folic Acid) 1 mg PO DAILY [facility] Last Admin: 08/27/19 08:52 Dose: 1 mg Furosemide (Lasix) 40 mg PO BIDDIURETIC [facility] Last Admin: 08/27/19 06:28 Dose: 40 mg Gabapentin (Neurontin) 300 mg PO TID [facility] Last Admin: 08/27/19 08:51 Dose: 300 mg Lidocaine HCl (Xylocaine 1%) 0 ml INJECT ASDIRECTED [place] Stop: 08/27/19 16:00 Last Admin: 08/27/19 14:02 Dose: 30 ml Sodium Chloride (Saline Flush) 10 ml FLUSH ASDIRECTED PRN PRN Reason: Keep Vein Open Spironolactone (Aldactone) 100 mg PO BID [facility] Last Admin: 08/26/19 21:32 Dose: 100 mg Thiamine HCl (Vitamin B-1) 100 mg PO DAILY [facility] Last Admin: 08/26/19 11:56 Dose: 100 mg Discontinued Medications Enoxaparin Sodium (Lovenox) 40 mg SUBCUT Q12H [facility] Last Admin: 08/23/19 08:52 Dose: 40 mg Furosemide (Lasix) 60 mg IVPUSH NOW ONE Stop: 08/25/19 09:26 Last Admin: 08/25/19 09:39 Dose: 60 mg Gabapentin (Neurontin) 300 mg PO TID [facility] Levofloxacin/Dextrose 750 mg/ (Premix) 150 mls @ 100 mls/hr IV DAILY [facility] Last Admin: 08/21/19 21:58 Dose: 100 mls/hr Lactated Ringer's (Ringers, Lactated) 1,000 mls @ 100 mls/hr IV ASDIRECTED [facility] Last Admin: 08/22/19 20:08 Dose: 100 mls/hr Levofloxacin/Dextrose 750 mg/ (Premix) 150 mls @ 100 mls/hr IV Q24H [facility] Last Admin: 08/22/19 21:10 Dose: 100 mls/hr Magnesium Sulfate 4 gm/ Premix 50 mls @ 12.5 mls/hr IV ONETIME ONE Stop: 08/23/19 20:59 Last Admin: 08/23/19 18:57 Dose: 12.5 mls/hr Influenza Virus Vaccine (Pharmacy To Dose - Influenza Vaccine) 1 each IM ASDIRECTED [facility] Influenza Virus Vaccine (Fluzone Quad Syringe) 60 mcg IM .ONCE ONE Stop: 08/21/19 23:01 Levofloxacin (Levaquin) 750 mg PO Q24H [facility] Stop: 08/25/19 21:01 Last Admin: 08/25/19 20:00 Dose: 750 mg Lidocaine HCl (Xylocaine 1%) Confirm Administered Dose 10 ml .ROUTE .STK-MED ONE Stop: 08/23/19 17:37 Last Admin: 08/23/19 18:57 Dose: 10 ml Oseltamivir Phosphate (Tamiflu) 75 mg PO BID [facility] Last Admin: 08/23/19 08:52 Dose: 75 mg Spironolactone (Aldactone) 50 mg PO DAILY [facility] Last Admin: 08/26/19 08:57 Dose: 50 mg Spironolactone (Aldactone) 100 mg PO DAILY [facility] Spironolactone (Aldactone) 50 mg PO ONETIME ONE Stop: 08/26/19 09:57 Last Admin: 08/26/19 11:56 Dose: 50 mg - Exam Quality Assessment: No: Supplemental Oxygen General: Alert, Oriented HEENT: Pupils Equal, Mucous Membr. Moist/[place] Neck: Supple Lungs: Decreased Breath Sounds (Right lower lobe). No: Normal Respiratory Effort (Mild increase in rate) Cardiovascular: Regular Rate, Regular Rhythm GI/Abdominal Exam: Normal Bowel Sounds, Soft, Non-Tender, No Organomegaly Extremities: Normal Inspection, Normal Range of Motion, Non-Tender, No Pedal Edema Skin: Warm, Dry, Intact Psy/Mental Status: Alert, Normal Affect, Normal Mood Sepsis Event Note - Evaluation Sepsis Screening Result: No Definite Risk - Focused Exam Vital Signs: Vital Signs Temp Pulse Resp BP Pulse Ox 08/27/19 08:20 97.5 F 77 20 100/47 L 98 08/27/19 06:27 98.1 F 85 18 102/48 L 96 Date Exam was Performed: 08/27/19 Time Exam was Performed: 14:46 - Problem List Review Problem List Initiated/Reviewed/Updated: Yes - My Orders Last 24 Hours: My Active Orders 08/27/19 11:32 Consult to Physician [CONS] Routine 08/27/19 11:34 Notify Provider Consults [RC] ASDIRECTED - Plan Plan:: Complicated pneumonia involving right lung / mycoplasma and coronavirus, completed treatment Pleural effusion, right s/p thoracentesis 08/23/19 with reaccumulation of fluid Fever/ Leukocytosis COPD w/o exacerbation Flu like symptoms 1-2 weeks ago--> On admission fever + leukocytosis + right pleural effusion + sob Tmax 98.4 Blood cultures negative x 5 days + mycoplasma and coronavirus Thoracentesis with transudate 3L 08/23--> repeat CXR today with reaccumulation of fluid Completed 5 days of Levaquin PLAN - Monitor hypoxemia - RT assess and treat - PRN DuoNebs - Optimize spironolactone/Lasix ratio 5:2 (spironolactone 100 mg twice daily, Lasix 40 mg twice daily) - Consult surgery for chest tube placement. Diabetes mellitus, HbA1c normal in the setting of anemia Not on insulin at home PLAN - Accuchecks TID AC and HS - Hypoglycemia protocol - Start SSI Chronic kidney disease, stage III GFR today 47 - slightly lower PLAN - Monitor urine output - Renally dosed medications - Avoid nephrotoxic agents as much as possible - Flow fluid status closely Alcoholic liver cirrhosis Thrombocytopenia and anemia, improved BL LE edema No ascites on physical exam No alcoholic drink in over 1 month No signs of active bleeding or signs of end stage liver cirrhosis Albumin 1.7, PT 14.1, total bilirubin 0.9 PLAN - Monitor volume status Chronic wound of right lower extremity >1 year ago Had a ruptured cyst Wound care done by patient PLAN - Continue wound care PROPHYLAXIS DVT- contraindicated due to thrombocytopenia, compression stockings GI- not indicated CODE STATUS: FULL CODE DISPOSITION: Patient will get a chest tube for reaccumulation of effusion. Thoracentesis 08/23 with drainage of 3L, repeat CXR has reaccumulation of fluid.
[2019-08-27] MEDS ORDERED: fentaNYL 100 MCG/2 ML SDV IVPUSH ONE (14:38)
--- NOTE | 2019-08-27 14:48 | PCM.PRNOTE ---
- Free Text/Narrative Note: Date: 08/27/2019 Background: Surgery consult for evaluation of recurrent large right pleural effusion in patient admitted for pneumonia. Findings: immediate drainage of over 1500 cc serous fluid Detailed Report: Informed consent was obtained. The patient was positioned in left lateral decubitus position, and the right chest was prepped with chloraprep. The field was draped, and 10 cc 1% lidocaine was injected intradermally at the mid chest at the mid-axillary line. A scalpel was used to make a transverse incision wide enough to easily permit passage of the index finger. Dissection was carried down to the serratus muscles, and the ribs were palpable. The procedure was more difficult due to excessive adipose tissue. Additional 20 cc local anesthetic was injected during dissection. Once a clear tract was developed to a point just superior to a rib at the level of the nipple, the parietal pleura was punctured and air movement with respiration was appreciated. A 20 F thoracostomy tube was placed without resistance into the pleural cavity. The tube was secured at the level of the skin with two 0 silk sutures, and the tube was hooked to a PleuraVac suction canister. 1500 cc straw-colored fluid was immediately aspirated. A confirmatory chest X-ray was ordered after the insertion site was dressed with xeroform, gauze and tape. The patient tolerated the procedure well. Thompson Sigala MD General Surgery
[2019-08-27] MEDS ORDERED: oxyCODONE 5 MG Tab PO ONE (15:02)
[2019-08-27] MEDS: Acetaminophen 325 MG Tab PO PRN (15:10)
[2019-08-27] MEDS: Magnesium Oxide 400 MG Tab PO SCH ×2 (15:11→20:58)
--- NOTE | 2019-08-27 16:11 | CR ---
Chest: Portable view of the chest was obtained. Comparison: Previous chest x-ray performed earlier on same day (9:05 AM). Right sided chest tube is noted. Significant decrease in size of the previous right-sided pleural effusion is noted. Very trace right apical pneumothorax is noted. Mild right basilar atelectasis is seen. Left lung is clear. Heart is enlarged. Old healed left-sided rib fractures are noted. Impression: 1. Right-sided chest tube with very minimal right apical pneumothorax. 2. Significant decrease in right-sided pleural effusion from previous chest x-ray. 3. Mild right basilar atelectasis. 4. Cardiomegaly. Diagnostic code #3 Study was dictated in [place] [employer] Time
[2019-08-27] MEDS: Thiamine 100 MG Tab PO SCH (17:23)
[2019-08-27] MEDS: Spironolactone 100 MG Tab PO SCH ×2 (17:23→20:58)
[2019-08-27] MEDS: diphenhydrAMINE 25 MG Cap PO PRN ×2 (17:25→22:34)
[2019-08-27] MEDS: Insulin Lispro 100 Units/ML 3 ML Vial SUBCUT SCH ×2 (19:49→22:35)
[2019-08-27] MEDS ORDERED: oxyCODONE 5 MG Tab PO PRN (19:53)
[2019-08-27] MEDS: oxyCODONE 5 MG Tab PO PRN (20:58)
[2019-08-28] MEDS: oxyCODONE 5 MG Tab PO PRN ×5 (01:35→23:24)
[2019-08-28] MEDS: Acetaminophen 325 MG Tab PO PRN ×2 (04:37→11:09)
[2019-08-28] MEDS: diphenhydrAMINE 25 MG Cap PO PRN ×4 (04:38→21:09)
[2019-08-28] MEDS: Furosemide 40 MG Tab PO SCH ×2 (05:54→14:16)
[2019-08-28] MEDS: Insulin Lispro 100 Units/ML 3 ML Vial SUBCUT SCH ×4 (09:13→21:05)
[2019-08-28] MEDS: Aspirin 81 MG Tab.EC PO SCH (09:15)
[2019-08-28] MEDS: Magnesium Oxide 400 MG Tab PO SCH ×2 (09:15→21:05)
[2019-08-28] MEDS: Thiamine 100 MG Tab PO SCH (09:16)
[2019-08-28] MEDS: Spironolactone 100 MG Tab PO SCH ×2 (09:16→21:23)
[2019-08-28] MEDS: Folic Acid 1 MG Tab PO SCH (09:16)
[2019-08-28] MEDS: Gabapentin 300 MG Cap PO SCH ×3 (09:16→21:05)
[2019-08-28] MEDS: Ascorbic Acid 500 MG Tab PO SCH (09:17)
--- NOTE | 2019-08-28 13:13 | PCM.PN ---
- General Info Date of Service: 08/28/19 Admission Dx/Problem (Free Text): Admission Diagnosis/Problem Admission Diagnosis/Problem Pneumonia Subjective Update: Patient denies shortness of breath. Does have pain from chest tube site with movement and deep inspiration. Chest tube draining approximately 100/h - Review of Systems General: Reports: No Symptoms HEENT: Reports: No Symptoms Pulmonary: Reports: Pleuritic Chest Pain Cardiovascular: Reports: No Symptoms Gastrointestinal: Reports: No Symptoms Musculoskeletal: Reports: No Symptoms - Patient Data Vitals - Most Recent: Last Vital Signs Temp 97.7 F 08/28/19 08:33 Pulse 72 08/28/19 08:33 Resp 14 08/28/19 08:33 BP 96/59 L 08/28/19 08:33 Pulse Ox 96 08/28/19 08:33 Weight - Most Recent: 254 lb 12.8 oz I&O - Last 24 Hours: Intake & Output 08/27/19 08/28/19 08/28/19 22:59 06:59 14:59 Intake Total 1320 1000 560 Output Total 2000 1210 Balance -680 -210 560 Lab Results Last 24 Hours: Laboratory Results - last 24 hr 08/27/19 08/27/19 08/27/19 Range/Units 12:02 17:16 21:02 WBC (3.98-10.04) K/mm3 RBC (3.98-5.22) M/mm3 Hgb (11.2-15.7) gm/dl Hct (34.1-44.9) % MCV (79.4-94.8) fl MCH (25.6-32.2) pg MCHC (32.2-35.5) g/dl RDW Std Deviation (36.4-46.3) fL Plt Count (182-369) K/mm3 MPV (9.4-12.3) fl Neut % (Auto) (34.0-71.1) % Lymph % (Auto) (19.3-51.7) % [place] % (Auto) (4.7-12.5) % Eos % (Auto) (0.7-5.8) Baso % (Auto) (0.1-1.2) % Neut # (Auto) (1.56-6.13) K/mm3 Lymph # (Auto) (1.18-3.74) K/mm3 [place] # (Auto) (0.24-0.36) K/mm3 Eos # (Auto) (0.04-0.36) K/mm3 Baso # (Auto) (0.01-0.08) K/mm3 Manual Slide Review Abnormal smear Sodium (136-145) mEq/L Potassium (3.5-5.1) mEq/L Chloride (98-107) mEq/L Carbon Dioxide (21-32) mEq/L Anion Gap (5-15) BUN (7-18) mg/dL Creatinine (0.55-1.02) mg/dL Est Cr Clr Drug Dosing mL/min Estimated GFR (MDRD) (>60) mL/min BUN/Creatinine Ratio (14-18) Glucose (74-106) mg/dL POC Glucose 144 H 144 H (70-105) mg/dL Calcium (8.5-10.1) mg/dL Magnesium (1.8-2.4) mg/dl 08/28/19 08/28/19 08/28/19 Range/Units 07:41 08:30 09:02 WBC 7.53 (3.98-10.04) K/mm3 RBC 3.43 L (3.98-5.22) M/mm3 Hgb 8.6 L (11.2-15.7) gm/dl Hct 27.9 L (34.1-44.9) % MCV 81.3 (79.4-94.8) fl MCH 25.1 L (25.6-32.2) pg MCHC 30.8 L (32.2-35.5) g/dl RDW Std Deviation 59.2 H (36.4-46.3) fL Plt Count 99 L (182-369) K/mm3 MPV 10.1 (9.4-12.3) fl Neut % (Auto) 73.4 H (34.0-71.1) % Lymph % (Auto) 13.8 L (19.3-51.7) % [place] % (Auto) 8.5 (4.7-12.5) % Eos % (Auto) 3.5 (0.7-5.8) Baso % (Auto) 0.8 (0.1-1.2) % Neut # (Auto) 5.53 (1.56-6.13) K/mm3 Lymph # (Auto) 1.04 L (1.18-3.74) K/mm3 [place] # (Auto) 0.64 H (0.24-0.36) K/mm3 Eos # (Auto) 0.26 (0.04-0.36) K/mm3 Baso # (Auto) 0.06 (0.01-0.08) K/mm3 Manual Slide Review Sodium (136-145) mEq/L Potassium (3.5-5.1) mEq/L Chloride (98-107) mEq/L Carbon Dioxide (21-32) mEq/L Anion Gap (5-15) BUN (7-18) mg/dL Creatinine (0.55-1.02) mg/dL Est Cr Clr Drug Dosing mL/min Estimated GFR (MDRD) (>60) mL/min BUN/Creatinine Ratio (14-18) Glucose (74-106) mg/dL POC Glucose 111 H 110 H (70-105) mg/dL Calcium (8.5-10.1) mg/dL Magnesium (1.8-2.4) mg/dl 08/28/19 08/28/19 Range/Units 09:02 11:03 WBC (3.98-10.04) K/mm3 RBC (3.98-5.22) M/mm3 Hgb (11.2-15.7) gm/dl Hct (34.1-44.9) % MCV (79.4-94.8) fl MCH (25.6-32.2) pg MCHC (32.2-35.5) g/dl RDW Std Deviation (36.4-46.3) fL Plt Count (182-369) K/mm3 MPV (9.4-12.3) fl Neut % (Auto) (34.0-71.1) % Lymph % (Auto) (19.3-51.7) % [place] % (Auto) (4.7-12.5) % Eos % (Auto) (0.7-5.8) Baso % (Auto) (0.1-1.2) % Neut # (Auto) (1.56-6.13) K/mm3 Lymph # (Auto) (1.18-3.74) K/mm3 [place] # (Auto) (0.24-0.36) K/mm3 Eos # (Auto) (0.04-0.36) K/mm3 Baso # (Auto) (0.01-0.08) K/mm3 Manual Slide Review Sodium 136 (136-145) mEq/L Potassium 4.3 (3.5-5.1) mEq/L Chloride 104 (98-107) mEq/L Carbon Dioxide 23 (21-32) mEq/L Anion Gap 13.3 (5-15) BUN 15 (7-18) mg/dL Creatinine 1.1 H (0.55-1.02) mg/dL Est Cr Clr Drug Dosing 61.04 mL/min Estimated GFR (MDRD) 52 (>60) mL/min BUN/Creatinine Ratio 13.6 L (14-18) Glucose 145 H (74-106) mg/dL POC Glucose 133 H (70-105) mg/dL Calcium 7.8 L (8.5-10.1) mg/dL Magnesium 1.8 (1.8-2.4) mg/dl Tito Results Last 24 Hours: Microbiology 08/21/19 20:14 Aerobic Blood Culture - Preliminary Blood - Venous - Lab Draw NO GROWTH AFTER 6 DAYS Anaerobic Blood Culture - Preliminary NO GROWTH AFTER 6 DAYS 08/21/19 20:05 Aerobic Blood Culture - Preliminary Blood - Venous NO GROWTH AFTER 6 DAYS Anaerobic Blood Culture - Preliminary NO GROWTH AFTER 6 DAYS 08/23/19 18:27 Gram Stain - Final Thoracentesis Fluid Body Fluid Culture - Preliminary NO GROWTH AFTER 4 DAYS Med Orders - Current: Current Medications Acetaminophen (Tylenol) 650 mg PO Q6H PRN PRN Reason: Pain (mild 1-3) Last Admin: 08/28/19 11:09 Dose: 650 mg Albuterol/Ipratropium (Duoneb 3.0-0.5 Mg/3 Ml) 3 ml NEB Q6HR PRN PRN Reason: SOB/wheezing Last Admin: 08/23/19 01:03 Dose: 3 ml Ascorbic Acid (Vitamin C) 500 mg PO DAILY [facility] Last Admin: 08/28/19 09:17 Dose: 500 mg Aspirin (Halfprin) 81 mg PO DAILY [place] Last Admin: 08/28/19 09:15 Dose: 81 mg Calcium Carbonate/Glycine (Tums) 1,000 mg PO Q2HR PRN PRN Reason: Indigestion Last Admin: 08/22/19 19:23 Dose: 1,000 mg Diphenhydramine HCl (Benadryl) 25 mg PO Q4H PRN PRN Reason: Itching Last Admin: 08/28/19 11:11 Dose: 25 mg Folic Acid (Folic Acid) 1 mg PO DAILY [facility] Last Admin: 08/28/19 09:16 Dose: 1 mg Furosemide (Lasix) 40 mg PO BIDDIURETIC [facility] Last Admin: 08/28/19 05:54 Dose: 40 mg Gabapentin (Neurontin) 300 mg PO TID [facility] Last Admin: 08/28/19 09:16 Dose: 300 mg Insulin Human Lispro (Humalog) 0 unit SUBCUT QIDACANDBED [facility]; Protocol Last Admin: 08/28/19 09:13 Dose: Not Given Magnesium Oxide (Magnesium Oxide) 400 mg PO BID [facility] Last Admin: 08/28/19 09:15 Dose: 400 mg Oxycodone HCl (Oxycodone) 5 mg PO Q4H PRN PRN Reason: Pain (moderate 4-6) Oxycodone HCl (Oxycodone) 10 mg PO Q4H PRN PRN Reason: Pain (severe 7-10) Last Admin: 08/28/19 11:11 Dose: 10 mg Sodium Chloride (Saline Flush) 10 ml FLUSH ASDIRECTED PRN PRN Reason: Keep Vein Open Spironolactone (Aldactone) 100 mg PO BID [facility] Last Admin: 08/28/19 09:16 Dose: 100 mg Thiamine HCl (Vitamin B-1) 100 mg PO DAILY [facility] Last Admin: 08/28/19 09:16 Dose: 100 mg Discontinued Medications Enoxaparin Sodium (Lovenox) 40 mg SUBCUT Q12H [facility] Last Admin: 08/23/19 08:52 Dose: 40 mg Fentanyl (Sublimaze) 50 mcg IVPUSH ONETIME ONE Stop: 08/27/19 14:39 Last Admin: 08/27/19 14:53 Dose: 50 mcg Furosemide (Lasix) 60 mg IVPUSH NOW ONE Stop: 08/25/19 09:26 Last Admin: 08/25/19 09:39 Dose: 60 mg Gabapentin (Neurontin) 300 mg PO TID [facility] Levofloxacin/Dextrose 750 mg/ (Premix) 150 mls @ 100 mls/hr IV DAILY [facility] Last Admin: 08/21/19 21:58 Dose: 100 mls/hr Lactated Ringer's (Ringers, Lactated) 1,000 mls @ 100 mls/hr IV ASDIRECTED [facility] Last Admin: 08/22/19 20:08 Dose: 100 mls/hr Levofloxacin/Dextrose 750 mg/ (Premix) 150 mls @ 100 mls/hr IV Q24H [facility] Last Admin: 08/22/19 21:10 Dose: 100 mls/hr Magnesium Sulfate 4 gm/ Premix 50 mls @ 12.5 mls/hr IV ONETIME ONE Stop: 08/23/19 20:59 Last Admin: 08/23/19 18:57 Dose: 12.5 mls/hr Influenza Virus Vaccine (Pharmacy To Dose - Influenza Vaccine) 1 each IM ASDIRECTED [facility] Influenza Virus Vaccine (Fluzone Quad Syringe) 60 mcg IM .ONCE ONE Stop: 08/21/19 23:01 Levofloxacin (Levaquin) 750 mg PO Q24H [facility] Stop: 08/25/19 21:01 Last Admin: 08/25/19 20:00 Dose: 750 mg Lidocaine HCl (Xylocaine 1%) Confirm Administered Dose 10 ml .ROUTE .STK-MED ONE Stop: 08/23/19 17:37 Last Admin: 08/23/19 18:57 Dose: 10 ml Lidocaine HCl (Xylocaine 1%) 0 ml INJECT ASDIRECTED [facility] Stop: 08/27/19 16:00 Last Admin: 08/27/19 14:02 Dose: 30 ml Oseltamivir Phosphate (Tamiflu) 75 mg PO BID [facility] Last Admin: 08/23/19 08:52 Dose: 75 mg Oxycodone HCl (Oxycodone) 5 mg PO ONETIME ONE Stop: 08/27/19 15:03 Last Admin: 08/27/19 15:11 Dose: 5 mg Spironolactone (Aldactone) 50 mg PO DAILY [facility] Last Admin: 08/26/19 08:57 Dose: 50 mg Spironolactone (Aldactone) 100 mg PO DAILY [facility] Spironolactone (Aldactone) 50 mg PO ONETIME ONE Stop: 08/26/19 09:57 Last Admin: 08/26/19 11:56 Dose: 50 mg - Exam Quality Assessment: No: Supplemental Oxygen General: Alert, Oriented HEENT: Pupils Equal, Mucous Membr. Moist/[place] Lungs: Clear to Auscultation, Normal Respiratory Effort Cardiovascular: Regular Rate, Regular Rhythm GI/Abdominal Exam: Normal Bowel Sounds, Soft, Non-Tender, No Organomegaly, No Distention Back Exam: Normal Inspection Extremities: Normal Inspection, Normal Range of Motion, Non-Tender, No Pedal Edema Skin: Warm, Dry, Intact Psy/Mental Status: Alert, Normal Affect, Normal Mood Sepsis Event Note - Evaluation Sepsis Screening Result: No Definite Risk - Focused Exam Vital Signs: Vital Signs Temp Pulse Resp BP Pulse Ox 08/28/19 08:33 97.7 F 72 14 96/59 L 96 08/28/19 04:30 98.2 F 72 14 118/54 L 94 L Date Exam was Performed: 08/28/19 Time Exam was Performed: 13:07 - Problem List Review Problem List Initiated/Reviewed/Updated: Yes - My Orders Last 24 Hours: My Active Orders 08/27/19 14:55 Blood Glucose Check, Bedside [RC] QIDACANDBED 08/27/19 15:00 Magnesium Oxide 400 mg PO BID 08/27/19 17:00 Insulin Lispro [HumaLOG] See Protocol SUBCUT QIDACANDBED 08/27/19 17:06 diphenhydrAMINE [Benadryl] 25 mg PO Q4H PRN 08/29/19 05:11 CBC WITH AUTO DIFF [HEME] AM CMP [COMPREHENSIVE METABOLIC PN,CMP] [CHEM] AM MAGNESIUM [CHEM] AM - Plan Plan:: Complicated pneumonia involving right lung 2/2 mycoplasma and coronavirus, completed treatment Pleural effusion, right s/p thoracentesis 08/23/19 with reaccumulation of fluid Fever/ Leukocytosis COPD w/o exacerbation Flu like symptoms 1-2 weeks ago--> On admission fever + leukocytosis + right pleural effusion + sob Afebrile Blood cultures negative + mycoplasma and coronavirus Thoracentesis with transudate 3L 08/23--> repeat CXR today with reaccumulation of fluid Completed 5 days of Levaquin Chest tube with moderate amount of drainage (>100ml/hr) PLAN - Monitor hypoxemia - RT assess and treat - PRN DuoNebs - Optimize spironolactone/Lasix ratio 5:2 (spironolactone 100 mg twice daily, Lasix 40 mg twice daily) - Dr. Sigala in surgery following. Diabetes mellitus, HbA1c normal in the setting of anemia Not on insulin at home PLAN - Accuchecks TID AC and HS - Hypoglycemia protocol - Start SSI Chronic kidney disease, stage III GFR 52 - stable PLAN - Monitor urine output - Renally dosed medications - Avoid nephrotoxic agents as much as possible - Flow fluid status closely Alcoholic liver cirrhosis Thrombocytopenia and anemia, improved BL LE edema No ascites on physical exam No alcoholic drink in over 1 month No signs of active bleeding or signs of end stage liver cirrhosis Albumin 1.7, PT 14.1, total bilirubin 0.9 PLAN - Monitor volume status Chronic wound of right lower extremity >1 year ago Had a ruptured cyst Wound care done by patient PLAN - Continue wound care PROPHYLAXIS DVT- contraindicated due to thrombocytopenia, compression stockings GI- not indicated CODE STATUS: FULL CODE DISPOSITION: Patient will get a chest tube for reaccumulation of effusion. Thoracentesis 08/23 with drainage of 3L, repeat CXR has reaccumulation of fluid.
--- NOTE | 2019-08-28 13:18 | PCM.SN ---
- Free Text/Narrative Note: S: pain manageable, no acute events overnight O: AF-VSS 20 F right thoracostomy tube placed successfully at bedside yesterday, currently with >100 cc/hr output (serous) on -20 cm H2O pressure. No air leak appreciated. CXR shows significant decrease in size of right pleural effusion A: Large recurrent right pleural effusion in patient recently admitted and treated for pneumonia. P: Monitor chest tube output. If acceptably minimal, plan for conversion to water seal followed by repeat CXR tomorrow morning. Possible tube removal tomorrow afternoon if all goes well.
[2019-08-29] MEDS: Insulin Lispro 100 Units/ML 3 ML Vial SUBCUT SCH ×4 (08:05→21:00)
[2019-08-29] MEDS: Magnesium Oxide 400 MG Tab PO SCH ×2 (08:19→20:30)
[2019-08-29] MEDS: Furosemide 40 MG Tab PO SCH (08:19)
[2019-08-29] MEDS: Folic Acid 1 MG Tab PO SCH (08:19)
[2019-08-29] MEDS: Aspirin 81 MG Tab.EC PO SCH (08:19)
[2019-08-29] MEDS: Spironolactone 100 MG Tab PO SCH (08:19)
[2019-08-29] MEDS: Thiamine 100 MG Tab PO SCH (08:20)
[2019-08-29] MEDS: oxyCODONE 5 MG Tab PO PRN ×2 (08:20→14:35)
[2019-08-29] MEDS: Ascorbic Acid 500 MG Tab PO SCH (08:20)
[2019-08-29] MEDS: diphenhydrAMINE 25 MG Cap PO PRN ×2 (08:20→14:36)
[2019-08-29] MEDS: Gabapentin 300 MG Cap PO SCH ×3 (08:20→20:30)
--- NOTE | 2019-08-29 08:57 | PCM.SN ---
- Free Text/Narrative Note: S: no acute events O: 145 cc output recorded for mini shifter from right thoracostomy tube. A: Pleural effusion on right side requiring tube thoracostomy for drainage. Output has slowed significantly. P: Place tube to water seal, repeat CXR at noon. If fluid has not reaccumulated, plan for chest tube removal this afternoon.
--- NOTE | 2019-08-29 14:03 | PCM.PN ---
- General Info Date of Service: 08/29/19 Admission Dx/Problem (Free Text): Admission Diagnosis/Problem Admission Diagnosis/Problem Pneumonia Subjective Update: Patient states that she is doing much better. She did have a large amount of drainage from her chest tube yesterday, but it has significantly tapered off. Dr. Sigala stopped wall suction and will reevaluate after he sees the chest x- ray. Functional Status: Reports: Pain Controlled - Review of Systems General: Reports: No Symptoms HEENT: Reports: No Symptoms Pulmonary: Reports: Cough Cardiovascular: Reports: No Symptoms Gastrointestinal: Reports: No Symptoms Musculoskeletal: Reports: No Symptoms - Patient Data Vitals - Most Recent: Last Vital Signs Temp 97.7 F 08/29/19 11:31 Pulse 68 08/29/19 11:31 Resp 12 08/29/19 11:31 BP 105/64 08/29/19 11:31 Pulse Ox 99 08/29/19 11:31 Weight - Most Recent: 260 lb 14.4 oz I&O - Last 24 Hours: Intake & Output 08/28/19 08/29/19 08/29/19 22:59 06:59 14:59 Intake Total 2031 750 120 Output Total 980 721 Balance 1051 29 120 Lab Results Last 24 Hours: Laboratory Results - last 24 hr 08/28/19 08/28/19 08/29/19 Range/Units 16:59 20:54 05:27 WBC 10.22 H (3.98-10.04) K/mm3 RBC 3.46 L (3.98-5.22) M/mm3 Hgb 8.4 L (11.2-15.7) gm/dl Hct 28.4 L (34.1-44.9) % MCV 82.1 (79.4-94.8) fl MCH 24.3 L (25.6-32.2) pg MCHC 29.6 L (32.2-35.5) g/dl RDW Std Deviation 58.3 H (36.4-46.3) fL Plt Count 105 L (182-369) K/mm3 MPV 10.6 (9.4-12.3) fl Neut % (Auto) 75.3 H (34.0-71.1) % Lymph % (Auto) 9.8 L (19.3-51.7) % [place] % (Auto) 9.8 (4.7-12.5) % Eos % (Auto) 3.2 (0.7-5.8) Baso % (Auto) 0.7 (0.1-1.2) % Neut # (Auto) 7.70 H (1.56-6.13) K/mm3 Lymph # (Auto) 1.00 L (1.18-3.74) K/mm3 [place] # (Auto) 1.00 H (0.24-0.36) K/mm3 Eos # (Auto) 0.33 (0.04-0.36) K/mm3 Baso # (Auto) 0.07 (0.01-0.08) K/mm3 Manual Slide Review Abnormal smear Sodium (136-145) mEq/L Potassium (3.5-5.1) mEq/L Chloride (98-107) mEq/L Carbon Dioxide (21-32) mEq/L Anion Gap (5-15) BUN (7-18) mg/dL Creatinine (0.55-1.02) mg/dL Est Cr Clr Drug Dosing mL/min Estimated GFR (MDRD) (>60) mL/min BUN/Creatinine Ratio (14-18) Glucose (74-106) mg/dL POC Glucose 148 H 166 H (70-105) mg/dL Calcium (8.5-10.1) mg/dL Magnesium (1.8-2.4) mg/dl Total Bilirubin (0.2-1.0) mg/dL AST (15-37) U/L ALT (14-59) U/L Alkaline Phosphatase (46-116) U/L Total Protein (6.4-8.2) g/dl Albumin (3.4-5.0) g/dl Globulin gm/dL Albumin/Globulin Ratio (1-2) 08/29/19 08/29/19 08/29/19 Range/Units 05:27 07:13 11:11 WBC (3.98-10.04) K/mm3 RBC (3.98-5.22) M/mm3 Hgb (11.2-15.7) gm/dl Hct (34.1-44.9) % MCV (79.4-94.8) fl MCH (25.6-32.2) pg MCHC (32.2-35.5) g/dl RDW Std Deviation (36.4-46.3) fL Plt Count (182-369) K/mm3 MPV (9.4-12.3) fl Neut % (Auto) (34.0-71.1) % Lymph % (Auto) (19.3-51.7) % [place] % (Auto) (4.7-12.5) % Eos % (Auto) (0.7-5.8) Baso % (Auto) (0.1-1.2) % Neut # (Auto) (1.56-6.13) K/mm3 Lymph # (Auto) (1.18-3.74) K/mm3 [place] # (Auto) (0.24-0.36) K/mm3 Eos # (Auto) (0.04-0.36) K/mm3 Baso # (Auto) (0.01-0.08) K/mm3 Manual Slide Review Sodium 131 L (136-145) mEq/L Potassium 4.7 (3.5-5.1) mEq/L Chloride 101 (98-107) mEq/L Carbon Dioxide 25 (21-32) mEq/L Anion Gap 9.7 (5-15) BUN 22 H (7-18) mg/dL Creatinine 1.4 H (0.55-1.02) mg/dL Est Cr Clr Drug Dosing 47.96 mL/min Estimated GFR (MDRD) 40 (>60) mL/min BUN/Creatinine Ratio 15.7 (14-18) Glucose 119 H (74-106) mg/dL POC Glucose 144 H 179 H (70-105) mg/dL Calcium 7.7 L (8.5-10.1) mg/dL Magnesium 1.9 (1.8-2.4) mg/dl Total Bilirubin 1.4 H (0.2-1.0) mg/dL AST 27 (15-37) U/L ALT 18 (14-59) U/L Alkaline Phosphatase 98 (46-116) U/L Total Protein 6.9 (6.4-8.2) g/dl Albumin 1.8 L (3.4-5.0) g/dl Globulin 5.1 gm/dL Albumin/Globulin Ratio 0.4 L (1-2) Tito Results Last 24 Hours: Microbiology 08/21/19 20:14 Aerobic Blood Culture - Final Blood - Venous - Lab Draw NO GROWTH AFTER 7 DAYS Anaerobic Blood Culture - Final NO GROWTH AFTER 7 DAYS 08/21/19 20:05 Aerobic Blood Culture - Final Blood - Venous NO GROWTH AFTER 7 DAYS Anaerobic Blood Culture - Final NO GROWTH AFTER 7 DAYS 08/23/19 18:27 Gram Stain - Final Thoracentesis Fluid Body Fluid Culture - Preliminary NO GROWTH AFTER 5 DAYS Med Orders - Current: Current Medications Acetaminophen (Tylenol) 650 mg PO Q6H PRN PRN Reason: Pain (mild 1-3) Last Admin: 08/28/19 11:09 Dose: 650 mg Albuterol/Ipratropium (Duoneb 3.0-0.5 Mg/3 Ml) 3 ml NEB Q6HR PRN PRN Reason: SOB/wheezing Last Admin: 08/23/19 01:03 Dose: 3 ml Ascorbic Acid (Vitamin C) 500 mg PO DAILY [facility] Last Admin: 08/29/19 08:20 Dose: 500 mg Aspirin (Halfprin) 81 mg PO DAILY [facility] Last Admin: 08/29/19 08:19 Dose: 81 mg Calcium Carbonate/Glycine (Tums) 1,000 mg PO Q2HR PRN PRN Reason: Indigestion Last Admin: 08/22/19 19:23 Dose: 1,000 mg Diphenhydramine HCl (Benadryl) 25 mg PO Q4H PRN PRN Reason: Itching Last Admin: 08/29/19 08:20 Dose: 25 mg Folic Acid (Folic Acid) 1 mg PO DAILY [facility] Last Admin: 08/29/19 08:19 Dose: 1 mg Gabapentin (Neurontin) 300 mg PO TID [facility] Last Admin: 08/29/19 08:20 Dose: 300 mg Insulin Human Lispro (Humalog) 0 unit SUBCUT QIDACANDBED [facility]; Protocol Last Admin: 08/29/19 11:24 Dose: 1 unit Magnesium Oxide (Magnesium Oxide) 400 mg PO BID [facility] Last Admin: 08/29/19 08:19 Dose: 400 mg Oxycodone HCl (Oxycodone) 5 mg PO Q4H PRN PRN Reason: Pain (moderate 4-6) Oxycodone HCl (Oxycodone) 10 mg PO Q4H PRN PRN Reason: Pain (severe 7-10) Last Admin: 08/29/19 08:20 Dose: 10 mg Sodium Chloride (Saline Flush) 10 ml FLUSH ASDIRECTED PRN PRN Reason: Keep Vein Open Thiamine HCl (Vitamin B-1) 100 mg PO DAILY [facility] Last Admin: 08/29/19 08:20 Dose: 100 mg Discontinued Medications Enoxaparin Sodium (Lovenox) 40 mg SUBCUT Q12H [facility] Last Admin: 08/23/19 08:52 Dose: 40 mg Fentanyl (Sublimaze) 50 mcg IVPUSH ONETIME ONE Stop: 08/27/19 14:39 Last Admin: 08/27/19 14:53 Dose: 50 mcg Furosemide (Lasix) 40 mg PO BIDDIURETIC [facility] Last Admin: 08/29/19 08:19 Dose: 40 mg Furosemide (Lasix) 60 mg IVPUSH NOW ONE Stop: 08/25/19 09:26 Last Admin: 08/25/19 09:39 Dose: 60 mg Gabapentin (Neurontin) 300 mg PO TID [facility] Levofloxacin/Dextrose 750 mg/ (Premix) 150 mls @ 100 mls/hr IV DAILY [facility] Last Admin: 08/21/19 21:58 Dose: 100 mls/hr Lactated Ringer's (Ringers, Lactated) 1,000 mls @ 100 mls/hr IV ASDIRECTED [facility] Last Admin: 08/22/19 20:08 Dose: 100 mls/hr Levofloxacin/Dextrose 750 mg/ (Premix) 150 mls @ 100 mls/hr IV Q24H [facility] Last Admin: 08/22/19 21:10 Dose: 100 mls/hr Magnesium Sulfate 4 gm/ Premix 50 mls @ 12.5 mls/hr IV ONETIME ONE Stop: 08/23/19 20:59 Last Admin: 08/23/19 18:57 Dose: 12.5 mls/hr Influenza Virus Vaccine (Pharmacy To Dose - Influenza Vaccine) 1 each IM ASDIRECTED [facility] Influenza Virus Vaccine (Fluzone Quad Syringe) 60 mcg IM .ONCE ONE Stop: 08/21/19 23:01 Levofloxacin (Levaquin) 750 mg PO Q24H [facility] Stop: 08/25/19 21:01 Last Admin: 08/25/19 20:00 Dose: 750 mg Lidocaine HCl (Xylocaine 1%) Confirm Administered Dose 10 ml .ROUTE .STK-MED ONE Stop: 08/23/19 17:37 Last Admin: 08/23/19 18:57 Dose: 10 ml Lidocaine HCl (Xylocaine 1%) 0 ml INJECT ASDIRECTED [facility] Stop: 08/27/19 16:00 Last Admin: 08/27/19 14:02 Dose: 30 ml Oseltamivir Phosphate (Tamiflu) 75 mg PO BID [facility] Last Admin: 08/23/19 08:52 Dose: 75 mg Oxycodone HCl (Oxycodone) 5 mg PO ONETIME ONE Stop: 08/27/19 15:03 Last Admin: 08/27/19 15:11 Dose: 5 mg Spironolactone (Aldactone) 50 mg PO DAILY [facility] Last Admin: 08/26/19 08:57 Dose: 50 mg Spironolactone (Aldactone) 100 mg PO DAILY [facility] Spironolactone (Aldactone) 50 mg PO ONETIME ONE Stop: 08/26/19 09:57 Last Admin: 08/26/19 11:56 Dose: 50 mg Spironolactone (Aldactone) 100 mg PO BID [facility] Last Admin: 08/29/19 08:19 Dose: 100 mg - Exam Quality Assessment: No: Supplemental Oxygen General: Alert, Oriented HEENT: Pupils Equal, Mucous Membr. Moist/Roff Neck: Supple Lungs: Normal Respiratory Effort, Crackles (Mild bibasilar) Cardiovascular: Regular Rate, Regular Rhythm GI/Abdominal Exam: Normal Bowel Sounds, Soft, Non-Tender, No Organomegaly, No Distention Skin: Warm, Dry, Intact Psy/Mental Status: Alert, Normal Affect, Normal Mood Sepsis Event Note - Evaluation Sepsis Screening Result: No Definite Risk - Focused Exam Vital Signs: Vital Signs Temp Pulse Resp BP Pulse Ox 08/29/19 11:31 97.7 F 68 12 105/64 99 08/29/19 08:08 98.1 F 78 16 96/54 L 98 08/29/19 05:21 98.6 F 86 18 109/68 95 Date Exam was Performed: 08/29/19 Time Exam was Performed: 13:57 - Problem List Review Problem List Initiated/Reviewed/Updated: Yes - Plan Plan:: Complicated pneumonia involving right lung 2/2 mycoplasma and coronavirus, completed treatment Pleural effusion, right s/p thoracentesis 08/23/19 with reaccumulation of fluid Fever/ Leukocytosis COPD w/o exacerbation Acute renal injury secondary to prerenal disease Flu like symptoms 1-2 weeks ago--> On admission fever + leukocytosis + right pleural effusion + sob Afebrile Blood cultures negative + mycoplasma and coronavirus Thoracentesis with transudate 3L 08/23--> repeat CXR today with reaccumulation of fluid Completed 5 days of Levaquin Chest tube with moderate amount of drainage (>100ml/hr) - decreased overnight Patient had a large amount of fluid from her chest tube likely causing some hypovolemia. PLAN - Monitor hypoxemia - RT assess and treat - PRN DuoNebs - Hold spironolactone/Lasix ratio 5:2 (spironolactone 100 mg twice daily, Lasix 40 mg twice daily) secondary to prerenal disease. Consider restarting tonight/ tomorrow. - Dr. Sigala in surgery following. Possible chest tube removal today. Diabetes mellitus, HbA1c normal in the setting of anemia Not on insulin at home PLAN - Accuchecks TID AC and HS - Hypoglycemia protocol - Start SSI Chronic kidney disease, stage III GFR 52 - stable PLAN - Monitor urine output - Renally dosed medications - Avoid nephrotoxic agents as much as possible - Flow fluid status closely Alcoholic liver cirrhosis Thrombocytopenia and anemia, improved BL LE edema No ascites on physical exam No alcoholic drink in over 1 month No signs of active bleeding or signs of end stage liver cirrhosis Albumin 1.7, PT 14.1, total bilirubin 0.9 PLAN - Monitor volume status Chronic wound of right lower extremity >1 year ago Had a ruptured cyst Wound care done by patient PLAN - Continue wound care PROPHYLAXIS DVT- contraindicated due to thrombocytopenia, compression stockings GI- not indicated CODE STATUS: FULL CODE DISPOSITION: Patient will get a chest tube for reaccumulation of effusion. Thoracentesis 08/23 with drainage of 3L, repeat CXR has reaccumulation of fluid.
--- NOTE | 2019-08-29 15:44 | CR ---
Chest: Portable view of the chest was obtained. Comparison: Prior chest x-ray of 08/27/19. Right-sided chest tube seen. Very minimal right apical pneumothorax is seen. Small right-sided pleural effusion is noted. Heart is enlarged. Pulmonary vessels show stable congestion. Impression: 1. Minimal apical pneumothorax. Right-sided chest tube. 2. Small right-sided pleural effusion and other findings which are stable as noted above. Diagnostic code #3 This report was dictated in [place] Standard Time
--- NOTE | 2019-08-29 15:49 | CR ---
Chest: Portable view of the chest was obtained. Comparison: Previous chest x-ray performed earlier on the same day (11:43 AM). Small apical pneumothorax is seen which has slightly increased in size from study performed earlier. Right-sided chest tube has been removed. Other findings within the chest remain stable. Impression: 1. Small apical pneumothorax which has slightly increased in size from prior exam. 2. Right-sided chest tube has been removed. Diagnostic code #3 This report was dictated in [place] [employer] Time
[2019-08-30] MEDS ORDERED: Spironolactone 100 MG Tab PO SCH (09:00)
[2019-08-30] MEDS: Gabapentin 300 MG Cap PO SCH (09:01)
[2019-08-30] MEDS: Folic Acid 1 MG Tab PO SCH (09:01)
[2019-08-30] MEDS: Aspirin 81 MG Tab.EC PO SCH (09:01)
[2019-08-30] MEDS: Ascorbic Acid 500 MG Tab PO SCH (09:01)
[2019-08-30] MEDS: Thiamine 100 MG Tab PO SCH (09:02)
[2019-08-30] MEDS: Magnesium Oxide 400 MG Tab PO SCH (09:02)
[2019-08-30] MEDS: Insulin Lispro 100 Units/ML 3 ML Vial SUBCUT SCH (09:07)
--- NOTE | 2019-08-30 09:43 | PCM.DCSUM1 ---
Discharge Summary - Hospital Course HPI Initial Comments: This is a 49 year old female with past medical history of diabetes, hypertension and alcoholic liver cirrhosis who comes to the ED referred by outpatient clinic for right sided pleural effusion in the setting of pneumonia. As per patient she started having worsening shortness of breath a couple of days ago associated with fever and chills as well as a nasal congestion. Once on clinic patient was found to have a temp of 104.3 with an elevated white count and right sided pleural effusion for which she was sent here. She denies any sick contacts, cough, chest pain, palpitations, nausea, vomiting , diarrhea and getting the flu shot this year. Diagnosis: Stroke: No - Discharge Data Discharge Date: 08/30/19 Discharge Disposition: Home, Self-Care 01 Condition: Good - Referral to Home Health Primary Care Physician: Madelyn Anguiano - Patient Summary/Data Consults: Consultations 08/27/19 11:32 Consult to Physician [CONS] Routine Hospital Course: Patient was admitted for complicated pneumonia involving the right lung with pleural effusion. Treated with Levaquin for 5 days. Thoracentesis was performed and 3 L of transudate was removed. Cultures were negative. Patient had a reaccumulation of the pleural fluid and a chest tube was placed. Second day after chest tube placement the chest tube was draining significantly less, clamped with no reaccumulation, and then withdrawn that day. Patient had a small pneumothorax likely secondary to the removal of the chest tube but it was not clinically significant. Spironolactone was increased during her hospitalization to 100 mg twice daily with her furosemide 40 mg twice daily. Patient had a large fluid shift with the chest tube and diuretics causing some increase in her creatinine. At discharge her creatinine was 1.3 and BUN was 25. Also of note patient had significant pancytopenia. She was admitted with a hemoglobin of 7.9 and it remained stable without transfusions. She did get IV iron. Patient has history of alcoholic liver cirrhosis and although her liver enzymes were normal her albumin level was chronically low. Albumin ranged from 1.7-1.9 during hospitalization. Also her total bilirubin ranged from 0.8-1.4. PT was slightly increased at 14.1 with an INR of 1.31. Patient hemoglobin A1c was 4.6. Glipizide was held during hospitalization and she will not go home on it. - Patient Instructions Diet: Heart Healthy Diet Activity: As Tolerated Driving: May Drive Today Showering/Bathing: May Shower Other/Special Instructions: Follow up with PCP on Monday or Monday. You will need a blood count and metabolic panel. - Discharge Plan *PRESCRIPTION DRUG MONITORING PROGRAM REVIEWED*: No *COPY OF PRESCRIPTION DRUG MONITORING REPORT IN PATIENT HANNAH: No Prescriptions/Med Rec: Folic Acid 1 mg PO DAILY #30 tablet Furosemide [Lasix] 40 mg PO BIDDIURETIC #60 tablet Magnesium Oxide 400 mg PO BID #60 tablet Spironolactone [Aldactone] 100 mg PO BID #60 tablet Thiamine HCl 250 mg PO DAILY #30 tablet Home Medications: Home Meds Aspirin [Halfprin] 81 mg PO DAILY #30 tab.ec 11/16/17 [Rx] Cyanocobalamin (Vitamin B12) [Vitamin B12] 1,000 mcg PO DAILY 10/31/18 [History] Esomeprazole Magnesium 40 mg PO DAILY 10/31/18 [History] Furosemide [Lasix] 40 mg PO BID 11/30/18 [History] Ascorbic Acid [Vitamin C with Caridad Hips] 500 mg PO DAILY 08/21/19 [History] Sodium Hypochlorite [Hysept] 1 applic TOP DAILY 08/21/19 [History] Zinc Gluconate [Zinc] 50 mg PO DAILY 08/21/19 [History] Cetirizine [ZyrTEC] 10 mg PO DAILY 08/22/19 [History] Ferrous Sulfate 325 mg PO BID 08/22/19 [History] Fluticasone/Salmeterol [Advair 250-50 Diskus] 1 puff PO BID 08/22/19 [History] Vit,Joaquín 74/Iron/Folic [ Low Iron Tablet] 1 tab PO DAILY [History] Gabapentin [Neurontin] 300 mg PO TID 08/23/19 [History] Folic Acid 1 mg PO DAILY #30 tablet 08/30/19 [Rx] Furosemide [Lasix] 40 mg PO BIDDIURETIC #60 tablet 08/30/19 [Rx] Gabapentin [Neurontin] 300 mg PO TID cap 08/30/19 [Rx] Magnesium Oxide 400 mg PO BID #60 tablet 08/30/19 [Rx] Spironolactone [Aldactone] 100 mg PO BID #60 tablet 08/30/19 [Rx] Thiamine HCl 250 mg PO DAILY #30 tablet 08/30/19 [Rx] Oxygen Therapy Mode: Room Air Patient Handouts: Thoracentesis, Sepsis, Adult, Pleural Effusion, Chest Tube Insertion, Adult, Care After, Heart Failure, Community-Acquired Pneumonia, Adult , [id number] Referrals: PCP,Not In Area [Ordering Only Provider] - (Appointment with Dr. Jose Carlos Shaw at [facility] next Monday, September 06, 2019 at 10:00 am. Please check in by 9:45 am.) - Discharge Summary/Plan Comment DC Time >30 min.: Yes Discharge Summary/Plan Comment: Discharged home in good condition. Patient is back at her chronic stable state. She does have significant liver disease and history of COPD. There is a chance of reaccumulation of this right pleural effusion, therefore she will need close follow-up as an outpatient. Follow-up with primary care provider Monday or Monday and get a chest x-ray, CBC, and BMP at the time. If she develops shortness of breath or fever return to emergency room. - General Info Date of Service: 08/30/19 Admission Dx/Problem (Free Text: Admission Diagnosis/Problem Admission Diagnosis/Problem Pneumonia Subjective Update: Patient is doing well. Minimal cough. Functional Status: Reports: Pain Controlled - Review of Systems General: Reports: No Symptoms HEENT: Reports: No Symptoms Pulmonary: Reports: Cough Cardiovascular: Reports: No Symptoms Gastrointestinal: Reports: No Symptoms Musculoskeletal: Reports: No Symptoms Skin: Reports: No Symptoms - Patient Data Vitals - Most Recent: Last Vital Signs Temp 97.9 F 08/30/19 06:02 Pulse 72 08/30/19 06:02 Resp 18 08/30/19 06:02 BP 101/62 08/30/19 06:02 Pulse Ox 96 08/30/19 06:02 Weight - Most Recent: 265 lb 8 oz I&O - Last 24 hours: Intake & Output 08/29/19 08/30/19 08/30/19 22:59 06:59 14:59 Intake Total 1900 600 Output Total 500 725 Balance 1400 -125 Lab Results - Last 24 hrs: Laboratory Results - last 24 hr 08/29/19 08/29/19 08/29/19 Range/Units 11:11 16:56 20:29 WBC (3.98-10.04) K/mm3 RBC (3.98-5.22) M/mm3 Hgb (11.2-15.7) gm/dl Hct (34.1-44.9) % MCV (79.4-94.8) fl MCH (25.6-32.2) pg MCHC (32.2-35.5) g/dl RDW Std Deviation (36.4-46.3) fL Plt Count (182-369) K/mm3 MPV (9.4-12.3) fl Neut % (Auto) (34.0-71.1) % Lymph % (Auto) (19.3-51.7) % [place] % (Auto) (4.7-12.5) % Eos % (Auto) (0.7-5.8) Baso % (Auto) (0.1-1.2) % Neut # (Auto) (1.56-6.13) K/mm3 Lymph # (Auto) (1.18-3.74) K/mm3 [place] # (Auto) (0.24-0.36) K/mm3 Eos # (Auto) (0.04-0.36) K/mm3 Baso # (Auto) (0.01-0.08) K/mm3 Manual Slide Review Sodium (136-145) mEq/L Potassium (3.5-5.1) mEq/L Chloride (98-107) mEq/L Carbon Dioxide (21-32) mEq/L Anion Gap (5-15) BUN (7-18) mg/dL Creatinine (0.55-1.02) mg/dL Est Cr Clr Drug Dosing mL/min Estimated GFR (MDRD) (>60) mL/min BUN/Creatinine Ratio (14-18) Glucose (74-106) mg/dL POC Glucose 179 H 129 H 157 H (70-105) mg/dL Calcium (8.5-10.1) mg/dL Magnesium (1.8-2.4) mg/dl Total Bilirubin (0.2-1.0) mg/dL AST (15-37) U/L ALT (14-59) U/L Alkaline Phosphatase (46-116) U/L Total Protein (6.4-8.2) g/dl Albumin (3.4-5.0) g/dl Globulin gm/dL Albumin/Globulin Ratio (1-2) 08/30/19 08/30/19 08/30/19 Range/Units 05:57 07:03 07:03 WBC 8.20 (3.98-10.04) K/mm3 RBC 3.29 L (3.98-5.22) M/mm3 Hgb 7.9 L (11.2-15.7) gm/dl Hct 26.7 L (34.1-44.9) % MCV 81.2 (79.4-94.8) fl MCH 24.0 L (25.6-32.2) pg MCHC 29.6 L (32.2-35.5) g/dl RDW Std Deviation 56.6 H (36.4-46.3) fL Plt Count 87 L (182-369) K/mm3 MPV 10.6 (9.4-12.3) fl Neut % (Auto) 70.5 (34.0-71.1) % Lymph % (Auto) 11.1 L (19.3-51.7) % [place] % (Auto) 12.7 H (4.7-12.5) % Eos % (Auto) 4.0 (0.7-5.8) Baso % (Auto) 0.6 (0.1-1.2) % Neut # (Auto) 5.78 (1.56-6.13) K/mm3 Lymph # (Auto) 0.91 L (1.18-3.74) K/mm3 [place] # (Auto) 1.04 H (0.24-0.36) K/mm3 Eos # (Auto) 0.33 (0.04-0.36) K/mm3 Baso # (Auto) 0.05 (0.01-0.08) K/mm3 Manual Slide Review Abnormal smear Sodium 133 L (136-145) mEq/L Potassium 4.8 (3.5-5.1) mEq/L Chloride 103 (98-107) mEq/L Carbon Dioxide 24 (21-32) mEq/L Anion Gap 10.8 (5-15) BUN 25 H (7-18) mg/dL Creatinine 1.3 H (0.55-1.02) mg/dL Est Cr Clr Drug Dosing 51.65 mL/min Estimated GFR (MDRD) 43 (>60) mL/min BUN/Creatinine Ratio 19.2 H (14-18) Glucose 152 H (74-106) mg/dL POC Glucose 169 H (70-105) mg/dL Calcium 7.4 L (8.5-10.1) mg/dL Magnesium 2.2 (1.8-2.4) mg/dl Total Bilirubin 0.8 (0.2-1.0) mg/dL AST 26 (15-37) U/L ALT 17 (14-59) U/L Alkaline Phosphatase 110 (46-116) U/L Total Protein 6.7 (6.4-8.2) g/dl Albumin 1.7 L (3.4-5.0) g/dl Globulin 5.0 gm/dL Albumin/Globulin Ratio 0.3 L (1-2) BETINA Results - Last 24 hrs: Microbiology 08/23/19 18:27 Gram Stain - Final Thoracentesis Fluid Body Fluid Culture - Preliminary NO GROWTH AFTER 6 DAYS Med Orders - Current: Current Medications Acetaminophen (Tylenol) 650 mg PO Q6H PRN PRN Reason: Pain (mild 1-3) Last Admin: 08/28/19 11:09 Dose: 650 mg Albuterol/Ipratropium (Duoneb 3.0-0.5 Mg/3 Ml) 3 ml NEB Q6HR PRN PRN Reason: SOB/wheezing Last Admin: 08/23/19 01:03 Dose: 3 ml Ascorbic Acid (Vitamin C) 500 mg PO DAILY [facility] Last Admin: 08/30/19 09:01 Dose: 500 mg Aspirin (Halfprin) 81 mg PO DAILY [facility] Last Admin: 08/30/19 09:01 Dose: 81 mg Calcium Carbonate/Glycine (Tums) 1,000 mg PO Q2HR PRN PRN Reason: Indigestion Last Admin: 08/22/19 19:23 Dose: 1,000 mg Diphenhydramine HCl (Benadryl) 25 mg PO Q4H PRN PRN Reason: Itching Last Admin: 08/29/19 14:36 Dose: 25 mg Folic Acid (Folic Acid) 1 mg PO DAILY [facility] Last Admin: 08/30/19 09:01 Dose: 1 mg Furosemide (Lasix) 40 mg PO BIDDIURETIC [facility] Gabapentin (Neurontin) 300 mg PO TID [facility] Last Admin: 08/30/19 09:01 Dose: 300 mg Insulin Human Lispro (Humalog) 0 unit SUBCUT QIDACANDBED [facility]; Protocol Last Admin: 08/30/19 09:07 Dose: Not Given Magnesium Oxide (Magnesium Oxide) 400 mg PO BID [facility] Last Admin: 08/30/19 09:02 Dose: 400 mg Oxycodone HCl (Oxycodone) 5 mg PO Q4H PRN PRN Reason: Pain (moderate 4-6) Oxycodone HCl (Oxycodone) 10 mg PO Q4H PRN PRN Reason: Pain (severe 7-10) Last Admin: 08/29/19 14:35 Dose: 10 mg Sodium Chloride (Saline Flush) 10 ml FLUSH ASDIRECTED PRN PRN Reason: Keep Vein Open Spironolactone (Aldactone) 100 mg PO BID [facility] Last Admin: 08/30/19 09:06 Dose: 100 mg Thiamine HCl (Vitamin B-1) 100 mg PO DAILY [facility] Last Admin: 08/30/19 09:02 Dose: 100 mg Discontinued Medications Enoxaparin Sodium (Lovenox) 40 mg SUBCUT Q12H [facility] Last Admin: 08/23/19 08:52 Dose: 40 mg Fentanyl (Sublimaze) 50 mcg IVPUSH ONETIME ONE Stop: 08/27/19 14:39 Last Admin: 08/27/19 14:53 Dose: 50 mcg Furosemide (Lasix) 40 mg PO BIDDIURETIC [facility] Last Admin: 08/29/19 08:19 Dose: 40 mg Furosemide (Lasix) 60 mg IVPUSH NOW ONE Stop: 08/25/19 09:26 Last Admin: 08/25/19 09:39 Dose: 60 mg Gabapentin (Neurontin) 300 mg PO TID [facility] Levofloxacin/Dextrose 750 mg/ (Premix) 150 mls @ 100 mls/hr IV DAILY [facility] Last Admin: 08/21/19 21:58 Dose: 100 mls/hr Lactated Ringer's (Ringers, Lactated) 1,000 mls @ 100 mls/hr IV ASDIRECTED [facility] Last Admin: 08/22/19 20:08 Dose: 100 mls/hr Levofloxacin/Dextrose 750 mg/ (Premix) 150 mls @ 100 mls/hr IV Q24H [facility] Last Admin: 08/22/19 21:10 Dose: 100 mls/hr Magnesium Sulfate 4 gm/ Premix 50 mls @ 12.5 mls/hr IV ONETIME ONE Stop: 08/23/19 20:59 Last Admin: 08/23/19 18:57 Dose: 12.5 mls/hr Influenza Virus Vaccine (Pharmacy To Dose - Influenza Vaccine) 1 each IM ASDIRECTED [facility] Influenza Virus Vaccine (Fluzone Quad Syringe) 60 mcg IM .ONCE ONE Stop: 08/21/19 23:01 Levofloxacin (Levaquin) 750 mg PO Q24H [facility] Stop: 08/25/19 21:01 Last Admin: 08/25/19 20:00 Dose: 750 mg Lidocaine HCl (Xylocaine 1%) Confirm Administered Dose 10 ml .ROUTE .STK-MED ONE Stop: 08/23/19 17:37 Last Admin: 08/23/19 18:57 Dose: 10 ml Lidocaine HCl (Xylocaine 1%) 0 ml INJECT ASDIRECTED [facility] Stop: 08/27/19 16:00 Last Admin: 08/27/19 14:02 Dose: 30 ml Oseltamivir Phosphate (Tamiflu) 75 mg PO BID [facility] Last Admin: 08/23/19 08:52 Dose: 75 mg Oxycodone HCl (Oxycodone) 5 mg PO ONETIME ONE Stop: 08/27/19 15:03 Last Admin: 08/27/19 15:11 Dose: 5 mg Spironolactone (Aldactone) 50 mg PO DAILY [facility] Last Admin: 08/26/19 08:57 Dose: 50 mg Spironolactone (Aldactone) 100 mg PO DAILY [facility] Spironolactone (Aldactone) 50 mg PO ONETIME ONE Stop: 08/26/19 09:57 Last Admin: 08/26/19 11:56 Dose: 50 mg Spironolactone (Aldactone) 100 mg PO BID [facility] Last Admin: 08/29/19 08:19 Dose: 100 mg - Exam Quality Assessment: Denies: Supplemental Oxygen General: Reports: Alert, Oriented HEENT: Reports: Pupils Equal, Mucous Membr. Moist/[place] Neck: Reports: Supple Lungs: Reports: Normal Respiratory Effort, Crackles (Right base otherwise clear) Cardiovascular: Reports: Regular Rate, Regular Rhythm GI/Abdominal Exam: Normal Bowel Sounds, Soft, Non-Tender, No Organomegaly, No Distention Extremities: Normal Inspection, Other (No edema left lower extremity, 2+ pitting edema right lower extremity) Skin: Reports: Warm Psy/Mental Status: Reports: Alert, Normal Affect, Normal Mood
[2019-08-30] MEDS ORDERED: Furosemide 40 MG Tab PO SCH (14:00)
== END 2019-08-30 12:09 | disposition home or self-care (01) | DRG 194 ==
LOC: JD.MS 19:00
PROVIDERS: ADMIT Internal Medicine; ATTEND Internal Medicine
PROC: 0W993ZZ Drainage of Right Pleural Cavity, Percutaneous Approach (ICD-10-PCS; 2019-08-23)
PROC: 0W9930Z Drainage of Right Pleural Cavity with Drainage Device, Percutaneous Approach (ICD-10-PCS; principal; 2019-08-27)
PROC: 3E02340 Introduction of Influenza Vaccine into Muscle, Percutaneous Approach (ICD-10-PCS; 2019-08-30)
DX: J15.7 Pneumonia due to Mycoplasma pneumoniae (principal); J90 Pleural effusion, not elsewhere classified; J44.0 Chronic obstructive pulmonary disease with (acute) lower respiratory infection; E46 Unspecified protein-calorie malnutrition; Z68.41 Body mass index [BMI] 40.0-44.9, adult; J12.89 Other viral pneumonia; B34.2 Coronavirus infection, unspecified; I10 Essential (primary) hypertension; K21.9 Gastro-esophageal reflux disease without esophagitis; X58.XXXD Exposure to other specified factors, subsequent encounter; M54.9 Dorsalgia, unspecified; G89.29 Other chronic pain; E11.40 Type 2 diabetes mellitus with diabetic neuropathy, unspecified; K70.30 Alcoholic cirrhosis of liver without ascites; F17.200 Nicotine dependence, unspecified, uncomplicated; D69.6 Thrombocytopenia, unspecified; E11.22 Type 2 diabetes mellitus with diabetic chronic kidney disease; N18.3 Chronic kidney disease, stage 3 (moderate); E83.42 Hypomagnesemia; D50.9 Iron deficiency anemia, unspecified; S81.801D Unspecified open wound, right lower leg, subsequent encounter; Z23 Encounter for immunization; Z88.5 Allergy status to narcotic agent; Z88.8 Allergy status to other drugs, medicaments and biological substances; Z91.041 Radiographic dye allergy status; Z98.49 Cataract extraction status, unspecified eye; Z90.49 Acquired absence of other specified parts of digestive tract; Z79.82 Long term (current) use of aspirin; Z79.84 Long term (current) use of oral hypoglycemic drugs; Z79.899 Other long term (current) drug therapy
CPT/HCPCS: 36415; 36600; 71045; 71045-26; 71046; 71046-26; 80048; 80053; 82803; 82945; 82962; 83036; 83605; 83615; 83735; 84100; 84145; 84155; 84157; 85025; 85610; 86738; 87040; 87070; 87205; 87486; 87581; 87632; 87798; 87804; 87899; 89050; 90686; 93306; 94640; 94760; 99222; 99231; 99232; 99239; A9270-GY; C1729; G0008; J1650; J1815-GY; J1940; J1956; J2001; J3010; J3475; J7120; J7620-GY

== ENCOUNTER 2019-09-09 16:21 | Emergency (ER) | payer BC, OTHER ==
--- NOTE | 2019-09-09 16:53 | EDM.PDOC ---
ED HPI GENERAL MEDICAL PROBLEM - General Chief Complaint: Fever Stated Complaint: SUSANNE FRESNO Time Seen by Provider: 09/09/19 16:43 - History of Present Illness INITIAL COMMENTS - FREE TEXT/NARRATIVE: 49-year-old female sent to the emergency room from the clinic in [place] thought to have pneumonia and be septic. I was contacted by Dr. Jose Carlos Shaw regarding this patient with recurrent dyspnea a fever hypotension and tachycardia. At the referring facility they did not have the facilities to start IV Levophed and he did not feel comfortable giving her fluids. The patient showed up in our emergency room via private car. The patient was recently discharged from here with a pneumonia. Patient has a complicated medical history including diabetes cirrhosis secondary to alcohol abuse congestive heart failure.. Prior to accepting the patient transfer Case was discussed with Dr. Serna her hospitalist who agreed with the transfer. Chest Pain Score (Numeric/FACES): 7 - Related Data Allergies Allergy/AdvReac Type Severity Reaction Status Date / Time codeine Allergy Itching Verified 09/09/19 16:39 Iodinated Contrast Media Allergy Itching Verified 09/09/19 16:39 [Iodinated Contrast- Oral and IV Dye] metronidazole [From Flagyl] Allergy Itching Verified 09/09/19 16:39 Home Meds: Home Meds Aspirin [Halfprin] 81 mg PO DAILY #30 tab.ec 11/16/17 [Rx] Cyanocobalamin (Vitamin B12) [Vitamin B12] 1,000 mcg PO DAILY 10/31/18 [History] Esomeprazole Magnesium 40 mg PO DAILY 10/31/18 [History] Furosemide [Lasix] 40 mg PO BID 11/30/18 [History] Ascorbic Acid [Vitamin C with Caridad Hips] 500 mg PO DAILY 08/21/19 [History] Sodium Hypochlorite [Hysept] 1 applic TOP DAILY 08/21/19 [History] Zinc Gluconate [Zinc] 50 mg PO DAILY 08/21/19 [History] Cetirizine [ZyrTEC] 10 mg PO DAILY 08/22/19 [History] Ferrous Sulfate 325 mg PO BID 08/22/19 [History] Fluticasone/Salmeterol [Advair 250-50 Diskus] 1 puff PO BID 08/22/19 [History] Vit,Joaquín 74/Iron/Folic [ Low Iron Tablet] 1 tab PO DAILY [History] Gabapentin [Neurontin] 300 mg PO TID 08/23/19 [History] Folic Acid 1 mg PO DAILY #30 tablet 08/30/19 [Rx] Furosemide [Lasix] 40 mg PO BIDDIURETIC #60 tablet 08/30/19 [Rx] Gabapentin [Neurontin] 300 mg PO TID cap 08/30/19 [Rx] Magnesium Oxide 400 mg PO BID #60 tablet 08/30/19 [Rx] Spironolactone [Aldactone] 100 mg PO BID #60 tablet 08/30/19 [Rx] Thiamine HCl 250 mg PO DAILY #30 tablet 08/30/19 [Rx] Past Medical History HEENT History: Reports: Cataract Other HEENT History: upper partials Cardiovascular History: Reports: Heart Failure Respiratory History: Reports: Asthma, Other (See Below) Other Respiratory History: pleural effusion after fall Gastrointestinal History: Reports: GERD, Helicobacter Pylori, PUD Genitourinary History: Reports: None LEAD POURER History: Reports: Dysfunctional Uterine Bleeding, Musculoskeletal History: Reports: Back Pain, Chronic, Other (See Below) Other Musculoskeletal History: slipped out of her pickup and scraped her back on the running board and has had backpain ever since. Neurological History: Reports: Neuropathy, Diabetic Endocrine/Metabolic History: Reports: Diabetes, Type II Other Endocrine/Metabolic History: check your sugars as needed Hematologic History: Reports: Anemia, Blood Transfusion(s) Dermatologic History: Reports: None - Past Surgical History HEENT Surgical History: Reports: Cataract Surgery Respiratory Surgical History: Reports: Thoracentesis GI Surgical History: Reports: Cholecystectomy Endocrine Surgical History: Reports: None Social & Family History - Family History Family Medical History: Noncontributory - Tobacco Use Smoking Status *Q: Never Smoker - Caffeine Use Caffeine Use: Reports: Tea - Recreational Drug Use Recreational Drug Use: No ED ROS GENERAL - Review of Systems Review Of Systems: See Below Constitutional: Reports: Fever, Chills HEENT: Reports: No Symptoms Respiratory: Reports: Shortness of Breath, Pleuritic Chest Pain, Cough, Sputum, Hemoptysis Cardiovascular: Reports: Chest Pain, Dyspnea on Exertion GI/Abdominal: Reports: No Symptoms : Reports: No Symptoms Musculoskeletal: Reports: No Symptoms Skin: Reports: No Symptoms Neurological: Reports: No Symptoms Psychiatric: Reports: No Symptoms ED EXAM, SEPSIS - Physical Exam Exam: See Below Text/Narrative:: Before the complete examination a more sepsis focus exam was done Exam Limited By: Other (Is quite ill) General Appearance: Obtunded, Obese Eye Exam: Bilateral Eye: Normal Inspection Ears: Normal External Exam Nose: Normal Inspection, Normal Mucosa, No Blood Throat/Mouth: Normal Inspection, Normal Lips, Normal Gums, Normal Oropharynx, Normal Voice, No Airway Compromise Head: Atraumatic, Normocephalic Neck: Normal Inspection, Supple, Non-Tender, Full Range of Motion Respiratory/Chest: Decreased Breath Sounds (In both lung bases), Crackles (More so in the lung bases). No: Wheezing Cardiovascular: Regular Rate, Rhythm, No Murmur GI/Abdominal Exam: Normal Bowel Sounds, Soft, Non-Tender, Other (Obese) Course - Vital Signs Last Recorded V/S: Last Vital Signs Temp 38.1 C 09/09/19 16:35 Pulse 94 09/09/19 16:35 Resp 18 09/09/19 16:35 BP 98/48 L 09/09/19 16:35 Pulse Ox 93 L 09/09/19 16:35 - Orders/Labs/Meds Orders: Active Orders 24 hr Category Date Time Status EKG Documentation Completion [RC] STAT Care 09/09/19 16:56 Active Chest 1V Frontal [CR] Routine Exams 09/09/19 19:35 Taken Chest 2V [CR] Stat Exams 09/09/19 16:56 Taken CULTURE BLOOD [BC] Stat Lab 09/09/19 17:40 Received CULTURE BLOOD [BC] Stat Lab 09/09/19 18:04 Received LACTIC ACID [CHEM] Routine Lab 09/09/19 19:45 Ordered UA RFX BETINA AND CULT IF INDIC [URIN] Stat Lab 09/09/19 16:57 Ordered Albumin 25% [Flexbumin 25%] Med 09/09/19 20:12 Active 25 gm in 100 ml IV ONETIME Albumin 25% [Flexbumin 25%] Med 09/09/19 20:16 Active 25 gm in 100 ml IV ONETIME Lactated Ringers [Ringers, Lactated] 1,000 ml Med 09/09/19 19:45 Active IV ASDIRECTED Levofloxacin/Dextrose 5%-Water [Levaquin in D5W 750 MG/ Med 09/09/19 18:15 Active 150 ML] 750 mg Premix Bag 1 bag IV Q24H Norepinephrine 4 MG in D5W @ 2 MCG/MIN(250ml) Med 09/09/19 21:00 Ordered Norepinephrine [Levophed] 4 mg Dextrose 5% in Water 246 ml IV TITRATE Piperacillin/Tazobactam [Piperacil-Tazobact] 4.5 gm Med 09/09/19 18:15 Active Sodium Chloride 0.9% [Normal Saline] 100 ml IV Q8H Vancomycin 1 gm Med 09/09/19 20:28 Active Vancomycin 250 mg Sodium Chloride 0.9% [Normal Saline] 250 ml IV ONETIME Blood Culture x2 Reflex Set [OM.PC] Stat Oth 09/09/19 16:56 Ordered Medication Orders Levofloxacin/Dextrose 750 mg/ (Premix) 150 mls @ 100 mls/hr IV Q24H [facility] Last Admin: 09/09/19 19:23 Dose: 100 mls/hr Piperacillin Sod/Tazobactam (Sod 4.5 gm/ Sodium Chloride) 100 mls @ 25 mls/hr IV Q8H [facility] Last Admin: 09/09/19 19:12 Dose: Not Given Lactated Ringer's (Ringers, Lactated) 1,000 mls @ 999 mls/hr IV ASDIRECTED [facility] Albumin Human (Flexbumin 25%) 25 gm in 100 mls @ 100 mls/hr IV ONETIME ONE Stop: 09/09/19 21:11 Last Admin: 09/09/19 20:45 Dose: 100 mls/hr Albumin Human (Flexbumin 25%) 25 gm in 100 mls @ 100 mls/hr IV ONETIME ONE Stop: 09/09/19 21:15 Vancomycin HCl 1 gm/Vancomycin HCl 250 mg/ Sodium Chloride 250 mls @ 166.667 mls/hr IV ONETIME ONE Stop: 09/09/19 21:57 Last Admin: 09/09/19 20:41 Dose: 166.667 mls/hr Labs: Laboratory Tests 09/09/19 09/09/19 09/09/19 Range/Units 16:54 16:54 16:54 WBC 16.75 H (3.98-10.04) K/mm3 RBC 3.25 L (3.98-5.22) M/mm3 Hgb 8.1 L (11.2-15.7) gm/dl Hct 27.1 L (34.1-44.9) % MCV 83.4 (79.4-94.8) fl MCH 24.9 L (25.6-32.2) pg MCHC 29.9 L (32.2-35.5) g/dl RDW Std Deviation 58.3 H (36.4-46.3) fL Plt Count 60 L (182-369) K/mm3 MPV TNP Neutrophils % (Manual) 84 H (40-60) % Band Neutrophils % 5 (0-10) % Lymphocytes % (Manual) 9 L (20-40) % Atypical Lymphs % 0 % Monocytes % (Manual) 2 (2-10) % Eosinophils % (Manual) 0 L (0.7-5.8) % Basophils % (Manual) 0 L (0.1-1.2) Platelet Estimate Marked dec Plt Morphology Comment Normal Hypochromasia 2+ moderate RBC Morph Comment Not Reportable PT 16.0 H (9.7-12.0) SECONDS INR 1.50 Sodium 136 (136-145) mEq/L Potassium 4.9 (3.5-5.1) mEq/L Chloride 105 (98-107) mEq/L Carbon Dioxide 15 L (21-32) mEq/L Anion Gap 20.9 H (5-15) BUN 17 (7-18) mg/dL Creatinine 1.9 H (0.55-1.02) mg/dL Est Cr Clr Drug Dosing 35.34 mL/min Estimated GFR (MDRD) 28 (>60) mL/min BUN/Creatinine Ratio 8.9 L (14-18) Glucose 160 H (74-106) mg/dL Lactic Acid (0.4-2.0) mmol/L Calcium 7.8 L (8.5-10.1) mg/dL Phosphorus (2.6-4.7) mg/dL Magnesium (1.8-2.4) mg/dl Total Bilirubin 2.6 H (0.2-1.0) mg/dL AST 20 (15-37) U/L ALT 22 (14-59) U/L Alkaline Phosphatase 89 (46-116) U/L Troponin I < 0.017 (0.00-0.056) ng/mL NT-Pro-B Natriuret Pep (0-125) pg/mL Total Protein 7.2 (6.4-8.2) g/dl Albumin 1.8 L (3.4-5.0) g/dl Globulin 5.4 gm/dL Albumin/Globulin Ratio 0.3 L (1-2) 09/09/19 09/09/19 09/09/19 Range/Units 16:54 16:54 16:54 WBC (3.98-10.04) K/mm3 RBC (3.98-5.22) M/mm3 Hgb (11.2-15.7) gm/dl Hct (34.1-44.9) % MCV (79.4-94.8) fl MCH (25.6-32.2) pg MCHC (32.2-35.5) g/dl RDW Std Deviation (36.4-46.3) fL Plt Count (182-369) K/mm3 MPV Neutrophils % (Manual) (40-60) % Band Neutrophils % (0-10) % Lymphocytes % (Manual) (20-40) % Atypical Lymphs % % Monocytes % (Manual) (2-10) % Eosinophils % (Manual) (0.7-5.8) % Basophils % (Manual) (0.1-1.2) Platelet Estimate Plt Morphology Comment Hypochromasia RBC Morph Comment PT (9.7-12.0) SECONDS INR Sodium (136-145) mEq/L Potassium (3.5-5.1) mEq/L Chloride (98-107) mEq/L Carbon Dioxide (21-32) mEq/L Anion Gap (5-15) BUN (7-18) mg/dL Creatinine (0.55-1.02) mg/dL Est Cr Clr Drug Dosing mL/min Estimated GFR (MDRD) (>60) mL/min BUN/Creatinine Ratio (14-18) Glucose (74-106) mg/dL Lactic Acid 5.3 H* (0.4-2.0) mmol/L Calcium (8.5-10.1) mg/dL Phosphorus 2.7 (2.6-4.7) mg/dL Magnesium 1.4 L (1.8-2.4) mg/dl Total Bilirubin (0.2-1.0) mg/dL AST (15-37) U/L ALT (14-59) U/L Alkaline Phosphatase (46-116) U/L Troponin I (0.00-0.056) ng/mL NT-Pro-B Natriuret Pep 365 H (0-125) pg/mL Total Protein (6.4-8.2) g/dl Albumin (3.4-5.0) g/dl Globulin gm/dL Albumin/Globulin Ratio (1-2) Meds: Medications Generic Name Dose Route Start Last Admin Trade Name Danielq PRN Reason Stop Dose Admin Levofloxacin/Dextrose 750 mg/ 150 mls @ 100 mls/hr 09/09/19 18:15 09/09/19 19 :23 Premix IV 100 mls/hr Q24H [place] Administration Piperacillin Sod/Tazobactam 100 mls @ 25 mls/hr 09/09/19 18:15 09/09/19 19:12 Sod 4.5 gm/ Sodium Chloride IV Not Given Q8H [place] Lactated Ringer's 1,000 mls @ 999 mls/hr 09/09/19 19:45 Ringers, Lactated IV ASDIRECTED [facility] Albumin Human 25 gm in 100 mls @ 100 mls/hr 09/09/19 20:12 09/09/19 20:45 Flexbumin 25% IV 09/09/19 21:11 100 mls/hr ONETIME ONE Administration Albumin Human 25 gm in 100 mls @ 100 mls/hr 09/09/19 20:16 Flexbumin 25% IV 09/09/19 21:15 ONETIME ONE Vancomycin HCl 1 gm/ 250 mls @ 166.667 mls/hr 09/09/19 20:28 09/09/19 20:41 Vancomycin HCl 250 mg/ Sodium IV 09/09/19 21:57 166.667 mls/hr Chloride ONETIME ONE Administration Discontinued Medications Generic Name Dose Route Start Last Admin Trade Name Danielq PRN Reason Stop Dose Admin Lactated Ringer's 500 mls @ 500 mls/hr 09/09/19 17:20 Ringers, Lactated IV 09/09/19 18:19 .BOLUS ONE Lactated Ringer's 2,100 mls @ 999 mls/hr 09/09/19 17:59 09/09/19 18:15 Ringers, Lactated IV 09/09/19 20:05 999 mls/hr .BOLUS ONE Administration Piperacillin Sod/Tazobactam 100 mls @ 200 mls/hr 09/09/19 18:24 09/09/19 18: 48 Sod 4.5 gm/ Sodium Chloride IV 09/09/19 18:53 200 mls/hr NOW STA Administration Vancomycin HCl 1.25 gm/ Sodium 250 mls @ 250 mls/hr 09/09/19 20:26 Chloride IV 09/09/19 21:25 ONETIME ONE Lidocaine HCl Confirm 09/09/19 18:46 Xylocaine 1% Administered 09/09/19 18:47 Dose 10 ml .ROUTE .[facility] - Re-Assessments/Exams Free Text/Narrative Re-Assessment/Exam: 09/09/19 17:25 Dr. Serna is here to assume care of the patient Departure - Departure Time of Disposition: 21:06 Disposition: DC/[facility] to [facility] 02 Clinical Impression: Hospital-acquired bacterial pneumonia, Sepsis - Discharge Information Referrals: PCP,None [Primary Care Provider] - Forms: ED Department Discharge Sepsis Event Note - Evaluation Sepsis Screening Result: Possible Severe Sepsis Risk - Focused Exam Vital Signs: Vital Signs Temp Pulse Resp BP Pulse Ox 09/09/19 16:35 38.1 C 94 18 98/48 L 93 L Date Exam was Performed: 09/09/19 Time Exam was Performed: 20:48 - My Orders Last 24 Hours: My Active Orders 09/09/19 16:56 EKG Documentation Completion [RC] STAT Chest 2V [CR] Stat Blood Culture x2 Reflex Set [OM.PC] Stat 09/09/19 16:57 UA RFX BETINA AND CULT IF INDIC [URIN] Stat 09/09/19 17:40 CULTURE BLOOD [BC] Stat 09/09/19 18:04 CULTURE BLOOD [BC] Stat 09/09/19 19:35 Chest 1V Frontal [CR] Routine 09/09/19 19:45 LACTIC ACID [CHEM] Routine 09/09/19 20:12 Albumin 25% [Flexbumin 25%] 25 gm in 100 ml IV ONETIME - Assessment/Plan Last 24 Hours: My Active Orders 09/09/19 16:56 EKG Documentation Completion [RC] STAT Chest 2V [CR] Stat Blood Culture x2 Reflex Set [OM.PC] Stat 09/09/19 16:57 UA RFX BETINA AND CULT IF INDIC [URIN] Stat 09/09/19 17:40 CULTURE BLOOD [BC] Stat 09/09/19 18:04 CULTURE BLOOD [BC] Stat 09/09/19 19:35 Chest 1V Frontal [CR] Routine 09/09/19 19:45 LACTIC ACID [CHEM] Routine 09/09/19 20:12 Albumin 25% [Flexbumin 25%] 25 gm in 100 ml IV ONETIME
--- NOTE | 2019-09-09 17:11 | PCM.HP.2 ---
H&P History of Present Illness Chest Pain Score (Numeric/FACES): 7 - Related Data Allergies/Adverse Reactions: Allergies Allergy/AdvReac Type Severity Reaction Status Date / Time codeine Allergy Itching Verified 09/09/19 16:39 Iodinated Contrast Media Allergy Itching Verified 09/09/19 16:39 [Iodinated Contrast- Oral and IV Dye] metronidazole [From Flagyl] Allergy Itching Verified 09/09/19 16:39 Home Medications: Home Meds Aspirin [Halfprin] 81 mg PO DAILY #30 tab.ec 11/16/17 [Rx] Cyanocobalamin (Vitamin B12) [Vitamin B12] 1,000 mcg PO DAILY 10/31/18 [History] Esomeprazole Magnesium 40 mg PO DAILY 10/31/18 [History] Furosemide [Lasix] 40 mg PO BID 11/30/18 [History] Ascorbic Acid [Vitamin C with Caridad Hips] 500 mg PO DAILY 08/21/19 [History] Sodium Hypochlorite [Hysept] 1 applic TOP DAILY 08/21/19 [History] Zinc Gluconate [Zinc] 50 mg PO DAILY 08/21/19 [History] Cetirizine [ZyrTEC] 10 mg PO DAILY 08/22/19 [History] Ferrous Sulfate 325 mg PO BID 08/22/19 [History] Fluticasone/Salmeterol [Advair 250-50 Diskus] 1 puff PO BID 08/22/19 [History] Vit,Joaquín 74/Iron/Folic [ Low Iron Tablet] 1 tab PO DAILY [History] Gabapentin [Neurontin] 300 mg PO TID 08/23/19 [History] Folic Acid 1 mg PO DAILY #30 tablet 08/30/19 [Rx] Furosemide [Lasix] 40 mg PO BIDDIURETIC #60 tablet 08/30/19 [Rx] Gabapentin [Neurontin] 300 mg PO TID cap 08/30/19 [Rx] Magnesium Oxide 400 mg PO BID #60 tablet 08/30/19 [Rx] Spironolactone [Aldactone] 100 mg PO BID #60 tablet 08/30/19 [Rx] Thiamine HCl 250 mg PO DAILY #30 tablet 08/30/19 [Rx] Past Medical History HEENT History: Reports: Cataract Other HEENT History: upper partials Cardiovascular History: Reports: Heart Failure Respiratory History: Reports: Asthma, Other (See Below) Other Respiratory History: pleural effusion after fall Gastrointestinal History: Reports: GERD, Helicobacter Pylori, PUD Genitourinary History: Reports: None 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 Neurological History: Reports: Neuropathy, Diabetic Psychiatric History: Reports: None Endocrine/Metabolic History: Reports: Diabetes, Type II Other Endocrine/Metabolic History: check your sugars as needed Hematologic History: Reports: Anemia, Blood Transfusion(s) Immunologic History: Reports: None Oncologic (Cancer) History: Reports: None Dermatologic History: Reports: None - Infectious Disease History Infectious Disease History: Reports: None - Past Surgical History HEENT Surgical History: Reports: Cataract Surgery Respiratory Surgical History: Reports: Thoracentesis GI Surgical History: Reports: Cholecystectomy Endocrine Surgical History: Reports: None Social & Family History - Family History Family Medical History: Noncontributory - Tobacco Use Smoking Status *Q: Never Smoker - Caffeine Use Caffeine Use: Reports: Tea - Recreational Drug Use Recreational Drug Use: No Exam - Vital Signs Vital Signs: Last Vital Signs Temp 100.6 F 09/09/19 16:35 Pulse 94 09/09/19 16:35 Resp 18 09/09/19 16:35 BP 98/48 L 09/09/19 16:35 Pulse Ox 93 L 09/09/19 16:35 Weight: 108.862 kg Sepsis Event Note - Evaluation Sepsis Screening Result: Possible Severe Sepsis Risk - Focused Exam Vital Signs: Vital Signs Temp Pulse Resp BP Pulse Ox 09/09/19 16:35 100.6 F 94 18 98/48 L 93 L Date Exam was Performed: 09/09/19 Time Exam was Performed: 17:11 Orders Last 24hrs: Active Orders 24 hr Category Date Time Status EKG Documentation Completion [RC] STAT Care 09/09/19 16:56 Active Chest 1V Frontal [CR] Stat Exams 09/09/19 16:56 Ordered CBC WITH MANUAL DIFF [HEME] Stat Lab 09/09/19 16:56 Ordered COMPREHENSIVE METABOLIC PN,CMP [CHEM] Stat Lab 09/09/19 16:56 Ordered CULTURE BLOOD [BC] Stat Lab 09/09/19 16:57 Ordered CULTURE BLOOD [BC] Stat Lab 09/09/19 16:57 Ordered INR,PT,PROTHROMBIN TIME [COAG] Stat Lab 09/09/19 16:56 Ordered LACTATE SEPSIS W/ REFLEX [CHEM] Stat Lab 09/09/19 16:57 Ordered LACTIC ACID [CHEM] Stat Lab 09/09/19 16:56 Ordered PRO B-TYPE NATRIUR PEPT,BNPPRO [CHEM] Stat Lab 09/09/19 16:57 Ordered TROPONIN I [CHEM] Stat Lab 09/09/19 16:56 Ordered UA RFX BETINA AND CULT IF INDIC [URIN] Stat Lab 09/09/19 16:57 Ordered Blood Culture x2 Reflex Set [OM.PC] Stat Oth 09/09/19 16:56 Ordered
[2019-09-09] MEDS ORDERED: Lactated Ringers 500 ML IV ONE (17:20)
[2019-09-09] MEDS ORDERED: Lactated Ringers 2,100 ML IV ONE (17:59)
[2019-09-09] MEDS ORDERED: Levofloxacin/Dextrose 5%-Water 750 MG in Premix Bag 1 BAG IV SCH (18:15)
[2019-09-09] MEDS ORDERED: Piperacillin/Tazobactam 4.5 GM in Sodium Chloride 0.9% 100 ML IV SCH (18:15)
[2019-09-09] MEDS ORDERED: Piperacillin/Tazobactam 4.5 GM in Sodium Chloride 0.9% 100 ML IV STA (18:24)
[2019-09-09] MEDS ORDERED: Lidocaine 1% 10 ML MDV ONE (18:46)
[2019-09-09] MEDS ORDERED: Lactated Ringers 1,000 ML IV SCH (19:45)
[2019-09-09] MEDS ORDERED: Vancomycin 1 GM, Vancomycin 250 MG in Sodium Chloride 0.9% 250 ML IV ONE (20:28)
[2019-09-09] MEDS ORDERED: Ondansetron 4 MG/2 ML SDV ONE (20:58)
[2019-09-09] MEDS ORDERED: Norepinephrine 4 MG in Dextrose 5% in Water 246 ML IV SCH ×2 (21:00)
[2019-09-09] MEDS ORDERED: Ondansetron 4 MG/2 ML SDV IVPUSH ONE (21:22)
--- NOTE | 2019-09-09 21:53 | EDM.PDOC ---
ED HPI GENERAL MEDICAL PROBLEM - General Chief Complaint: Fever Stated Complaint: SUSANNE WHARTON Time Seen by Provider: 09/09/19 16:30 Source of Information: Reports: Patient History Limitations: Reports: No Limitations - History of Present Illness INITIAL COMMENTS - FREE TEXT/NARRATIVE: This is a 49 year old female with past medical history of diabetes, alcoholic cirrhosis and recurrent pleural effusion who came to the ED after being referred from PCP clinic. As per patient after recent discharge she was supposed to follow up with PCP for possible referral to CT surgery for pleurodesis however she was unable to follow up due to scheduling problems. She was in her usual state of health until 5 days ago when she started having worsening shortness of breath associated with fever and chills 2 days ago. Due to no improvement she decided to go to clinic for evaluation. Once in the clinic she was found to have hypotension, tachycardia and fever, there was a suspicion of septic shock and due to requiring higher level of care she was transferred here. Chest Pain Score (Numeric/FACES): 7 - Related Data Allergies Allergy/AdvReac Type Severity Reaction Status Date / Time codeine Allergy Itching Verified 09/09/19 16:39 Iodinated Contrast Media Allergy Itching Verified 09/09/19 16:39 [Iodinated Contrast- Oral and IV Dye] metronidazole [From Flagyl] Allergy Itching Verified 09/09/19 16:39 Home Meds: Home Meds RX: Aspirin [Halfprin] 81 mg PO DAILY #30 tab.ec 11/16/17 [Rx] RX: Cyanocobalamin (Vitamin B12) [Vitamin B12] 1,000 mcg PO DAILY 10/31/18 [ History] RX: Esomeprazole Magnesium 40 mg PO DAILY 10/31/18 [History] RX: Furosemide [Lasix] 40 mg PO BID 11/30/18 [History] RX: Ascorbic Acid [Vitamin C with Caridad Hips] 500 mg PO DAILY 08/21/19 [History] RX: Sodium Hypochlorite [Hysept] 1 applic TOP DAILY 08/21/19 [History] RX: Zinc Gluconate [Zinc] 50 mg PO DAILY 08/21/19 [History] RX: Cetirizine [ZyrTEC] 10 mg PO DAILY 08/22/19 [History] RX: Ferrous Sulfate 325 mg PO BID 08/22/19 [History] RX: Fluticasone/Salmeterol [Advair 250-50 Diskus] 1 puff PO BID 08/22/19 [ History] RX: Vit,Joaquín 74/Iron/Folic [ Low Iron Tablet] 1 tab PO DAILY 01/03 [History] RX: Gabapentin [Neurontin] 300 mg PO TID 08/23/19 [History] RX: Folic Acid 1 mg PO DAILY #30 tablet 08/30/19 [Rx] RX: Furosemide [Lasix] 40 mg PO BIDDIURETIC #60 tablet 08/30/19 [Rx] RX: Gabapentin [Neurontin] 300 mg PO TID cap 08/30/19 [Rx] RX: Magnesium Oxide 400 mg PO BID #60 tablet 08/30/19 [Rx] RX: Spironolactone [Aldactone] 100 mg PO BID #60 tablet 08/30/19 [Rx] RX: Thiamine HCl 250 mg PO DAILY #30 tablet 08/30/19 [Rx] Past Medical History HEENT History: Reports: Cataract Other HEENT History: upper partials Cardiovascular History: Reports: Heart Failure Respiratory History: Reports: Asthma, Other (See Below) Other Respiratory History: pleural effusion after fall Gastrointestinal History: Reports: GERD, Helicobacter Pylori, PUD Genitourinary History: Reports: None [employer]IL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 Neurological History: Reports: Neuropathy, Diabetic Psychiatric History: Reports: None Endocrine/Metabolic History: Reports: Diabetes, Type II Other Endocrine/Metabolic History: check your sugars as needed Hematologic History: Reports: Anemia, Blood Transfusion(s) Immunologic History: Reports: None Oncologic (Cancer) History: Reports: None Dermatologic History: Reports: None - Infectious Disease History Infectious Disease History: Reports: None - Past Surgical History HEENT Surgical History: Reports: Cataract Surgery Respiratory Surgical History: Reports: Thoracentesis GI Surgical History: Reports: Cholecystectomy Endocrine Surgical History: Reports: None Social & Family History - Family History Family Medical History: Noncontributory - Tobacco Use Smoking Status *Q: Never Smoker - Caffeine Use Caffeine Use: Reports: Tea - Recreational Drug Use Recreational Drug Use: No ED ROS GENERAL - Review of Systems Review Of Systems: See Below Constitutional: Reports: Fever, Chills, Malaise, Weakness, Fatigue, Diaphoresis. Denies: Night Sweats HEENT: Denies: Hearing Loss, Nosebleed, Nose Pain, Rhinitis, Sinus Problem, Throat Pain, Throat Swelling, Vision Change Respiratory: Reports: Shortness of Breath, Pleuritic Chest Pain, Cough. Denies : Wheezing, Sputum, Hemoptysis Cardiovascular: Reports: Chest Pain, Dyspnea on Exertion, Lightheadedness, Orthopnea, PND. Denies: Blood Pressure Problem, Claudication, Edema, Palpitations, Syncope Endocrine: Reports: Fatigue, High Glucose. Denies: Polydypsia, Polyuria GI/Abdominal: Reports: Abdominal Pain, Anorexia. Denies: Black Stool, Bloody Stool, Constipation, Diarrhea, Decreased Appetite, Difficulty Swallowing, Distension, Flatus, Hematemesis, Hematochezia, Melena, Mucous in Stool, Nausea, Vomiting : Denies: Discharge, Dysuria, Flank Pain, Frequency, Hematuria, Incontinence Musculoskeletal: Reports: Back Pain. Denies: Neck Pain, Shoulder Pain, Arm Pain , Hand Pain, Leg Pain, Foot Pain, Joint Pain, Joint Swelling, Muscle Pain, Muscle Stiffness Skin: Reports: Bruising. Denies: Cyanosis, Jaundice, Mottled, Pallor, Diaphoresis, Dryness Neurological: Denies: Confusion, Dizziness, Headache, Numbness Psychiatric: Denies: Agitation, Anxiety, Confusion, Cravings Hematologic/Lymphatic: Denies: Anemia, Easy Bleeding, Easy Bruising ED EXAM, SEPSIS - Physical Exam Exam: See Below Exam Limited By: No Limitations General Appearance: Alert, WD/WN, Anxious Eye Exam: Bilateral Eye: PERRL Nose: Normal Inspection. No: Nasal Deformity Throat/Mouth: Normal Inspection, Normal Lips. No: Normal Teeth Head: Atraumatic, Normocephalic, Facial Swelling. No: Facial Tenderness Neck: Normal Inspection, Supple, Non-Tender, Full Range of Motion. No: Carotid Bruit, Lymphadenopathy (L), Lymphadenopathy (R) Respiratory/Chest: Decreased Breath Sounds, Crackles. No: Rales, Rhonchi, Wheezing, Stridor, Accessory Muscle Use, Retractions Cardiovascular: Regular Rate, Rhythm, No Edema, No Gallop, No Murmur, No Rub, JVD. No: Diastolic Murmur, Systolic Murmur, Gallop/S3, Gallop/S4, Extra Beats GI/Abdominal Exam: Normal Bowel Sounds, Soft, Non-Tender. No: Distended, Guarding, Rigid, Rebound Back: Normal Inspection. No: CVA Tenderness (L), CVA Tenderness (R) Extremities: Pedal Edema, Slow Capillary Refill, Leg Pain Neurological: Alert, Oriented Psychiatric: Flat Affect Skin: Warm, Jaundice ED CENTRAL LINE INSERTION - Central Line Insertion Central Line Indication: medication administration Site: internal jugular (R) Prep: CDC/MBT Guidelines Lumen: triple Gauge: 7Fr Local Anesthesia - Lidocaine (Xylocaine): 1% Plain Local Anesthetic Volume: 2cc Ultrasound guided: Yes Guidewire and dilator removed intact: Yes Micropuncture kit used: Yes Complications: No Secured with suture: Yes Post placement confirmation: CXR, all ports aspirated, all ports flushed CXR post-procedure: no pneumothorax, no hemothorax Dressing applied: by provider Course - Vital Signs Last Recorded V/S: Last Vital Signs Temp 100.6 F 09/09/19 16:35 Pulse 94 09/09/19 16:35 Resp 18 09/09/19 16:35 BP 98/48 L 09/09/19 16:35 Pulse Ox 93 L 09/09/19 16:35 - Orders/Labs/Meds Labs: Laboratory Tests 09/09/19 09/09/19 09/09/19 Range/Units 16:45 16:54 16:54 WBC 16.75 H (3.98-10.04) K/mm3 RBC 3.25 L (3.98-5.22) M/mm3 Hgb 8.1 L (11.2-15.7) gm/dl Hct 27.1 L (34.1-44.9) % MCV 83.4 (79.4-94.8) fl MCH 24.9 L (25.6-32.2) pg MCHC 29.9 L (32.2-35.5) g/dl RDW Std Deviation 58.3 H (36.4-46.3) fL Plt Count 60 L (182-369) K/mm3 MPV TNP Neutrophils % (Manual) 84 H (40-60) % Band Neutrophils % 5 (0-10) % Lymphocytes % (Manual) 9 L (20-40) % Atypical Lymphs % 0 % Monocytes % (Manual) 2 (2-10) % Eosinophils % (Manual) 0 L (0.7-5.8) % Basophils % (Manual) 0 L (0.1-1.2) Platelet Estimate Marked dec Plt Morphology Comment Normal Hypochromasia 2+ moderate RBC Morph Comment Not Reportable PT 16.0 H (9.7-12.0) SECONDS INR 1.50 Sodium (136-145) mEq/L Potassium (3.5-5.1) mEq/L Chloride (98-107) mEq/L Carbon Dioxide (21-32) mEq/L Anion Gap (5-15) BUN (7-18) mg/dL Creatinine (0.55-1.02) mg/dL Est Cr Clr Drug Dosing mL/min Estimated GFR (MDRD) (>60) mL/min BUN/Creatinine Ratio (14-18) Glucose (74-106) mg/dL Lactic Acid (0.4-2.0) mmol/L Calcium (8.5-10.1) mg/dL Phosphorus (2.6-4.7) mg/dL Magnesium (1.8-2.4) mg/dl Total Bilirubin (0.2-1.0) mg/dL AST (15-37) U/L ALT (14-59) U/L Alkaline Phosphatase (46-116) U/L Lactate Dehydrogenase 284 H (81-234) U/L Troponin I (0.00-0.056) ng/mL NT-Pro-B Natriuret Pep (0-125) pg/mL Total Protein (6.4-8.2) g/dl Albumin (3.4-5.0) g/dl Globulin gm/dL Albumin/Globulin Ratio (1-2) Body Fluid Site Fluid Type Fluid Volume ML Fluid Color Fluid Appearance Fluid WBC (0.20-0.60) k/mm*3 Fluid RBC (0.00-0.010) 10*6/uL Fluid Diff Comment Fluid Seg Neutrophils (0-25) % Fluid Lymphocytes (0-78) % Fl Polymorphonucl Cell Fluid Glucose mg/dL Fluid Total Protein gm/dl 09/09/19 09/09/19 09/09/19 Range/Units 16:54 16:54 16:54 WBC (3.98-10.04) K/mm3 RBC (3.98-5.22) M/mm3 Hgb (11.2-15.7) gm/dl Hct (34.1-44.9) % MCV (79.4-94.8) fl MCH (25.6-32.2) pg MCHC (32.2-35.5) g/dl RDW Std Deviation (36.4-46.3) fL Plt Count (182-369) K/mm3 MPV Neutrophils % (Manual) (40-60) % Band Neutrophils % (0-10) % Lymphocytes % (Manual) (20-40) % Atypical Lymphs % % Monocytes % (Manual) (2-10) % Eosinophils % (Manual) (0.7-5.8) % Basophils % (Manual) (0.1-1.2) Platelet Estimate Plt Morphology Comment Hypochromasia RBC Morph Comment PT (9.7-12.0) SECONDS INR Sodium 136 (136-145) mEq/L Potassium 4.9 (3.5-5.1) mEq/L Chloride 105 (98-107) mEq/L Carbon Dioxide 15 L (21-32) mEq/L Anion Gap 20.9 H (5-15) BUN 17 (7-18) mg/dL Creatinine 1.9 H (0.55-1.02) mg/dL Est Cr Clr Drug Dosing 35.34 mL/min Estimated GFR (MDRD) 28 (>60) mL/min BUN/Creatinine Ratio 8.9 L (14-18) Glucose 160 H (74-106) mg/dL Lactic Acid 5.3 H* (0.4-2.0) mmol/L Calcium 7.8 L (8.5-10.1) mg/dL Phosphorus (2.6-4.7) mg/dL Magnesium (1.8-2.4) mg/dl Total Bilirubin 2.6 H (0.2-1.0) mg/dL AST 20 (15-37) U/L ALT 22 (14-59) U/L Alkaline Phosphatase 89 (46-116) U/L Lactate Dehydrogenase (81-234) U/L Troponin I < 0.017 (0.00-0.056) ng/mL NT-Pro-B Natriuret Pep 365 H (0-125) pg/mL Total Protein 7.2 (6.4-8.2) g/dl Albumin 1.8 L (3.4-5.0) g/dl Globulin 5.4 gm/dL Albumin/Globulin Ratio 0.3 L (1-2) Body Fluid Site Fluid Type Fluid Volume ML Fluid Color Fluid Appearance Fluid WBC (0.20-0.60) k/mm*3 Fluid RBC (0.00-0.010) 10*6/uL Fluid Diff Comment Fluid Seg Neutrophils (0-25) % Fluid Lymphocytes (0-78) % Fl Polymorphonucl Cell Fluid Glucose mg/dL Fluid Total Protein gm/dl 09/09/19 09/09/19 09/09/19 Range/Units 16:54 21:45 21:45 WBC (3.98-10.04) K/mm3 RBC (3.98-5.22) M/mm3 Hgb (11.2-15.7) gm/dl Hct (34.1-44.9) % MCV (79.4-94.8) fl MCH (25.6-32.2) pg MCHC (32.2-35.5) g/dl RDW Std Deviation (36.4-46.3) fL Plt Count (182-369) K/mm3 MPV Neutrophils % (Manual) (40-60) % Band Neutrophils % (0-10) % Lymphocytes % (Manual) (20-40) % Atypical Lymphs % % Monocytes % (Manual) (2-10) % Eosinophils % (Manual) (0.7-5.8) % Basophils % (Manual) (0.1-1.2) Platelet Estimate Plt Morphology Comment Hypochromasia RBC Morph Comment PT (9.7-12.0) SECONDS INR Sodium (136-145) mEq/L Potassium (3.5-5.1) mEq/L Chloride (98-107) mEq/L Carbon Dioxide (21-32) mEq/L Anion Gap (5-15) BUN (7-18) mg/dL Creatinine (0.55-1.02) mg/dL Est Cr Clr Drug Dosing mL/min Estimated GFR (MDRD) (>60) mL/min BUN/Creatinine Ratio (14-18) Glucose (74-106) mg/dL Lactic Acid (0.4-2.0) mmol/L Calcium (8.5-10.1) mg/dL Phosphorus 2.7 (2.6-4.7) mg/dL Magnesium 1.4 L (1.8-2.4) mg/dl Total Bilirubin (0.2-1.0) mg/dL AST (15-37) U/L ALT (14-59) U/L Alkaline Phosphatase (46-116) U/L Lactate Dehydrogenase 94 (81-234) U/L Troponin I (0.00-0.056) ng/mL NT-Pro-B Natriuret Pep (0-125) pg/mL Total Protein (6.4-8.2) g/dl Albumin (3.4-5.0) g/dl Globulin gm/dL Albumin/Globulin Ratio (1-2) Body Fluid Site Right chest Fluid Type Pleural fluid Fluid Volume 2000 ML Fluid Color Yellow Fluid Appearance Turbid Fluid WBC 7.83 H (0.20-0.60) k/mm*3 Fluid RBC 0.007 (0.00-0.010) 10*6/uL Fluid Diff Comment Not Reportable Fluid Seg Neutrophils 92.0 H (0-25) % Fluid Lymphocytes 8.0 (0-78) % Fl Polymorphonucl Cell Not Reportable Fluid Glucose mg/dL Fluid Total Protein < 2.0 gm/dl 09/09/19 Range/Units 21:45 WBC (3.98-10.04) K/mm3 RBC (3.98-5.22) M/mm3 Hgb (11.2-15.7) gm/dl Hct (34.1-44.9) % MCV (79.4-94.8) fl MCH (25.6-32.2) pg MCHC (32.2-35.5) g/dl RDW Std Deviation (36.4-46.3) fL Plt Count (182-369) K/mm3 MPV Neutrophils % (Manual) (40-60) % Band Neutrophils % (0-10) % Lymphocytes % (Manual) (20-40) % Atypical Lymphs % % Monocytes % (Manual) (2-10) % Eosinophils % (Manual) (0.7-5.8) % Basophils % (Manual) (0.1-1.2) Platelet Estimate Plt Morphology Comment Hypochromasia RBC Morph Comment PT (9.7-12.0) SECONDS INR Sodium (136-145) mEq/L Potassium (3.5-5.1) mEq/L Chloride (98-107) mEq/L Carbon Dioxide (21-32) mEq/L Anion Gap (5-15) BUN (7-18) mg/dL Creatinine (0.55-1.02) mg/dL Est Cr Clr Drug Dosing mL/min Estimated GFR (MDRD) (>60) mL/min BUN/Creatinine Ratio (14-18) Glucose (74-106) mg/dL Lactic Acid (0.4-2.0) mmol/L Calcium (8.5-10.1) mg/dL Phosphorus (2.6-4.7) mg/dL Magnesium (1.8-2.4) mg/dl Total Bilirubin (0.2-1.0) mg/dL AST (15-37) U/L ALT (14-59) U/L Alkaline Phosphatase (46-116) U/L Lactate Dehydrogenase (81-234) U/L Troponin I (0.00-0.056) ng/mL NT-Pro-B Natriuret Pep (0-125) pg/mL Total Protein (6.4-8.2) g/dl Albumin (3.4-5.0) g/dl Globulin gm/dL Albumin/Globulin Ratio (1-2) Body Fluid Site Fluid Type Pleural fluid Fluid Volume ML Fluid Color Fluid Appearance Fluid WBC (0.20-0.60) k/mm*3 Fluid RBC (0.00-0.010) 10*6/uL Fluid Diff Comment Fluid Seg Neutrophils (0-25) % Fluid Lymphocytes (0-78) % Fl Polymorphonucl Cell Fluid Glucose 137 mg/dL Fluid Total Protein gm/dl Meds: Medications Discontinued Medications Generic Name Dose Route Start Last Admin Trade Name Freq PRN Reason Stop Dose Admin Lactated Ringer's 500 mls @ 500 mls/hr 09/09/19 17:20 Ringers, Lactated IV 09/09/19 18:19 .BOLUS ONE Lactated Ringer's 2,100 mls @ 999 mls/hr 09/09/19 17:59 09/09/19 18:15 Ringers, Lactated IV 09/09/19 20:05 999 mls/hr .BOLUS ONE Administration Levofloxacin/Dextrose 750 mg/ 150 mls @ 100 mls/hr 09/09/19 18:15 09/09/19 19 :23 Premix IV 100 mls/hr Q24H [place] Administration Piperacillin Sod/Tazobactam 100 mls @ 25 mls/hr 09/09/19 18:15 09/09/19 19:12 Sod 4.5 gm/ Sodium Chloride IV Not Given Q8H [place]INA Piperacillin Sod/Tazobactam 100 mls @ 200 mls/hr 09/09/19 18:24 09/09/19 18: 48 Sod 4.5 gm/ Sodium Chloride IV 09/09/19 18:53 200 mls/hr NOW STA Administration Lactated Ringer's 1,000 mls @ 999 mls/hr 09/09/19 19:45 Ringers, Lactated IV ASDIRECTED [place]INA Albumin Human 25 gm in 100 mls @ 100 mls/hr 09/09/19 20:12 09/09/19 20:45 Flexbumin 25% IV 09/09/19 21:11 100 mls/hr ONETIME ONE Administration Albumin Human 25 gm in 100 mls @ 100 mls/hr 09/09/19 20:16 09/09/19 21:00 Flexbumin 25% IV 09/09/19 21:15 100 mls/hr ONETIME ONE Administration Vancomycin HCl 1.25 gm/ Sodium 250 mls @ 250 mls/hr 09/09/19 20:26 Chloride IV 09/09/19 21:25 ONETIME ONE Vancomycin HCl 1 gm/ 250 mls @ 166.667 mls/hr 09/09/19 20:28 09/09/19 20:41 Vancomycin HCl 250 mg/ Sodium IV 09/09/19 21:57 166.667 mls/hr Chloride ONETIME ONE Administration Norepinephrine Bitartrate 4 mg 250 mls @ 7.5 mls/hr 09/09/19 21:00 09/09/19 20:58 / Dextrose/Water IV 2 mcg/min TITRATE [place] 7.5 mls/hr Administration Protocol 2 MCG/MIN Lidocaine HCl Confirm 09/09/19 18:46 Xylocaine 1% Administered 09/09/19 18:47 Dose 10 ml .ROUTE .STK-MED ONE Ondansetron HCl Confirm 09/09/19 20:58 09/09/19 21:23 Zofran Administered 09/09/19 20:59 Not Given Dose 4 mg .ROUTE .STK-MED ONE Ondansetron HCl 4 mg 09/09/19 21:22 09/09/19 21:00 Zofran IVPUSH 09/09/19 21:23 4 mg ONETIME ONE Administration - Re-Assessments/Exams Free Text/Narrative Re-Assessment/Exam: 09/09/19 17:45 Lactic acid reported at 5.3 HR 92,MAP 64 WBC 16k Code sepsis was called Bolus due to ideal body weight 2100mL Started on triple antibiotic coverage with vancomycin, Zosyn and Levaquin 20:45 Bolus infused without changes in MAP Repeat MAP 43-46 Focus sepsis exam performed 21:51 Central line placed Patient started on Norepinephrine Patient was transferred out to [facility] - Departure Time of Disposition: 21:00 Disposition: DC/Tfer to [facility] 02 Clinical Impression: Hospital-acquired bacterial pneumonia, Sepsis, Alcoholic cirrhosis, Chronic kidney disease (CKD), stage III (moderate), Bilateral lower extremity edema Cirrhosis of liver Qualifiers: Hepatic cirrhosis type: unspecified hepatic cirrhosis Ascites presence: with ascites Qualified Code(s): K74.60 - Unspecified cirrhosis of liver - Discharge Information *PRESCRIPTION DRUG MONITORING PROGRAM REVIEWED*: Not Applicable *COPY OF PRESCRIPTION DRUG MONITORING REPORT IN PATIENT HANNAH: Not Applicable Referrals: PCP,None [Primary Care Provider] - Forms: ED Department Discharge Critical Care Note - Critical Care Note Total Time (mins): 180 Comments: Patient initially evaluated for admission. Thoracentesis was performed and fluid was turbulent and bloody for which decision was made to transfer to higher level of care Admission labs drawn and lactic acid reported >5, sepsis protocol was initiated Thoracentesis was performed without any complications After procedure patient's MAP dropped to low 60s Infusion with albumin was started BP continued to drop with MAP 40s for which central line was placed and patient was started on norepinephrine Sepsis Event Note - Evaluation Sepsis Screening Result: Possible Severe Sepsis Risk Current Stage of Sepsis: Septic Shock Possible Source of Sepsis: Pulmonary - Focused Exam Sepsis Event Note Statement: Focused Sepsis Exam Completed Respiratory Effort Without Exertion: Other (see below) (orthopnea, improved when sitting up) Heart Sounds: Other (see below) (Rhuthmic and synchronic with pulse) Capillary Refill, Detail: Less than/Equal to (</=) 2 Seconds Pulse Description: 2+ Normal Peripheral Pulse Location: Carotid Skin Exam (Focused Sepsis): Pale, Diaphoretic Date Exam was Performed: 10/04/19 Time Exam was Performed: 16:46 - Bedside Monitoring CVP Measures: 8-12 Bedside Ultrasound Performed: No Fluid Bolus Goal: 2100 Passive Leg Raise/Fluid Bolus: Positive, Not Fluid Responsive Date Bedside Monitoring was Performed: 10/04/19 Time Bedside Monitoring was Performed: 16:47 - Problem List & Annotations (1) Sepsis due to pneumonia SNOMED Code(s): 98829753 Code(s): J18.9 - PNEUMONIA, UNSPECIFIED ORGANISM; A41.9 - SEPSIS, UNSPECIFIED ORGANISM Status: Acute (2) Healthcare associated bacterial pneumonia SNOMED Code(s): 366379458 Code(s): J15.9 - UNSPECIFIED BACTERIAL PNEUMONIA Status: Acute (3) Recurrent pleural effusion on right SNOMED Code(s): 09597016, 53522158 Code(s): J90 - PLEURAL EFFUSION, NOT ELSEWHERE CLASSIFIED Status: Acute (4) Septic shock SNOMED Code(s): 33296350 Code(s): A41.9 - SEPSIS, UNSPECIFIED ORGANISM; R65.21 - SEVERE SEPSIS WITH SEPTIC SHOCK Status: Acute (5) Alcoholic cirrhosis SNOMED Code(s): 284023686 Code(s): K70.30 - ALCOHOLIC CIRRHOSIS OF LIVER WITHOUT ASCITES Status: Acute (6) Bilateral lower extremity edema SNOMED Code(s): 285619670, 04192449, 638695987 Code(s): R60.0 - LOCALIZED EDEMA Status: Acute (7) Chronic kidney disease (CKD), stage III (moderate) SNOMED Code(s): 514302540 Code(s): N18.3 - CHRONIC KIDNEY DISEASE, STAGE 3 (MODERATE) Status: Acute (8) Cirrhosis of liver SNOMED Code(s): 67832906 Code(s): K74.60 - UNSPECIFIED CIRRHOSIS OF LIVER Status: Acute Qualifiers: Hepatic cirrhosis type: unspecified hepatic cirrhosis Ascites presence: with ascites Qualified Code(s): K74.60 - Unspecified cirrhosis of liver; R18.8 - Other ascites (9) Sepsis SNOMED Code(s): 52739013 Code(s): A41.9 - SEPSIS, UNSPECIFIED ORGANISM Status: Acute (10) Diabetes SNOMED Code(s): 08843087 Code(s): E11.9 - TYPE 2 DIABETES MELLITUS WITHOUT COMPLICATIONS Status: Acute - Problem List Review Problem List Initiated/Reviewed/Updated: Yes Thoracentesis - Thoracentesis Thoracentesis Indication: pleural effusion Location: Right Skin prep: CDC/MBT Guidelines Ultrasound guided: Yes Local anesthesia: lidocaine 1 % Local anesthesia volume: 5cc Number of Attempts: 1 Device Used: 8 Fr kit device Fluid: yellow, cloudy, bloody Aspirated volume (mls): 1,900 Fluids sent: gram stain and culture, cell count, protein, glucose, cytology Chest xray: Yes Complications: No Dressing: adhesive dressing
--- NOTE | 2019-09-10 04:48 | CR ---
Chest: Portable view of the chest was obtained. Comparison: Prior chest x-ray of 09/09/19 (7:37 PM). Heart is enlarged. Pulmonary vessels are slightly increased. No pneumothorax is seen. Mild atelectasis and minimal blunting of the right lateral costophrenic angle is seen compatible with minimal residual pleural effusion. Lungs otherwise are clear. 2 old left upper rib fractures are noted. Impression: 1. Minimal atelectasis within the right lateral costophrenic angle. Very minimal residual pleural effusion is seen within the right lateral costophrenic angle. 2. Stable cardiomegaly and stable pulmonary vascular congestion. 3. No pneumothorax. Diagnostic code #3 This report was dictated in [place] Standard Time
--- NOTE | 2019-09-10 07:14 | CR ---
Chest: Two views of the chest were obtained. Comparison: Prior chest x-ray of 08/29/19. Increased density within the right lung base as an interval change from previous study. Heart is enlarged. Pulmonary vessels may be slightly congested. Bony structures are grossly intact. Impression: 1. Increasing density within the right lung base as an interval change from prior exam. Some of this may represent pleural effusion with other findings possibly due to atelectasis or pneumonia. 2. Slight cardiomegaly and mild pulmonary vascular congestion is noted. Diagnostic code #3 This report was dictated in [place] Standard Time
--- NOTE | 2019-09-10 07:15 | CR ---
Chest: Portable view of the chest was obtained in inspiration and expiration. Comparison: Prior chest x-ray performed earlier on the same day (5 PM). Heart is enlarged. Significantly improved aeration within the right lung base compatible with interval thoracentesis. Minimal atelectasis remains with minimal fluid. Lungs otherwise are clear. Deformity is seen within several left upper ribs compatible with old healed fractures. No pneumothorax is appreciated. Impression: 1. Improved aeration of the right lung base as noted above. No pneumothorax is seen at this time. 2. Cardiomegaly. 3. Other findings believed to be incidental. Diagnostic code #2 This report was dictated in [place] Standard Time
== END 2019-09-09 21:15 ==
LOC: JD.ED 16:21
DX: A41.9 Sepsis, unspecified organism (principal); J18.9 Pneumonia, unspecified organism; I50.9 Heart failure, unspecified; N18.3 Chronic kidney disease, stage 3 (moderate); K70.30 Alcoholic cirrhosis of liver without ascites; J90 Pleural effusion, not elsewhere classified; J45.909 Unspecified asthma, uncomplicated; K21.9 Gastro-esophageal reflux disease without esophagitis; E11.40 Type 2 diabetes mellitus with diabetic neuropathy, unspecified; D64.9 Anemia, unspecified; Z88.5 Allergy status to narcotic agent; Z91.041 Radiographic dye allergy status; Z88.1 Allergy status to other antibiotic agents; Z79.82 Long term (current) use of aspirin; Z79.899 Other long term (current) drug therapy
CPT/HCPCS: 36415; 71045; 71046; 80053; 82945; 83605; 83615; 83735; 83880; 84100; 84157; 84484; 85007; 85027; 85610; 87040; 87070; 87077; 87184; 87205; 89050; 93005; 96361; 96365; 96366; 96367; 96368; 96375; 99291; 99292; C1729; J1956; J2405; J2543; J3370; J7050; J7060; J7120; P9047; 93010; 99285; 99285-25

== ENCOUNTER 2019-11-15 15:17 | Emergency (ER) | payer OTHER ==
[2019-11-15] MEDS ORDERED: Sodium Chloride 0.9% 10 ML Syringe FLUSH PRN (15:47)
--- NOTE | 2019-11-15 16:31 | EDM.PDOC ---
ED HPI GENERAL MEDICAL PROBLEM - General Chief Complaint: Respiratory Problem Stated Complaint: RETAINING FLUID SENT FROM [place] Time Seen by Provider: 11/15/19 15:31 Source of Information: Reports: Patient History Limitations: Reports: No Limitations - History of Present Illness INITIAL COMMENTS - FREE TEXT/NARRATIVE: bren zhao is 49-year-old female who presents the emergency room chief complaints of increased shortness of breath. Patient was seen today by her primary care physician and was sent to the hospital for further evaluation and treatment of her CHF and right pleural effusion. Patient has a complicated history including type 2 diabetes, cirrhosis secondary to alcoholism , CHF, asthma, pleural effusion, GERD, diabetic neuropathy and anemia. She reports that she developed chills today, no fever. She reports increased swelling in her right leg and warm to touch for the past few days. She has a old healing wound on her right lower calf that is dressed. Ports that she "had cyst removed from her right lower leg and has not healed up." She does have a history of reoccurring pleural effusions and has had multiple thoracentesis. She is in no apparent distress at this time. Her saturation is 96% on room air. Onset Date: 10/18/19 Duration: Getting Worse Location: Reports: Chest, Upper Extremity, Right Quality: Reports: Ache Severity: Mild Improves with: Reports: None Worsens with: Reports: Breathing, Movement Associated Symptoms: Reports: Cough, Fever/Chills, Shortness of Breath, Weakness. Denies: Chest Pain, Headaches, Nausea/Vomiting - Related Data Allergies Allergy/AdvReac Type Severity Reaction Status Date / Time codeine Allergy Itching Verified 11/15/19 15:31 Iodinated Contrast Media Allergy Itching Verified 11/15/19 15:31 [Iodinated Contrast- Oral and IV Dye] metronidazole [From Flagyl] Allergy Itching Verified 11/15/19 15:31 Home Meds: Home Meds Cyanocobalamin (Vitamin B12) [Vitamin B12] 1,000 mcg PO DAILY 10/31/18 [History] Esomeprazole Magnesium 40 mg PO DAILY 10/31/18 [History] Furosemide [Lasix] 40 mg PO BID 11/30/18 [History] Sodium Hypochlorite [Hysept] 1 applic TOP DAILY 08/21/19 [History] Zinc Gluconate [Zinc] 50 mg PO DAILY 08/21/19 [History] Cetirizine [ZyrTEC] 10 mg PO DAILY 08/22/19 [History] Ferrous Sulfate 325 mg PO BID 08/22/19 [History] Vit,Joaquín 74/Iron/Folic [ Low Iron Tablet] 1 tab PO DAILY [History] Folic Acid 1 mg PO DAILY #30 tablet 08/30/19 [Rx] Gabapentin [Neurontin] 300 mg PO TID cap 08/30/19 [Rx] Magnesium Oxide 400 mg PO BID #60 tablet 08/30/19 [Rx] Spironolactone [Aldactone] 100 mg PO BID #60 tablet 08/30/19 [Rx] Past Medical History HEENT History: Reports: Cataract Other HEENT History: upper partials Cardiovascular History: Reports: Heart Failure Respiratory History: Reports: Asthma, Other (See Below) Other Respiratory History: pleural effusion Gastrointestinal History: Reports: GERD, Helicobacter Pylori, PUD Genitourinary History: Reports: None [employer] History: Reports: Dysfunctional Uterine Bleeding, Musculoskeletal History: Reports: Back Pain, Chronic, Other (See Below) Other Musculoskeletal History: slipped out of her pickup and scraped her back on the running board and has had backpain ever since. Neurological History: Reports: Neuropathy, Diabetic Psychiatric History: Reports: None Endocrine/Metabolic History: Reports: Diabetes, Type II Other Endocrine/Metabolic History: check your sugars as needed Hematologic History: Reports: Anemia, Blood Transfusion(s) Immunologic History: Reports: None Oncologic (Cancer) History: Reports: None Dermatologic History: Reports: None - Infectious Disease History Infectious Disease History: Reports: None - Past Surgical History HEENT Surgical History: Reports: Cataract Surgery Respiratory Surgical History: Reports: Thoracentesis GI Surgical History: Reports: Cholecystectomy Endocrine Surgical History: Reports: None Social & Family History - Family History Family Medical History: Noncontributory - Tobacco Use Smoking Status *Q: Never Smoker Second Hand Smoke Exposure: No - Caffeine Use Caffeine Use: Reports: Coffee ED ROS GENERAL - Review of Systems Review Of Systems: Comprehensive ROS is negative, except as noted in HPI. Constitutional: Reports: Chills, Weakness, Fatigue. Denies: Fever Respiratory: Reports: Shortness of Breath, Cough Cardiovascular: Reports: Dyspnea on Exertion. Denies: Chest Pain Endocrine: Reports: Fatigue GI/Abdominal: Denies: Constipation, Diarrhea, Nausea, Vomiting Skin: Reports: Erythema (right lower extremity moderate swollen and warm to touch. ), Wound (right lower calf wound delayed healing) Neurological: Reports: No Symptoms Psychiatric: Reports: No Symptoms Hematologic/Lymphatic: Reports: No Symptoms Immunologic: Reports: No Symptoms ED EXAM, GENERAL - Physical Exam Exam: See Below Exam Limited By: No Limitations General Appearance: Alert, WD/WN, No Apparent Distress Throat/Mouth: Normal Inspection, Normal Lips, Normal Teeth, Normal Gums, Normal Oropharynx, Normal Voice, No Airway Compromise Head: Atraumatic, Normocephalic Neck: Normal Inspection, Supple, Non-Tender Respiratory/Chest: No Respiratory Distress, Chest Non-Tender, Decreased Breath Sounds, Other (right lower lobe diminished) Cardiovascular: Normal Peripheral Pulses, Regular Rate, Rhythm, No Gallop, No JVD, No Murmur, No Rub GI/Abdominal: Normal Bowel Sounds, Soft, Non-Tender, No Distention Extremities: Normal Capillary Refill, Pedal Edema, Increased Warmth, Redness. No: Naa's Sign Neurological: Alert, Oriented, Normal Cognition Psychiatric: Normal Affect, Normal Mood Lymphatic: No Adenopathy EKG INTERPRETATION EKG Date: 11/15/19 Time: 16:00 Rhythm: NSR Rate (Beats/Min): 84 [place]: LAD-Left [place] Deviation Course - Vital Signs Last Recorded V/S: Last Vital Signs Temp 98.2 F 11/15/19 15:31 Pulse 82 11/15/19 15:31 Resp 20 11/15/19 15:31 BP 95/43 L 11/15/19 15:31 Pulse Ox 97 11/15/19 15:31 - Orders/Labs/Meds Orders: Active Orders 24 hr Category Date Time Status EKG Documentation Completion [RC] STAT Care 11/15/19 15:47 Active CULTURE BLOOD [BC] Stat Lab 11/15/19 16:25 Received CULTURE BLOOD [BC] Stat Lab 11/15/19 16:45 Received Sodium Chloride 0.9% [Normal Saline] 1,000 ml Med 11/15/19 21:00 Active IV ASDIRECTED Sodium Chloride 0.9% [Saline Flush] Med 11/15/19 15:47 Active 10 ml FLUSH ASDIRECTED PRN Blood Culture x2 Reflex Set [OM.PC] Stat Oth 11/15/19 15:59 Ordered Saline Lock Insert [OM.PC] Routine Oth 11/15/19 15:47 Ordered Medication Orders Sodium Chloride (Normal Saline) 1,000 mls @ 125 mls/hr IV ASDIRECTED [place] Sodium Chloride (Saline Flush) 10 ml FLUSH ASDIRECTED PRN PRN Reason: Keep Vein Open Last Admin: 11/15/19 16:18 Dose: 10 ml Labs: Laboratory Tests 11/15/19 11/15/19 11/15/19 Range/Units 16:09 16:09 16:09 WBC (3.98-10.04) K/mm3 RBC (3.98-5.22) M/mm3 Hgb (11.2-15.7) gm/dl Hct (34.1-44.9) % MCV (79.4-94.8) fl MCH (25.6-32.2) pg MCHC (32.2-35.5) g/dl RDW Std Deviation (36.4-46.3) fL Plt Count (182-369) K/mm3 Neut % (Auto) (34.0-71.1) % Lymph % (Auto) (19.3-51.7) % [place] % (Auto) (4.7-12.5) % Eos % (Auto) (0.7-5.8) Baso % (Auto) (0.1-1.2) % Neut # (Auto) (1.56-6.13) K/mm3 Lymph # (Auto) (1.18-3.74) K/mm3 [place] # (Auto) (0.24-0.36) K/mm3 Eos # (Auto) (0.04-0.36) K/mm3 Baso # (Auto) (0.01-0.08) K/mm3 Manual Slide Review PT 16.2 H (9.7-12.0) SECONDS INR 1.52 Sodium 135 L (136-145) mEq/L Potassium 4.9 (3.5-5.1) mEq/L Chloride 106 (98-107) mEq/L Carbon Dioxide 19 L (21-32) mEq/L Anion Gap 14.9 (5-15) BUN 34 H (7-18) mg/dL Creatinine 1.8 H (0.55-1.02) mg/dL Est Cr Clr Drug Dosing 37.30 mL/min Estimated GFR (MDRD) 30 (>60) mL/min BUN/Creatinine Ratio 18.9 H (14-18) Glucose 114 H (74-106) mg/dL Lactic Acid (0.4-2.0) mmol/L Calcium 7.6 L (8.5-10.1) mg/dL Total Bilirubin 2.4 H (0.2-1.0) mg/dL AST 25 (15-37) U/L ALT 30 (14-59) U/L Alkaline Phosphatase 109 (46-116) U/L Troponin I < 0.017 (0.00-0.056) ng/mL NT-Pro-B Natriuret Pep 377 H (0-125) pg/mL Total Protein 7.0 (6.4-8.2) g/dl Albumin 2.2 L (3.4-5.0) g/dl Globulin 4.8 gm/dL Albumin/Globulin Ratio 0.5 L (1-2) Lipase (73-393) U/L 11/15/19 11/15/19 11/15/19 Range/Units 16:09 16:25 20:30 WBC 20.03 H (3.98-10.04) K/mm3 RBC 3.71 L (3.98-5.22) M/mm3 Hgb 10.5 L D (11.2-15.7) gm/dl Hct 33.7 L (34.1-44.9) % MCV 90.8 D (79.4-94.8) fl MCH 28.3 (25.6-32.2) pg MCHC 31.2 L (32.2-35.5) g/dl RDW Std Deviation 61.9 H (36.4-46.3) fL Plt Count 44 L (182-369) K/mm3 Neut % (Auto) 90.9 H (34.0-71.1) % Lymph % (Auto) 3.5 L (19.3-51.7) % [place] % (Auto) 4.9 (4.7-12.5) % Eos % (Auto) 0.2 L (0.7-5.8) Baso % (Auto) 0.2 (0.1-1.2) % Neut # (Auto) 18.17 H (1.56-6.13) K/mm3 Lymph # (Auto) 0.71 L (1.18-3.74) K/mm3 [place] # (Auto) 0.99 H (0.24-0.36) K/mm3 Eos # (Auto) 0.05 (0.04-0.36) K/mm3 Baso # (Auto) 0.05 (0.01-0.08) K/mm3 Manual Slide Review Abnormal smear PT (9.7-12.0) SECONDS INR Sodium (136-145) mEq/L Potassium (3.5-5.1) mEq/L Chloride (98-107) mEq/L Carbon Dioxide (21-32) mEq/L Anion Gap (5-15) BUN (7-18) mg/dL Creatinine (0.55-1.02) mg/dL Est Cr Clr Drug Dosing mL/min Estimated GFR (MDRD) (>60) mL/min BUN/Creatinine Ratio (14-18) Glucose (74-106) mg/dL Lactic Acid 1.3 (0.4-2.0) mmol/L Calcium (8.5-10.1) mg/dL Total Bilirubin (0.2-1.0) mg/dL AST (15-37) U/L ALT (14-59) U/L Alkaline Phosphatase (46-116) U/L Troponin I (0.00-0.056) ng/mL NT-Pro-B Natriuret Pep (0-125) pg/mL Total Protein (6.4-8.2) g/dl Albumin (3.4-5.0) g/dl Globulin gm/dL Albumin/Globulin Ratio (1-2) Lipase 210 (73-393) U/L Meds: Medications Generic Name Dose Route Start Last Admin Trade Name Freq PRN Reason Stop Dose Admin Sodium Chloride 1,000 mls @ 125 mls/hr 11/15/19 21:00 Normal Saline IV ASDIRECTED [place] Sodium Chloride 10 ml 11/15/19 15:47 11/15/19 16:18 Saline Flush FLUSH 10 ml ASDIRECTED PRN Administration Keep Vein Open Discontinued Medications Generic Name Dose Route Start Last Admin Trade Name Freq PRN Reason Stop Dose Admin Vancomycin HCl 2 gm/ Sodium 250 mls @ 250 mls/hr 11/15/19 18:10 11/15/19 18: 28 Chloride IV 11/15/19 19:09 250 mls/hr ONETIME ONE Administration - Re-Assessments/Exams Free Text/Narrative Re-Assessment/Exam: 11/15/19 16:00 Bren Zhao 49-year-old female who presents to the emergency room with chief complaints of increased shortness of breath. This patient was seen earlier today at her primary care doctor who sent her to the emergency room for further evaluation and treatment. Patient does have a history of recurring pleural effusions. She does have a complicated history of diabetes, cirrhosis secondary to alcohol abuse, CHF, asthma, pleural effusion, GERD, diabetic neuropathy and anemia. In addition she has a delayed healing wound on her right lower leg. Her right lower leg is grossly edematous warm to touch. Therefore I will order blood cultures, lactic acid, CBC to rule out sepsis. Her chest x-ray from the other facility revealed CHF and moderate right pleural effusion. I will discuss the case with Dr. Kareem Conklin she be awaited for right thoracentesis and possible admission for cellulitis and CHF. 11/15/19 1915 WBC 20.03, RBC 3.71, H&H 10.5 and 33.7, platelet count 44, PT 16.2 INR 1.52, sodium 135, potassium 4.9, chloride 106, CO2 19, BUN 34, creatinine 1.8, glucose 114 and BNP 377. I discussed patient with Dr. Becky zurita who refused admission due to patient's platelet count of 44 and that she may need higher level of care. 11/15/19 20:39 I called transfer center at [facility]. I discussed plan of care with patient she is in agreement with transfer. Departure - Departure Time of Disposition: 21:04 Disposition: DC/Tfer to Acute Hospital 02 Condition: Good Clinical Impression: Congenital heart disease in adult, Pleural effusion CHF (congestive heart failure) Qualifiers: Heart failure chronicity: acute - Discharge Information Referrals: PCP,Not In Area [Primary Care Provider] - Forms: ED Department Discharge Sepsis Event Note - Evaluation Sepsis Screening Result: No Definite Risk - Focused Exam Vital Signs: Vital Signs Temp Pulse Resp BP Pulse Ox 11/15/19 15:31 98.2 F 82 20 95/43 L 97 Date Exam was Performed: 05/01/20 Time Exam was Performed: 21:04 - My Orders Last 24 Hours: My Active Orders 11/15/19 15:47 EKG Documentation Completion [RC] STAT Sodium Chloride 0.9% [Saline Flush] 10 ml FLUSH ASDIRECTED PRN Saline Lock Insert [OM.PC] Routine 11/15/19 15:59 Blood Culture x2 Reflex Set [OM.PC] Stat 11/15/19 16:25 CULTURE BLOOD [BC] Stat 11/15/19 16:45 CULTURE BLOOD [BC] Stat 11/15/19 21:00 Sodium Chloride 0.9% [Normal Saline] 1,000 ml IV ASDIRECTED - Assessment/Plan Last 24 Hours: My Active Orders 11/15/19 15:47 EKG Documentation Completion [RC] STAT Sodium Chloride 0.9% [Saline Flush] 10 ml FLUSH ASDIRECTED PRN Saline Lock Insert [OM.PC] Routine 11/15/19 15:59 Blood Culture x2 Reflex Set [OM.PC] Stat 11/15/19 16:25 CULTURE BLOOD [BC] Stat 11/15/19 16:45 CULTURE BLOOD [BC] Stat 11/15/19 21:00 Sodium Chloride 0.9% [Normal Saline] 1,000 ml IV ASDIRECTED
[2019-11-15] MEDS ORDERED: Sodium Chloride 0.9% 1,000 ML IV SCH (21:00)
== END 2019-11-15 21:47 ==
LOC: JD.ED 15:17
DX: I50.9 Heart failure, unspecified (principal); J90 Pleural effusion, not elsewhere classified; Q24.9 Congenital malformation of heart, unspecified; E11.40 Type 2 diabetes mellitus with diabetic neuropathy, unspecified; J45.909 Unspecified asthma, uncomplicated; K21.9 Gastro-esophageal reflux disease without esophagitis; Z90.89 Acquired absence of other organs; Z88.5 Allergy status to narcotic agent; Z91.041 Radiographic dye allergy status; Z88.8 Allergy status to other drugs, medicaments and biological substances; Z79.899 Other long term (current) drug therapy
CPT/HCPCS: 36415; 80053; 83605; 83690; 83880; 84484; 85025; 85610; 87040; 93005; 96361; 96365; 96366; 99285; J3370; J7030; J7050; 87077; 87186; 93010

== ENCOUNTER 2020-03-23 06:37 | Inpatient (IN) | payer OTHER ==
[2020-03-23] MEDS ORDERED: 50% Dextrose in Water 50 ML Syringe IVPUSH PRN (07:09)
--- NOTE | 2020-03-23 08:42 | PCM.HP.2 ---
H&P History of Present Illness - General Date of Service: 03/23/20 Admit Problem/Dx: Admission Diagnosis/Problem Admission Diagnosis/Problem Community acquired pneumonia - History of Present Illness Initial Comments - Free Text/Narative: 49-year-old female with worsening shortness of breath over the last 4 days p resents to the emergency department in [place]. Patient was tachypneic and mildly hypoxic. Chest x-ray revealed right perihilar and right base opacities with cardiomegaly. WBC was 20 and emergency room physician felt she would be better served coming to our facility. I asked for transfer of the patient and she presented at 0642 hours. On arrival she was on 2 L of O2 nasal cannula and her saturations were in the upper 90s. This was removed and her saturations maintained in the mid to upper 90s. At [place] patient was given Levaquin 750 mg IV, but I do not see that blood cultures were obtained. Patient states that she has had shortness of breath, chills without fever, and a productive cough of clear sputum since , 4 days ago. She denies any hematemesis, nausea, vomiting. She is short of breath with minimal exertion and at rest. She has a history of pneumonia and recurrent right-sided pleural effusion. Patient is known to our hospital from previous hospitalizations for her pleural effusion. Patient also states that her daughter approximately 2 months ago from unknown cause. Past medical history includes heart failure, asthma, peptic ulcer disease, c hronic back pain, diabetic neuropathy, diabetes, cirrhosis, hypoalbuminemia, alcoholic liver disease, chronic wound of the right lower extremity iron deficiency anemia, COPD - Related Data Allergies/Adverse Reactions: Allergies Allergy/AdvReac Type Severity Reaction Status Date / Time codeine Allergy Itching Verified 03/23/20 08:53 Iodinated Contrast Media Allergy Itching Verified 03/23/20 08:53 [Iodinated Contrast- Oral and IV Dye] metronidazole [From Flagyl] Allergy Itching Verified 03/23/20 08:53 Home Medications: Home Meds Cyanocobalamin (Vitamin B12) [Vitamin B12] 1,000 mcg PO DAILY 10/31/18 [History] Furosemide [Lasix] 40 mg PO DAILY 11/30/18 [History] Sodium Hypochlorite [Hysept] 1 applic TOP DAILY 08/21/19 [History] Zinc Gluconate [Zinc] 50 mg PO DAILY 08/21/19 [History] Ferrous Sulfate 45 mg PO DAILY 08/22/19 [History] Gabapentin [Neurontin] 300 mg PO TID cap 08/30/19 [Rx] Magnesium Oxide 400 mg PO BID #60 tablet 08/30/19 [Rx] Albuterol/Ipratropium [DuoNeb 3.0-0.5 MG/3 ML] 1 inh NEB QID 03/23/20 [History] Ascorbic Acid [Vitamin C] 500 mg PO DAILY 03/23/20 [History] Montelukast [Singulair] 10 mg PO BEDTIME 03/23/20 [History] Spironolactone [Aldactone] 100 mg PO DAILY 03/23/20 [History] Triamcinolone Acetonide [Triamcinolone Acetonide 0.1% Crm] 1 applic TOP BID 03/23/20 [History] metFORMIN [Glucophage XR] 1,000 mg PO BID 03/23/20 [History] Past Medical History HEENT History: Reports: Cataract Other HEENT History: upper partials Cardiovascular History: Reports: Heart Failure Respiratory History: Reports: Asthma, Other (See Below) Other Respiratory History: pleural effusion Gastrointestinal History: Reports: Cirrhosis, GERD, Helicobacter Pylori, PUD Genitourinary History: Reports: None [employer] 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 Neurological History: Reports: Neuropathy, Diabetic Psychiatric History: Reports: None Endocrine/Metabolic History: Reports: Diabetes, Type II Other Endocrine/Metabolic History: check your sugars as needed Hematologic History: Reports: Anemia, Blood Transfusion(s) Immunologic History: Reports: None Oncologic (Cancer) History: Reports: None Dermatologic History: Reports: None - Infectious Disease History Infectious Disease History: Reports: None - Past Surgical History HEENT Surgical History: Reports: Cataract Surgery Respiratory Surgical History: Reports: Thoracentesis GI Surgical History: Reports: Cholecystectomy Endocrine Surgical History: Reports: None Social & Family History - Family History Family Medical History: Noncontributory - Caffeine Use Caffeine Use: Reports: Coffee H&P Review of Systems - Review of Systems: Review Of Systems: Comprehensive ROS is negative, except as noted in HPI. Exam - Exam Exam: See Below - Vital Signs Vital Signs: Last Vital Signs Temp 97.3 F 03/23/20 06:54 Pulse 102 H 03/23/20 06:54 Resp 32 H 03/23/20 06:54 BP 125/56 L 03/23/20 06:54 Pulse Ox 97 03/23/20 06:54 - Exam Quality Assessment: No: Supplemental Oxygen General: Alert, Oriented, Moderate Distress HEENT: Conjunctiva Clear, Hearing Intact, Mucosa Moist & [place] Lungs: Rhonchi (Wheezing or rhonchi heard bilaterally in the mid and lower lung messina worse on the right.), Wheezing. No: Normal Respiratory Effort (Increased respiratory rate and effort) Cardiovascular: Regular Rhythm, Tachycardia GI/Abdominal Exam: Normal Bowel Sounds, Soft, Non-Tender, No Distention. No: No Organomegaly (Unable to determine secondary to obesity) Extremities: Normal Inspection, Non-Tender, Normal Capillary Refill, Pedal Edema (2+ bilaterally above knees) Peripheral Pulses: 2+: Posterior Tibial (L), Posterior Tibial (R), Dorsalis Pedis (L), Dorsalis Pedis (R) Skin: Warm, Dry, Other (Chronic draining wound on the right calf. Large defect longitudinally on the right medial lower extremity) Neurological: Cranial Nerves Intact Neuro Extensive - Mental Status: Alert, Oriented x3, Normal Mood/Affect, Normal Cognition Psychiatric: Alert, Depressed - Patient Data Lab Results Last 24 hrs: Laboratory Results - last 24 hr 03/23/20 03/23/20 03/23/20 Range/Units 07:35 07:35 07:35 WBC 19.66 H (3.98-10.04) K/mm3 RBC 3.07 L (3.98-5.22) M/mm3 Hgb 8.8 L D (11.2-15.7) gm/dl Hct 28.2 L (34.1-44.9) % MCV 91.9 (79.4-94.8) fl MCH 28.7 (25.6-32.2) pg MCHC 31.2 L (32.2-35.5) g/dl RDW Std Deviation 56.8 H (36.4-46.3) fL Plt Count 67 L (182-369) K/mm3 MPV 11.9 (9.4-12.3) fl Neut % (Auto) 93.9 H (34.0-71.1) % Lymph % (Auto) 1.5 L (19.3-51.7) % [place] % (Auto) 3.9 L (4.7-12.5) % Eos % (Auto) 0 L (0.7-5.8) Baso % (Auto) 0.1 (0.1-1.2) % Neut # (Auto) 18.46 H (1.56-6.13) K/mm3 Lymph # (Auto) 0.30 L (1.18-3.74) K/mm3 [place] # (Auto) 0.77 H (0.24-0.36) K/mm3 Eos # (Auto) 0.00 L (0.04-0.36) K/mm3 Baso # (Auto) 0.01 (0.01-0.08) K/mm3 Manual Slide Review Abnormal smear PT (9.7-11.7) SECONDS INR APTT (22-31) SECONDS D-Dimer, Quantitative 6.15 H (0.19-0.50) mg/L Puncture Site ABG pH (7.35-7.45) ABG pCO2 (35.0-45.0) mmHg ABG pO2 (80.0-100.0) mmHg ABG HCO3 (22.0-26.0) meq/L ABG O2 Saturation (96.0-97.0) % ABG Base Excess (-2-2.0) Luis Manuel Test A-a Gradient mmHg O2 Delivery Device Oxygen Flow Rate Sodium 133 L (136-145) mEq/L Potassium 5.4 H (3.5-5.1) mEq/L Chloride 102 (98-107) mEq/L Carbon Dioxide 17 L (21-32) mEq/L Anion Gap 19.4 H (5-15) BUN 44 H (7-18) mg/dL Creatinine 2.5 H (0.55-1.02) mg/dL Est Cr Clr Drug Dosing TNP Estimated GFR (MDRD) 20 (>60) mL/min BUN/Creatinine Ratio 17.6 (14-18) Glucose 311 H (74-106) mg/dL Calcium 7.7 L (8.5-10.1) mg/dL Magnesium 1.8 (1.8-2.4) mg/dl Ferritin (8-252) ng/ml Total Bilirubin 2.6 H (0.2-1.0) mg/dL AST 13 L (15-37) U/L ALT 12 L (14-59) U/L Alkaline Phosphatase 218 H (46-116) U/L Lactate Dehydrogenase 166 (81-234) U/L NT-Pro-B Natriuret Pep (0-125) pg/mL Total Protein 6.8 (6.4-8.2) g/dl Albumin 1.5 L (3.4-5.0) g/dl Globulin 5.3 gm/dL Albumin/Globulin Ratio 0.3 L (1-2) 03/23/20 03/23/20 03/23/20 Range/Units 07:35 07:35 07:35 WBC (3.98-10.04) K/mm3 RBC (3.98-5.22) M/mm3 Hgb (11.2-15.7) gm/dl Hct (34.1-44.9) % MCV (79.4-94.8) fl MCH (25.6-32.2) pg MCHC (32.2-35.5) g/dl RDW Std Deviation (36.4-46.3) fL Plt Count (182-369) K/mm3 MPV (9.4-12.3) fl Neut % (Auto) (34.0-71.1) % Lymph % (Auto) (19.3-51.7) % [place] % (Auto) (4.7-12.5) % Eos % (Auto) (0.7-5.8) Baso % (Auto) (0.1-1.2) % Neut # (Auto) (1.56-6.13) K/mm3 Lymph # (Auto) (1.18-3.74) K/mm3 [place] # (Auto) (0.24-0.36) K/mm3 Eos # (Auto) (0.04-0.36) K/mm3 Baso # (Auto) (0.01-0.08) K/mm3 Manual Slide Review PT 17.2 H (9.7-11.7) SECONDS INR 1.62 APTT 34 H (22-31) SECONDS D-Dimer, Quantitative (0.19-0.50) mg/L Puncture Site ABG pH (7.35-7.45) ABG pCO2 (35.0-45.0) mmHg ABG pO2 (80.0-100.0) mmHg ABG HCO3 (22.0-26.0) meq/L ABG O2 Saturation (96.0-97.0) % ABG Base Excess (-2-2.0) Luis Manuel Test A-a Gradient mmHg O2 Delivery Device Oxygen Flow Rate Sodium (136-145) mEq/L Potassium (3.5-5.1) mEq/L Chloride (98-107) mEq/L Carbon Dioxide (21-32) mEq/L Anion Gap (5-15) BUN (7-18) mg/dL Creatinine (0.55-1.02) mg/dL Est Cr Clr Drug Dosing Estimated GFR (MDRD) (>60) mL/min BUN/Creatinine Ratio (14-18) Glucose (74-106) mg/dL Calcium (8.5-10.1) mg/dL Magnesium (1.8-2.4) mg/dl Ferritin 106 (8-252) ng/ml Total Bilirubin (0.2-1.0) mg/dL AST (15-37) U/L ALT (14-59) U/L Alkaline Phosphatase (46-116) U/L Lactate Dehydrogenase (81-234) U/L NT-Pro-B Natriuret Pep (0-125) pg/mL Total Protein (6.4-8.2) g/dl Albumin (3.4-5.0) g/dl Globulin gm/dL Albumin/Globulin Ratio (1-2) 03/23/20 03/23/20 Range/Units 07:35 08:07 WBC (3.98-10.04) K/mm3 RBC (3.98-5.22) M/mm3 Hgb (11.2-15.7) gm/dl Hct (34.1-44.9) % MCV (79.4-94.8) fl MCH (25.6-32.2) pg MCHC (32.2-35.5) g/dl RDW Std Deviation (36.4-46.3) fL Plt Count (182-369) K/mm3 MPV (9.4-12.3) fl Neut % (Auto) (34.0-71.1) % Lymph % (Auto) (19.3-51.7) % [place] % (Auto) (4.7-12.5) % Eos % (Auto) (0.7-5.8) Baso % (Auto) (0.1-1.2) % Neut # (Auto) (1.56-6.13) K/mm3 Lymph # (Auto) (1.18-3.74) K/mm3 [place] # (Auto) (0.24-0.36) K/mm3 Eos # (Auto) (0.04-0.36) K/mm3 Baso # (Auto) (0.01-0.08) K/mm3 Manual Slide Review PT (9.7-11.7) SECONDS INR APTT (22-31) SECONDS D-Dimer, Quantitative (0.19-0.50) mg/L Puncture Site Lt radial ABG pH 7.36 (7.35-7.45) ABG pCO2 25.6 L (35.0-45.0) mmHg ABG pO2 89.0 (80.0-100.0) mmHg ABG HCO3 13.9 L (22.0-26.0) meq/L ABG O2 Saturation 96.5 (96.0-97.0) % ABG Base Excess -10.1 L (-2-2.0) Luis Manuel Test Positive A-a Gradient 29 mmHg O2 Delivery Device Room air Oxygen Flow Rate 0.0 Sodium (136-145) mEq/L Potassium (3.5-5.1) mEq/L Chloride (98-107) mEq/L Carbon Dioxide (21-32) mEq/L Anion Gap (5-15) BUN (7-18) mg/dL Creatinine (0.55-1.02) mg/dL Est Cr Clr Drug Dosing Estimated GFR (MDRD) (>60) mL/min BUN/Creatinine Ratio (14-18) Glucose (74-106) mg/dL Calcium (8.5-10.1) mg/dL Magnesium (1.8-2.4) mg/dl Ferritin (8-252) ng/ml Total Bilirubin (0.2-1.0) mg/dL AST (15-37) U/L ALT (14-59) U/L Alkaline Phosphatase (46-116) U/L Lactate Dehydrogenase (81-234) U/L NT-Pro-B Natriuret Pep 1022 H (0-125) pg/mL Total Protein (6.4-8.2) g/dl Albumin (3.4-5.0) g/dl Globulin gm/dL Albumin/Globulin Ratio (1-2) Result Diagrams: 03/23/20 07:35 03/23/20 15:20 Imaging Impressions Last 24 hrs: Chest x-ray at [place] preliminary radiology report, impression: Right perihilar and right base opacities. Cardiomegaly. Chest x-ray, 1 view, on admission, opacity with air-filled structure seen within the right lower chest. Uncertain if this represents diaphragmatic hernia with bowel loops or whether this represents a thick area of atelectasis with lucencies representing air-filled lung in between areas of atelectasis. Central lung markings are slightly increased. Heart is mildly enlarged. EKG INTERPRETATION EKG Date: 03/23/20 Time: 02:26 Rhythm: Other (Sinus tachycardia) Rate (Beats/Min): 101 [place]: Normal P-Wave: Enlarged (Left atrial enlargement) QRS: Other (Narrow QRS, poor R wave progression with diminished anterior chest leads) ST-T: Other QT: Normal Sepsis Event Note - Evaluation Current Stage of Sepsis: Severe Sepsis Possible Source of Sepsis: Pulmonary - Focused Exam Sepsis Event Note Statement: Focused Sepsis Exam Completed Vital Signs: Vital Signs Temp Pulse Resp BP Pulse Ox 03/23/20 06:54 97.3 F 102 H 32 H 125/56 L 97 03/23/20 06:49 107 H 97 Respiratory Effort Without Exertion: Dyspneic, Hyperpnea, Labored, Use Of Acc essory Muscles Heart Sounds: Distant Capillary Refill, Detail: Less than/Equal to (</=) 2 Seconds Pulse Description: 2+ Normal Peripheral Pulse Location: Dorsalis Pedis Skin Exam (Focused Sepsis): Normal Turgor Date Exam was Performed: 03/23/20 Time Exam was Performed: 09:00 - Bedside Monitoring Fluid Bolus Goal: 2L NS over 4 hours Problem List Initiated/Reviewed/Updated: Yes Orders Last 24hrs: Active Orders 24 hr Category Date Time Status Admission Status [Patient Status] [ADT] Routine ADT 03/23/20 06:57 Active Blood Glucose Check, Bedside [RC] QIDACANDBED Care 03/23/20 07:09 Active [place] [employer] Diet [DIET] Diet 03/23/20 Breakfast Active CXR [Chest 1V Frontal] [CR] Stat Exams 03/23/20 08:14 Ordered C-REACTIVE PROTEIN [CHEM] Routine Lab 03/23/20 07:35 Results COMPREHENSIVE METABOLIC PN,CMP [CHEM] Routine Lab 03/23/20 07:35 Results GLYCOSYLATED HEMOGLOBIN,HGBA1C [CHEM] Routine Lab 03/23/20 07:35 Received LACTATE DEHYDROGENASE,LDH [CHEM] Routine Lab 03/23/20 07:35 Results LACTATE SEPSIS W/ REFLEX [CHEM] Stat Lab 03/23/20 08:40 Ordered MAGNESIUM [CHEM] Routine Lab 03/23/20 07:35 Results PROCALCITONIN [REF] Routine Lab 03/23/20 07:35 Received Dextrose 50% in Water Med 03/23/20 07:09 Active 50 ml IVPUSH ASDIRECTED PRN Insulin Lispro [HumaLOG] Med 03/23/20 11:00 Active See Protocol SUBCUT QIDACANDBED Medication Orders Dextrose/Water (Dextrose 50% In Water) 50 ml IVPUSH ASDIRECTED PRN PRN Reason: Hypoglycemia Insulin Human Lispro (Humalog) 0 unit SUBCUT QIDACANDBED [facility]; Protocol Assessment/Plan Comment:: Assessment Severe sepsis without septic shock secondary to right sided pneumonia Respiratory distress with tachypnea, use of accessory muscles, and labored breathing Asthma/COPD exacerbation Anion gap metabolic acidosis with combined respiratory alkalosis Lactic acidosis Acute decompensated heart failure (high-output heart failure secondary to sepsis and cirrhosis worsened by anemia) * Patient has a significant right-sided community-acquired pneumonia * Currently maintaining oxygenation, but significantly reduced PCO2 * Given Levaquin at [place] without blood cultures * WBC 19.7 and C-reactive protein 21.7 * Initial lactic acid 4.0 * Anion gap 19.4 * proBNP 1022 * ABG: pH 7.36, PCO2 25.6, PO2 89, HCO3 13.9 * Tachypnea likely partially secondary to metabolic acidosis, pneumonia, ADHF * High concern for significant pulmonary edema with fluid bolus. Will monitor respiratory status very closely. Plan * Sepsis protocol * Follow lactic acid every 3 hours until less than 2 * 2 L bolus normal saline * Close monitoring of respiratory status. * Concerned that patient may become fatigued secondary to her tachypnea and labored breathing * May need to consider BiPAP for respiratory support * Blood cultures x2 * Rocephin 2 g daily and stop Levaquin. Concerns for blood sugar abnormalities secondary to Levaquin. * Doxycycline 100 mg twice daily * Sputum culture * Procalcitonin * Solu-Medrol 40 mg every 8 * DuoNeb 4 times daily * Albuterol every 2 hours as needed * I-S and flutter valve Cirrhosis with hypoalbuminemia/thrombocytopenia/iron deficiency anemia * Albumin 1.5 * Corrected calcium 9.7 * INR 1.6, PTT 34 * No alcohol intake * D-dimer 6.15, but this appears to be chronically elevated. Last year with no VTE it was above 9. Chronic elevation may be secondary to renal failure, coagulopathy secondary to cirrhosis, sepsis. * Hemoglobin 8.8 * Platelets 67 * No signs of SBP Plan * After fluid bolus give albumin 12.5 g over 30 minutes * IV Lasix 40 mg x 2 (home dose is Lasix 40 mg orally daily) * Spironolactone 100 mg daily, home dose * Monitor albumin, CMP, INR, PTT * Unable to do anticoagulation secondary to thrombocytopenia * Unable to do a CT angiogram secondary to renal failure * After fluid bolus recheck BMP and get CT angiogram if kidney function improves Acute on chronic renal failure * Baseline GFR appears to be in the 30s and 40s from old records * Estimated GFR 20, creatinine 2.5, BUN 44 * Secondary to sepsis, hypovolemia Plan * Fluid bolus * Albumin * Recheck BMP this afternoon Diabetes * On metformin at home * Hemoglobin A1c is 5.3 * Expect increase in blood sugars secondary to steroids and diabetes Plan * Fingerstick blood sugar 4 times daily * Sliding scale insulin * Diabetic diet Hyperkalemia * Corrected sodium 138 * Potassium 5.4 Plan * Follow CMP * Fluid bolus * Lasix * Improve renal function Depression/grief reaction * Patient's daughter at 27 years of age as a couple months ago. Patient still appears to be depressed. Plan * Consult Dr. Luque. PUD * Patient with history of peptic ulcer disease. Plan * GI prophylaxis with Protonix secondary to history of PUD. VTE prophylaxis with SCDs secondary to contraindication to chemoprophylaxis secondary to thrombocytopenia CODE STATUS: Full code Prognosis is poor secondary to multiple medical problems including sepsis, cirrhosis, lung disease, heart failure, diabetes, and pneumonia Disposition: Admit to medical floor - Mortality Measure Prognosis:: Poor
[2020-03-23 08:49] LABS: HEMOGLOBIN A1C 5.3 % (4.50-6.20)
[2020-03-23] MEDS ORDERED: cefTRIAXone 2 GM in Sodium Chloride 0.9% 100 ML IV ONE ×2 (08:54→09:30)
[2020-03-23] MEDS ORDERED: Sodium Chloride 0.9% 10 ML Syringe FLUSH PRN (08:54)
[2020-03-23] MEDS ORDERED: Sodium Chloride 0.9% 500 ML IV ONE ×2 (09:01→13:00)
[2020-03-23] MEDS ORDERED: Furosemide 40 MG/4 ML VIAL IVPUSH ONE (09:04)
[2020-03-23] MEDS ORDERED: Albuterol 0.083% 2.5 MG/3 ML Neb Soln NEB PRN (09:15)
[2020-03-23] MEDS ORDERED: Spironolactone 100 MG Tab PO SCH (09:15)
[2020-03-23] MEDS ORDERED: Enoxaparin 40 MG/0.4 ML Syringe SUBCUT SCH (09:30)
[2020-03-23] MEDS: Albuterol/Ipratropium 3.0-0.5 MG/3 ML Neb Soln NEB SCH ×3 (09:57→21:31)
[2020-03-23] MEDS: Pantoprazole 40 MG Vial IVPUSH SCH ×2 (10:01→20:30)
[2020-03-23] MEDS: Doxycycline 100 MG in Sodium Chloride 0.9% 100 ML IV SCH ×2 (10:47→22:00)
--- NOTE | 2020-03-23 10:56 | CR ---
Chest: Portable view of the chest is obtained. Comparison: Prior chest x-ray of 09/09/19. Findings: Opacity with air filled structure seen within the right lower chest. Uncertain if this represents diaphragmatic hernia with bowel loops or whether this represents thick area of atelectasis with lucencies representing air-filled lung in between areas of atelectasis. Central lung markings are slightly increased. Heart is mildly enlarged. Bony structures are grossly intact with multiple old-appearing left-sided rib fractures. Impression: 1. Finding within the right lung base as described above. 2. Slight increased central lung markings raising the possibility of pulmonary vascular congestion or bronchitis. 3. Mild cardiomegaly. Diagnostic code #3 This report was dictated in MDT
[2020-03-23] MEDS ORDERED: Sodium Chloride 0.9% 1,000 ML IV ONE (10:58)
[2020-03-23] MEDS: methylPREDNISolone Sodium Succinate 40 MG/1 ML SDV IVPUSH SCH ×2 (11:29→18:25)
[2020-03-23] MEDS: Insulin Lispro 100 Units/ML 3 ML Vial SUBCUT SCH ×5 (11:30→23:03)
[2020-03-23] MEDS ORDERED: Magnesium Sulfate/Water 2 GM in Premix Bag 1 BAG IV ONE (12:25)
--- NOTE | 2020-03-23 14:16 | PCM.SN.2 ---
- Free Text/Narrative Note: Sepsis focused exam performed. Vital signs heart rate 102, respiratory rate of 32, Blood pressure 100/75, T 98.1 General: In respiratory distress: Alert and oriented. Cardiopulmonary exam: Heart distant and tachycardic. No murmurs, rubs, or gallops noted. Lungs: Increased respiratory effort with labored breathing and accessory muscle use. Capillary refill less than 2 seconds. Radial pulses bounding. SPO2 97% on room air. Skin color normal.
[2020-03-23] MEDS ORDERED: Albumin 25% 12.5 GM/50 ML BAG IV ONE ×2 (14:30→15:00)
[2020-03-23] MEDS ORDERED: Furosemide 20 MG/2 ML VIAL IVPUSH ONE (15:00)
[2020-03-23] MEDS ORDERED: Lactated Ringers 1,000 ML IV SCH (16:00)
[2020-03-23] MEDS: Gabapentin 300 MG Cap PO SCH ×2 (16:13→20:30)
[2020-03-23] MEDS: Magnesium Oxide 400 MG Tab PO SCH (20:30)
[2020-03-23] MEDS ORDERED: Montelukast 10 MG Tab PO SCH (21:00)
[2020-03-23] MEDS ORDERED: Doxycycline 100 MG in Sodium Chloride 0.9% 100 ML IV SCH (21:00)
[2020-03-23] MEDS ORDERED: Insulin Glarg,Human.Rec.Analog 100 Unit/ML SUBCUT SCH (22:00)
[2020-03-23] MEDS: Lactated Ringers 1,000 ML IV SCH (23:38)
[2020-03-24] MEDS ORDERED: Lactated Ringers 500 ML IV ONE (02:25)
[2020-03-24] MEDS: methylPREDNISolone Sodium Succinate 40 MG/1 ML SDV IVPUSH SCH ×3 (02:38→21:08)
[2020-03-24] MEDS: Albuterol/Ipratropium 3.0-0.5 MG/3 ML Neb Soln NEB SCH ×3 (03:33→14:40)
[2020-03-24] MEDS: Lactated Ringers 1,000 ML IV SCH ×2 (03:48→12:23)
[2020-03-24] MEDS: Insulin Lispro 100 Units/ML 3 ML Vial SUBCUT SCH ×3 (08:24→21:07)
[2020-03-24] MEDS: Magnesium Oxide 400 MG Tab PO SCH (08:27)
[2020-03-24] MEDS: Gabapentin 300 MG Cap PO SCH ×2 (08:27→15:00)
[2020-03-24] MEDS: Pantoprazole 40 MG Vial IVPUSH SCH (08:27)
--- NOTE | 2020-03-24 08:28 | CR ---
Chest: Comparison: Prior chest x-ray of 03/23/20. Thick linear density noted within the right midlung. Lucency is noted inferior to this finding and most likely is due to bowel. Previous study shows slight increase in lung markings which appear improved. Heart is enlarged. Bony structure shows old left-sided rib fractures. Impression: 1. Thick area of atelectasis within the right midlung with lucency being seen inferiorly. Consider noncontrast chest CT to determine whether this is due to atelectasis or diaphragmatic herniation. 2. Cardiomegaly. 3. Slight increased lung markings from previous study. Diagnostic code #3 This report was dictated in MDT
[2020-03-24] MEDS: oxyCODONE 5 MG Tab PO PRN ×2 (08:50→15:00)
[2020-03-24] MEDS ORDERED: Cyanocobalamin (Vitamin B12) 1,000 MCG Tab PO SCH (09:00)
[2020-03-24] MEDS ORDERED: Furosemide 40 MG Tab PO SCH (09:00)
[2020-03-24] MEDS ORDERED: Spironolactone 100 MG Tab PO SCH (09:00)
--- NOTE | 2020-03-24 09:20 | PCM.PN ---
- General Info Date of Service: 03/24/20 Admission Dx/Problem (Free Text): Admission Diagnosis/Problem Admission Diagnosis/Problem Community acquired pneumonia Subjective Update: Patient states that she is slightly better. She tolerated BiPAP overnight. Appetite is decreased. Last bowel movement was yesterday. - Review of Systems General: Reports: Weakness, Fatigue HEENT: Reports: No Symptoms Pulmonary: Reports: Shortness of Breath, Pleuritic Chest Pain, Cough Cardiovascular: Reports: No Symptoms Gastrointestinal: Reports: No Symptoms Skin: Reports: No Symptoms Neurological: Reports: No Symptoms Psychiatric: Reports: No Symptoms - Patient Data Vitals - Most Recent: Last Vital Signs Temp 97.5 F 03/24/20 07:42 Pulse 101 H 03/24/20 07:42 Resp 20 03/24/20 07:42 BP 132/72 03/24/20 07:42 Pulse Ox 95 03/24/20 08:33 Weight - Most Recent: 121.517 kg I&O - Last 24 Hours: Intake & Output 03/23/20 03/24/20 03/24/20 22:59 06:59 14:59 Intake Total 2650 2748 Output Total 400 1400 Balance 2250 1348 Imaging Impressions - Last 24 Hours: Chest x-ray thick area of atelectasis within the right midlung with lucency being seen inferiorly. Consider noncontrast chest CT determine whether this is due to atelectasis or diaphragmatic herniation. Cardiomegaly. Increased lung markings from previous study. CT chest without contrast: 1. Large fluid and air-containing cavity within the right right lung base which causes slight inversion and mass-effect upon the right diaphragm. Large lung abscess is a possibility. 2. Cirrhotic change within the liver with splenomegaly. 3. Small amount of ascites. 4. Other findings believed to be incidental.... Lab Results Last 24 Hours: Laboratory Results - last 24 hr 03/23/20 03/23/20 03/23/20 Range/Units 09:36 11:30 12:35 WBC (3.98-10.04) K/mm3 RBC (3.98-5.22) M/mm3 Hgb (11.2-15.7) gm/dl Hct (34.1-44.9) % MCV (79.4-94.8) fl MCH (25.6-32.2) pg MCHC (32.2-35.5) g/dl RDW Std Deviation (36.4-46.3) fL Plt Count (182-369) K/mm3 MPV (9.4-12.3) fl Neut % (Auto) (34.0-71.1) % Lymph % (Auto) (19.3-51.7) % [place] % (Auto) (4.7-12.5) % Eos % (Auto) (0.7-5.8) Baso % (Auto) (0.1-1.2) % Neut # (Auto) (1.56-6.13) K/mm3 Lymph # (Auto) (1.18-3.74) K/mm3 [place] # (Auto) (0.24-0.36) K/mm3 Eos # (Auto) (0.04-0.36) K/mm3 Baso # (Auto) (0.01-0.08) K/mm3 Manual Slide Review Sodium (136-145) mEq/L Potassium (3.5-5.1) mEq/L Chloride (98-107) mEq/L Carbon Dioxide (21-32) mEq/L Anion Gap (5-15) BUN (7-18) mg/dL Creatinine (0.55-1.02) mg/dL Est Cr Clr Drug Dosing mL/min Estimated GFR (MDRD) (>60) mL/min BUN/Creatinine Ratio (14-18) Glucose (74-106) mg/dL POC Glucose 376 H (70-105) mg/dL Lactic Acid 4.0 H* 3.0 H* (0.4-2.0) mmol/L Calcium (8.5-10.1) mg/dL Magnesium (1.8-2.4) mg/dl Total Bilirubin (0.2-1.0) mg/dL AST (15-37) U/L ALT (14-59) U/L Alkaline Phosphatase (46-116) U/L C-Reactive Protein (<1.0) mg/dL Total Protein (6.4-8.2) g/dl Albumin (3.4-5.0) g/dl Globulin gm/dL Albumin/Globulin Ratio (1-2) Urine Color (Yellow) Urine Appearance (Clear) Urine pH (5.0-8.0) Ur Specific [place] (1.005-1.030) Urine Protein (Negative) Urine Glucose (UA) (Negative) Urine Ketones (Negative) Urine Occult Blood (Negative) Urine Nitrite (Negative) Urine Bilirubin (Negative) Urine Urobilinogen (0.2-1.0) Ur Leukocyte Esterase (Negative) 03/23/20 03/23/20 03/23/20 Range/Units 13:10 15:20 15:20 WBC (3.98-10.04) K/mm3 RBC (3.98-5.22) M/mm3 Hgb (11.2-15.7) gm/dl Hct (34.1-44.9) % MCV (79.4-94.8) fl MCH (25.6-32.2) pg MCHC (32.2-35.5) g/dl RDW Std Deviation (36.4-46.3) fL Plt Count (182-369) K/mm3 MPV (9.4-12.3) fl Neut % (Auto) (34.0-71.1) % Lymph % (Auto) (19.3-51.7) % [place] % (Auto) (4.7-12.5) % Eos % (Auto) (0.7-5.8) Baso % (Auto) (0.1-1.2) % Neut # (Auto) (1.56-6.13) K/mm3 Lymph # (Auto) (1.18-3.74) K/mm3 [place] # (Auto) (0.24-0.36) K/mm3 Eos # (Auto) (0.04-0.36) K/mm3 Baso # (Auto) (0.01-0.08) K/mm3 Manual Slide Review Sodium 134 L (136-145) mEq/L Potassium 4.6 (3.5-5.1) mEq/L Chloride 105 (98-107) mEq/L Carbon Dioxide 17 L (21-32) mEq/L Anion Gap 16.6 H (5-15) BUN 41 H (7-18) mg/dL Creatinine 2.2 H (0.55-1.02) mg/dL Est Cr Clr Drug Dosing 30.52 mL/min Estimated GFR (MDRD) 24 (>60) mL/min BUN/Creatinine Ratio 18.6 H (14-18) Glucose 308 H (74-106) mg/dL POC Glucose (70-105) mg/dL Lactic Acid 2.3 H* (0.4-2.0) mmol/L Calcium 7.6 L (8.5-10.1) mg/dL Magnesium (1.8-2.4) mg/dl Total Bilirubin (0.2-1.0) mg/dL AST (15-37) U/L ALT (14-59) U/L Alkaline Phosphatase (46-116) U/L C-Reactive Protein (<1.0) mg/dL Total Protein (6.4-8.2) g/dl Albumin (3.4-5.0) g/dl Globulin gm/dL Albumin/Globulin Ratio (1-2) Urine Color Yellow (Yellow) Urine Appearance Clear (Clear) Urine pH 6.0 (5.0-8.0) Ur Specific [place] 1.020 (1.005-1.030) Urine Protein Negative (Negative) Urine Glucose (UA) Negative (Negative) Urine Ketones Negative (Negative) Urine Occult Blood Negative (Negative) Urine Nitrite Negative (Negative) Urine Bilirubin Negative (Negative) Urine Urobilinogen 0.2 (0.2-1.0) Ur Leukocyte Esterase Negative (Negative) 03/23/20 03/23/20 03/23/20 Range/Units 17:26 18:14 21:22 WBC (3.98-10.04) K/mm3 RBC (3.98-5.22) M/mm3 Hgb (11.2-15.7) gm/dl Hct (34.1-44.9) % MCV (79.4-94.8) fl MCH (25.6-32.2) pg MCHC (32.2-35.5) g/dl RDW Std Deviation (36.4-46.3) fL Plt Count (182-369) K/mm3 MPV (9.4-12.3) fl Neut % (Auto) (34.0-71.1) % Lymph % (Auto) (19.3-51.7) % [place] % (Auto) (4.7-12.5) % Eos % (Auto) (0.7-5.8) Baso % (Auto) (0.1-1.2) % Neut # (Auto) (1.56-6.13) K/mm3 Lymph # (Auto) (1.18-3.74) K/mm3 [place] # (Auto) (0.24-0.36) K/mm3 Eos # (Auto) (0.04-0.36) K/mm3 Baso # (Auto) (0.01-0.08) K/mm3 Manual Slide Review Sodium (136-145) mEq/L Potassium (3.5-5.1) mEq/L Chloride (98-107) mEq/L Carbon Dioxide (21-32) mEq/L Anion Gap (5-15) BUN (7-18) mg/dL Creatinine (0.55-1.02) mg/dL Est Cr Clr Drug Dosing mL/min Estimated GFR (MDRD) (>60) mL/min BUN/Creatinine Ratio (14-18) Glucose (74-106) mg/dL POC Glucose 288 H (70-105) mg/dL Lactic Acid 2.7 H* 2.8 H* (0.4-2.0) mmol/L Calcium (8.5-10.1) mg/dL Magnesium (1.8-2.4) mg/dl Total Bilirubin (0.2-1.0) mg/dL AST (15-37) U/L ALT (14-59) U/L Alkaline Phosphatase (46-116) U/L C-Reactive Protein (<1.0) mg/dL Total Protein (6.4-8.2) g/dl Albumin (3.4-5.0) g/dl Globulin gm/dL Albumin/Globulin Ratio (1-2) Urine Color (Yellow) Urine Appearance (Clear) Urine pH (5.0-8.0) Ur Specific [place] (1.005-1.030) Urine Protein (Negative) Urine Glucose (UA) (Negative) Urine Ketones (Negative) Urine Occult Blood (Negative) Urine Nitrite (Negative) Urine Bilirubin (Negative) Urine Urobilinogen (0.2-1.0) Ur Leukocyte Esterase (Negative) 03/23/20 03/24/20 03/24/20 Range/Units 21:25 01:10 05:20 WBC 13.72 H (3.98-10.04) K/mm3 RBC 3.09 L (3.98-5.22) M/mm3 Hgb 8.8 L (11.2-15.7) gm/dl Hct 28.0 L (34.1-44.9) % MCV 90.6 (79.4-94.8) fl MCH 28.5 (25.6-32.2) pg MCHC 31.4 L (32.2-35.5) g/dl RDW Std Deviation 56.0 H (36.4-46.3) fL Plt Count 71 L (182-369) K/mm3 MPV 11.6 (9.4-12.3) fl Neut % (Auto) 91.7 H (34.0-71.1) % Lymph % (Auto) 2.8 L (19.3-51.7) % [place] % (Auto) 4.9 (4.7-12.5) % Eos % (Auto) 0 L (0.7-5.8) Baso % (Auto) 0.1 (0.1-1.2) % Neut # (Auto) 12.58 H (1.56-6.13) K/mm3 Lymph # (Auto) 0.39 L (1.18-3.74) K/mm3 [place] # (Auto) 0.67 H (0.24-0.36) K/mm3 Eos # (Auto) 0.00 L (0.04-0.36) K/mm3 Baso # (Auto) 0.01 (0.01-0.08) K/mm3 Manual Slide Review Abnormal smear Sodium (136-145) mEq/L Potassium (3.5-5.1) mEq/L Chloride (98-107) mEq/L Carbon Dioxide (21-32) mEq/L Anion Gap (5-15) BUN (7-18) mg/dL Creatinine (0.55-1.02) mg/dL Est Cr Clr Drug Dosing mL/min Estimated GFR (MDRD) (>60) mL/min BUN/Creatinine Ratio (14-18) Glucose (74-106) mg/dL POC Glucose 333 H (70-105) mg/dL Lactic Acid 3.1 H* (0.4-2.0) mmol/L Calcium (8.5-10.1) mg/dL Magnesium (1.8-2.4) mg/dl Total Bilirubin (0.2-1.0) mg/dL AST (15-37) U/L ALT (14-59) U/L Alkaline Phosphatase (46-116) U/L C-Reactive Protein (<1.0) mg/dL Total Protein (6.4-8.2) g/dl Albumin (3.4-5.0) g/dl Globulin gm/dL Albumin/Globulin Ratio (1-2) Urine Color (Yellow) Urine Appearance (Clear) Urine pH (5.0-8.0) Ur Specific [place] (1.005-1.030) Urine Protein (Negative) Urine Glucose (UA) (Negative) Urine Ketones (Negative) Urine Occult Blood (Negative) Urine Nitrite (Negative) Urine Bilirubin (Negative) Urine Urobilinogen (0.2-1.0) Ur Leukocyte Esterase (Negative) 03/24/20 03/24/20 03/24/20 Range/Units 05:20 05:20 05:27 WBC (3.98-10.04) K/mm3 RBC (3.98-5.22) M/mm3 Hgb (11.2-15.7) gm/dl Hct (34.1-44.9) % MCV (79.4-94.8) fl MCH (25.6-32.2) pg MCHC (32.2-35.5) g/dl RDW Std Deviation (36.4-46.3) fL Plt Count (182-369) K/mm3 MPV (9.4-12.3) fl Neut % (Auto) (34.0-71.1) % Lymph % (Auto) (19.3-51.7) % [place] % (Auto) (4.7-12.5) % Eos % (Auto) (0.7-5.8) Baso % (Auto) (0.1-1.2) % Neut # (Auto) (1.56-6.13) K/mm3 Lymph # (Auto) (1.18-3.74) K/mm3 [place] # (Auto) (0.24-0.36) K/mm3 Eos # (Auto) (0.04-0.36) K/mm3 Baso # (Auto) (0.01-0.08) K/mm3 Manual Slide Review Sodium 135 L (136-145) mEq/L Potassium 4.3 (3.5-5.1) mEq/L Chloride 106 (98-107) mEq/L Carbon Dioxide 19 L (21-32) mEq/L Anion Gap 14.3 (5-15) BUN 42 H (7-18) mg/dL Creatinine 2.0 H (0.55-1.02) mg/dL Est Cr Clr Drug Dosing 33.57 mL/min Estimated GFR (MDRD) 26 (>60) mL/min BUN/Creatinine Ratio 21.0 H (14-18) Glucose 287 H (74-106) mg/dL POC Glucose 296 H (70-105) mg/dL Lactic Acid 2.0 (0.4-2.0) mmol/L Calcium 8.0 L (8.5-10.1) mg/dL Magnesium 1.9 (1.8-2.4) mg/dl Total Bilirubin 1.7 H (0.2-1.0) mg/dL AST 16 (15-37) U/L ALT 13 L (14-59) U/L Alkaline Phosphatase 208 H (46-116) U/L C-Reactive Protein 20.1 H* (<1.0) mg/dL Total Protein 6.9 (6.4-8.2) g/dl Albumin 1.6 L (3.4-5.0) g/dl Globulin 5.3 gm/dL Albumin/Globulin Ratio 0.3 L (1-2) Urine Color (Yellow) Urine Appearance (Clear) Urine pH (5.0-8.0) Ur Specific [place] (1.005-1.030) Urine Protein (Negative) Urine Glucose (UA) (Negative) Urine Ketones (Negative) Urine Occult Blood (Negative) Urine Nitrite (Negative) Urine Bilirubin (Negative) Urine Urobilinogen (0.2-1.0) Ur Leukocyte Esterase (Negative) 03/24/20 Range/Units 08:24 WBC (3.98-10.04) K/mm3 RBC (3.98-5.22) M/mm3 Hgb (11.2-15.7) gm/dl Hct (34.1-44.9) % MCV (79.4-94.8) fl MCH (25.6-32.2) pg MCHC (32.2-35.5) g/dl RDW Std Deviation (36.4-46.3) fL Plt Count (182-369) K/mm3 MPV (9.4-12.3) fl Neut % (Auto) (34.0-71.1) % Lymph % (Auto) (19.3-51.7) % [place] % (Auto) (4.7-12.5) % Eos % (Auto) (0.7-5.8) Baso % (Auto) (0.1-1.2) % Neut # (Auto) (1.56-6.13) K/mm3 Lymph # (Auto) (1.18-3.74) K/mm3 [place] # (Auto) (0.24-0.36) K/mm3 Eos # (Auto) (0.04-0.36) K/mm3 Baso # (Auto) (0.01-0.08) K/mm3 Manual Slide Review Sodium (136-145) mEq/L Potassium (3.5-5.1) mEq/L Chloride (98-107) mEq/L Carbon Dioxide (21-32) mEq/L Anion Gap (5-15) BUN (7-18) mg/dL Creatinine (0.55-1.02) mg/dL Est Cr Clr Drug Dosing mL/min Estimated GFR (MDRD) (>60) mL/min BUN/Creatinine Ratio (14-18) Glucose (74-106) mg/dL POC Glucose (70-105) mg/dL Lactic Acid 2.6 H* (0.4-2.0) mmol/L Calcium (8.5-10.1) mg/dL Magnesium (1.8-2.4) mg/dl Total Bilirubin (0.2-1.0) mg/dL AST (15-37) U/L ALT (14-59) U/L Alkaline Phosphatase (46-116) U/L C-Reactive Protein (<1.0) mg/dL Total Protein (6.4-8.2) g/dl Albumin (3.4-5.0) g/dl Globulin gm/dL Albumin/Globulin Ratio (1-2) Urine Color (Yellow) Urine Appearance (Clear) Urine pH (5.0-8.0) Ur Specific [place] (1.005-1.030) Urine Protein (Negative) Urine Glucose (UA) (Negative) Urine Ketones (Negative) Urine Occult Blood (Negative) Urine Nitrite (Negative) Urine Bilirubin (Negative) Urine Urobilinogen (0.2-1.0) Ur Leukocyte Esterase (Negative) Med Orders - Current: Current Medications Albuterol (Proventil Neb Soln) 2.5 mg NEB Q2H PRN PRN Reason: Dyspnea Albuterol/Ipratropium (Duoneb 3.0-0.5 Mg/3 Ml) 3 ml NEB Q6HRRT [facility] Last Admin: 03/24/20 08:26 Dose: 3 ml Documented by: Cyanocobalamin (Vitamin B12) 1,000 mcg PO DAILY [facility] Last Admin: 03/24/20 08:27 Dose: 1,000 mcg Documented by: Dextrose/Water (Dextrose 50% In Water) 50 ml IVPUSH ASDIRECTED PRN PRN Reason: Hypoglycemia Furosemide (Lasix) 40 mg PO DAILY [facility] Last Admin: 03/24/20 08:27 Dose: 40 mg Documented by: Gabapentin (Neurontin) 300 mg PO TID [facility] Last Admin: 03/24/20 08:27 Dose: 300 mg Documented by: Doxycycline Hyclate 100 mg/ (Sodium Chloride) 100 mls @ 100 mls/hr IV Q12H [facility] Last Admin: 03/23/20 22:00 Dose: 100 mls/hr Documented by: Lactated Ringer's (Ringers, Lactated) 1,000 mls @ 150 mls/hr IV ASDIRECTED [facility] Last Admin: 03/24/20 03:48 Dose: 150 mls/hr Documented by: Insulin Glargine (Lantus) 10 unit SUBCUT DAILY [facility] Last Admin: 03/23/20 23:01 Dose: 10 unit Documented by: Insulin Human Lispro (Humalog) 0 unit SUBCUT QIDACANDBED [facility]; Protocol Last Admin: 03/24/20 08:24 Dose: 6 unit Documented by: Magnesium Oxide (Magnesium Oxide) 400 mg PO BID [facility] Last Admin: 03/24/20 08:27 Dose: 400 mg Documented by: Methylprednisolone Sodium Succinate (Solu-Medrol) 40 mg IVPUSH Q8H [facility] Last Admin: 03/24/20 02:38 Dose: 40 mg Documented by: Montelukast Sodium (Singulair) 10 mg PO BEDTIME [facility] Last Admin: 03/23/20 20:30 Dose: 10 mg Documented by: Non-Formulary Medication (Sodium Hypochlorite [Hysept]) 1 applic TOP DAILY [facility] Oxycodone HCl (Oxycodone) 5 mg PO Q6H PRN PRN Reason: Pain Last Admin: 03/24/20 08:50 Dose: 5 mg Documented by: Pantoprazole Sodium (Protonix Iv) 40 mg IVPUSH Q12H [facility] Last Admin: 03/24/20 08:27 Dose: 40 mg Documented by: Sodium Chloride (Saline Flush) 10 ml FLUSH ASDIRECTED PRN PRN Reason: Keep Vein Open Spironolactone (Aldactone) 100 mg PO DAILY [facility] Last Admin: 03/24/20 08:27 Dose: 100 mg Documented by: Discontinued Medications Enoxaparin Sodium (Lovenox) 40 mg SUBCUT DAILY [facility] Furosemide (Lasix) 40 mg IVPUSH NOW ONE Stop: 03/23/20 09:05 Last Admin: 03/23/20 10:00 Dose: 40 mg Documented by: Furosemide (Lasix) 20 mg IVPUSH ONETIME ONE Stop: 03/23/20 15:01 Last Admin: 03/23/20 15:01 Dose: 20 mg Documented by: Sodium Chloride (Normal Saline) 500 mls @ 500 mls/hr IV .BOLUS ONE Stop: 03/23/20 10:00 Last Admin: 03/23/20 09:57 Dose: 500 mls/hr Documented by: Doxycycline Hyclate 100 mg/ (Sodium Chloride) 100 mls @ 100 mls/hr IV Q12HR [facility] Stop: 03/30/20 21:01 Ceftriaxone Sodium 2 gm/ (Sodium Chloride) 100 mls @ 200 mls/hr IV STAT ONE Stop: 03/23/20 09:59 Last Admin: 03/23/20 09:57 Dose: 200 mls/hr Documented by: Sodium Chloride (Normal Saline) 1,000 mls @ 500 mls/hr IV .BOLUS ONE Stop: 03/23/20 12:57 Last Admin: 03/23/20 13:05 Dose: 500 mls/hr Documented by: Sodium Chloride (Normal Saline) 500 mls @ 500 mls/hr IV .BOLUS ONE Stop: 03/23/20 13:59 Last Admin: 03/23/20 15:02 Dose: Not Given Documented by: Magnesium Sulfate 2 gm/ Premix 50 mls @ 25 mls/hr IV ONETIME ONE Stop: 03/23/20 14:24 Last Admin: 03/23/20 12:56 Dose: 25 mls/hr Documented by: Albumin Human (Flexbumin 25%) 12.5 gm in 50 mls @ 100 mls/hr IV ONETIME ONE Stop: 03/23/20 14:59 Albumin Human (Flexbumin 25%) 12.5 gm in 50 mls @ 100 mls/hr IV ONETIME ONE Stop: 03/23/20 15:29 Last Admin: 03/23/20 14:58 Dose: 100 mls/hr Documented by: Lactated Ringer's (Ringers, Lactated) 1,000 mls @ 130 mls/hr IV ASDIRECTED [facility] Last Admin: 03/23/20 16:13 Dose: 130 mls/hr Documented by: Lactated Ringer's (Ringers, Lactated) 500 mls @ 500 mls/hr IV ONETIME ONE Stop: 03/24/20 03:24 Last Admin: 03/24/20 02:40 Dose: 500 mls/hr Documented by: Insulin Human Lispro (Humalog) 0 unit SUBCUT QIDACANDBED [facility]; Protocol Last Admin: 03/23/20 21:50 Dose: 4 unit Documented by: Spironolactone (Aldactone) 100 mg PO DAILY [facility] Last Admin: 03/23/20 10:00 Dose: 100 mg Documented by: - Exam General: Alert, Oriented, Mild Distress HEENT: Pupils Equal, Mucous Membr. Moist/[place] Neck: Supple Lungs: Wheezing (bilateral). No: Normal Respiratory Effort Cardiovascular: Regular Rhythm, Tachycardia GI/Abdominal Exam: Normal Bowel Sounds, Soft, Non-Tender, No Distention Back Exam: Normal Inspection Extremities: Normal Inspection, Non-Tender, Normal Capillary Refill, Pedal Edema (1-2+ up to knees) Skin: Warm, Dry, Intact Neurological: No New Focal Deficit Psy/Mental Status: Alert, Normal Affect, Normal Mood Sepsis Event Note - Evaluation Sepsis Screening Result: Sepsis Risk - Focused Exam Vital Signs: Vital Signs Temp Pulse Resp BP Pulse Ox Pulse Ox 03/24/20 08:33 95 03/24/20 07:42 97.5 F 101 H 20 132/72 96 03/24/20 03:37 98 03/24/20 02:46 97.9 F 97 24 H 127/68 96 03/23/20 23:07 99.0 F 109 H 24 H 134/63 95 03/23/20 21:34 96 - Problem List & Annotations (1) Hypoalbuminemia SNOMED Code(s): 982864403 Code(s): E88.09 - OTH DISORDERS OF PLASMA-PROTEIN METABOLISM, NEC Status: Acute Current Visit: Yes (2) Edema due to hypoalbuminemia SNOMED Code(s): 144792909 Code(s): R60.9 - EDEMA, UNSPECIFIED; E88.09 - OTH DISORDERS OF PLASMA-PROTEIN METABOLISM, NEC Status: Acute Current Visit: Yes (3) Alcoholic cirrhosis SNOMED Code(s): 903718662 Code(s): K70.30 - ALCOHOLIC CIRRHOSIS OF LIVER WITHOUT ASCITES Status: Acute Current Visit: No (4) CHF (congestive heart failure) SNOMED Code(s): 22568080 Code(s): I50.9 - HEART FAILURE, UNSPECIFIED Status: Acute Current Visit: No Qualifiers: Heart failure chronicity: acute (5) COPD (chronic obstructive pulmonary disease) SNOMED Code(s): 45390807 Code(s): J44.9 - CHRONIC OBSTRUCTIVE PULMONARY DISEASE, UNSPECIFIED Status: Acute Current Visit: No (6) Diabetes SNOMED Code(s): 04445583 Code(s): E11.9 - TYPE 2 DIABETES MELLITUS WITHOUT COMPLICATIONS Status: Acute Current Visit: No (7) Pneumonia SNOMED Code(s): 125579296 Code(s): J18.9 - PNEUMONIA, UNSPECIFIED ORGANISM Status: Acute Current Visit: No Qualifiers: Pneumonia type: due to unspecified organism Laterality: bilateral Lung location: lower lobe of lung Qualified Code(s): J18.9 - Pneumonia, unspecified organism (8) Sepsis SNOMED Code(s): 48583163 Code(s): A41.9 - SEPSIS, UNSPECIFIED ORGANISM Status: Acute Current Visit: No (9) Sepsis due to pneumonia SNOMED Code(s): 68585488 Code(s): J18.9 - PNEUMONIA, UNSPECIFIED ORGANISM; A41.9 - SEPSIS, UNSPECIFIED ORGANISM Status: Acute Current Visit: No - Problem List Review Problem List Initiated/Reviewed/Updated: Yes - My Orders Last 24 Hours: My Active Orders 03/23/20 08:54 CULTURE SPUTUM + SMEAR [RM] Stat Sodium Chloride 0.9% [Saline Flush] 10 ml FLUSH ASDIRECTED PRN Blood Culture x2 Reflex Set [OM.PC] Stat Saline Lock Insert [OM.PC] Stat 03/23/20 08:55 Notify Provider Consults [RC] ASDIRECTED Consult to Physician [CONS] Routine Severe Sepsis Onset Time [OM.PC] Stat 03/23/20 09:00 Pantoprazole [ProTONIX IV] 40 mg IVPUSH Q12H 03/23/20 09:15 Albuterol [Proventil Neb Soln] 2.5 mg NEB Q2H PRN Albuterol/Ipratropium [DuoNeb 3.0-0.5 MG/3 ML] 3 ml NEB Q6HRRT 03/23/20 09:16 RT Aerosol Therapy [RC] ASDIRECTED 03/23/20 09:17 Oxygen Therapy [RC] PRN Up With Assistance [RC] ASDIRECTED VTE/DVT Education [RC] BID Vital Signs [RC] Q4HR Resuscitation Status Routine 03/23/20 09:21 SCD [Sequential Compression Device] [OM.PC] Routine 03/23/20 09:22 Antiembolic Devices [RC] BID 03/23/20 09:36 CULTURE BLOOD [BC] Stat 03/23/20 09:42 CULTURE BLOOD [BC] Stat 03/23/20 10:30 methylPREDNISolone Sod Succ [Solu-MEDROL] 40 mg IVPUSH Q8H 03/23/20 11:00 Doxycycline [Vibramycin] 100 mg Sodium Chloride 0.9% [Normal Saline] 100 ml IV Q12H 03/23/20 12:44 oxyCODONE 5 mg PO Q6H PRN 03/23/20 15:00 Gabapentin [Neurontin] 300 mg PO TID 03/23/20 15:44 RT Incentive Spirometry [RC] ASDIRECTED RT Flutter Valve Therapy [RT Acapella] [RESPCARE] Routine 03/23/20 15:51 Patient Status [ADT] Routine 03/23/20 16:29 BIPAP Adult [RT BiPAP/CPAP] [RC] ASDIRECTED 03/23/20 19:00 Lactated Ringers [Ringers, Lactated] 1,000 ml IV ASDIRECTED 03/23/20 21:00 Magnesium Oxide 400 mg PO BID Montelukast [Singulair] 10 mg PO BEDTIME 03/23/20 22:00 Insulin Glarg,Human.Rec.Analog [LantUS] 10 unit SUBCUT DAILY Insulin Lispro [HumaLOG] See Protocol SUBCUT QIDACANDBED 03/24/20 09:00 Cyanocobalamin (Vitamin B12) [Vitamin B12] 1,000 mcg PO DAILY Furosemide [Lasix] 40 mg PO DAILY Sodium Hypochlorite [Hysept] 1 applic TOP DAILY Spironolactone [Aldactone] 100 mg PO DAILY 03/24/20 09:09 Chest wo Cont [CT] Routine 03/25/20 05:11 C-REACTIVE PROTEIN [CHEM] AM CBC WITH AUTO DIFF [HEME] AM COMPREHENSIVE METABOLIC PN,CMP [CHEM] AM MAGNESIUM [CHEM] AM 03/26/20 05:11 C-REACTIVE PROTEIN [CHEM] AM CBC WITH AUTO DIFF [HEME] AM COMPREHENSIVE METABOLIC PN,CMP [CHEM] AM MAGNESIUM [CHEM] AM - Assessment Assessment:: 03/23/2020 Severe sepsis without septic shock secondary to right sided pneumonia Respiratory distress with tachypnea, use of accessory muscles, and labored breathing Asthma/COPD exacerbation Anion gap metabolic acidosis with combined respiratory alkalosis Lactic acidosis Acute decompensated heart failure (high-output heart failure secondary to sepsis and cirrhosis worsened by anemia) * Patient has a significant right-sided community-acquired pneumonia * Currently maintaining oxygenation, but significantly reduced PCO2 * Given Levaquin at [facility] without blood cultures * WBC 19.7 and C-reactive protein 21.7 * Initial lactic acid 4.0 * Anion gap 19.4 * proBNP 1022 * ABG: pH 7.36, PCO2 25.6, PO2 89, HCO3 13.9 * Tachypnea likely partially secondary to metabolic acidosis, pneumonia, ADHF * High concern for significant pulmonary edema with fluid bolus. Will monitor respiratory status very closely. Cirrhosis with hypoalbuminemia/thrombocytopenia/iron deficiency anemia * Albumin 1.5 * Corrected calcium 9.7 * INR 1.6, PTT 34 * No alcohol intake * D-dimer 6.15, but this appears to be chronically elevated. Last year with no VTE it was above 9. Chronic elevation may be secondary to renal failure, coagulopathy secondary to cirrhosis, sepsis. * Hemoglobin 8.8 * Platelets 67 * No signs of SBP Acute on chronic renal failure * Baseline GFR appears to be in the 30s and 40s from old records * Estimated GFR 20, creatinine 2.5, BUN 44 * Secondary to sepsis, hypovolemia Diabetes * On metformin at home * Hemoglobin A1c is 5.3 * Expect increase in blood sugars secondary to steroids and diabetes Hyperkalemia * Corrected sodium 138 * Potassium 5.4 Depression/grief reaction * Patient's daughter at 27 years of age as a couple months ago. Patient still appears to be depressed. PUD * Patient with history of peptic ulcer disease. 03/24/2020 Overall she is doing much better. She continues to be short of breath, tachypneic, and acidotic but has significant improvement from admission. She still is at significant risk for worsening Vital signs: Blood pressure remained stable, Heart rate in the low 100s, afebrile, 5 kg weight gain, but there is a difference between floor scale and bed scale, respiratory rate down to 20-24 overnight, pulse ox in the mid 90s, Positive fluid balance of 4038 Patient's lactic acid took 24 hours to get to 2.0, but increased to 2.6 3 hours later. Patient is symptomatically better and less tachypneic. White count has decreased to 13.7 and C-reactive protein to 20.1. Anion gap is back to normal at 14 Platelets 71 Bicarb 19, up from 17 Renal function is improving with estimated GFR of 26, creatinine 2.0, and BUN of 42. Chest x-ray consistent with atelectasis, consider diaphragmatic herniation. Recommendation for CT scan. Continues on LR at 150 mL an hour overnight with 1 bolus of 500 mL. This is after getting 2 L of NS for fluid bolus. CT chest shows large air and fluid filled cavity on the right side. This is likely making it difficult to control her infection, lactic acidosis, and respiratory failure. - Plan Plan:: Severe sepsis without septic shock secondary to right sided pneumonia Respiratory distress with tachypnea, use of accessory muscles, and labored breathing Asthma/COPD exacerbation Anion gap metabolic acidosis with combined respiratory alkalosis Lactic acidosis Acute decompensated heart failure (high-output heart failure secondary to sepsis and cirrhosis worsened by anemia) Chronic edema secondary to hypoalbuminemia Right-sided pleural effusion versus abscess Plan * Sepsis protocol * Follow lactic acid every 3 hours until less than 2 * LR 150 mL an hour * Close monitoring of respiratory status. * Continue BiPAP PRN and at night * Blood cultures x2 -pending * Rocephin 2 g daily * Doxycycline 100 mg twice daily * Sputum culture -waiting to be collected * Procalcitonin -tomorrow * Decrease Solu-Medrol 40 mg to every 12 * DuoNeb 4 times daily * Albuterol every 2 hours as needed * I-S and flutter valve * Consult Dr. Sigala in surgery for right sided pleural effusion versus abscess Cirrhosis with hypoalbuminemia/thrombocytopenia/iron deficiency anemia Plan * Lasix 40 mg orally daily) * Spironolactone 100 mg daily, home dose * Monitor albumin, CMP, INR, PTT * Unable to do anticoagulation secondary to thrombocytopenia * Unable to do a CT angiogram secondary to renal failure Acute on chronic renal failure Plan * Continue close monitoring of urine output, renal function Diabetes Plan * Fingerstick blood sugar 4 times daily * Sliding scale insulin * Diabetic diet Hyperkalemia-resolved Plan * Follow CMP Depression/grief reaction * Patient's daughter at 27 years of age as a couple months ago. Patient still appears to be depressed. Plan * Consult Dr. Luque. PUD * Patient with history of peptic ulcer disease. Plan * GI prophylaxis with Protonix secondary to history of PUD. VTE prophylaxis with SCDs secondary to contraindication to chemoprophylaxis secondary to thrombocytopenia CODE STATUS: Full code Prognosis is poor secondary to multiple medical problems including sepsis, cirrhosis, lung disease, heart failure, diabetes, and pneumonia Disposition: Admit to medical floor
[2020-03-24] MEDS: Doxycycline 100 MG in Sodium Chloride 0.9% 100 ML IV SCH (10:51)
[2020-03-24] MEDS ORDERED: Sodium Hypochlorite 0.25% Soln 473 ML TOP SCH (11:00)
--- NOTE | 2020-03-24 12:10 | CT ---
CT chest Technique: Multiple axial sections were obtained from above the lung apices inferiorly through the lung bases. Intravenous contrast was not utilized. Reconstructed coronal and sagittal images were obtained. Findings: Low density abnormality is noted within the inferior right chest. Diaphragm is seen which is below this finding which appears inferiorly displaced. This fluid collection has a craniocaudal dimension of 21.4 cm, transverse dimension of 12.6 cm and AP dimension of 20.9 cm. There is air within this abnormality. Findings could represent large pulmonary abscess. Aorta shows atherosclerotic calcification without aneurysm. Hilar regions show no adenopathy. No pericardial thickening is seen. Small amount of ascites is seen within the upper abdomen. Liver has a cirrhotic appearance. Spleen is enlarged. Inferior to the spleen not completely included on the exam but spleen measures at least 18 cm. Bone window settings were reviewed. Old rib fractures are noted which appear healed. Compression deformity is seen within the mid thoracic spine which is most likely old. Impression: 1. Large fluid and air containing cavity within the right lung base which causes slight inversion and mass-effect upon the right diaphragm. Large lung abscess is a possibility. 2. Cirrhotic change within the liver with splenomegaly. 3. Small amount of ascites. 4. Other findings believed to be incidental as noted above. Diagnostic code #5 This report was dictated in MDT
--- NOTE | 2020-03-24 14:51 | PCM.PRNOTE ---
- Free Text/Narrative Note: Date: 03/24/2020 Procedure: thoracentesis, right Surgeon: Thompson Sigala MD Detailed Report: Consent was obtained. The right lateral chest wall was prepped and draped with the patient sitting upright and right upper extremity held behind the head. 5 cc 1% lidocaine was injected intradermally. The hypodermic needle was not long enough to reach the pleural cavity. A stab incision was made with the 11-blade scalpel, and the pigtail thoracentesis catheter over a long needle was passed into the pleural space at about the fifth intercostal area. Air was then aspirated upon entry. The needle was removed and the catheter advanced. This was hooked to negative pressure, and a del rosario of air and small amount of cloudy pu rulent fluid drained. Nothing else could be aspirated from the chest manually. On suction, the pigtail was removed, and a band-aid dressing applied. The fluid was sent for aerobic and anaerobic culture. A follow up chest x-ray was ordered. The catheter appeared clogged with fibrinopurulent debris.
[2020-03-24] MEDS ORDERED: Piperacillin/Tazobactam 4.5 GM in Sodium Chloride 0.9% 100 ML IV ONE (15:42)
--- NOTE | 2020-03-24 15:50 | PCM.DCSUM1 ---
Discharge Summary - Hospital Course HPI Initial Comments: 49-year-old female with worsening shortness of breath over the last 4 days presents to the emergency department in [place]. Patient was tachypneic and mildly hypoxic. Chest x-ray revealed right perihilar and right base opacities with cardiomegaly. WBC was 20 and emergency room physician felt she would be better served coming to our facility. I asked for transfer of the patient and she presented at 0642 hours. On arrival she was on 2 L of O2 nasal cannula and her saturations were in the upper 90s. This was removed and her saturations maintained in the mid to upper 90s. At [place] patient was given Levaquin 750 mg IV, but I do not see that blood cultures were obtained. Patient states that she has had shortness of breath, chills without fever, and a productive cough of clear sputum since , 4 days ago. She denies any hematemesis, nausea, vomiting. She is short of breath with minimal exertion and at rest. She has a history of pneumonia and recurrent right-sided pleural effusion. Patient is known to our hospital from previous hospitalizations for her pleural effusion. Patient also states that her daughter approximately 2 months ago from unknown cause. Past medical history includes heart failure, asthma, peptic ulcer disease, chronic back pain, diabetic neuropathy, diabetes, cirrhosis, hypoalbuminemia, alcoholic liver disease, chronic wound of the right lower extremity iron deficiency anemia, COPD Assessment Severe sepsis without septic shock secondary to right sided pneumonia Respiratory distress with tachypnea, use of accessory muscles, and labored breathing Asthma/COPD exacerbation Anion gap metabolic acidosis with combined respiratory alkalosis Lactic acidosis Acute decompensated heart failure (high-output heart failure secondary to sepsis and cirrhosis worsened by anemia) * Patient has a significant right-sided community-acquired pneumonia * Currently maintaining oxygenation, but significantly reduced PCO2 * Given Levaquin at [place] without blood cultures * WBC 19.7 and C-reactive protein 21.7 * Initial lactic acid 4.0 * Anion gap 19.4 * proBNP 1022 * ABG: pH 7.36, PCO2 25.6, PO2 89, HCO3 13.9 * Tachypnea likely partially secondary to metabolic acidosis, pneumonia, ADHF * High concern for significant pulmonary edema with fluid bolus. Will monitor respiratory status very closely. Plan * Sepsis protocol * Follow lactic acid every 3 hours until less than 2 * 2 L bolus normal saline * Close monitoring of respiratory status. * Concerned that patient may become fatigued secondary to her tachypnea and labored breathing * May need to consider BiPAP for respiratory support * Blood cultures x2 * Rocephin 2 g daily and stop Levaquin. Concerns for blood sugar abnormalities secondary to Levaquin. * Doxycycline 100 mg twice daily * Sputum culture * Procalcitonin * Solu-Medrol 40 mg every 8 * DuoNeb 4 times daily * Albuterol every 2 hours as needed * I-S and flutter valve Cirrhosis with hypoalbuminemia/thrombocytopenia/iron deficiency anemia * Albumin 1.5 * Corrected calcium 9.7 * INR 1.6, PTT 34 * No alcohol intake * D-dimer 6.15, but this appears to be chronically elevated. Last year with no VTE it was above 9. Chronic elevation may be secondary to renal failure, coagulopathy secondary to cirrhosis, sepsis. * Hemoglobin 8.8 * Platelets 67 * No signs of SBP Plan * After fluid bolus give albumin 12.5 g over 30 minutes * IV Lasix 40 mg x 2 (home dose is Lasix 40 mg orally daily) * Spironolactone 100 mg daily, home dose * Monitor albumin, CMP, INR, PTT * Unable to do anticoagulation secondary to thrombocytopenia * Unable to do a CT angiogram secondary to renal failure * After fluid bolus recheck BMP and get CT angiogram if kidney function improves Acute on chronic renal failure * Baseline GFR appears to be in the 30s and 40s from old records * Estimated GFR 20, creatinine 2.5, BUN 44 * Secondary to sepsis, hypovolemia Plan * Fluid bolus * Albumin * Recheck BMP this afternoon Diabetes * On metformin at home * Hemoglobin A1c is 5.3 * Expect increase in blood sugars secondary to steroids and diabetes Plan * Fingerstick blood sugar 4 times daily * Sliding scale insulin * Diabetic diet Hyperkalemia * Corrected sodium 138 * Potassium 5.4 Plan * Follow CMP * Fluid bolus * Lasix * Improve renal function Depression/grief reaction * Patient's daughter at 27 years of age as a couple months ago. Patient still appears to be depressed. Plan * Consult Dr. Luque. PUD * Patient with history of peptic ulcer disease. Plan * GI prophylaxis with Protonix secondary to history of PUD. VTE prophylaxis with SCDs secondary to contraindication to chemoprophylaxis secondary to thrombocytopenia CODE STATUS: Full code Prognosis is poor secondary to multiple medical problems including sepsis, cirrhosis, lung disease, heart failure, diabetes, and pneumonia Disposition: Admit to medical floor Diagnosis: Stroke: No - Discharge Data Discharge Date: 03/24/20 Discharge Disposition: DC/Tfer to Acute Hospital 02 Condition: Fair - Referral to Home Health Primary Care Physician: PCP Not In Area - Discharge Diagnosis/Problem(s) (1) Hypoalbuminemia SNOMED Code(s): 424181539 ICD Code: E88.09 - OTH DISORDERS OF PLASMA-PROTEIN METABOLISM, NEC Status: Acute Current Visit: Yes (2) Edema due to hypoalbuminemia SNOMED Code(s): 405907733 ICD Code: R60.9 - EDEMA, UNSPECIFIED; E88.09 - OTH DISORDERS OF PLASMA- PROTEIN METABOLISM, NEC Status: Acute Current Visit: Yes (3) Alcoholic cirrhosis SNOMED Code(s): 964700609 ICD Code: K70.30 - ALCOHOLIC CIRRHOSIS OF LIVER WITHOUT ASCITES Status: Acute Current Visit: No (4) CHF (congestive heart failure) SNOMED Code(s): 78151097 ICD Code: I50.9 - HEART FAILURE, UNSPECIFIED Status: Acute Current Visit: No Qualifiers: Heart failure chronicity: acute (5) COPD (chronic obstructive pulmonary disease) SNOMED Code(s): 62726866 ICD Code: J44.9 - CHRONIC OBSTRUCTIVE PULMONARY DISEASE, UNSPECIFIED Status: Acute Current Visit: No (6) Diabetes SNOMED Code(s): 28210897 ICD Code: E11.9 - TYPE 2 DIABETES MELLITUS WITHOUT COMPLICATIONS Status: Acute Current Visit: No (7) Pneumonia SNOMED Code(s): 762338446 ICD Code: J18.9 - PNEUMONIA, UNSPECIFIED ORGANISM Status: Acute Current Visit: No Qualifiers: Pneumonia type: due to unspecified organism Laterality: bilateral Lung location: lower lobe of lung Qualified Code(s): J18.9 - Pneumonia, unspecified organism (8) Sepsis SNOMED Code(s): 10738540 ICD Code: A41.9 - SEPSIS, UNSPECIFIED ORGANISM Status: Acute Current Visit: No (9) Sepsis due to pneumonia SNOMED Code(s): 10637078 ICD Code: J18.9 - PNEUMONIA, UNSPECIFIED ORGANISM; A41.9 - SEPSIS, UNSPECIFIED ORGANISM Status: Acute Current Visit: No - Patient Summary/Data Consults: Consultations 03/23/20 08:55 Consult to Physician [CONS] Routine 03/24/20 13:28 Consult to Physician [CONS] Routine Hospital Course: Overnight patient did improve with boluses and maintenance IV fluid. Lactic acid did decrease to 2.0 but increased back up to 2.6. Repeat chest x-ray was performed and suggesting for CT scan by radiologist. CT chest without contrast: 1. Large fluid and air-containing cavity within the right right lung base which causes slight inversion and mass-effect upon the right diaphragm. Large lung abscess is a possibility. 2. Cirrhotic change within the liver with splenomegaly. 3. Small amount of ascites. 4. Other findings believed to be incidental.... Thoracentesis of the right chest was performed by Dr. Sigala. A del rosario of air and small amount of aspirated cloudy purulent fluid drained, but nothing else could be aspirated from the chest manually. On suction the pigtail was removed and a Band-Aid dressing applied. The catheter appeared clogged with fibrinopurulent debris and the fluid was sent for aerobic and anaerobic culture. It was felt the patient would not be best served in our facility and transfer would be appropriate for definitive care. Patient may need cardiothoracic surgery for evaluation and treatment. Both hospitals in [facility] and [facility] were on diversion secondary to having no beds available therefore [facility] in [place] was contacted. Dr. Gates, hospitalist, accepted the patient in transfer. Prior to transfer patient was switched to Zosyn and first dose of Zosyn was given secondary to findings of likely empyema. - Discharge Plan *PRESCRIPTION DRUG MONITORING PROGRAM REVIEWED*: Not Applicable *COPY OF PRESCRIPTION DRUG MONITORING REPORT IN PATIENT HANNAH: Not Applicable Home Medications: Home Meds Cyanocobalamin (Vitamin B12) [Vitamin B12] 1,000 mcg PO DAILY 10/31/18 [History] Furosemide [Lasix] 40 mg PO DAILY 11/30/18 [History] Sodium Hypochlorite [Hysept] 1 applic TOP DAILY 08/21/19 [History] Zinc Gluconate [Zinc] 50 mg PO DAILY 08/21/19 [History] Ferrous Sulfate 45 mg PO DAILY 08/22/19 [History] Gabapentin [Neurontin] 300 mg PO TID cap 08/30/19 [Rx] Magnesium Oxide 400 mg PO BID #60 tablet 08/30/19 [Rx] Albuterol/Ipratropium [DuoNeb 3.0-0.5 MG/3 ML] 1 inh NEB QID 03/23/20 [History] Ascorbic Acid [Vitamin C] 500 mg PO DAILY 03/23/20 [History] Montelukast [Singulair] 10 mg PO BEDTIME 03/23/20 [History] Spironolactone [Aldactone] 100 mg PO DAILY 03/23/20 [History] Triamcinolone Acetonide [Triamcinolone Acetonide 0.1% Crm] 1 applic TOP BID 03/23/20 [History] metFORMIN [Glucophage XR] 1,000 mg PO BID 03/23/20 [History] Oxygen Therapy Mode: Room Air Patient Handouts: Type 2 Diabetes Mellitus, Diagnosis, Adult, Sepsis, Diagnosis, Adult, Heart Failure, Diagnosis, Living With Heart Failure Referrals: Ivett Chan ELECTRICAL INTEGRATOR [Ordering Only Provider] - - Discharge Summary/Plan Comment DC Time >30 min.: Yes Discharge Summary/Plan Comment: Transfer to [facility] in [place]. Accepting physician Dr. Gates. Patient sent by air ambulance. - General Info Date of Service: 03/24/20 Admission Dx/Problem (Free Text: Pneumonia Subjective Update: Patient continues to complain of shortness of breath. Functional Status: Denies: Pain Controlled - Review of Systems General: Reports: Weakness, Fatigue HEENT: Reports: No Symptoms Pulmonary: Reports: Shortness of Breath, Cough, Wheezing Cardiovascular: Reports: Chest Pain, Palpitations Neurological: Reports: No Symptoms - Patient Data Vitals - Most Recent: Last Vital Signs Temp 97.5 F 03/24/20 07:42 Pulse 101 H 03/24/20 07:42 Resp 20 03/24/20 07:42 BP 132/72 03/24/20 07:42 Pulse Ox 95 03/24/20 08:33 Weight - Most Recent: 121.517 kg I&O - Last 24 hours: Intake & Output 03/24/20 03/24/20 03/24/20 06:59 14:59 22:59 Intake Total 2748 300 Output Total 1400 Balance 1348 300 Lab Results - Last 24 hrs: Laboratory Results - last 24 hr 03/23/20 03/23/20 03/23/20 Range/Units 15:20 17:26 18:14 WBC (3.98-10.04) K/mm3 RBC (3.98-5.22) M/mm3 Hgb (11.2-15.7) gm/dl Hct (34.1-44.9) % MCV (79.4-94.8) fl MCH (25.6-32.2) pg MCHC (32.2-35.5) g/dl RDW Std Deviation (36.4-46.3) fL Plt Count (182-369) K/mm3 MPV (9.4-12.3) fl Neut % (Auto) (34.0-71.1) % Lymph % (Auto) (19.3-51.7) % Tate % (Auto) (4.7-12.5) % Eos % (Auto) (0.7-5.8) Baso % (Auto) (0.1-1.2) % Neut # (Auto) (1.56-6.13) K/mm3 Lymph # (Auto) (1.18-3.74) K/mm3 Tate # (Auto) (0.24-0.36) K/mm3 Eos # (Auto) (0.04-0.36) K/mm3 Baso # (Auto) (0.01-0.08) K/mm3 Manual Slide Review Sodium (136-145) mEq/L Potassium (3.5-5.1) mEq/L Chloride (98-107) mEq/L Carbon Dioxide (21-32) mEq/L Anion Gap (5-15) BUN (7-18) mg/dL Creatinine (0.55-1.02) mg/dL Est Cr Clr Drug Dosing mL/min Estimated GFR (MDRD) (>60) mL/min BUN/Creatinine Ratio (14-18) Glucose (74-106) mg/dL POC Glucose 288 H (70-105) mg/dL Lactic Acid 2.3 H* 2.7 H* (0.4-2.0) mmol/L Calcium (8.5-10.1) mg/dL Magnesium (1.8-2.4) mg/dl Total Bilirubin (0.2-1.0) mg/dL AST (15-37) U/L ALT (14-59) U/L Alkaline Phosphatase (46-116) U/L C-Reactive Protein (<1.0) mg/dL Total Protein (6.4-8.2) g/dl Albumin (3.4-5.0) g/dl Globulin gm/dL Albumin/Globulin Ratio (1-2) 03/23/20 03/23/20 03/24/20 Range/Units 21:22 21:25 01:10 WBC (3.98-10.04) K/mm3 RBC (3.98-5.22) M/mm3 Hgb (11.2-15.7) gm/dl Hct (34.1-44.9) % MCV (79.4-94.8) fl MCH (25.6-32.2) pg MCHC (32.2-35.5) g/dl RDW Std Deviation (36.4-46.3) fL Plt Count (182-369) K/mm3 MPV (9.4-12.3) fl Neut % (Auto) (34.0-71.1) % Lymph % (Auto) (19.3-51.7) % Tate % (Auto) (4.7-12.5) % Eos % (Auto) (0.7-5.8) Baso % (Auto) (0.1-1.2) % Neut # (Auto) (1.56-6.13) K/mm3 Lymph # (Auto) (1.18-3.74) K/mm3 Tate # (Auto) (0.24-0.36) K/mm3 Eos # (Auto) (0.04-0.36) K/mm3 Baso # (Auto) (0.01-0.08) K/mm3 Manual Slide Review Sodium (136-145) mEq/L Potassium (3.5-5.1) mEq/L Chloride (98-107) mEq/L Carbon Dioxide (21-32) mEq/L Anion Gap (5-15) BUN (7-18) mg/dL Creatinine (0.55-1.02) mg/dL Est Cr Clr Drug Dosing mL/min Estimated GFR (MDRD) (>60) mL/min BUN/Creatinine Ratio (14-18) Glucose (74-106) mg/dL POC Glucose 333 H (70-105) mg/dL Lactic Acid 2.8 H* 3.1 H* (0.4-2.0) mmol/L Calcium (8.5-10.1) mg/dL Magnesium (1.8-2.4) mg/dl Total Bilirubin (0.2-1.0) mg/dL AST (15-37) U/L ALT (14-59) U/L Alkaline Phosphatase (46-116) U/L C-Reactive Protein (<1.0) mg/dL Total Protein (6.4-8.2) g/dl Albumin (3.4-5.0) g/dl Globulin gm/dL Albumin/Globulin Ratio (1-2) 03/24/20 03/24/20 03/24/20 Range/Units 05:20 05:20 05:20 WBC 13.72 H (3.98-10.04) K/mm3 RBC 3.09 L (3.98-5.22) M/mm3 Hgb 8.8 L (11.2-15.7) gm/dl Hct 28.0 L (34.1-44.9) % MCV 90.6 (79.4-94.8) fl MCH 28.5 (25.6-32.2) pg MCHC 31.4 L (32.2-35.5) g/dl RDW Std Deviation 56.0 H (36.4-46.3) fL Plt Count 71 L (182-369) K/mm3 MPV 11.6 (9.4-12.3) fl Neut % (Auto) 91.7 H (34.0-71.1) % Lymph % (Auto) 2.8 L (19.3-51.7) % Tate % (Auto) 4.9 (4.7-12.5) % Eos % (Auto) 0 L (0.7-5.8) Baso % (Auto) 0.1 (0.1-1.2) % Neut # (Auto) 12.58 H (1.56-6.13) K/mm3 Lymph # (Auto) 0.39 L (1.18-3.74) K/mm3 Tate # (Auto) 0.67 H (0.24-0.36) K/mm3 Eos # (Auto) 0.00 L (0.04-0.36) K/mm3 Baso # (Auto) 0.01 (0.01-0.08) K/mm3 Manual Slide Review Abnormal smear Sodium 135 L (136-145) mEq/L Potassium 4.3 (3.5-5.1) mEq/L Chloride 106 (98-107) mEq/L Carbon Dioxide 19 L (21-32) mEq/L Anion Gap 14.3 (5-15) BUN 42 H (7-18) mg/dL Creatinine 2.0 H (0.55-1.02) mg/dL Est Cr Clr Drug Dosing 33.57 mL/min Estimated GFR (MDRD) 26 (>60) mL/min BUN/Creatinine Ratio 21.0 H (14-18) Glucose 287 H (74-106) mg/dL POC Glucose (70-105) mg/dL Lactic Acid 2.0 (0.4-2.0) mmol/L Calcium 8.0 L (8.5-10.1) mg/dL Magnesium 1.9 (1.8-2.4) mg/dl Total Bilirubin 1.7 H (0.2-1.0) mg/dL AST 16 (15-37) U/L ALT 13 L (14-59) U/L Alkaline Phosphatase 208 H (46-116) U/L C-Reactive Protein 20.1 H* (<1.0) mg/dL Total Protein 6.9 (6.4-8.2) g/dl Albumin 1.6 L (3.4-5.0) g/dl Globulin 5.3 gm/dL Albumin/Globulin Ratio 0.3 L (1-2) 03/24/20 03/24/20 03/24/20 Range/Units 05:27 08:24 11:50 WBC (3.98-10.04) K/mm3 RBC (3.98-5.22) M/mm3 Hgb (11.2-15.7) gm/dl Hct (34.1-44.9) % MCV (79.4-94.8) fl MCH (25.6-32.2) pg MCHC (32.2-35.5) g/dl RDW Std Deviation (36.4-46.3) fL Plt Count (182-369) K/mm3 MPV (9.4-12.3) fl Neut % (Auto) (34.0-71.1) % Lymph % (Auto) (19.3-51.7) % Tate % (Auto) (4.7-12.5) % Eos % (Auto) (0.7-5.8) Baso % (Auto) (0.1-1.2) % Neut # (Auto) (1.56-6.13) K/mm3 Lymph # (Auto) (1.18-3.74) K/mm3 Tate # (Auto) (0.24-0.36) K/mm3 Eos # (Auto) (0.04-0.36) K/mm3 Baso # (Auto) (0.01-0.08) K/mm3 Manual Slide Review Sodium (136-145) mEq/L Potassium (3.5-5.1) mEq/L Chloride (98-107) mEq/L Carbon Dioxide (21-32) mEq/L Anion Gap (5-15) BUN (7-18) mg/dL Creatinine (0.55-1.02) mg/dL Est Cr Clr Drug Dosing mL/min Estimated GFR (MDRD) (>60) mL/min BUN/Creatinine Ratio (14-18) Glucose (74-106) mg/dL POC Glucose 296 H 328 H (70-105) mg/dL Lactic Acid 2.6 H* (0.4-2.0) mmol/L Calcium (8.5-10.1) mg/dL Magnesium (1.8-2.4) mg/dl Total Bilirubin (0.2-1.0) mg/dL AST (15-37) U/L ALT (14-59) U/L Alkaline Phosphatase (46-116) U/L C-Reactive Protein (<1.0) mg/dL Total Protein (6.4-8.2) g/dl Albumin (3.4-5.0) g/dl Globulin gm/dL Albumin/Globulin Ratio (1-2) 03/24/20 Range/Units 11:56 WBC (3.98-10.04) K/mm3 RBC (3.98-5.22) M/mm3 Hgb (11.2-15.7) gm/dl Hct (34.1-44.9) % MCV (79.4-94.8) fl MCH (25.6-32.2) pg MCHC (32.2-35.5) g/dl RDW Std Deviation (36.4-46.3) fL Plt Count (182-369) K/mm3 MPV (9.4-12.3) fl Neut % (Auto) (34.0-71.1) % Lymph % (Auto) (19.3-51.7) % Tate % (Auto) (4.7-12.5) % Eos % (Auto) (0.7-5.8) Baso % (Auto) (0.1-1.2) % Neut # (Auto) (1.56-6.13) K/mm3 Lymph # (Auto) (1.18-3.74) K/mm3 Tate # (Auto) (0.24-0.36) K/mm3 Eos # (Auto) (0.04-0.36) K/mm3 Baso # (Auto) (0.01-0.08) K/mm3 Manual Slide Review Sodium (136-145) mEq/L Potassium (3.5-5.1) mEq/L Chloride (98-107) mEq/L Carbon Dioxide (21-32) mEq/L Anion Gap (5-15) BUN (7-18) mg/dL Creatinine (0.55-1.02) mg/dL Est Cr Clr Drug Dosing mL/min Estimated GFR (MDRD) (>60) mL/min BUN/Creatinine Ratio (14-18) Glucose (74-106) mg/dL POC Glucose (70-105) mg/dL Lactic Acid 2.5 H* (0.4-2.0) mmol/L Calcium (8.5-10.1) mg/dL Magnesium (1.8-2.4) mg/dl Total Bilirubin (0.2-1.0) mg/dL AST (15-37) U/L ALT (14-59) U/L Alkaline Phosphatase (46-116) U/L C-Reactive Protein (<1.0) mg/dL Total Protein (6.4-8.2) g/dl Albumin (3.4-5.0) g/dl Globulin gm/dL Albumin/Globulin Ratio (1-2) BETINA Results - Last 24 hrs: Microbiology 03/23/20 09:42 Aerobic Blood Culture - Preliminary Blood - Venous - Lab Draw NO GROWTH AFTER 1 DAY Anaerobic Blood Culture - Preliminary NO GROWTH AFTER 1 DAY 03/23/20 09:36 Aerobic Blood Culture - Preliminary Blood - Venous NO GROWTH AFTER 1 DAY Anaerobic Blood Culture - Preliminary NO GROWTH AFTER 1 DAY Med Orders - Current: Current Medications Albuterol (Proventil Neb Soln) 2.5 mg NEB Q2H PRN PRN Reason: Dyspnea Albuterol/Ipratropium (Duoneb 3.0-0.5 Mg/3 Ml) 3 ml NEB Q6HRRT [facility] Last Admin: 03/24/20 14:40 Dose: Not Given Documented by: Cyanocobalamin (Vitamin B12) 1,000 mcg PO DAILY [facility] Last Admin: 03/24/20 08:27 Dose: 1,000 mcg Documented by: Dextrose/Water (Dextrose 50% In Water) 50 ml IVPUSH ASDIRECTED PRN PRN Reason: Hypoglycemia Furosemide (Lasix) 40 mg PO DAILY [facility] Last Admin: 03/24/20 08:27 Dose: 40 mg Documented by: Gabapentin (Neurontin) 300 mg PO TID [facility] Last Admin: 03/24/20 15:00 Dose: 300 mg Documented by: Lactated Ringer's (Ringers, Lactated) 1,000 mls @ 150 mls/hr IV ASDIRECTED [facility] Last Admin: 03/24/20 12:23 Dose: 150 mls/hr Documented by: Piperacillin Sod/Tazobactam (Sod 4.5 gm/ Sodium Chloride) 100 mls @ 200 mls/hr IV ONETIME ONE Stop: 03/24/20 16:11 Piperacillin Sod/Tazobactam (Sod 4.5 gm/ Sodium Chloride) 100 mls @ 25 mls/hr IV Q8H [facility] Insulin Glargine (Lantus) 10 unit SUBCUT DAILY [facility] Last Admin: 03/23/20 23:01 Dose: 10 unit Documented by: Insulin Human Lispro (Humalog) 0 unit SUBCUT QIDACANDBED [facility]; Protocol Last Admin: 03/24/20 11:51 Dose: 8 unit Documented by: Magnesium Oxide (Magnesium Oxide) 400 mg PO BID [facility] Last Admin: 03/24/20 08:27 Dose: 400 mg Documented by: Methylprednisolone Sodium Succinate (Solu-Medrol) 40 mg IVPUSH Q8H [facility] Last Admin: 03/24/20 10:50 Dose: 40 mg Documented by: Montelukast Sodium (Singulair) 10 mg PO BEDTIME [facility] Last Admin: 03/23/20 20:30 Dose: 10 mg Documented by: Oxycodone HCl (Oxycodone) 5 mg PO Q6H PRN PRN Reason: Pain Last Admin: 03/24/20 15:00 Dose: 5 mg Documented by: Pantoprazole Sodium (Protonix) 40 mg PO BID [facility] Sodium Chloride (Saline Flush) 10 ml FLUSH ASDIRECTED PRN PRN Reason: Keep Vein Open Sodium Hypochlorite (Dakin's 1/2 Strength) 0 ml TOP DAILY [place] Spironolactone (Aldactone) 100 mg PO DAILY [facility] Last Admin: 03/24/20 08:27 Dose: 100 mg Documented by: Discontinued Medications Enoxaparin Sodium (Lovenox) 40 mg SUBCUT DAILY [facility] Furosemide (Lasix) 40 mg IVPUSH NOW ONE Stop: 03/23/20 09:05 Last Admin: 03/23/20 10:00 Dose: 40 mg Documented by: Furosemide (Lasix) 20 mg IVPUSH ONETIME ONE Stop: 03/23/20 15:01 Last Admin: 03/23/20 15:01 Dose: 20 mg Documented by: Sodium Chloride (Normal Saline) 500 mls @ 500 mls/hr IV .BOLUS ONE Stop: 03/23/20 10:00 Last Admin: 03/23/20 09:57 Dose: 500 mls/hr Documented by: Doxycycline Hyclate 100 mg/ (Sodium Chloride) 100 mls @ 100 mls/hr IV Q12HR [place] Stop: 03/30/20 21:01 Ceftriaxone Sodium 2 gm/ (Sodium Chloride) 100 mls @ 200 mls/hr IV STAT ONE Stop: 03/23/20 09:59 Last Admin: 03/23/20 09:57 Dose: 200 mls/hr Documented by: Doxycycline Hyclate 100 mg/ (Sodium Chloride) 100 mls @ 100 mls/hr IV Q12H [facility] Last Admin: 03/24/20 10:51 Dose: 100 mls/hr Documented by: Sodium Chloride (Normal Saline) 1,000 mls @ 500 mls/hr IV .BOLUS ONE Stop: 03/23/20 12:57 Last Admin: 03/23/20 13:05 Dose: 500 mls/hr Documented by: Sodium Chloride (Normal Saline) 500 mls @ 500 mls/hr IV .BOLUS ONE Stop: 03/23/20 13:59 Last Admin: 03/23/20 15:02 Dose: Not Given Documented by: Magnesium Sulfate 2 gm/ Premix 50 mls @ 25 mls/hr IV ONETIME ONE Stop: 03/23/20 14:24 Last Admin: 03/23/20 12:56 Dose: 25 mls/hr Documented by: Albumin Human (Flexbumin 25%) 12.5 gm in 50 mls @ 100 mls/hr IV ONETIME ONE Stop: 03/23/20 14:59 Albumin Human (Flexbumin 25%) 12.5 gm in 50 mls @ 100 mls/hr IV ONETIME ONE Stop: 03/23/20 15:29 Last Admin: 03/23/20 14:58 Dose: 100 mls/hr Documented by: Lactated Ringer's (Ringers, Lactated) 1,000 mls @ 130 mls/hr IV ASDIRECTED [facility] Last Admin: 03/23/20 16:13 Dose: 130 mls/hr Documented by: Lactated Ringer's (Ringers, Lactated) 500 mls @ 500 mls/hr IV ONETIME ONE Stop: 03/24/20 03:24 Last Admin: 03/24/20 02:40 Dose: 500 mls/hr Documented by: Insulin Human Lispro (Humalog) 0 unit SUBCUT QIDACANDBED [facility]; Protocol Last Admin: 03/23/20 21:50 Dose: 4 unit Documented by: Pantoprazole Sodium (Protonix Iv) 40 mg IVPUSH Q12H [facility] Last Admin: 03/24/20 08:27 Dose: 40 mg Documented by: Spironolactone (Aldactone) 100 mg PO DAILY [facility] Last Admin: 03/23/20 10:00 Dose: 100 mg Documented by: - Exam General: Reports: Alert, Oriented, Mild Distress HEENT: Reports: Pupils Equal, Mucous Membr. Moist/Joseph Neck: Reports: Supple Lungs: Reports: Normal Respiratory Effort (Increased respiratory effort with use of accessory muscles. Increased respiratory rate), Rhonchi (Right middle and lower lobe), Wheezing Cardiovascular: Reports: Regular Rhythm, Tachycardia GI/Abdominal Exam: Normal Bowel Sounds, Soft, Non-Tender, No Distention Extremities: Normal Inspection, Normal Capillary Refill, Pedal Edema (1-2+) Skin: Reports: Warm, Dry, Intact Psy/Mental Status: Reports: Alert, Normal Affect, Normal Mood Discharge Operative/Procedures - Procedures Performed Chest Tube Indication: pleural effusion
--- NOTE | 2020-03-24 15:50 | CR ---
Chest: Frontal view of the chest was obtained. Comparison: Prior chest CT performed earlier on the same day (11:12 AM) and chest x-ray performed earlier on the same day. Previous fluid and air cavity within the right lung base has decreased in size compatible with interval intervention. Soft tissue air is seen within the right chest wall. Nodular density is noted within the right lung base presumably due to prominent atelectasis. Left lung shows no acute change. Old left-sided rib fractures are noted. Heart is slightly enlarged. Impression: 1. Decreased size of previous cavity within the right lower chest. 2. Other findings as noted above. Diagnostic code #3 This report was dictated in MDT
[2020-03-24] MEDS ORDERED: Calcium Carbonate 500 MG Tab.Chew PO PRN (17:20)
[2020-03-24] MEDS ORDERED: Pantoprazole 40 MG Tab.CR PO SCH (21:00)
[2020-03-24] MEDS ORDERED: Piperacillin/Tazobactam 4.5 GM in Sodium Chloride 0.9% 100 ML IV SCH (22:00)
== END 2020-03-24 18:19 | DRG 871 ==
LOC: JD.MS 06:37 → OBSVTOIN 15:51 → JD.MS 15:51
PROVIDERS: ADMIT Family Medicine; ATTEND Family Medicine
PROC: 0W993ZZ Drainage of Right Pleural Cavity, Percutaneous Approach (ICD-10-PCS; principal; 2020-03-24)
DX: A41.9 Sepsis, unspecified organism (principal); J18.9 Pneumonia, unspecified organism; J44.1 Chronic obstructive pulmonary disease with (acute) exacerbation; E87.3 Alkalosis; E87.1 Hypo-osmolality and hyponatremia; I13.0 Hypertensive heart and chronic kidney disease with heart failure and stage 1 through stage 4 chronic kidney disease, or unspecified chronic kidney disease; N17.9 Acute kidney failure, unspecified; J44.0 Chronic obstructive pulmonary disease with (acute) lower respiratory infection; E87.2 Acidosis; J90 Pleural effusion, not elsewhere classified; G89.29 Other chronic pain; M54.9 Dorsalgia, unspecified; E11.40 Type 2 diabetes mellitus with diabetic neuropathy, unspecified; D69.6 Thrombocytopenia, unspecified; E87.5 Hyperkalemia; K21.9 Gastro-esophageal reflux disease without esophagitis; R65.20 Severe sepsis without septic shock; I50.9 Heart failure, unspecified; N18.9 Chronic kidney disease, unspecified; D50.9 Iron deficiency anemia, unspecified; F32.9 Major depressive disorder, single episode, unspecified; K27.9 Peptic ulcer, site unspecified, unspecified as acute or chronic, without hemorrhage or perforation; K70.30 Alcoholic cirrhosis of liver without ascites; E11.22 Type 2 diabetes mellitus with diabetic chronic kidney disease; Z79.4 Long term (current) use of insulin; Z79.899 Other long term (current) drug therapy; Z88.5 Allergy status to narcotic agent; Z91.041 Radiographic dye allergy status; Z87.11 Personal history of peptic ulcer disease; Z90.49 Acquired absence of other specified parts of digestive tract; Z88.8 Allergy status to other drugs, medicaments and biological substances; Z79.51 Long term (current) use of inhaled steroids; Z98.49 Cataract extraction status, unspecified eye
CPT/HCPCS: 36415; 36600; 71045; 71045-26; 71250; 71250-26; 80048; 80053; 81003; 82728; 82803; 82962; 83036; 83605; 83615; 83735; 83880; 84145; 85025; 85379; 85610; 85730; 86140; 87040; 87070; 87205; 94640; 94660; 94760; 94761; A9270-GY; C9113; J0696; J1815-GY; J1940; J2543; J2920; J3475; J3490; J7030; J7050; J7120; J7620-GY; P9047